=== PATIENT | female | born 1940 | race Two or more races ===

== ENCOUNTER → 2020-05-28 10:24 | Outpatient (BNVA) | payer MEDICARE, OTHER, SELFPAY | PROVIDERS: PCP Internal Medicine; Visit Provider Hospitalist | DX: R91.1 Solitary pulmonary nodule (principal); J44.9 Chronic obstructive pulmonary disease, unspecified | CPT/HCPCS: 99212 ==

== ENCOUNTER 2020-08-31 09:04 | Outpatient (REF) | payer MEDICARE, OTHER, SELFPAY ==
--- NOTE | ~2020-08-31 | CT_ITS ---
EXAMINATION: CT CHEST WITHOUT CONTRAST CLINICAL INFORMATION: Solitary pulmonary nodule. COMPARISON: None. TECHNIQUE: Multidetector volumetric CT imaging of the chest was done. Axial MIP volume rendering provided. Sagittal and coronal reformatted images were obtained. This CT examination was performed using dose optimization techniques as appropriate, variously including the following: *Automated exposure control *Adjustment of mA and/or kV according to patient size (this includes techniques or standardized protocols for targeted exams where dose is matched to indication/reason for exam; i.e. extremities or head) *Use of iterative reconstruction technique DLP: 149 mGy-cm FINDINGS: FLASH RANGING CREWMEMBER: Unremarkable. LUNGS: The lungs are hyperinflated with bilateral apical pleural thickening and right apical scarring. Again visualized are several small pulmonary nodules: Pleural-based 4 mm nodule right upper lobe image 212/5, 5 mm pleural-based nodule right upper lobe image 258/5, forming nodule superior segment right lower lobe adjacent to the major fissure axial image 194/5, 3.5 mm nodule right lower lobe axial image 334/5, 2 mm calcification right lower lobe image 392/5, 5 mm nodule right lower lobe axial image 401/5, focal nodular 4 mm thickening right major fissure image 398/5 and a 4 mm pleural-based nodule left lower lobe axial image 452/5 are stable. MEDIASTINUM: Thyroid lobes are symmetrical and normal. The central trachea and bronchi are widely patent. PLEURA: There is no pleural effusion. No pleural mass or thickening. AXILLA: No lymphadenopathy. UPPER ABDOMEN: Visualized liver, spleen, pancreas and bilateral adrenal glands are unremarkable. No radiopaque gallstones seen. OSSEOUS STRUCTURES: There is mild ventral spondylosis dorsal spine. No lytic process. CT/CT chest wo con IMPRESSION: Hyperinflated lungs without acute pneumonic consolidation. Multiple pulmonary nodules are stable. There are small calcified nodules which is stable as well. No abnormal mediastinal, hilar or axillary lymphadenopathy seen.
== END 2020-08-31 09:05 | disposition home or self-care (01) ==
LOC: HO.CT 09:04
PROVIDERS: PCP Internal Medicine; Visit Provider Hospitalist
DX: R91.1 Solitary pulmonary nodule (principal)
CPT/HCPCS: 71250

== ENCOUNTER → 2020-09-24 09:51 | Outpatient (BNVA) | payer MEDICARE, OTHER, SELFPAY | PROVIDERS: PCP Internal Medicine; Visit Provider Hospitalist | DX: R91.1 Solitary pulmonary nodule (principal); J43.2 Centrilobular emphysema | CPT/HCPCS: 99212 ==

== ENCOUNTER 2020-11-11 10:28 | Outpatient (REF) | payer MEDICARE, OTHER, SELFPAY ==
--- NOTE | ~2020-11-11 | XR_ITS ---
EXAMINATION: XR KNEES STANDING, BILATERAL XR KNEE, RIGHT CLINICAL INFORMATION: Pain. COMPARISON: None TECHNIQUE: AP standing view of both knees. 2 additional views of the right knee. FINDINGS: No fracture or dislocation. Mild narrowing of the tibiofemoral compartments in both knees. No definite effusion. XR/XR knee RT 2V IMPRESSION: Mild degenerative change in the knees.
--- NOTE | ~2020-11-11 | XR_ITS ---
EXAMINATION: XR KNEES STANDING, BILATERAL XR KNEE, RIGHT CLINICAL INFORMATION: Pain. COMPARISON: None TECHNIQUE: AP standing view of both knees. 2 additional views of the right knee. FINDINGS: No fracture or dislocation. Mild narrowing of the tibiofemoral compartments in both knees. No definite effusion. XR/XR knee standing BI IMPRESSION: Mild degenerative change in the knees.
== END 2020-11-11 10:29 | disposition home or self-care (01) ==
LOC: HO.HOSX 10:28
PROVIDERS: Visit Provider Orthopaedic Surgery
DX: M17.10 Unilateral primary osteoarthritis, unspecified knee (principal)
CPT/HCPCS: 20610; 73560; 73565; 99202; J1100

== ENCOUNTER 2020-12-18 20:31 | Emergency (ER) | payer MEDICARE, OTHER, SELFPAY ==
[2020-12-18 20:34] VITALS: BP 134/60; PULSE 59; RESP 18; TEMP 36.7; O2SAT 96; BMI 28.3
--- NOTE | 2020-12-18 21:11 | ED.FALL ---
HPI - Fall General Chief Complaint: Fall Stated Complaint: Fall/Head injury Time Seen by Provider: 12/18/20 21:11 Source: patient Mode of arrival: ambulatory History of Present Illness HPI Narrative: 80-year-old female with history of COPD presents with laceration to mid forehead and denies any use of blood thinners and states that she was out at a restaurant was attempting to locate the toilet paper dispenser that contained of full roller toilet paper became unsteady and struck her head on the edge of the dispenser without loss of consciousness. Patient denies any associated palpitations recent fevers/chills, and denies any urinary pain / burning/frequency. She states her last tetanus was within the past year. Related Data Home Medications Medication Instructions Recorded Confirmed albuterol sulfate mg INHALATION 05/28/20 05/28/20 albuterol sulfate 90 mcg/actuation 2 puff PO Q4H PRN 05/28/20 09/24/20 aerosol inhaler azelaic acid 15 % topical gel TOPICAL BID 05/28/20 05/28/20 citalopram 40 mg tablet 40 mg PO DAILY 05/28/20 09/24/20 flu vac qs 2020(4 yr up)CD(PF) ml IM 05/28/20 09/24/20 nebulizer and compressor #1 ea 05/28/20 09/24/20 omeprazole 40 mg capsule,delayed 40 mg PO DAILY 05/28/20 09/24/20 release rosuvastatin 20 mg tablet 20 mg PO BEDTIME 05/28/20 09/24/20 sulfamethoxazole 800 1 tab PO BID 11/11/20 mg-trimethoprim 160 mg tablet Previous Rx's Medication Instructions Recorded fluticasone fur. 100 mcg-umeclid 1 inh INHALATION DAILY 90 Days #3 06/21/20 62.5 mcg-vilant 25 mcg ea inhalat.powder Allergies Allergy/AdvReac Type Severity Reaction Status Date / Time No Known Allergies Allergy Mild NONE Verified 11/11/20 12:44 Review of Systems Review of Systems: Pertinent positives and negatives as stated in HPI 10 point review of systems is otherwise negative. PMFSH Past Medical History Source: nursing notes reviewed Medical History COPD (chronic obstructive pulmonary disease) COVID-19 Pulmonary nodule Social History Social History Alcohol intake: current Alcohol intake frequency: holidays/special occasions only Patient Tobacco Use Status: Former Tobacco user Years Smoked: 30 years Advance Directives: No Advance Directives Information Provided: Yes Current occupational status: retired Gender identity: female Physical Exam Vital Signs: Vital Signs: Last Vital Signs Temp 98.1 F 12/18/20 20:34 Pulse 59 12/18/20 20:34 Resp 18 12/18/20 20:34 BP 134/60 12/18/20 20:34 Pulse Ox 96 12/18/20 20:34 Body Mass Index 28.3 VITAL SIGNS: Reviewed. GENERAL: Well developed, well nourished, in no acute distress. HEAD: Normocephalic/ 2 cm superficial laceration to mid forehead that is hemostatic EYES: PERRLA, EOMI EARS: Ext canals without abnormality NOSE: Nares patent bilateral OROPHARYNX: no oral lesions noted, posterior pharynx clear NECK: Supple, no adenopathy LUNGS: Normal breath sounds. No adventitious sounds or accessory muscle use. SpO2<96> CARDIOVASCULAR: Regular rate and rhythm without noted murmurs, no JVD or lower extremity edema. ABDOMEN: Soft, non-tender, non-distended with bowel sounds. SKIN: Inspection of the skin reveals no rashes NEUROLOGIC: Alert and oriented x 4. Strength and sensation to light touch were grossly intact x 4. Course Course Course Narrative: This is an 80-year-old female with history and clinical presentation consistent with superficial laceration to mid forehead that is hemostatic. patient had laceration repaired without complication was discharged home in stable condition. Procedures Laceration Laceration 1: Site: face Size (cm): 2 Description: linear Depth: simple, single layer Local Anesthetic: lidocaine 1% Amount of anesthesia used (mL): 2 Pre-repair: wound explored, irrigated extensively and deep structures intact Skin layer closed with: other ( Prolene) Size (cm): 6-0 Number of sutures: 5 Technique: simple, interrupted Discharge Plan Discharge Clinical Impression: Laceration Patient Disposition: Home, Self-Care Instructions: Care For Your Stitches (ED), Laceration (ED) Additional Instructions: 1. Resume all home medications as prescribed. 2. follow-up with your primary care provider in 2-3 days for re-evaluation and further outpatient management. 3. you will need to have your sutures removed in 5 days, this can be done either by a your primary care provider / urgent care /or returning to this emergency room. Return to the ER for any acute worsening of symptoms. Prescriptions: No Action Trelegy Ellipta 100-62.5-25 mcg blister with device 1 inh inhalation DAILY 90 Days Qty: 3 RF: 1 Flucelvax Quad [id number] (PF) 60 mcg (15 mcg x 4)/0.5 mL syringe IM RF: 0 citalopram 40 mg tablet 40 mg PO DAILY RF: 0 azelaic acid 15 % gel topical BID RF: 0 rosuvastatin 20 mg tablet 20 mg PO BEDTIME RF: 0 omeprazole 40 mg capsule,delayed release(DR/EC) 40 mg PO DAILY RF: 0 (DME) [employer]ios Aerosol Delivery System Device See Rx Instructions ea .ROUTE DIRECTED Qty: 1 RF: 0 albuterol sulfate 2.5 mg /3 mL (0.083 %) solution for nebulization inhalation RF: 0 albuterol sulfate 90 mcg/actuation HFA aerosol inhaler 2 puff PO Q4H PRNRF: 0 sulfamethoxazole-trimethoprim 800-160 mg tablet 1 tab PO BID RF: 0 Referrals: Jack León MD [Primary Care Provider] - 2 days
[2020-12-18] MEDS: Lidocaine HCl 1 % MPF 5 ML VIAL INFILTRATI (21:52)
[2020-12-18] MEDS: Acetaminophen 325 MG TABLET 975 MG PO (21:52)
--- NOTE | 2020-12-18 21:58 | PC.NURSE ---
PT UNABLE TO URINATE AT THIS TIME DR. DEE AWARE AND BELIEVES TEST IS NOT NEED AT THIS TIME. PT A+Ox3 NEURO INTACT. PT DENIES FALL LOC, DENIES DIZZYNESS, NAUSEA, OR CHANGE IN VISION.
--- NOTE | 2020-12-18 22:01 | PC.NURSE ---
PT LAC CLEANED AND SUTURED BY DR. DEE. MATERIAL REQUISITIONER WITH ANTIBIOTIC CREAM APPLIED.
== END 2020-12-18 22:01 | disposition home or self-care (01) ==
PROVIDERS: Emergency Provider Student in an Organized Health Care Education/Training Program; PCP Internal Medicine
DX: S01.81XA Laceration without foreign body of other part of head, initial encounter (principal); W22.09XA Striking against other stationary object, initial encounter; J44.9 Chronic obstructive pulmonary disease, unspecified; Y93.E8 Activity, other personal hygiene; Y92.511 Restaurant or cafe as the place of occurrence of the external cause; Y99.9 Unspecified external cause status; Z87.891 Personal history of nicotine dependence
CPT/HCPCS: 12011; 99284

== ENCOUNTER → 2021-07-14 12:56 | Outpatient (BNVA) | payer MEDICARE, OTHER, SELFPAY | PROVIDERS: PCP Internal Medicine; Referring Provider Internal Medicine; Visit Provider Internal Medicine Cardiovascular Disease | DX: I65.23 Occlusion and stenosis of bilateral carotid arteries (principal); E78.5 Hyperlipidemia, unspecified | CPT/HCPCS: 93005; 99212 ==

== ENCOUNTER 2021-07-28 12:56 | Outpatient (REF) | payer MEDICARE, OTHER, SELFPAY ==
--- NOTE | ~2021-07-28 | US_ITS ---
EXAMINATION: US EXTRACRANIAL CAROTID DUPLEX, BILATERAL CLINICAL INFORMATION: This is an 80-year-old female with carotid stenosis. Carotid artery disease. Occlusion and stenosis of bilateral carotid arteries. COMPARISON: Comparison is made to a previous study dated 07/03/2019 which demonstrated bilateral 0-49% internal carotid artery stenoses. TECHNIQUE: Real-time ultrasound and Doppler techniques (integrating B-mode 2-D vascular images, Doppler spectral analysis and color-flow Doppler imaging) were utilized to interrogate the extracranial carotid arteries, the vertebral arteries and proximal subclavian arteries bilaterally. The degree of stenosis is determined by criteria similar to NASCET. FINDINGS: Right Side: 1. There is minimal atherosclerotic plaque seen in the bifurcation/proximal ICA region. 2. The common carotid artery PSV proximally is 126 cm/s and distally 97 cm/s. 3. The proximal internal carotid artery velocities are 75 cm/s systolic and 12 cm/s diastolic. 4. The proximal external carotid artery PSV is 106 cm/s. 5. The vertebral artery shows antegrade flow. 6. The subclavian artery waveforms are normal. Left Side: 1. There is minimal atherosclerotic plaque seen in the bifurcation/proximal ICA region. 2. The common carotid artery PSV proximally is 113 cm/s and distally 105 cm/s. 3. The proximal internal carotid artery velocities are 114 cm/s systolic and 27 cm/s diastolic. 4. The proximal external carotid artery PSV is 119 cm/s. 5. The vertebral artery shows antegrade flow. 6. The subclavian artery waveforms are normal. US/US carotid duplex BI IMPRESSION: 1. RIGHT: Minimal, non-hemodynamically significant stenosis of the proximal right internal carotid artery corresponding to a 0-49% stenosis by velocity criteria. 2. LEFT: Minimal, non-hemodynamically significant stenosis of the proximal left internal carotid artery corresponding to a 0-49% stenosis by velocity criteria. 3. There is no change in the category severity of disease when compared to the previous study dated 07/03/2019 .
== END 2021-07-28 12:57 | disposition home or self-care (01) ==
LOC: HO.HMGCX 12:56
PROVIDERS: Visit Provider Internal Medicine Cardiovascular Disease
DX: I65.23 Occlusion and stenosis of bilateral carotid arteries (principal)
CPT/HCPCS: 93880

== ENCOUNTER 2021-08-23 10:22 | Outpatient (REF) | payer MEDICARE, OTHER, SELFPAY ==
--- NOTE | ~2021-08-23 | CT_ITS ---
EXAMINATION: CT CHEST WITHOUT CONTRAST CLINICAL INFORMATION: Pulmonary nodule COMPARISON: Previous chest CT most recent August 2020 TECHNIQUE: Multidetector volumetric CT imaging of the chest was done. Axial MIP volume rendering provided. Sagittal and coronal reformatted images were obtained. This CT examination was performed using dose optimization techniques as appropriate, variously including the following: *Automated exposure control *Adjustment of mA and/or kV according to patient size (this includes techniques or standardized protocols for targeted exams where dose is matched to indication/reason for exam; i.e. extremities or head) *Use of iterative reconstruction technique DLP: 144 mGy-cm FINDINGS: LUNGS: There is mild biapical pleural and parenchymal scarring. There are mild emphysematous changes. There are new clustered small peribronchial left upper lobe nodules, largest measuring 4 mm axial image 160 series 6. There is interval increase in peripheral right lower lobe nodule measuring 6 mm axial image 339 series 6 compared to 4 mm axial image 4 2 series 5 on previous exam. There is interval increase in 5 mm peripheral or subpleural left lower lobe nodule axial image 380 series 6 compared to 4 mm axial image 452 series 5 previous exam. Otherwise bilateral solid pulmonary nodules are stable. There is a 8 mm groundglass attenuation nodule in the left upper lobe axial image 73 series 6 that is stable. There is a heterogeneous partially groundglass attenuation partially solid 7 mm left upper lobe nodule axial image 93 series 6 that is stable. There is a 7 x 12 mm groundglass attenuation left upper lobe nodule axial image 103 series 6 that is stable and there is a 3 x 7 mm groundglass attenuation right upper lobe nodule axial image 150 series 6 that is stable. There is a 0.6 x 1.3 cm groundglass attenuation area in the right lower lobe axial image 227 series 6 that is increased from 4 x 6 mm axial image 280 series 5 on previous exam. There is scarring or subsegmental atelectasis seen at the left lung base and anterior right upper lobe that is able. MEDIASTINUM: There is coronary artery and aortic valve calcification. There is a trace pericardial effusion. The mediastinum is otherwise normal. PLEURA: There is no pleural effusion. No pleural mass or thickening. There is a small left posterior medial diaphragmatic hernia containing fat. AXILLA: There is evidence of previous surgery to the right breast. No chest wall mass or enlarged axillary lymph nodes are seen. UPPER ABDOMEN: There are gallstones in the gallbladder. OSSEOUS STRUCTURES: There are degenerative changes of the spine. CT/CT chest wo con IMPRESSION: Emphysema. Slight interval increase in groundglass attenuation right lower lobe nodule and solid right and left lower lobe nodules. Otherwise no change from previous exam. Fleischner guidelines were followed.
== END 2021-08-23 10:23 | disposition home or self-care (01) ==
LOC: HO.CT 10:22
PROVIDERS: Visit Provider Hospitalist
DX: R91.1 Solitary pulmonary nodule (principal)
CPT/HCPCS: 71250

== ENCOUNTER 2021-09-08 10:47 | Outpatient (REF) | payer MEDICARE, OTHER, SELFPAY ==
--- NOTE | 2021-09-08 17:32 | PFT_ITS ---
FLOWS: FEV1 75% of predicted at 1.48 L. FVC 75% of predicted at 1.99 L. FEV1 to FVC ratio of 0.75. No bronchodilator response except in small to medium airways. LUNG VOLUMES: Total lung capacity 87% of predicted at 4.48 L. Residual volume 106% of predicted at 2.60 L. Slow vital capacity 69% of predicted at 1.88 L. Expiratory reserve volume 39% of predicted at 0.21 L. Diffusion capacity is moderately decreased, diffusion capacity corrects to being mildly decreased after adjustment for alveolar ventilation. IMPRESSION: No obstructive or restrictive ventilatory defect. No bronchodilator response except in small to medium airways. Decreased expiratory reserve volume suggests extrathoracic restriction, likely secondary to abdominal obesity. Decreased diffusion capacity suggests emphysema. MD CHARITO Saleem/MODL / [id number]
== END 2021-09-08 10:48 | disposition home or self-care (01) ==
LOC: HO.RESP 10:47
PROVIDERS: PCP Internal Medicine; Visit Provider Hospitalist
DX: R91.1 Solitary pulmonary nodule (principal)
CPT/HCPCS: 94060; 94727; 94729

== ENCOUNTER 2021-09-18 17:08 | Inpatient (IN) | payer MEDICARE, OTHER, SELFPAY ==
--- NOTE | ~2021-09-18 | XR_ITS ---
EXAMINATION: XR CHEST CLINICAL INFORMATION: Question of aspiration post intubation COMPARISON: 02/06/2020 TECHNIQUE: Frontal view of the chest was obtained. FINDINGS: Low lung volumes exaggerate prominence of the bronchovascular markings. Streaky opacities within the left lower lobe. Small left pleural effusion with accompanying atelectasis. Pulmonary venous congestion without overt edema. Normal heart size. Aorta is atherosclerotic. No pneumothorax. XR/XR chest 1V IMPRESSION: Left lower lobe streaky opacities potentially subsegmental atelectasis versus infiltrate. Small left pleural effusion and accompanying atelectasis.
--- NOTE | ~2021-09-18 | CT_ITS ---
EXAMINATION: CT ABDOMEN AND PELVIS WITH CONTRAST CLINICAL INFORMATION: Diffuse abdominal pain with question of bowel perforation COMPARISON: None TECHNIQUE: Multidetector volumetric images were obtained from the superior aspect of the liver through the pubic symphysis following administration 85 mL of Omnipaque 350 intravenous contrast. Sagittal and coronal reformatted images were obtained on the technologist's workstation. Oral contrast: No This CT examination was performed using dose optimization techniques as appropriate, variously including the following: *Automated exposure control *Adjustment of mA and/or kV according to patient size (this includes techniques or standardized protocols for targeted exams where dose is matched to indication/reason for exam; i.e. extremities or head) *Use of iterative reconstruction technique DLP: 553 mGy-cm FINDINGS: LUNG BASES: A few nodules are noted at the right lung base with a 2 largest measuring 5 mm in size (4:35 and 98). No consolidations. No pleural effusions. LIVER, GALLBLADDER, AND BILIARY TREE: The liver is normal in size, shape, and attenuation. No focal hepatic lesion or biliary ductal dilatation is present. The gallbladder is unremarkable with no evidence of radiopaque gallstones, gallbladder wall thickening, or obvious pericholecystic inflammatory changes. A phrygian cap is present. PANCREAS: Unremarkable. SPLEEN: Unremarkable. ADRENAL GLANDS: Unremarkable. KIDNEYS AND URETERS: The kidneys are normal in size, shape, and attenuation. No hydronephrosis, hydroureter, or calculi seen. No perinephric stranding. BLADDER: Unremarkable. PERITONEUM: Free intraperitoneal air is present in the upper abdomen, mesentery and pelvis. A small amount of free pelvic fluid is seen. GASTROINTESTINAL TRACT: Colonic diverticulosis is present but there is no definite convincing evidence evidence of diverticulitis. The exact source of bowel rupture is not seen. There is no evidence of ulcer disease in the stomach or duodenum. No definite convincing evidence of diverticulitis. The small bowel is unremarkable. The appendix is unremarkable. ABDOMINAL WALL: No significant hernia is appreciated. There are small inguinal hernia seen containing only fat. LYMPH NODES: Normal. VASCULAR: Unremarkable. PELVIC VISCERA: Small amount of free fluid is present in the pelvis. A 3.4 cm water density right ovarian cyst is present. OSSEOUS STRUCTURES: Degenerative changes present at L4-L5 and L5-S1. There is mild grade 1 retrolisthesis with backward slippage of L1 upon L2. No bony destructive lesions CT/CT abdomen pelvis w con IMPRESSION: Free intraperitoneal air is present indicative of ruptured bowel. The exact site of rupture has not been ascertained but I suspect this is related to the patient's diverticular disease with an occult ruptured diverticulum. Right ovarian cystic mass. Further evaluation is recommended with ultrasound as such a finding is not normal in a patient of this age. This critical result was discussed with Dr. Karol Landaverde at 11:20 PM on the evening of the exam and it was ascertained that the content and urgency of the report was understood at the time of direct communication. Fleischner guidelines were followed.
[2021-09-18 18:27] VITALS: BP 172/72; PULSE 66; RESP 18; TEMP 35.7; O2SAT 97; BMI 26.6
[2021-09-18 20:50] LABS: MANUAL DIFF FLAG NO
[2021-09-18 20:59] LABS: Basophils Percent Auto 0.1 % (0-2); Eosinophils Percent Auto 0.1 % (0-4); Hematocrit 41.4 % (37.0-47.0); Hemoglobin 13.2 g/dl (12.0-16.0); Imm Gran Abs Auto 0.04 X10*3/uL (0.00-0.03); Imm Gran Pct Auto 0.2 % (0.0-0.4); Lymphocytes Absolute Auto 1.3 X10*3/uL (1.2-4.9); Lymphocytes Percent Auto 7.3 % (20-40); Mean Corpuscular HGB Conc 31.9 g/dl (31.0-35.0); Mean Corpuscular Hemoglobin 30.6 pg (27.0-33.0); Mean Corpuscular Volume 95.8 fL (80.0-98.0); Mean Platelet Volume 9.6 fL (9.4-12.3); Monocytes Absolute Auto 0.7 X10*3/uL (0.1-1.2); Monocytes Percent Auto 3.8 % (2-11); Neutrophils Absolute Auto 15.7 x10*3/uL (2.0-8.3); Neutrophils Percent Auto 88.5 % (45-73); Platelet Count 449 X10*3/uL (160-400); Red Blood Count 4.32 X10*6/uL (4.20-5.50); Red Cell Distribution Width 13.3 % (11.0-16.0); White Blood Count 17.7 X10*3/uL (4.8-10.8)
[2021-09-18 21:11] LABS: Alanine Aminotransferase 16 U/L (0-31); Albumin Level 4.2 g/dL (3.5-5.0); Alkaline Phosphatase 80 U/L (39-117); Anion Gap 14 (12-20); Aspartate Amino Transferase 15 U/L (5-31); Bilirubin Total 0.5 mg/dL (0.0-1.0); Blood Urea Nitrogen 24 mg/dL (9-16); Calcium 10.2 mg/dL (8.4-10.2); Carbon Dioxide 24 mmol/L (22-29); Chloride 107 mmol/L (96-108); Creatinine Clr Calc Pharmacy 58.1; Estimated Glomerular Filt Rate > 60; Glucose Random 123 mg/dL (60-115); Lipase 12 U/L (8-78); Sodium 141 mmol/L (135-145); Total Protein 6.8 g/dL (6.5-8.0)
--- NOTE | 2021-09-18 22:17 | ED_ITS ---
HPI - General Adult General Chief complaint: General Medical Stated complaint: abd and lower back pain Time Seen by Provider: 09/18/21 21:45 Source: patient Mode of arrival: ambulatory History of Present Illness HPI narrative: 80-year-old female with history of celiacs and COPD who presents with acute onset of lower abdominal pain and states she has been unable to pass flatus and has had multiple episodes of nausea and vomiting and feels heaviness and pain within her lower abdomen and pelvis as well as having chills. Related Data Home Medications Medication Instructions Recorded Confirmed albuterol sulfate mg INHALATION 05/28/20 07/14/21 albuterol sulfate 90 mcg/actuation 2 puff PO Q4H PRN 05/28/20 07/14/21 aerosol inhaler azelaic acid 15 % topical gel TOPICAL BID 05/28/20 05/28/20 citalopram 40 mg tablet 40 mg PO DAILY 05/28/20 07/14/21 flu vac qs 2019(4 yr up)CD(PF) ml IM 05/28/20 09/24/20 nebulizer and compressor #1 ea 05/28/20 09/24/20 omeprazole 40 mg capsule,delayed 40 mg PO DAILY 05/28/20 07/14/21 release rosuvastatin 20 mg tablet 20 mg PO BEDTIME 05/28/20 07/14/21 Previous Rx's Medication Instructions Recorded fluticasone fur. 100 mcg-umeclid 1 inh INHALATION DAILY #180 ea 12/21/20 62.5 mcg-vilant 25 mcg inhalat.powder (Trelegy Ellipta) Allergies Allergy/AdvReac Type Severity Reaction Status Date / Time No Known Allergies Allergy Mild NONE Verified 11/11/20 12:44 Review of Systems Review of Systems: Pertinent positives and negatives as stated in HPI 10 point review of systems is otherwise negative. PMFSH Past Medical History Source: nursing notes reviewed Medical History Atherosclerosis of both carotid arteries COPD (chronic obstructive pulmonary disease) COVID-19 Hyperlipidemia Pulmonary nodule Social History Social History Alcohol intake: current Alcohol intake frequency: holidays/special occasions only Patient Tobacco Use Status: Former Tobacco user Years Smoked: 30 years Advance Directives: No Current occupational status: retired Gender identity: Female Physical Exam ED Vital Signs: Vital Signs - 24 hr 09/18/21 18:27 09/18/21 22:31 Temperature 96.3 F L Pulse Rate 66 77 Respiratory Rate 18 16 Blood Pressure 172/72 H 148/59 H Pulse Oximetry 97 97 BMI result Body Mass Index 26.6 VITAL SIGNS: Reviewed. GENERAL: Elderly, chronically ill, moderate painful distress. HEAD: Normocephalic/atraumatic EYES: PERRLA, EOMI EARS: Ext canals without abnormality OROPHARYNX: no oral lesions noted, posterior pharynx clear LUNGS: Normal breath sounds. No adventitious sounds or accessory muscle use. SpO2<97> CARDIOVASCULAR: Regular rate and rhythm without noted murmurs, no JVD or lower extremity edema. ABDOMEN: Soft, diffuse abdominal tenderness consistent with peritonitis, distended with bowel sounds. MUSCULOSKELETAL: No tenderness, deformities, or effusions noted on gross inspection. EXTREMITIES: No cyanosis, clubbing or edema. SKIN: Inspection of the skin reveals no rashes NEUROLOGIC: Alert and oriented x 4. Strength and sensation to light touch were grossly intact x 4. Course Course Course Narrative: 80-year-old female with history and clinical presentation concerning for perforation, SBO, diverticulitis. Review of all investigations significant for perforation with free fluid, Surgical Services was contacted and patient will be going to the OR. She has received antibiotics and will be typed and screened as well as COVID tested. Patient was informed of all all results and findings and the plan. She is otherwise hemodynamically stable. Medical Decision Making Lab Data Result diagrams: 09/18/21 20:42 09/18/21 20:42 Labs: Lab Results 09/18/21 09/18/21 Range/Units 20:42 20:42 WBC 17.7 H (4.8-10.8) X10*3/uL RBC 4.32 (4.20-5.50) X10*6/uL Hgb 13.2 (12.0-16.0) g/dl Hct 41.4 (37.0-47.0) % MCV 95.8 (80.0-98.0) fL MCH 30.6 (27.0-33.0) pg MCHC 31.9 (31.0-35.0) g/dl RDW 13.3 (11.0-16.0) % Plt Count 449 H (160-400) X10*3/uL MPV 9.6 (9.4-12.3) fL Immature Gran % (Auto) 0.2 (0.0-0.4) % Neut % (Auto) 88.5 H (45-73) % Lymph % (Auto) 7.3 L (20-40) % [place] % (Auto) 3.8 (2-11) % Eos % (Auto) 0.1 (0-4) % Baso % (Auto) 0.1 (0-2) % Lymph # (Auto) 1.3 (1.2-4.9) X10*3/uL [place] # (Auto) 0.7 (0.1-1.2) X10*3/uL Eos # (Auto) 0.0 (0.0-0.4) X10*3/uL Baso # (Auto) 0.0 (0.0-0.2) X10*3/uL Abs Immat Gran (auto) 0.04 H (0.00-0.03) X10*3/uL Absolute Neuts (auto) 15.7 H (2.0-8.3) x10*3/uL Absolute Nucleated RBC 0.000 (0.0-0.012) X10*3/uL Nucleated RBC % (auto) 0.0 (0.0-0.2) /100WBC Sodium 141 (135-145) mmol/L Potassium 4.0 (3.3-5.1) mmol/L Chloride 107 (96-108) mmol/L Carbon Dioxide 24 (22-29) mmol/L Anion Gap 14 (12-20) BUN 24 H (9-16) mg/dL Creatinine 0.77 (0.5-1.4) mg/dL Estim Creat Clear Calc 58.1 Estimated GFR > 60 Random Glucose 123 H (60-115) mg/dL Calcium 10.2 (8.4-10.2) mg/dL Total Bilirubin 0.5 (0.0-1.0) mg/dL AST 15 (5-31) U/L ALT 16 (0-31) U/L Alkaline Phosphatase 80 (39-117) U/L Total Protein 6.8 (6.5-8.0) g/dL Albumin 4.2 (3.5-5.0) g/dL Lipase 12 (8-78) U/L Discharge Plan Discharge Clinical Impression: Perforation bowel, COPD (chronic obstructive pulmonary disease), Celiac disease Patient Disposition: Admitted As Inpatient Prescriptions: No Action [id number] [Trelegy Ellipta] 100-62.5-25 mcg blister with device 1 inh inhalation DAILY Qty: 180 3RF Flucelvax Quad [id number] (PF) 60 mcg (15 mcg x 4)/0.5 mL syringe IM 0RF citalopram 40 mg tablet 40 mg PO DAILY 0RF azelaic acid 15 % gel topical BID 0RF rosuvastatin 20 mg tablet 20 mg PO BEDTIME 0RF omeprazole 40 mg capsule,delayed release(DR/EC) 40 mg PO DAILY 0RF (DME) Vios Aerosol Delivery System Device See Rx Instructions ea .ROUTE DIRECTED Qty: 1 0RF Rx Instructions: As directed albuterol sulfate 2.5 mg /3 mL (0.083 %) solution for nebulization inhalation 0RF albuterol sulfate 90 mcg/actuation HFA aerosol inhaler 2 puff PO Q4H PRN0RF
[2021-09-18 22:31] VITALS: BP 148/59; PULSE 77; RESP 16; O2SAT 97
[2021-09-18] MEDS: iohexoL 350 MG/ML 100 ML INFUS..BTL IV (22:50)
--- NOTE | 2021-09-18 22:55 | ECG_ITS ---
Test Reason : ABD PERF Blood Pressure : / mmHG Vent. Rate : 088 BPM Atrial Rate : 088 BPM P-R Int : 152 ms QRS Dur : 078 ms QT Int : 382 ms P-R-T Axes : 021 012 020 degrees QTc Int : 462 ms Normal sinus rhythm Normal ECG When compared with ECG of 20-DEC-2012 06:58, No significant change was found Referred By: Karol Landaverde Electronically Signed By:ROSE MARY LE MD
[2021-09-18] MEDS: Piperacillin Sodium/Tazobactam 3.375 GM in 0.9 % Sodium Chloride 50 ML IV (23:01)
[2021-09-18] MEDS: ondansetron HCL 4 MG/2 ML VIAL IVPUSH (23:01)
[2021-09-18] MEDS: fentaNYL citrate/PF 100 MCG/2 ML VIAL 25 MCG IVPUSH (23:01)
[2021-09-18 23:14] LABS: COVID-19 Test Negative (Negative)
[2021-09-18 23:25] LABS: Lactic Acid 2.4 mmol/L (0.5-2.0)
--- NOTE | 2021-09-18 23:42 | P.HPGS_ITS ---
History of Present Illness History of Present Illness Date of Service: 09/20/21 Chief complaint: perforated viscus Narrative: Camille Hernandez is a 80 year old female who came to the ED earlier today because of abdominal pain. She says she was doing well today in her usual state of health. She went to have a bowel movement around 3 pm and tehn had sudden severe abdominal pain. She says this was diffuse. She described some vomitting as well. In view of her pain, she came to the ED. She had a CT scan showing free air in the peritoneum. She denies taking NSAIDS frequently even as she says she has arthritis of both knees. She is an ex-smoker and had quit 30 years ago. She says she still leads a relatively active lifestyle. She has a history of a tubal ligation and a TRAM flap after mastectomy for right breast cancer. Review of Systems Constitutional: Constitutional: Denies chills and Denies fever(s) Cardiovascular: Cardiovascular: Denies chest pain, Denies dyspnea and Denies dyspnea on exertion Respiratory: Respiratory: Denies cough, Denies dyspnea and Denies dyspnea on exertion Gastrointestinal: Gastrointestinal: Denies hematochezia and Denies change in bowel habits Genitourinary: Genitourinary: Denies hematuria Musculoskeletal: Musculoskeletal: Denies back pain and Denies limited range of motion Neurologic: Denies focal weakness and Denies convulsions Psychiatric: Psychiatric: Denies depression and Denies mood swings PMFSH Past Medical History Medical History (Updated 09/20/21 @ 12:11 by Brenda Morris PA-C) Atherosclerosis of both carotid arteries COPD (chronic obstructive pulmonary disease) COVID-19 Hyperlipidemia Perforated viscus Pulmonary nodule Sepsis Surgical History Surgical History (Updated 09/20/21 @ 12:11 by Brenda Morris PA-C) H/O right mastectomy History of tubal ligation Social History Social History Alcohol intake: current Alcohol intake frequency: holidays/special occasions only Patient Tobacco Use Status: Former Tobacco user Years Smoked: 30 years service: No Current occupational status: retired Gender identity: Female Meds Allergies Allergy/AdvReac Type Severity Reaction Status Date / Time No Known Allergies Allergy Mild NONE Verified 11/11/20 12:44 Active Medications: Current Medications Lactated Ringer's (Lr) 1,000 mls @ 100 mls/hr IVCONT .Q10H [facility] Cefotetan Disodium 2 gm/ (Sodium Chloride) 50 mls @ 100 mls/hr IV PREOP ONE Stop: 09/19/21 00:04 Sodium Chloride (0.9 % Sodium Chloride Flush 3 Ml Syringe) 3 ml IVFLUSH QSHIFT [facility] Home Medications Medication Instructions Recorded Confirmed Last Taken Type nebulizer and compressor #1 ea 05/28/20 09/24/20 Unknown History omeprazole 40 mg capsule,delayed 40 mg PO DAILY 05/28/20 09/19/21 09/18/21 History release aspirin 81 mg tablet,delayed 81 mg PO DAILY 09/19/21 09/19/21 09/18/21 History release fluticasone fur. 100 mcg-umeclid 1 puff INHALATION DAILY 09/19/21 09/19/21 09/18/21 History 62.5 mcg-vilant 25 mcg inhalat.powder (Trelegy Ellipta) meloxicam 15 mg tablet 1 tab PO DAILY 09/19/21 09/19/21 09/18/21 History mirabegron 25 mg tablet,extended 1 tab PO DAILY 09/19/21 09/19/21 09/18/21 History release 24 hr (Myrbetriq) rosuvastatin 20 mg tablet 1 tab PO DAILY 09/19/21 09/19/21 09/18/21 History Physical Exam Vital Signs: Vital Signs: Last Vital Signs Temp 96.3 F L 09/18/21 18:27 Pulse 77 09/18/21 22:31 Resp 16 09/18/21 22:31 BP 148/59 H 09/18/21 22:31 Pulse Ox 97 09/18/21 22:31 BMI result Body Mass Index 26.6 Const: General: comfortable and no acute distress Orientation/consciousness: patient oriented x3 Neck: Neck: Yes no lymphadenopathy Resp: Auscultation: clear to auscultation bilaterally Cardio: Rhythm: regular rhythm GI: Palpation (GI): Soft to palpation, Tenderness to palpation present (GI) (diffusely) and Guarding due to palpation present (GI) Neuro: General: patient oriented x3 Results Results Labs: Short CBC 09/18/21 Range/Units 20:42 WBC 17.7 H (4.8-10.8) X10*3/uL Hgb 13.2 (12.0-16.0) g/dl Hct 41.4 (37.0-47.0) % Plt Count 449 H (160-400) X10*3/uL BMP 09/18/21 20:42 Sodium 141 Potassium 4.0 Chloride 107 Carbon Dioxide 24 BUN 24 H Creatinine 0.77 Calcium 10.2 Liver Function 09/18/21 Range/Units 20:42 Total Bilirubin 0.5 (0.0-1.0) mg/dL AST 15 (5-31) U/L ALT 16 (0-31) U/L Alkaline Phosphatase 80 (39-117) U/L Albumin 4.2 (3.5-5.0) g/dL Abdomen CT scan report/results: report reviewed and image reviewed CT scan - pelvis: report reviewed and image reviewed Additional studies: Laboratory Results WBC 17.7 X10*3/uL (4.8-10.8) H 09/18/21 20:42 RBC 4.32 X10*6/uL (4.20-5.50) 09/18/21 20:42 Hgb 13.2 g/dl (12.0-16.0) 09/18/21 20:42 Hct 41.4 % (37.0-47.0) 09/18/21 20:42 MCV 95.8 fL (80.0-98.0) 09/18/21 20:42 MCH 30.6 pg (27.0-33.0) 09/18/21 20:42 MCHC 31.9 g/dl (31.0-35.0) 09/18/21 20:42 RDW 13.3 % (11.0-16.0) 09/18/21 20:42 Plt Count 449 X10*3/uL (160-400) H 09/18/21 20:42 MPV 9.6 fL (9.4-12.3) 09/18/21 20:42 Immature Gran % (Auto) 0.2 % (0.0-0.4) 09/18/21 20:42 Neut % (Auto) 88.5 % (45-73) H 09/18/21 20:42 Lymph % (Auto) 7.3 % (20-40) L 09/18/21 20:42 [place] % (Auto) 3.8 % (2-11) 09/18/21 20:42 Eos % (Auto) 0.1 % (0-4) 09/18/21 20:42 Baso % (Auto) 0.1 % (0-2) 09/18/21 20:42 Lymph # (Auto) 1.3 X10*3/uL (1.2-4.9) 09/18/21 20:42 [place] # (Auto) 0.7 X10*3/uL (0.1-1.2) 09/18/21 20:42 Eos # (Auto) 0.0 X10*3/uL (0.0-0.4) 09/18/21 20:42 Baso # (Auto) 0.0 X10*3/uL (0.0-0.2) 09/18/21 20:42 Abs Immat Gran (auto) 0.04 X10*3/uL (0.00-0.03) H 09/18/21 20:42 Absolute Neuts (auto) 15.7 x10*3/uL (2.0-8.3) H 09/18/21 20:42 Absolute Nucleated RBC 0.000 X10*3/uL (0.0-0.012) 09/18/21 20:42 Nucleated RBC % (auto) 0.0 /100WBC (0.0-0.2) 09/18/21 20:42 Sodium 141 mmol/L (135-145) 09/18/21 20:42 Potassium 4.0 mmol/L (3.3-5.1) 09/18/21 20:42 Chloride 107 mmol/L (96-108) 09/18/21 20:42 Carbon Dioxide 24 mmol/L (22-29) 09/18/21 20:42 Anion Gap 14 (12-20) 09/18/21 20:42 BUN 24 mg/dL (9-16) H 09/18/21 20:42 Creatinine 0.77 mg/dL (0.5-1.4) 09/18/21 20:42 Estim Creat Clear Calc 58.1 09/18/21 20:42 Estimated GFR > 60 09/18/21 20:42 Random Glucose 123 mg/dL (60-115) H 09/18/21 20:42 Lactic Acid 6.8 mmol/L (0.5-2.0) H* 09/19/21 00:45 Calcium 10.2 mg/dL (8.4-10.2) 09/18/21 20:42 Total Bilirubin 0.5 mg/dL (0.0-1.0) 09/18/21 20:42 AST 15 U/L (5-31) 09/18/21 20:42 ALT 16 U/L (0-31) 09/18/21 20:42 Alkaline Phosphatase 80 U/L (39-117) 09/18/21 20:42 Total Protein 6.8 g/dL (6.5-8.0) 09/18/21 20:42 Albumin 4.2 g/dL (3.5-5.0) 09/18/21 20:42 Lipase 12 U/L (8-78) 09/18/21 20:42 COVID-19 (ZHEN) Negative (Negative) 09/18/21 22:50 COVID-19 Clin Com See Note 09/18/21 22:50 Blood Type A Negative 09/18/21 23:18 Antibody Screen NEGATIVE 09/18/21 23:18 Impressions Abdomen/Pelvis CT 09/18/21 22:51 IMPRESSION: Free intraperitoneal air is present indicative of ruptured bowel. The exact site of rupture has not been ascertained but I suspect this is related to the patient's diverticular disease with an occult ruptured diverticulum. Right ovarian cystic mass. Further evaluation is recommended with ultrasound as such a finding is not normal in a patient of this age. This critical result was discussed with Dr. Karol Landaverde at 11:20 PM on the evening of the exam and it was ascertained that the content and urgency of the report was understood at the time of direct communication. Fleischner guidelines were followed. Assessment and Plan (1) Perforated viscus: Status: Acute She has had abdominal starting around 3 pm today, after having a bowel movement. Her CT shows scattered free air in the peritoneum. There is no obvious identifiable etiology, but she does have diverticulosis. There is no wall thi ckening or inflammatory changes around the stomach. She has diffuse tenderness and guarding. I explained to her that we need to proceed with emergency laparotomy. possible bowel resection and stoma. I reviewed the risks, including but not limited to bleeding, infection, injury to bowel, and other organs, NH, respiratory failure, stroke, as well as the benefits and alternatives. She says she understands and agrees to proceed. Her was with her during the discussion. (2) Sepsis: Status: Acute The patient met sepsis criteria. She had leukocytosis. Lactate was elevated and was even more elevated on repeat. The patient received Zosyn and fluid bolus in the ER. Quality Stroke Does the patient have a stroke diagnosis?: No VTE Prior VTE?: No VTE Risk Level:: Medical - moderate - high VTE Device Contraindication: N/A - Device Ordered VTE Drug Contraindication: N/A - Med Ordered Procedures Date of Service Date of Service: 09/18/21
[2021-09-19] VITALS (30 sets, daily range): BP systolic 94–144; BP diastolic 39–63; PULSE 68–97; RESP 12–24; TEMP 36–37.3; O2SAT 90–95; BMI 30.5
[2021-09-19] MEDS: Lactated Ringers 1,000 ML 100 ML IVCONT ×2 (00:02→03:52)
--- NOTE | 2021-09-19 00:26 | PC.NURSE ---
I assumed care of Camille upon her arrival to bed 18 from the waiting room. She presents for evaluation of diffuse abdominal pain and tenderness since approximately 1500. She is alert, oriented x 3, calm and cooperative, makes eye contact with RN and is able to verbalize her needs adequately. Respirations are spontaneous and non-labored, room air sat's WNL, no cyanosis, she is speaking in full sentences. Skin is pink/warm/dry. She ambulated into bed 18 independently and with steady gait. Immediately upon my initial assessment of her she insisted that I not go anywhere near her abdomen, citing extreme pain. IV access and labs were obtained. Pts is at the bedside. Will cotniue to monitor.
--- NOTE | 2021-09-19 00:36 | PC.NURSE ---
Prior to departing Er, when i gave nursing report to OR the staff from OR asked if the pt's has been given IVF's for sepsis protocol. I informed them that I would inquire with Dr. angel, [facility] the pt had not received sepsis IVF. Dr. angel informed hot car charger Isela that sepsis fluids would only be indicated for a lactate greater than 4. I notified TAR HEEL of this.
--- NOTE | 2021-09-19 00:46 | HO.ANESPROP2 ---
HPI - Anesthesia Eval Consult details Narrative: ex lap for perforated viscus PMFSH Active Problems Active Problems: All Active Problems (Updated 09/18/21 @ 23:47 by Robbi Jose MD) Perforated viscus (Acute) History of tubal ligation (Acute) H/O right mastectomy (Acute) Perforation bowel (Acute) Celiac disease (Acute) Hyperlipidemia (Acute) Atherosclerosis of both carotid arteries (Acute) Pulmonary nodule (Acute) COPD (chronic obstructive pulmonary disease) (Acute) Past Medical History Medical History (Updated 09/19/21 @ 03:17 by Robbi Jose MD) Atherosclerosis of both carotid arteries COPD (chronic obstructive pulmonary disease) COVID-19 Hyperlipidemia Perforated viscus Pulmonary nodule Sepsis Family History Family history of problems with anesthesia: No Surgical History Surgical History (Updated 09/18/21 @ 23:46 by Robbi Jose MD) H/O right mastectomy History of tubal ligation History of Problems with Anesthesia: No Social History Social History Alcohol intake: current Alcohol intake frequency: holidays/special occasions only Patient Tobacco Use Status: Former Tobacco user Years Smoked: 30 years Advance Directives: No Current occupational status: retired Gender identity: Female Meds Allergies Allergy/AdvReac Type Severity Reaction Status Date / Time No Known Allergies Allergy Mild NONE Verified 11/11/20 12:44 Active Medications: Current Medications Lactated Ringer's (Lr) 1,000 mls @ 100 mls/hr IVCONT .Q10H PENDING SALE TO [facility] Last Admin: 09/19/21 00:02 Dose: 100 mls/hr Documented by: Sodium Chloride (0.9 % Sodium Chloride Flush 3 Ml Syringe) 3 ml IVFLUSH QSHIFT PENDING SALE TO [facility] Home Medications Medication Instructions Recorded Confirmed Last Taken Type albuterol sulfate mg INHALATION 05/28/20 07/14/21 Unknown History albuterol sulfate 90 mcg/actuation 2 puff PO Q4H PRN 05/28/20 07/14/21 Unknown History aerosol inhaler azelaic acid 15 % topical gel TOPICAL BID 05/28/20 05/28/20 Unknown History citalopram 40 mg tablet 40 mg PO DAILY 05/28/20 07/14/21 Unknown History flu vac qs 2020(4 yr up)CD(PF) ml IM 05/28/20 09/24/20 Unknown History nebulizer and compressor #1 ea 05/28/20 09/24/20 Unknown History omeprazole 40 mg capsule,delayed 40 mg PO DAILY 05/28/20 07/14/21 Unknown History release rosuvastatin 20 mg tablet 20 mg PO BEDTIME 05/28/20 07/14/21 Unknown History Exam Exam Date and Time: September 19, [id number] Height,Weight and Vital Signs: Height 5 ft 5 in Weight 72.575 kg Last Vital Signs Temp 96.3 F L 09/18/21 18:27 Pulse 87 09/19/21 00:31 Resp 16 09/19/21 00:31 BP 139/63 09/19/21 00:31 Pulse Ox 95 09/19/21 00:31 Pertinent Lab Results Pertinent Lab Results: Laboratory Tests 09/18/21 09/18/21 09/18/21 20:42 20:42 22:50 WBC 17.7 H RBC 4.32 Hgb 13.2 Hct 41.4 MCV 95.8 MCH 30.6 MCHC 31.9 RDW 13.3 Plt Count 449 H MPV 9.6 Immature Gran % (Auto) 0.2 Neut % (Auto) 88.5 H Lymph % (Auto) 7.3 L [place] % (Auto) 3.8 Eos % (Auto) 0.1 Baso % (Auto) 0.1 Lymph # (Auto) 1.3 [place] # (Auto) 0.7 Eos # (Auto) 0.0 Baso # (Auto) 0.0 Abs Immat Gran (auto) 0.04 H Absolute Neuts (auto) 15.7 H Absolute Nucleated RBC 0.000 Nucleated RBC % (auto) 0.0 Sodium 141 Potassium 4.0 Chloride 107 Carbon Dioxide 24 Anion Gap 14 BUN 24 H Creatinine 0.77 Estim Creat Clear Calc 58.1 Estimated GFR > 60 Random Glucose 123 H Lactic Acid 2.4 H* Calcium 10.2 Total Bilirubin 0.5 AST 15 ALT 16 Alkaline Phosphatase 80 Total Protein 6.8 Albumin 4.2 Lipase 12 COVID-19 ([facility]EN) COVID-19 Clin Com Blood Type Antibody Screen 09/18/21 09/18/21 22:50 23:18 WBC RBC Hgb Hct MCV MCH MCHC RDW Plt Count MPV Immature Gran % (Auto) Neut % (Auto) Lymph % (Auto) [place] % (Auto) Eos % (Auto) Baso % (Auto) Lymph # (Auto) [place] # (Auto) Eos # (Auto) Baso # (Auto) Abs Immat Gran (auto) Absolute Neuts (auto) Absolute Nucleated RBC Nucleated RBC % (auto) Sodium Potassium Chloride Carbon Dioxide Anion Gap BUN Creatinine Estim Creat Clear Calc Estimated GFR Random Glucose Lactic Acid Calcium Total Bilirubin AST ALT Alkaline Phosphatase Total Protein Albumin Lipase COVID-19 (ZHEN) Negative COVID-19 Clin Com See Note Blood Type A Negative Antibody Screen NEGATIVE Airway Mallampati Class: II TM Dist: >3cm Neck ROM: Full Partial: Upper Loose/Missing/Broken Teeth: Yes Heart: RRR Lungs: CTA Assessment and Plan Assessment Anesthesia Assessment: Anesthesia Plan Discussed and Chart Reviewed Final Anesthetic Review Family History of Problems with Anesthesia: No History of Problems with Anesthesia: No NPO: Yes ASA Class: III and Emergency Final Preanesthetic Review: Meds/Allgs Chart Reviewed, Consent Obtained/Reviewed and Anes Risks/Benef Reviewed Patient Risk: High Procedure Risk: High Anesthetic Plan Anesthetic Plan: GA Disposition: Inp. Admit - ICU
[2021-09-19 00:56] LABS: Reflex Lactate? Lactic Acid Added
[2021-09-19 01:15] LABS: Lactic Acid 6.8 mmol/L (0.5-2.0)
[2021-09-19] MEDS: cefoTEtan disodium 2 GM in 0.9 % Sodium Chloride 50 ML IV (01:22)
[2021-09-19 02:48] LABS: Reflex Lactate? Lactic Acid Added
--- NOTE | 2021-09-19 03:02 | W.PM.OPN ---
Operative Note Operative Note Date of Service: 09/19/21 Narrative: Preop diagnosis: Perforated viscus Postop diagnosis: Perforated diverticular disease Procedure: Exploratory laparotomy, sigmoid resection, end sigmoid colostomy, washout of the pelvis Surgeon: Robbi Jose MD Findings: Large amounts of fluid in the pelvis, with note of some small amounts of stool particles the cul-de-sac; large diverticulum with perforation distal sigmoid near the rectosigmoid; marked localized peritonitis in the pelvis and adjacent small bowel loops; no other inflammatory changes elsewhere in the peritoneum The patient is an 80-year-old female who says that she started to have severe abdominal pain around 03:00 o'clock this afternoon. She came to the ER and a CT scan showed free air with no obvious source. However she did have significant diverticular disease sigmoid. Review of her CT scan shows some inflammatory stranding in the distal sigmoid. She had elevated lactate as well consistent with sepsis. I explained to her the technique of laparotomy and possible resection and colostomy. I reviewed the risks, benefits, and alternatives. She had given consent. She was brought to the operating room placed supine under general anesthesia via endotracheal tube. A Guardado catheter was inserted. The abdomen is prepped and draped in the usual sterile fashion. A surgical time-out was done. The patient received Cefotan 2 g IV preoperatively I made a incision on the midline starting from just above the umbilicus all the way to the suprapubic be area using blade 10. And this was carried down with electrocautery through the full-thickness skin subcutaneous fat. We then encountered mesh consistent likely placed when she had a TRAM flap many years ago for mastectomy for right breast cancer. The mesh covered the entire incision. I divided the mesh in entered the peritoneal cavity. I extended the fascial incision along the mesh to optimize the length of the skin incision. Immediately we noted murky peritoneal fluid in the pelvis. The patient was placed in head-down position to reflect the bowel loops away from the pelvis. I used the Bookwalter retractors and positioned these to allow good visualization of the pelvis. The small bowel loops were packed away from the pelvis using small is labs. The same was done with the cecum which was also distended. There was note of peritonitis in the pelvis. Thick amounts of murky purulent fluid was also seen in the cul-de-sac so we had to irrigate this and suction this out. Cultures were done as well. I examined the sigmoid starting from proximal to distal. I could not initially see any obvious perforation. However there was note of some induration in the distal sigmoid. I irrigated and suctioned out the murky fluid as well as some small amounts of stool particles. I examined the distal sigmoid and I could see a large diverticulum with a hole consistent with a perforated diverticulitis. I therefore mobilized the sigmoid by dividing the peritoneal attachments all the way to the distal left colon along the white line of Toldt. This allowed a good length of mesentery to be mobilized. I continued to divide the peritoneal attachments of the sigmoid all the way to the level of the perforation. I created a mesenteric window distal to the segment with the perforation. I used a TA 60 mm stapler and position this through the mesenteric defect. I stapled this segment of the perforation and divided proximally. The distal stump was therefore stapled closed. I then proceeded to choose a point of dissection in the mid sigmoid and again created a mesenteric window through this. This was divided with the MARLA 60 mm stapler. I then divided the accompanying mesentery using the LigaSure and this segment of the distal sigmoid with the perforation was sent for pathology. I then proceeded to test the remaining sigmoid for length. I divided more of the peritoneal lining of the attached mesentery to allow more length to be mobilized. This seemed to reach the abdominal wall on the left side. I had previously marked the optimal points for colostomy. I excised the discoid piece of skin on 1 of these markings at the left lower quadrant using blade 10. I carried down the incision through the subcutaneous fat with electrocautery. I divided the mesh and the fascia to create our stoma opening. I dilated this to allowh 3 of my fingers. I then pulled the sigmoid loop with the [place] through this stoma opening. This seemed to come through without any tension. This sigmoid loop which was to be are stoma appeared viable without any signs of ischemia. This appeared well vascularized. I then copiously irrigated again. I examined the entire small bowel from the ligament of Treitz all the way to the terminal ileum. There was no evidence any other pathology nor any inflammatory process except for some peritonitis changes on the loops that were adjacent to the sigmoid. I repositioned all these bowel loops back into the peritoneal cavity. pProceeded to do more irrigation of the pelvis. I observed for hemostasis. Once hemostasis was ensured on the divided mesentery, I positioned a JULIANNA drain in the cul-de-sac and this was brought out through an exit site on the right lower quadrant. This was secured with nylon 3-0 sutures the skin2. I closed the fascia using the well-incorporated mesh with a running Maxon 1 stitch. Skin closure was achieved with skin radha. I then proceeded to mature the stoma. I excised the staple line with electrocautery. I applied Dexon 3-0 sutures through the full-thickness of the bowel wall to the subdermal layer circumferentially . This segment remained viable. I then probed this with my index finger and this was patent past the fascial level without any tightness. I then infiltrated all incisions with Marcaine 0.5% for postop analgesia. Stoma appliance was placed. Dressings were applied. The procedure was then completed. The patient tolerated procedure well. There were no complications noted . Initial and final counts of sponges and instruments were correct. Estimated blood loss about 75 cc. The patient was extubated without difficulty and transferred to the intensive care unit.
--- NOTE | 2021-09-19 03:33 | P.CONCC_ITS ---
Documented by User: DARLIN Tomlin 09/19/21 03:58 History of Present Illness Data of Consult Service Date: 09/19/21 Requesting physician: Robbi Jose Primary Care Provider: Jack León MD HPI Reason for consult: Sepsis, Peritonitis, POD 1 for Exp. Lap with colectomy for perf bowel HPI: ?80-year-old female with underlying history of celiac disease, diverticulosis, COPD, anxiety, hyperlipidemia, GERD, presents to us postope ratively after undergoing an exploratory laparotomy with colectomy, left colostomy by Dr. Jose; ?all in the setting of an acute perforated viscus causing peritonitis and sepsis.? In addition is reported that during extubation the patient might have aspirated.? Patient had presented to the emergency room with complaints of lower abdominal pain stating that she was not able to pass gas and reported several episodes of nausea and vomiting, feeling heaviness within the abdomen and diffuse disc omfort, chills like symptoms. ?In the ER her workup revealed normal vital signs , white count 17.7, H&H of 13.2 and 41.4 respectively, platelets 449, electrolytes were unremarkable however BUN 31, creatinine 0.7, lactic acid 6.8, normal liver panel profile.? COVID negative. ?Abdominal CT showed free intraperitoneal air indicative of a rupture bowel however the precise site was not detected. Patient is currently on a Venturi mask, breathing on her own without any difficulties, she has received approximately 2.5 L of IV fluid and at this point is hemodynamically stable, however the concern was that she would not remain this way as during surgery was tachycardic and her sat had dropped from 96% before surgery to 90% at this point; also they noted the patient had quite a bit of pus like fluid within the abdominal cavity which was washed out. ROS:? Unable to obtain as the patient is sedated from anesthesia Past Medical History:? As above Atherosclerotic disease Pulmonary nodule Past Surgical History: Tubal ligation Right mastectomy Family history:? Noncontributory Social History:? Lives at home with family, social drinker.? Former smoker with 30 pack-year history, unsure when she quit. CODE STATUS: FULL CODE Allergies: NKDA Home Medications: See Med Rec Acute sepsis exam done a 03:30 am VS: ?Blood pressure 144/54, heart rate 92, respirations 15, O2 sat 92% on a Venturi mask General:? Alert oriented x2 no acute distress, still somewhat sedated from anesthesia, speaks basic questions, good articulation of her words.? Follows basic commands. Skin:? Large mid abdominal surgical site cover with dress in, left lower quadrant colostomy site with an empty bag.? Guardado catheter with 150 cc of yellow urine in the bag.? Otherwise no lesions, edema, erythema, ulcers noted. HEENT:? Head is normocephalic, atraumatic, pupils equal round reactive to light accommodation bilaterally.? Extraocular movements appear intact.? Buccal mucosa is moist, Neck is supple without lymphadenopathy. Cardiac:? Clear S1-S2, no murmurs rubs or gallops. Pulmonary:? Clear to auscultation, no wheezes, rales or rhonchi. Abdomen: ?Surgical changes as above,? Protuberant, distended, somewhat hard but expected after surgery.? I did not assess for tenderness at this point. ? Musculoskeletal:? Moving all 4 extremities upon request a major joints, there is no crepitus or tenderness.? The strength is 5/5 bilaterally and throughout all 4 extremities.? There is no leg edema , no calf tenderness , no leg asymmetry.? Gait not assessed at this point. Neurologic:? As above, cranial nerves 2-12 are grossly intact.? No focal deficits noted. Motor strength as above.? Vascular:? 2+ pulses upper and lower extremities distally. ?Capillary refill of the finger and toes bilaterally is less than 2 seconds. SIGNIFICANT LABORATORY DATA:? As above REVIEW OF IMAGES: ?As above EKG REVIEW: ?Sinus rhythm 80 beats per minute.? No ST elevations, no depressions.? QTC 462.? No comparison available. ASSESSMENT AND PLAN: 1. Acute peritonitis from perforated viscus status post exploratory lap with colectomy and colostomy 2. Acute sepsis due to the above 3. Stable COPD no exacerbation 4. Essential hypertension 5. Leukocytosis and thrombocytosis due to acute peritonitis 6. Acute kidney injury with BUN to creatinine ratio 31 likely due to dehydration in the setting of nausea and vomiting 7. Right ovarian cystic mass in need of further workup as an outpatient Patient was septic at into the ICU due to concerns of septic shock in the setting of peritonitis.? Will continue with Zosyn, at this point will slow down the IV fluids for she has gotten 30 cc/kilos, will repeat laboratories including lactic acid, obtain an x-ray of the chest to verify the aspiration although clinically this is highly suspected. ?Dilaudid for pain. Albuterol p.r.n. GI PROPHYLAXIS:? IV ppi DVT PROPHYLAXIS:? Heparin Critical care time used for critical evaluation of this patient, diagnosis, treatment and coordination of care, review her records and documentation TOTAL CRITICAL CARE TIME 90 MIN . Patient's care was discussed in detail with Dr. Heaton.? He is aware of all the above as well as the plan of care for this patient. [facility] Past Medical History Medical History (Updated 09/19/21 @ 03:17 by Robbi Jose MD) Atherosclerosis of both carotid arteries COPD (chronic obstructive pulmonary disease) COVID-19 Hyperlipidemia Perforated viscus Pulmonary nodule Sepsis Surgical History Surgical History (Updated 09/18/21 @ 23:46 by Robbi Jose MD) H/O right mastectomy History of tubal ligation Social History Social History Alcohol intake: current Alcohol intake frequency: holidays/special occasions only Patient Tobacco Use Status: Former Tobacco user Years Smoked: 30 years Smoked in Last 30 Days: No Use of substances other than those prescribed or required for medical reasons: No Have you been hit, kicked, punched, or otherwise hurt by someone within the past year? If so, by whom?: No Do you feel safe in your current relationship?: No Is there a partner from a previous relationship who is making you feel unsafe now?: No Are you made to feel afraid or neglected: No Advance Directives: No Do you have thoughts of harming others: None Do you have a plan to hurt others: No Plan Current occupational status: retired Gender identity: Female Meds Allergies Allergy/AdvReac Type Severity Reaction Status Date / Time No Known Allergies Allergy Mild NONE Verified 11/11/20 12:44 Active Medications: Current Medications Albuterol Sulfate (Albuterol Sulfate (0.083%) 2.5 Mg/3 Ml Vial.Neb) 2.5 mg INHALE RQ6H PRN PRN Reason: Wheezing Heparin Sodium (Porcine) (Heparin Sodium,Porcine 5,000 Unit/Ml Vial) 5,000 unit SUBCUT Q12H [facility] Hydromorphone HCl (Hydromorphone Hcl 1 Mg/Ml Syringe) 1 mg IVPUSH Q2H PRN; Protocol PRN Reason: Pain, Moderate (Pain Scale 4-6 Lactated Ringer's (Lr) 1,000 mls @ 125 mls/hr IVCONT .Q8H [facility] Last Admin: 09/19/21 00:02 Dose: 100 mls/hr Documented by: Acetaminophen (Ofirmev) 1,000 mg in 100 mls @ 400 mls/hr IV Q6H [facility] Stop: 09/19/21 21:44 Sodium Chloride (0.9 % Sodium Chloride Flush 3 Ml Syringe) 3 ml IVFLUSH QSHIFT [facility] Home Medications Medication Instructions Recorded Confirmed Last Taken Type albuterol sulfate 90 mcg/actuation 2 puff PO Q4H PRN 05/28/20 07/14/21 Unknown History aerosol inhaler nebulizer and compressor #1 ea 05/28/20 09/24/20 Unknown History omeprazole 40 mg capsule,delayed 40 mg PO DAILY 05/28/20 07/14/21 Unknown History release citalopram 40 mg tablet 1 tab PO DAILY 09/19/21 Unknown History fluticasone fur. 100 mcg-umeclid 1 puff INHALATION DAILY 09/19/21 Unknown History 62.5 mcg-vilant 25 mcg inhalat.powder (Trelegy Ellipta) meloxicam 15 mg tablet 1 tab PO DAILY 09/19/21 Unknown History mirabegron 25 mg tablet,extended 1 tab PO DAILY 09/19/21 Unknown History release 24 hr (Myrbetriq) rosuvastatin 20 mg tablet 1 tab PO BEDTIME 09/19/21 Unknown History Physical Exam Vital Signs: Vital Signs: Last Vital Signs Temp 99.1 F 09/19/21 03:15 Pulse 91 09/19/21 03:20 Resp 20 09/19/21 03:20 BP 138/53 L 09/19/21 03:20 Pulse Ox 93 09/19/21 03:20 BMI result Body Mass Index 26.6 Results Labs CBC & Chem 7: 09/19/21 03:45 09/19/21 03:45 Labs: Short CBC 09/18/21 Range/Units 20:42 WBC 17.7 H (4.8-10.8) X10*3/uL Hgb 13.2 (12.0-16.0) g/dl Hct 41.4 (37.0-47.0) % Plt Count 449 H (160-400) X10*3/uL BMP 09/18/21 20:42 Sodium 141 Potassium 4.0 Chloride 107 Carbon Dioxide 24 BUN 24 H Creatinine 0.77 Calcium 10.2 Liver Function 09/18/21 Range/Units 20:42 Total Bilirubin 0.5 (0.0-1.0) mg/dL AST 15 (5-31) U/L ALT 16 (0-31) U/L Alkaline Phosphatase 80 (39-117) U/L Albumin 4.2 (3.5-5.0) g/dL Documented by User: Garry Heaton MD 09/19/21 09:03 History of Present Illness HPI HPI: ?80-year-old female with underlying history of celiac disease, diverticulosis, COPD, anxiety, hyperlipidemia, GERD, presents to us postoperatively after undergoing an exploratory laparotomy with colectomy, left colostomy by Dr. Jose; ?all in the setting of an acute perforated viscus causing peritonitis and sepsis.? In addition is reported that during extubation the patient might have aspirated.? Patient had presented to the emergency room with complaints of lower abdominal pain stating that she was not able to pass gas and reported several episodes of nausea and vomiting, feeling heaviness within the abdomen and diffuse discomfort, chills like symptoms. ?In the ER her workup revealed normal vital signs , white count 17.7, H&H of 13.2 and 41.4 respectively, platelets 449, electrolytes were unremarkable however BUN 31, creatinine 0.7, lactic acid 6.8, normal liver panel profile.? COVID negative. ?Abdominal CT showed free intraperitoneal air indicative of a rupture bowel however the precise site was not detected. Patient is currently on a Venturi mask, breathing on her own without any difficulties, she has received approximately 2.5 L of IV fluid and at this point is hemodynamically stable, however the concern was that she would not remain this way as during surgery was tachycardic and her sat had dropped from 96% before surgery to 90% at this point; also they noted the patient had quite a bit of pus like fluid within the abdominal cavity which was washed out. ROS:? Unable to obtain as the patient is sedated from anesthesia Past Medical History:? As above Atherosclerotic disease Pulmonary nodule Past Surgical History: Tubal ligation Right mastectomy Family history:? Noncontributory Social History:? Lives at home with family, social drinker.? Former smoker with 30 pack-year history, unsure when she quit. CODE STATUS: FULL CODE Allergies: NKDA Home Medications: See [facility] Rec Acute sepsis exam done a 03:30 am VS: ?Blood pressure 144/54, heart rate 92, respirations 15, O2 sat 92% on a Venturi mask General:? Alert oriented x2 no acute distress, still somewhat sedated from anesthesia, speaks basic questions, good articulation of her words.? Follows basic commands. Skin:? Large mid abdominal surgical site cover with dress in, left lower quadrant colostomy site with an empty bag.? Guardado catheter with 150 cc of yellow urine in the bag.? Otherwise no lesions, edema, erythema, ulcers noted. HEENT:? Head is normocephalic, atraumatic, pupils equal round reactive to light accommodation bilaterally.? Extraocular movements appear intact.? Buccal mucosa is moist, Neck is supple without lymphadenopathy. Cardiac:? Clear S1-S2, no murmurs rubs or gallops. Pulmonary:? Clear to auscultation, no wheezes, rales or rhonchi. Abdomen: ?Surgical changes as above,? Protuberant, distended, somewhat hard but expected after surgery.? I did not assess for tenderness at this point. ? Musculoskeletal:? Moving all 4 extremities upon request a major joints, there is no crepitus or tenderness.? The strength is 5/5 bilaterally and throughout all 4 extremities.? There is no leg edema , no calf tenderness , no leg asymmetry.? Gait not assessed at this point. Neurologic:? As above, cranial nerves 2-12 are grossly intact.? No focal deficits noted. Motor strength as above.? Vascular:? 2+ pulses upper and lower extremities distally. ?Capillary refill of the finger and toes bilaterally is less than 2 seconds. SIGNIFICANT LABORATORY DATA:? As above REVIEW OF IMAGES: ?As above EKG REVIEW: ?Sinus rhythm 80 beats per minute.? No ST elevations, no depressions.? QTC 462.? No comparison available. ASSESSMENT AND PLAN: 1. Acute peritonitis from perforated viscus status post exploratory lap with colectomy and colostomy 2. Acute sepsis due to the above 3. Stable COPD no exacerbation 4. Essential hypertension 5. Leukocytosis and thrombocytosis due to acute peritonitis 6. Acute kidney injury with BUN to creatinine ratio 31 likely due to dehydration in the setting of nausea and vomiting 7. Right ovarian cystic mass in need of further workup as an outpatient. 8. Possible/probable aspiration. 9. Acute hypoxemic respiratory failure. Patient was septic at into the ICU due to concerns of septic shock in the setting of peritonitis.? Will continue with Zosyn, at this point will slow down the IV fluids for she has gotten 30 cc/kilos, will repeat laboratories including lactic acid, obtain an x-ray of the chest to verify the aspiration although clinically this is highly suspected. ?Dilaudid for pain. Albuterol p.r.n. GI PROPHYLAXIS:? IV ppi DVT PROPHYLAXIS:? Heparin Critical care time used for critical evaluation of this patient, diagnosis, treatment and coordination of care, review her records and documentation TOTAL CRITICAL CARE TIME 90 MIN . Patient's care was discussed in detail with Dr. Heaton.? He is aware of all the above as well as the plan of care for this patient. [facility] Past Medical History Medical History (Updated 09/19/21 @ 03:17 by Robbi Jose MD) Atherosclerosis of both carotid arteries COPD (chronic obstructive pulmonary disease) COVID-19 Hyperlipidemia Perforated viscus Pulmonary nodule Sepsis Surgical History Surgical History (Updated 09/18/21 @ 23:46 by Robbi Jose MD) H/O right mastectomy History of tubal ligation Social History Social History Alcohol intake: current Alcohol intake frequency: holidays/special occasions only Patient Tobacco Use Status: Former Tobacco user Years Smoked: 30 years Smoked in Last 30 Days: No Use of substances other than those prescribed or required for medical reasons: No Have you been hit, kicked, punched, or otherwise hurt by someone within the past year? If so, by whom?: No Do you feel safe in your current relationship?: No Is there a partner from a previous relationship who is making you feel unsafe now?: No Are you made to feel afraid or neglected: No Advance Directives: No Do you have thoughts of harming others: None Do you have a plan to hurt others: No Plan Current occupational status: retired Gender identity: Female Meds Allergies Allergy/AdvReac Type Severity Reaction Status Date / Time No Known Allergies Allergy Mild NONE Verified 11/11/20 12:44 Home Medications Medication Instructions Recorded Confirmed Last Taken Type albuterol sulfate 90 mcg/actuation 2 puff PO Q4H PRN 05/28/20 07/14/21 Unknown History aerosol inhaler nebulizer and compressor #1 ea 05/28/20 09/24/20 Unknown History omeprazole 40 mg capsule,delayed 40 mg PO DAILY 05/28/20 07/14/21 Unknown History release citalopram 40 mg tablet 1 tab PO DAILY 09/19/21 Unknown History fluticasone fur. 100 mcg-umeclid 1 puff INHALATION DAILY 09/19/21 Unknown History 62.5 mcg-vilant 25 mcg inhalat.powder (Trelegy Ellipta) meloxicam 15 mg tablet 1 tab PO DAILY 09/19/21 Unknown History mirabegron 25 mg tablet,extended 1 tab PO DAILY 09/19/21 Unknown History release 24 hr (Myrbetriq) rosuvastatin 20 mg tablet 1 tab PO BEDTIME 09/19/21 Unknown History Results Labs CBC & Chem 7: 09/19/21 03:45 09/19/21 03:45
[2021-09-19 03:50] LABS: ~Lactic Acid-LAB USE ONLY 2.7 mmol/L (0.5-2.0)
[2021-09-19 03:50] LABS: Hematocrit 36.1 % (37.0-47.0); Hemoglobin 11.6 g/dl (12.0-16.0); Mean Corpuscular HGB Conc 32.1 g/dl (31.0-35.0); Mean Corpuscular Hemoglobin 30.5 pg (27.0-33.0); Platelet Count 402 X10*3/uL (160-400); Red Cell Distribution Width 13.5 % (11.0-16.0); White Blood Count 15.8 X10*3/uL (4.8-10.8)
[2021-09-19 04:09] LABS: Alanine Aminotransferase 13 U/L (0-31); Albumin Level 3.3 g/dL (3.5-5.0); Alkaline Phosphatase 63 U/L (39-117); Anion Gap 11 (12-20); Aspartate Amino Transferase 12 U/L (5-31); Bilirubin Total 0.5 mg/dL (0.0-1.0); Blood Urea Nitrogen 24 mg/dL (9-16); Carbon Dioxide 24 mmol/L (22-29); Chloride 108 mmol/L (96-108); Creatinine Clr Calc Pharmacy 45.2; Estimated Glomerular Filt Rate 54; Glucose Random 128 mg/dL (60-115); Potassium 4.2 mmol/L (3.3-5.1); Sodium 139 mmol/L (135-145); Total Protein 5.4 g/dL (6.5-8.0)
[2021-09-19 04:23] LABS: Band Neutrophils Percent 15 % (3-5); Burr Cells 3+ (>5) /OIF; Lymphocytes Absolute Manual 0.3 X10*3/uL (1.2-4.9); Lymphocytes Percent Manual 2 % (20-40); Monocytes Absolute Manual 0.6 X10*3/uL (0.1-1.2); Monocytes Percent Manual 4 % (2-11); Neutrophils Absolute Manual 14.9 X10*3/uL (2.0-8.3); Neutrophils Percent Manual 79 % (45-73); Platelet Estimate NORMAL (NORMAL); Platelet Morphology Comment NORMAL; RBC Morphology NOTED
[2021-09-19] MEDS: Piperacillin Sodium/Tazobactam 3.375 GM in 0.9 % Sodium Chloride 50 ML IV ×4 (04:30→22:40)
[2021-09-19 05:32] LABS: Reflex Lactate? 2 Y
[2021-09-19 06:14] LABS: ~Lactic Acid-LAB USE ONLY 2.1 mmol/L (0.5-2.0)
[2021-09-19] MEDS: Pantoprazole Sodium 40 MG/10 ML VIAL IVPUSH (06:19)
[2021-09-19] MEDS: HYDROmorphone HCl 1 MG/ML SYRINGE IVPUSH ×3 (07:35→22:02)
--- NOTE | 2021-09-19 09:09 | MHC.CLN ---
PER PT TO ADVANCE TO C/L DIET
--- NOTE | 2021-09-19 09:24 | P.PNGS_ITS ---
Subjective Subjective Date of Service: 09/19/21 Interval history: Seems to have adequate pain control Currently sleeping Good urine output Stable vital sign Physical Exam Vital Signs: Vital Signs: Last Vital Signs Temp 98.7 F 09/19/21 08:00 Pulse 88 09/19/21 09:00 Resp 12 09/19/21 09:00 BP 124/53 L 09/19/21 09:00 Pulse Ox 90 L 09/19/21 09:00 BMI result Body Mass Index 30.5 Const: Other: Asleep General: comfortable and no acute distress Resp: Effort & Inspection: normal respiratory effort Cardio: Rate: regular rate GI: Other: Dressings dry, stoma viable, no significant output yet, JULIANNA with serosanguineous output Objective Data Active Medications Albuterol Sulfate (Albuterol Sulfate (0.083%) 2.5 Mg/3 Ml Vial.Neb) 2.5 mg INHALE RQ6H PRN PRN Reason: Wheezing Heparin Sodium (Porcine) (Heparin Sodium,Porcine 5,000 Unit/Ml Vial) 5,000 unit SUBCUT Q12H [facility] Hydromorphone HCl (Hydromorphone Hcl 1 Mg/Ml Syringe) 1 mg IVPUSH Q2H PRN; Protocol PRN Reason: Pain, Moderate (Pain Scale 4-6 Last Admin: 09/19/21 07:35 Dose: 1 mg Documented by: MARIANGEL Lactated Ringer's (Lr) 1,000 mls @ 125 mls/hr IVCONT .Q8H [facility] Last Infusion: 09/19/21 07:33 Dose: 125 mls/hr Documented by: MARIANGEL Acetaminophen (Ofirmev) 1,000 mg in 100 mls @ 400 mls/hr IV Q6H [facility] Stop: 09/19/21 21:44 Last Infusion: 09/19/21 05:05 Dose: 0 mls/hr Documented by: MARLEE Piperacillin Sod/Tazobactam (Sod 3.375 gm/ Sodium Chloride) 50 mls @ 100 mls/hr IV Q6H [facility] Last Infusion: 09/19/21 05:05 Dose: 0 mls/hr Documented by: MARLEE Pantoprazole Sodium (Pantoprazole Sodium 40 Mg/10 Ml Vial) 40 mg IVPUSH DAILY@0630 [facility] Last Admin: 09/19/21 06:19 Dose: 40 mg Documented by: CYRZ Sodium Chloride (0.9 % Sodium Chloride Flush 3 Ml Syringe) 3 ml IVFLUSH QSHIFT [facility] Last Admin: 09/19/21 07:34 Dose: Not Given Documented by: MARIANGEL Non-Admin Reason: IV Running Labs CBC & Chem 7: 09/19/21 03:45 09/19/21 03:45 Labs: Laboratory Results - last 24 hr 09/18/21 09/18/21 09/18/21 20:42 20:42 22:50 MCV 95.8 MCH 30.6 MCHC 31.9 RDW 13.3 Plt Count 449 H MPV 9.6 Immature Gran % (Auto) 0.2 Neut % (Auto) 88.5 H Lymph % (Auto) 7.3 L [place] % (Auto) 3.8 Eos % (Auto) 0.1 Baso % (Auto) 0.1 Lymph # (Auto) 1.3 [place] # (Auto) 0.7 Eos # (Auto) 0.0 Baso # (Auto) 0.0 Abs Immat Gran (auto) 0.04 H Absolute Neuts (auto) 15.7 H Absolute Nucleated RBC 0.000 Nucleated RBC % (auto) 0.0 Neutrophils % (Manual) Band Neutrophils % Lymphocytes % (Manual) Monocytes % (Manual) Abs Neuts (Manual) Lymphocytes # (Manual) Monocytes # (Manual) Platelet Estimate Plt Morphology Comment RBC Morphology [place] Cells Anion Gap 14 Estim Creat Clear Calc 58.1 Estimated GFR > 60 Random Glucose 123 H Lactic Acid 2.4 H* Lactic Acid F/U @ 2Hr Lactic Acid F/U @ 4Hr Calcium 10.2 Total Bilirubin 0.5 AST 15 ALT 16 Alkaline Phosphatase 80 Total Protein 6.8 Albumin 4.2 Lipase 12 COVID-19 ([facility]EN) COVID-19 Clin Com Blood Type Antibody Screen 09/18/21 09/18/21 09/19/21 22:50 23:18 00:45 MCV MCH MCHC RDW Plt Count MPV Immature Gran % (Auto) Neut % (Auto) Lymph % (Auto) [place] % (Auto) Eos % (Auto) Baso % (Auto) Lymph # (Auto) [place] # (Auto) Eos # (Auto) Baso # (Auto) Abs Immat Gran (auto) Absolute Neuts (auto) Absolute Nucleated RBC Nucleated RBC % (auto) Neutrophils % (Manual) Band Neutrophils % Lymphocytes % (Manual) Monocytes % (Manual) Abs Neuts (Manual) Lymphocytes # (Manual) Monocytes # (Manual) Platelet Estimate Plt Morphology Comment RBC Morphology [place] Cells Anion Gap Estim Creat Clear Calc Estimated GFR Random Glucose Lactic Acid 6.8 H* Lactic Acid F/U @ 2Hr Lactic Acid F/U @ 4Hr Calcium Total Bilirubin AST ALT Alkaline Phosphatase Total Protein Albumin Lipase COVID-19 ([facility]EN) Negative COVID-[facility] Com See Note Blood Type A Negative Antibody Screen NEGATIVE 09/19/21 09/19/21 09/19/21 03:25 03:45 03:45 MCV 95.0 MCH 30.5 MCHC 32.1 RDW 13.5 Plt Count 402 H MPV 9.0 L Immature Gran % (Auto) Cancelled Neut % (Auto) Cancelled Lymph % (Auto) Cancelled [place] % (Auto) Cancelled Eos % (Auto) Cancelled Baso % (Auto) Cancelled Lymph # (Auto) Cancelled [place] # (Auto) Cancelled Eos # (Auto) Cancelled Baso # (Auto) Cancelled Abs Immat Gran (auto) Cancelled Absolute Neuts (auto) Cancelled Absolute Nucleated RBC 0.000 Nucleated RBC % (auto) 0.0 Neutrophils % (Manual) 79 H Band Neutrophils % 15 H Lymphocytes % (Manual) 2 L Monocytes % (Manual) 4 Abs Neuts (Manual) 14.9 H Lymphocytes # (Manual) 0.3 L Monocytes # (Manual) 0.6 Platelet Estimate NORMAL Plt Morphology Comment NORMAL RBC Morphology NOTED [place] Cells 3+ (>5) Anion Gap 11 L Estim Creat Clear Calc 45.2 Estimated GFR 54 Random Glucose 128 H Lactic Acid Lactic Acid F/U @ 2Hr 2.7 H* Lactic Acid F/U @ 4Hr Calcium 9.0 D Total Bilirubin 0.5 AST 12 ALT 13 Alkaline Phosphatase 63 D Total Protein 5.4 L D Albumin 3.3 L D Lipase COVID-19 ([facility]EN) COVID-[facility] Com Blood Type Antibody Screen 09/19/21 05:51 MCV MCH MCHC RDW Plt Count MPV Immature Gran % (Auto) Neut % (Auto) Lymph % (Auto) [place] % (Auto) Eos % (Auto) Baso % (Auto) Lymph # (Auto) [place] # (Auto) Eos # (Auto) Baso # (Auto) Abs Immat Gran (auto) Absolute Neuts (auto) Absolute Nucleated RBC Nucleated RBC % (auto) Neutrophils % (Manual) Band Neutrophils % Lymphocytes % (Manual) Monocytes % (Manual) Abs Neuts (Manual) Lymphocytes # (Manual) Monocytes # (Manual) Platelet Estimate Plt Morphology Comment RBC Morphology [place] Cells Anion Gap Estim Creat Clear Calc Estimated GFR Random Glucose Lactic Acid Lactic Acid F/U @ 2Hr Lactic Acid F/U @ 4Hr 2.1 H* Calcium Total Bilirubin AST ALT Alkaline Phosphatase Total Protein Albumin Lipase COVID-19 ([facility]EN) COVID-19 Clin Com Blood Type Antibody Screen Procedures Date of Service Date of Service: 09/19/21 Progress Note: A&P Assessment and plan (1) Perforated viscus: Status: Acute Assessment and Plan: Status post Andreas's procedure for perforated diverticular disease Pain management Stoma care Incentive spirometry Okay to have clear liquids Continue IV Zosyn She had vomited after suction - may be at risk for aspiration pneumonia Lactate much improved IV resuscitation Discussed with band saw runner Fall Risk Details Current Medications: Current Medications Albuterol Sulfate (Albuterol Sulfate (0.083%) 2.5 Mg/3 Ml Vial.Neb) 2.5 mg INHALE RQ6H PRN PRN Reason: Wheezing Heparin Sodium (Porcine) (Heparin Sodium,Porcine 5,000 Unit/Ml Vial) 5,000 unit SUBCUT Q12H [facility] Hydromorphone HCl (Hydromorphone Hcl 1 Mg/Ml Syringe) 1 mg IVPUSH Q2H PRN; Protocol PRN Reason: Pain, Moderate (Pain Scale 4-6 Last Admin: 09/19/21 07:35 Dose: 1 mg Documented by: Lactated Ringer's (Lr) 1,000 mls @ 125 mls/hr IVCONT .Q8H [facility] Last Infusion: 09/19/21 07:33 Dose: 125 mls/hr Documented by: Acetaminophen (Ofirmev) 1,000 mg in 100 mls @ 400 mls/hr IV Q6H [facility] Stop: 09/19/21 21:44 Last Infusion: 09/19/21 05:05 Dose: Infused Documented by: Piperacillin Sod/Tazobactam (Sod 3.375 gm/ Sodium Chloride) 50 mls @ 100 mls/hr IV Q6H [facility] Last Infusion: 09/19/21 05:05 Dose: Infused Documented by: Pantoprazole Sodium (Pantoprazole Sodium 40 Mg/10 Ml Vial) 40 mg IVPUSH DAILY@0630 [facility] Last Admin: 09/19/21 06:19 Dose: 40 mg Documented by: Sodium Chloride (0.9 % Sodium Chloride Flush 3 Ml Syringe) 3 ml IVFLUSH QSHIFT [facility] Last Admin: 09/19/21 07:34 Dose: Not Given Documented by: Time Spent With Patient Time: Total time spent is greater than 50% in coordination of care (as documented) at patient's floor/unit and/or counseling patient: Quality Stroke Does the patient have a stroke diagnosis?: No VTE Prior VTE?: No VTE Risk Level:: Medical - moderate - high VTE Device Contraindication: N/A - Device Ordered VTE Drug Contraindication: N/A - Med Ordered
[2021-09-19] MEDS: Fluticasone/Vilanterol 100/25 BLST.W.DEV 1 PUFF INHALE (11:10)
[2021-09-19] MEDS: Lactated Ringers 1,000 ML 999 ML IV (11:56)
--- NOTE | 2021-09-19 12:02 | PC.NURSE ---
Addendum entered by Kristin Becerra RN 09/19/21 18:26: PATIENT C/O HEARTBURN - STATES TAKES PEPCID AT HOME. CALLED AND TELEPHONE ORDER FOR IV PEPCID ORDERED AND ADMINISTRATED. WILL CONTINUE TO MONITOR. JULIANNA DRAIN OUTPUT FOR [id number] = 100 ML Original Note: MD NOTIFIED OF SOFT BP AND MAP. ORDERED AND ADMINISTERED IV BOLUS OF LR. WILL CONTINUE TO MONITOR.
--- NOTE | 2021-09-19 12:15 | P.PNCC_ITS ---
Subjective Subjective Date of Service: 09/19/21 Interval History: 80-year-old female with background history of smoking related COPD presents with perforated diverticular disease and status post sigmoid resection and colostomy doing very well postoperatively with just marginal urine output marginal blood pressure clearly by examination with diminished effective arterial volume which we confirmed by bedside echo in the face of normal cardiac anatomy and function there is a a flat inferior vena cava and were going to use volume repletion more aggressively to counter this issue renal function is preserved and no respiratory insufficiency maintained on Zosyn prophylaxis to cover for any potential aspiration as well as intra-abdominal soilage Critical Care Time (minutes): 45 Physical Exam Vital Signs: Vital Signs: Last Vital Signs Temp 97.8 F 09/19/21 12:00 Pulse 69 09/19/21 12:00 Resp 13 09/19/21 12:00 BP 94/41 L 09/19/21 12:00 Pulse Ox 93 09/19/21 12:00 BMI result Body Mass Index 30.5 awake alert oriented and non focal neurologically cardiovascular exam by bedside echo is class 1 hemodynamically just volume deple alisia lungs are clear without adventitious sounds abdomen silent scan no acrocyanosis no livedo Objective Data Labs CBC & Chem 7: 09/19/21 03:45 09/19/21 03:45 Labs: Laboratory Results - last 24 hr 09/18/21 09/18/21 09/18/21 20:42 20:42 22:50 WBC 17.7 H RBC 4.32 Hgb 13.2 Hct 41.4 MCV 95.8 MCH 30.6 MCHC 31.9 RDW 13.3 Plt Count 449 H MPV 9.6 Immature Gran % (Auto) 0.2 Neut % (Auto) 88.5 H Lymph % (Auto) 7.3 L [place] % (Auto) 3.8 Eos % (Auto) 0.1 Baso % (Auto) 0.1 Lymph # (Auto) 1.3 [place] # (Auto) 0.7 Eos # (Auto) 0.0 Baso # (Auto) 0.0 Abs Immat Gran (auto) 0.04 H Absolute Neuts (auto) 15.7 H Absolute Nucleated RBC 0.000 Nucleated RBC % (auto) 0.0 Neutrophils % (Manual) Band Neutrophils % Lymphocytes % (Manual) Monocytes % (Manual) Abs Neuts (Manual) Lymphocytes # (Manual) Monocytes # (Manual) Platelet Estimate Plt Morphology Comment RBC Morphology [place] Cells Sodium 141 Potassium 4.0 Chloride 107 Carbon Dioxide 24 Anion Gap 14 BUN 24 H Creatinine 0.77 Estim Creat Clear Calc 58.1 Estimated GFR > 60 Random Glucose 123 H Lactic Acid 2.4 H* Lactic Acid F/U @ 2Hr Lactic Acid F/U @ 4Hr Calcium 10.2 Total Bilirubin 0.5 AST 15 ALT 16 Alkaline Phosphatase 80 Total Protein 6.8 Albumin 4.2 Lipase 12 COVID-19 (ZHEN) COVID-ENDOTRONIX Com Blood Type Antibody Screen 09/18/21 09/18/21 09/19/21 22:50 23:18 00:45 WBC RBC Hgb Hct MCV MCH MCHC RDW Plt Count MPV Immature Gran % (Auto) Neut % (Auto) Lymph % (Auto) [place] % (Auto) Eos % (Auto) Baso % (Auto) Lymph # (Auto) [place] # (Auto) Eos # (Auto) Baso # (Auto) Abs Immat Gran (auto) Absolute Neuts (auto) Absolute Nucleated RBC Nucleated RBC % (auto) Neutrophils % (Manual) Band Neutrophils % Lymphocytes % (Manual) Monocytes % (Manual) Abs Neuts (Manual) Lymphocytes # (Manual) Monocytes # (Manual) Platelet Estimate Plt Morphology Comment RBC Morphology [place] Cells Sodium Potassium Chloride Carbon Dioxide Anion Gap BUN Creatinine Estim Creat Clear Calc Estimated GFR Random Glucose Lactic Acid 6.8 H* Lactic Acid F/U @ 2Hr Lactic Acid F/U @ 4Hr Calcium Total Bilirubin AST ALT Alkaline Phosphatase Total Protein Albumin Lipase COVID-19 (ZHEN) Negative COVID-ENDOTRONIX Com See Note Blood Type A Negative Antibody Screen NEGATIVE 09/19/21 09/19/21 09/19/21 03:25 03:45 03:45 WBC 15.8 H RBC 3.80 L Hgb 11.6 L Hct 36.1 L MCV 95.0 MCH 30.5 MCHC 32.1 RDW 13.5 Plt Count 402 H MPV 9.0 L Immature Gran % (Auto) Cancelled Neut % (Auto) Cancelled Lymph % (Auto) Cancelled [place] % (Auto) Cancelled Eos % (Auto) Cancelled Baso % (Auto) Cancelled Lymph # (Auto) Cancelled [place] # (Auto) Cancelled Eos # (Auto) Cancelled Baso # (Auto) Cancelled Abs Immat Gran (auto) Cancelled Absolute Neuts (auto) Cancelled Absolute Nucleated RBC 0.000 Nucleated RBC % (auto) 0.0 Neutrophils % (Manual) 79 H Band Neutrophils % 15 H Lymphocytes % (Manual) 2 L Monocytes % (Manual) 4 Abs Neuts (Manual) 14.9 H Lymphocytes # (Manual) 0.3 L Monocytes # (Manual) 0.6 Platelet Estimate NORMAL Plt Morphology Comment NORMAL RBC Morphology NOTED [place] Cells 3+ (>5) Sodium 139 Potassium 4.2 Chloride 108 Carbon Dioxide 24 Anion Gap 11 L BUN 24 H Creatinine 0.99 Estim Creat Clear Calc 45.2 Estimated GFR 54 Random Glucose 128 H Lactic Acid Lactic Acid F/U @ 2Hr 2.7 H* Lactic Acid F/U @ 4Hr Calcium 9.0 D Total Bilirubin 0.5 AST 12 ALT 13 Alkaline Phosphatase 63 D Total Protein 5.4 L D Albumin 3.3 L D Lipase COVID-19 (ZHEN) [employer] Blood Type Antibody Screen 09/19/21 05:51 WBC RBC Hgb Hct MCV MCH MCHC RDW Plt Count MPV Immature Gran % (Auto) Neut % (Auto) Lymph % (Auto) [place] % (Auto) Eos % (Auto) Baso % (Auto) Lymph # (Auto) [place] # (Auto) Eos # (Auto) Baso # (Auto) Abs Immat Gran (auto) Absolute Neuts (auto) Absolute Nucleated RBC Nucleated RBC % (auto) Neutrophils % (Manual) Band Neutrophils % Lymphocytes % (Manual) Monocytes % (Manual) Abs Neuts (Manual) Lymphocytes # (Manual) Monocytes # (Manual) Platelet Estimate Plt Morphology Comment RBC Morphology [place] Cells Sodium Potassium Chloride Carbon Dioxide Anion Gap BUN Creatinine Estim Creat Clear Calc Estimated GFR Random Glucose Lactic Acid Lactic Acid F/U @ 2Hr Lactic Acid F/U @ 4Hr 2.1 H* Calcium Total Bilirubin AST ALT Alkaline Phosphatase Total Protein Albumin Lipase COVID-19 (ZHEN) COVID-CELLFOR Blood Type Antibody Screen Progress Note: A&P Assessment and plan (1) Sepsis: Status: Acute (2) Perforated viscus: Status: Acute (3) History of tubal ligation: Status: Acute (4) H/O right mastectomy: Status: Acute (5) Perforation bowel: Status: Acute (6) Celiac disease: Status: Acute (7) Hyperlipidemia: Status: Acute (8) Atherosclerosis of both carotid arteries: Status: Acute (9) COPD (chronic obstructive pulmonary disease): Status: Acute (10) Pulmonary nodule: Status: Acute (11) Hypovolemia: Status: Acute (12) Ileus following gastrointestinal surgery: Status: Acute Plan bolus volume of 1 L over the next hour of Ringer's lactate probably reassess labs this afternoon and response to fluid Quality Stroke Does the patient have a stroke diagnosis?: No VTE Prior VTE?: No VTE Risk Level:: Medical - moderate - high VTE Device Contraindication: N/A - Device Ordered VTE Drug Contraindication: N/A - Med Ordered
[2021-09-19] MEDS: Lactated Ringers 1,000 ML 125 ML IVCONT ×2 (13:51→21:47)
[2021-09-19] MEDS: 0.9 % Sodium Chloride Flush 3 ML SYRINGE IVFLUSH (15:35)
[2021-09-19] MEDS: Famotidine/PF 20 MG/2 ML VIAL IVPUSH (18:22)
[2021-09-19] MEDS: Heparin Sodium,Porcine 5,000 UNIT/ML VIAL 5000 UNIT SUBCUT (21:57)
[2021-09-20] VITALS (7 sets, daily range): BP systolic 125–150; BP diastolic 52–69; PULSE 65–84; RESP 16–19; TEMP 36–37.1; O2SAT 93–96; BMI 30.6
[2021-09-20] MEDS: HYDROmorphone HCl 1 MG/ML SYRINGE IVPUSH ×2 (02:39→07:59)
[2021-09-20] MEDS: Piperacillin Sodium/Tazobactam 3.375 GM in 0.9 % Sodium Chloride 50 ML IV ×4 (03:44→22:26)
[2021-09-20] MEDS: Lactated Ringers 1,000 ML 125 ML IVCONT ×3 (05:24→22:08)
[2021-09-20] MEDS: Pantoprazole Sodium 40 MG/10 ML VIAL IVPUSH (05:25)
[2021-09-20] MEDS: Famotidine/PF 20 MG/2 ML VIAL IVPUSH ×2 (08:01→22:07)
--- NOTE | 2021-09-20 10:05 | MHC.CM.PN ---
Met with pt and spouse to review d/c plans: Pt lives with spouse, is independent with all care needs and has no assistance. Covid vax x3: demographic information verified, HCP copy requested. Pt has a new ostomy and would benefit from skilled RN services for teaching - pt and spouse receptive to [facility] referral. D/C Plan: return to home with [facility]: spouse to transport.
[2021-09-20] MEDS: Heparin Sodium,Porcine 5,000 UNIT/ML VIAL 5000 UNIT SUBCUT ×2 (10:22→22:07)
[2021-09-20] MEDS: ondansetron HCL 4 MG/2 ML VIAL IVPUSH (10:42)
--- NOTE | 2021-09-20 12:09 | PM.PNGS ---
Subjective Subjective Date of Service: 09/20/21 <Brenda Morris PA-C - Last Filed: 09/20/21 12:13> 09/20/21 <Robbi Jose MD - Last Filed: 09/20/21 15:16> Interval history: A little confused this morning. Transferred out of ICU early. Reports severe pain and is unable to move, take deep breaths due to it. Some nausea occasionally. <Brenda Morris PA-C - Last Filed: 09/20/21 12:13> Physical Exam Vital Signs: Vital Signs: Last Vital Signs Temp 97 F 09/20/21 11:10 Pulse 72 09/20/21 11:10 Resp 18 09/20/21 11:10 BP 150/67 H 09/20/21 11:10 Pulse Ox 95 09/20/21 11:10 BMI result Body Mass Index 30.6 <CHIQUI [place] Last Filed: 09/20/21 12:13> Const: General: comfortable, no acute distress and alert <Brenda Morris PA-C - Last Filed: 09/20/21 12:13> Orientation/consciousness: patient oriented x3 <Brenda Morris PA-C - Last Filed: 09/20/21 12:13> Resp: Effort & Inspection: normal respiratory effort <Brenda Morris PA-C - Last Filed: 09/20/21 12:13> Cardio: Rate: regular rate <Brenda Morris PA-C - Last Filed: 09/20/21 12:13> GI: Other: ostomy red, small stool smear, no output/gas in appliance <Brenda Morris PA-C - Last Filed: 09/20/21 12:13> Inspection: No distended and Yes incision (dressing c/d/i) <CHIQUI Herm[place] Last Filed: 09/20/21 12:13> Palpation (GI): Soft to palpation, Tenderness to palpation present (GI) (incisional), no guarding and not rigid <CHIQUI [place] Last Filed: 09/20/21 12:13> Skin: General skin exam: no rashes or lesions noted <Brenda Morris PA-C - Last Filed: 09/20/21 12:13> Neuro: General: patient oriented x3 <Brenda Morris PA-C - Last Filed: 09/20/21 12:13> Extrem: General: Yes no clubbing, cyanosis or edema <Brenda Morris PA-C - Last Filed: 09/20/21 12:13> Objective Data Active Medications Albuterol Sulfate (Albuterol Sulfate (0.083%) 2.5 Mg/3 Ml Vial.Neb) 2.5 mg INHALE RQ6H PRN PRN Reason: Wheezing Famotidine (Famotidine/Pf 20 Mg/2 Ml Vial) 20 mg IVPUSH BID [facility] Last Admin: 09/20/21 08:01 Dose: 20 mg Documented by: ERNIE Fluticasone/Vilanterol (Fluticasone/Vilanterol 100/25 Blst.W.Dev) 1 puff INHALE RDAILY [facility] Last Admin: 09/19/21 11:10 Dose: 1 puff Documented by: LORENA Heparin Sodium (Porcine) (Heparin Sodium,Porcine 5,000 Unit/Ml Vial) 5,000 unit SUBCUT Q12H [facility] Last Admin: 09/20/21 10:22 Dose: 5,000 unit Documented by: ERNIE Hydromorphone HCl (Hydromorphone Hcl 0.5 Mg/0.5 Ml Syringe) 0.5 mg IVPUSH Q2H PRN; Protocol PRN Reason: Pain, Severe (Pain Scale 7-10) Lactated Ringer's (Lr) 1,000 mls @ 125 mls/hr IVCONT .Q8H [facility] Last Admin: 09/20/21 05:24 Dose: 125 mls/hr Documented by: CASTILM Piperacillin Sod/Tazobactam (Sod 3.375 gm/ Sodium Chloride) 50 mls @ 100 mls/hr IV Q6H [facility] Last Infusion: 09/20/21 10:51 Dose: 0 mls/hr Documented by: ERNIE Acetaminophen (Ofirmev) 1,000 mg in 100 mls @ 400 mls/hr IV Q6H [facility] Last Infusion: 09/20/21 08:53 Dose: 0 mls/hr Documented by: ERNIE Ondansetron HCl (Ondansetron Hcl 4 Mg/2 Ml Vial) 4 mg IVPUSH Q6H PRN PRN Reason: Nausea and Vomiting Last Admin: 09/20/21 10:42 Dose: 4 mg Documented by: ERNIE Oxycodone HCl (Oxycodone Hcl Immed Release 5 Mg Tablet) 5 mg PO Q4H PRN PRN Reason: Pain, Moderate (Pain Scale 4-6 Oxycodone HCl (Oxycodone Hcl Immed Release 5 Mg Tablet) 10 mg PO Q4H PRN PRN Reason: Pain, Severe (Pain Scale 7-10) Pantoprazole Sodium (Pantoprazole Sodium 40 Mg/10 Ml Vial) 40 mg IVPUSH DAILY@0630 [facility] Last Admin: 09/20/21 05:25 Dose: 40 mg Documented by: CASTILM Sodium Chloride (0.9 % Sodium Chloride Flush 3 Ml Syringe) 3 ml IVFLUSH QSHIFT [facility] Last Admin: 09/20/21 07:55 Dose: Not Given Documented by: ERNIE Non-Admin Reason: IV Running Tiotropium [place] (Tiotropium [place] 18 Mcg Cap.W.Dev) 1 puff INHALE RDAILY [facility] Last Admin: 09/19/21 11:10 Dose: 1 puff Documented by: LORENA <Brenda Morris PA-C - Last Filed: 09/20/21 12:13> Labs CBC & Chem 7: : 09/19/21 03:45 09/19/21 03:45 <Brenda Morris PA-C - Last Filed: 09/20/21 12:13> Microbiology Microbiology Results: Microbiology 09/19/21 01:40 Gram Stain - Final Peritoneal Fluid Routine Culture - Preliminary Culture in progress. Anaerobic Culture - Preliminary Culture in progress. 09/18/21 22:50 Blood Culture - Preliminary Blood - Venous No growth after 24 hours. 09/18/21 22:50 Blood Culture - Preliminary Blood - Venous No growth after 24 hours. <CHIQUI [place] Last Filed: 09/20/21 12:13> Procedures Date of Service Date of Service: 09/20/21 <Brenda Morris PA-C - Last Filed: 09/20/21 12:13> Progress Note: A&P Assessment and plan (1) Sepsis: Status: Acute <Brenda Morris PA-C - Last Filed: 09/20/21 12:13> (2) Diverticulitis of colon with perforation: Status: Acute <CHIQUI [place] Last Filed: 09/20/21 12:13> (3) Status post Andreas procedure: Status: Acute <Brenda Morris PA-C - Last Filed: 09/20/21 12:13> Assessment and Plan: Pain control better Sitting up on recliner Stable vital signs Abdomen soft Stoma viable, no significant stool yet so she says she is passing gas by the stoma Okay to have clear liquids DC Long IV antibiotics Looks well Seen and examined - agree with DARLIN Morris <Robbi Jose MD - Last Filed: 09/20/21 15:16> Plan 80 year old female POD #1 s/p exploratory laparotomy, sigmoid resection, end sigmoid colostomy, washout of the pelvis for perforated diverticulitis. Doing ok post op- transferred out of ICU this AM. No real GI function yet. VSS. Abd exam benign- soft, ND, appropriate post op tenderness, ostomy viable appearing. Await return of GI function. Continue pain control- meds adjusted. Strongly encouraged OOB/ambulation and IS use. Cont IVF. Will keep NPO with sips of liquids for now. Patient comfortable with plan. If more comfortable today, can d/c long. Repeat labs in am. Cont IV zosyn. <Brenda Morris PA-C - Last Filed: 09/20/21 12:13> Fall Risk Details Current Medications: Current Medications Albuterol Sulfate (Albuterol Sulfate (0.083%) 2.5 Mg/3 Ml Vial.Neb) 2.5 mg INHALE RQ6H PRN PRN Reason: Wheezing Famotidine (Famotidine/Pf 20 Mg/2 Ml Vial) 20 mg IVPUSH BID [facility] Last Admin: 09/20/21 08:01 Dose: 20 mg Documented by: Fluticasone/Vilanterol (Fluticasone/Vilanterol 100/25 Blst.W.Dev) 1 puff INHALE RDAILY [facility] Last Admin: 09/19/21 11:10 Dose: 1 puff Documented by: Heparin Sodium (Porcine) (Heparin Sodium,Porcine 5,000 Unit/Ml Vial) 5,000 unit SUBCUT Q12H [facility] Last Admin: 09/20/21 10:22 Dose: 5,000 unit Documented by: Hydromorphone HCl (Hydromorphone Hcl 0.5 Mg/0.5 Ml Syringe) 0.5 mg IVPUSH Q2H PRN; Protocol PRN Reason: Pain, Severe (Pain Scale 7-10) Lactated Ringer's (Lr) 1,000 mls @ 125 mls/hr IVCONT .Q8H [facility] Last Admin: 09/20/21 05:24 Dose: 125 mls/hr Documented by: Piperacillin Sod/Tazobactam (Sod 3.375 gm/ Sodium Chloride) 50 mls @ 100 mls/hr IV Q6H [facility] Last Infusion: 09/20/21 10:51 Dose: Infused Documented by: Acetaminophen (Ofirmev) 1,000 mg in 100 mls @ 400 mls/hr IV Q6H [facility] Last Infusion: 09/20/21 08:53 Dose: Infused Documented by: Ondansetron HCl (Ondansetron Hcl 4 Mg/2 Ml Vial) 4 mg IVPUSH Q6H PRN PRN Reason: Nausea and Vomiting Last Admin: 09/20/21 10:42 Dose: 4 mg Documented by: Oxycodone HCl (Oxycodone Hcl Immed Release 5 Mg Tablet) 5 mg PO Q4H PRN PRN Reason: Pain, Moderate (Pain Scale 4-6 Oxycodone HCl (Oxycodone Hcl Immed Release 5 Mg Tablet) 10 mg PO Q4H PRN PRN Reason: Pain, Severe (Pain Scale 7-10) Pantoprazole Sodium (Pantoprazole Sodium 40 Mg/10 Ml Vial) 40 mg IVPUSH DAILY@0630 [facility] Last Admin: 09/20/21 05:25 Dose: 40 mg Documented by: Sodium Chloride (0.9 % Sodium Chloride Flush 3 Ml Syringe) 3 ml IVFLUSH QSHIFT [facility] Last Admin: 09/20/21 07:55 Dose: Not Given Documented by: Tiotropium [place] (Tiotropium [place] 18 Mcg Cap.W.Dev) 1 puff [facility] Last Admin: 09/19/21 11:10 Dose: 1 puff Documented by: <Brenda Morris PA-C - Last Filed: 09/20/21 12:13> Time Spent With Patient Time: Total time spent is greater than 50% in coordination of care (as documented) at patient's floor/unit and/or counseling patient: <Brenda Morris PA-C - Last Filed: 09/20/21 12:13> Quality Stroke Does the patient have a stroke diagnosis?: No <Brenda Morris PA-C - Last Filed: 09/20/21 12:13> VTE Prior VTE?: No <Brenda Morris PA-C - Last Filed: 09/20/21 12:13> VTE Risk Level:: Medical - moderate - high <CHIQUI Hermosillo Last Filed: 09/20/21 12:13> VTE Device Contraindication: N/A - Device Ordered <CHIQUI Hermos[place] Last Filed: 09/20/21 12:13> VTE Drug Contraindication: N/A - Med Ordered <CHIQUI Hermosillo Last Filed: 09/20/21 12:13>
[2021-09-20] MEDS: oxyCODONE HCl Immed Release 5 MG TABLET PO (12:57)
--- NOTE | 2021-09-20 16:07 | PC.NURSE ---
Pt forgetful but easily redirected. OOB to recliner most of day. Ambulated some steps in room. Guardado dcd, DTV [id number]. Ad drain to right, midline dressing CDI, colostomy to left abdomen, Medicated for pain with po oxycodone with good effect
[2021-09-21] VITALS (7 sets, daily range): BP systolic 145–160; BP diastolic 61–76; PULSE 72–86; RESP 17–20; TEMP 36–37.1; O2SAT 94–98
[2021-09-21] MEDS: Pantoprazole Sodium 40 MG/10 ML VIAL IVPUSH (05:21)
[2021-09-21] MEDS: Piperacillin Sodium/Tazobactam 3.375 GM in 0.9 % Sodium Chloride 50 ML IV ×4 (05:21→22:42)
[2021-09-21] MEDS: Lactated Ringers 1,000 ML 125 ML IVCONT (05:22)
[2021-09-21 06:00] LABS: MANUAL DIFF FLAG NO
[2021-09-21 06:30] LABS: Anion Gap 9 (12-20); Blood Urea Nitrogen 13 mg/dL (9-16); Calcium 8.9 mg/dL (8.4-10.2); Carbon Dioxide 26 mmol/L (22-29); Chloride 108 mmol/L (96-108); Creatinine Clr Calc Pharmacy 69.3; Estimated Glomerular Filt Rate > 60; Glucose Fasting 86 mg/dL (60-99); Potassium 3.6 mmol/L (3.3-5.1); Sodium 139 mmol/L (135-145)
[2021-09-21 06:33] LABS: Basophils Percent Auto 0.1 % (0-2); Eosinophils Absolute Auto 0.8 X10*3/uL (0.0-0.4); Eosinophils Percent Auto 5.2 % (0-4); Hematocrit 27.9 % (37.0-47.0); Hemoglobin 8.8 g/dl (12.0-16.0); Imm Gran Abs Auto 0.14 X10*3/uL (0.00-0.03); Lymphocytes Absolute Auto 0.8 X10*3/uL (1.2-4.9); Lymphocytes Percent Auto 5.3 % (20-40); Mean Corpuscular HGB Conc 31.5 g/dl (31.0-35.0); Mean Corpuscular Hemoglobin 30.1 pg (27.0-33.0); Mean Corpuscular Volume 95.5 fL (80.0-98.0); Mean Platelet Volume 9.5 fL (9.4-12.3); Monocytes Absolute Auto 0.5 X10*3/uL (0.1-1.2); Monocytes Percent Auto 3.1 % (2-11); Neutrophils Absolute Auto 12.5 x10*3/uL (2.0-8.3); Neutrophils Percent Auto 85.3 % (45-73); Platelet Count 337 X10*3/uL (160-400); Red Blood Count 2.92 X10*6/uL (4.20-5.50); Red Cell Distribution Width 13.6 % (11.0-16.0); White Blood Count 14.7 X10*3/uL (4.8-10.8)
--- NOTE | 2021-09-21 08:46 | P.PNGS_ITS ---
Subjective Subjective Date of Service: 09/21/21 Interval history: Says she feels better Pain much improved Says she this is some small flatus from her colostomy Voiding freely Physical Exam Vital Signs: Vital Signs: Last Vital Signs Temp 97.2 F 09/21/21 07:34 Pulse 75 09/21/21 07:34 Resp 20 09/21/21 07:34 BP 158/71 H 09/21/21 07:34 Pulse Ox 94 09/21/21 07:34 BMI result Body Mass Index 30.6 Const: Other: Sitting on recliner General: comfortable and no acute distress Resp: Effort & Inspection: normal respiratory effort Cardio: Rate: regular rate GI: Other: Soft, no guarding or rebound, incision well healed, JULIANNA drain with scanty output, stoma viable looking, no significant amount of stool Objective Data Active Medications Albuterol Sulfate (Albuterol Sulfate (0.083%) 2.5 Mg/3 Ml Vial.Neb) 2.5 mg INHALE RQ6H PRN PRN Reason: Wheezing Famotidine (Famotidine/Pf 20 Mg/2 Ml Vial) 20 mg IVPUSH BID [facility] Last Admin: 09/20/21 22:07 Dose: 20 mg Documented by: LOIS Fluticasone/Vilanterol (Fluticasone/Vilanterol 100/25 Blst.W.Dev) 1 puff INHALE RDAILY [facility] Last Admin: 09/19/21 11:10 Dose: 1 puff Documented by: LORENA Heparin Sodium (Porcine) (Heparin Sodium,Porcine 5,000 Unit/Ml Vial) 5,000 unit SUBCUT Q12H [facility] Last Admin: 09/20/21 22:07 Dose: 5,000 unit Documented by: LOIS Hydromorphone HCl (Hydromorphone Hcl 0.5 Mg/0.5 Ml Syringe) 0.5 mg IVPUSH Q2H PRN; Protocol PRN Reason: Pain, Severe (Pain Scale 7-10) Lactated Ringer's (Lr) 1,000 mls @ 80 mls/hr IVCONT .[id number] [facility] Last Admin: 09/21/21 05:22 Dose: 125 mls/hr Documented by: LOIS Piperacillin Sod/Tazobactam (Sod 3.375 gm/ Sodium Chloride) 50 mls @ 100 mls/hr IV Q6H [facility] Last Admin: 09/21/21 05:21 Dose: 100 mls/hr Documented by: LOIS Acetaminophen (Ofirmev) 1,000 mg in 100 mls @ 400 mls/hr IV Q6H [facility] Last Infusion: 09/21/21 05:12 Dose: 0 mls/hr Documented by: LOIS Ondansetron HCl (Ondansetron Hcl 4 Mg/2 Ml Vial) 4 mg IVPUSH Q6H PRN PRN Reason: Nausea and Vomiting Last Admin: 09/20/21 10:42 Dose: 4 mg Documented by: ERNIE Oxycodone HCl (Oxycodone Hcl Immed Release 5 Mg Tablet) 5 mg PO Q4H PRN PRN Reason: Pain, Moderate (Pain Scale 4-6 Last Admin: 09/20/21 12:57 Dose: 5 mg Documented by: ERNIE Oxycodone HCl (Oxycodone Hcl Immed Release 5 Mg Tablet) 10 mg PO Q4H PRN PRN Reason: Pain, Severe (Pain Scale 7-10) Pantoprazole Sodium (Pantoprazole Sodium 40 Mg/10 Ml Vial) 40 mg IVPUSH DAILY@0630 [facility] Last Admin: 09/21/21 05:21 Dose: 40 mg Documented by: LOIS Sodium Chloride (0.9 % Sodium Chloride Flush 3 Ml Syringe) 3 ml IVFLUSH QSHIFT [facility] Last Admin: 09/21/21 02:46 Dose: Not Given Documented by: LOIS Non-Admin Reason: IV Running Tiotropium [place] (Tiotropium [place] 18 Mcg Cap.W.Dev) 1 puff INHALE RDAILY [facility] Last Admin: 09/19/21 11:10 Dose: 1 puff Documented by: LORENA Labs CBC & Chem 7: 09/21/21 05:50 09/21/21 05:50 Labs: Laboratory Results - last 24 hr 09/21/21 09/21/21 05:50 05:50 MCV 95.5 MCH 30.1 MCHC 31.5 RDW 13.6 Plt Count 337 MPV 9.5 Immature Gran % (Auto) 1.0 H Neut % (Auto) 85.3 H Lymph % (Auto) 5.3 L [place] % (Auto) 3.1 Eos % (Auto) 5.2 H Baso % (Auto) 0.1 Lymph # (Auto) 0.8 L [place] # (Auto) 0.5 Eos # (Auto) 0.8 H Baso # (Auto) 0.0 Abs Immat Gran (auto) 0.14 H Absolute Neuts (auto) 12.5 H Absolute Nucleated RBC 0.000 Nucleated RBC % (auto) 0.0 Anion Gap 9 L Estim Creat Clear Calc 69.3 Estimated GFR > 60 Fasting Glucose 86 Calcium 8.9 Microbiology Microbiology Results: Microbiology 09/18/21 22:50 Blood Culture - Preliminary Blood - Venous No growth after 48 hours. 09/18/21 22:50 Blood Culture - Preliminary Blood - Venous No growth after 48 hours. 09/19/21 01:40 Gram Stain - Final Peritoneal Fluid Routine Culture - Preliminary Culture in progress. Anaerobic Culture - Preliminary Culture in progress. Procedures Date of Service Date of Service: 09/21/21 Progress Note: A&P Assessment and plan (1) Diverticulitis of colon with perforation: Status: Acute Assessment and Plan: Status post Andreas's procedure Clinically looks well She notices small amounts of flatus from her stoma so I will try her on some regular food WBC 14, hemoglobin 8.8 - will follow No evidence of any bleed She appears comfortable Continue IV antibiotics Ambulate Fall Risk Details Current Medications: Current Medications Albuterol Sulfate (Albuterol Sulfate (0.083%) 2.5 Mg/3 Ml Vial.Neb) 2.5 mg INHALE RQ6H PRN PRN Reason: Wheezing Famotidine (Famotidine/Pf 20 Mg/2 Ml Vial) 20 mg IVPUSH BID [facility] Last Admin: 09/20/21 22:07 Dose: 20 mg Documented by: Fluticasone/Vilanterol (Fluticasone/Vilanterol 100/25 Blst.W.Dev) 1 puff INHALE RDAILY [facility] Last Admin: 09/19/21 11:10 Dose: 1 puff Documented by: Heparin Sodium (Porcine) (Heparin Sodium,Porcine 5,000 Unit/Ml Vial) 5,000 unit SUBCUT Q12H [facility] Last Admin: 09/20/21 22:07 Dose: 5,000 unit Documented by: Hydromorphone HCl (Hydromorphone Hcl 0.5 Mg/0.5 Ml Syringe) 0.5 mg IVPUSH Q2H PRN; Protocol PRN Reason: Pain, Severe (Pain Scale 7-10) Lactated Ringer's (Lr) 1,000 mls @ 80 mls/hr IVCONT .[id number] [facility] Last Admin: 09/21/21 05:22 Dose: 125 mls/hr Documented by: Piperacillin Sod/Tazobactam (Sod 3.375 gm/ Sodium Chloride) 50 mls @ 100 mls/hr IV Q6H [facility] Last Admin: 09/21/21 05:21 Dose: 100 mls/hr Documented by: Acetaminophen (Ofirmev) 1,000 mg in 100 mls @ 400 mls/hr IV Q6H [facility] Last Infusion: 09/21/21 05:12 Dose: Infused Documented by: Ondansetron HCl (Ondansetron Hcl 4 Mg/2 Ml Vial) 4 mg IVPUSH Q6H PRN PRN Reason: Nausea and Vomiting Last Admin: 09/20/21 10:42 Dose: 4 mg Documented by: Oxycodone HCl (Oxycodone Hcl Immed Release 5 Mg Tablet) 5 mg PO Q4H PRN PRN Reason: Pain, Moderate (Pain Scale 4-6 Last Admin: 09/20/21 12:57 Dose: 5 mg Documented by: Oxycodone HCl (Oxycodone Hcl Immed Release 5 Mg Tablet) 10 mg PO Q4H PRN PRN Reason: Pain, Severe (Pain Scale 7-10) Pantoprazole Sodium (Pantoprazole Sodium 40 Mg/10 Ml Vial) 40 mg IVPUSH DAILY@0630 [facility] Last Admin: 09/21/21 05:21 Dose: 40 mg Documented by: Sodium Chloride (0.9 % Sodium Chloride Flush 3 Ml Syringe) 3 ml IVFLUSH QSHIFT [facility] Last Admin: 09/21/21 02:46 Dose: Not Given Documented by: Tiotropium [place] (Tiotropium [place] 18 Mcg Cap.W.Dev) 1 puff INHALE RDAILY [facility] Last Admin: 09/19/21 11:10 Dose: 1 puff Documented by: Time Spent With Patient Time: Total time spent is greater than 50% in coordination of care (as documented) at patient's floor/unit and/or counseling patient: Quality Stroke Does the patient have a stroke diagnosis?: No VTE Prior VTE?: No VTE Risk Level:: Medical - moderate - high VTE Device Contraindication: N/A - Device Ordered VTE Drug Contraindication: N/A - Med Ordered
[2021-09-21] MEDS: 0.9 % Sodium Chloride Flush 3 ML SYRINGE IVFLUSH ×3 (09:00→22:42)
[2021-09-21] MEDS: Famotidine/PF 20 MG/2 ML VIAL IVPUSH ×2 (09:00→22:42)
[2021-09-21] MEDS: Fluticasone/Vilanterol 100/25 BLST.W.DEV 1 PUFF INHALE (09:36)
[2021-09-21] MEDS: Heparin Sodium,Porcine 5,000 UNIT/ML VIAL 5000 UNIT SUBCUT ×2 (11:26→22:43)
[2021-09-21] MEDS: Lactated Ringers 1,000 ML 80 ML IVCONT (22:42)
[2021-09-22] VITALS (8 sets, daily range): BP systolic 167–170; BP diastolic 60–80; PULSE 65–84; RESP 14–18; TEMP 36.2–37.5; O2SAT 93–97; BMI 29.0
[2021-09-22] MEDS: Piperacillin Sodium/Tazobactam 3.375 GM in 0.9 % Sodium Chloride 50 ML IV ×4 (04:41→22:50)
[2021-09-22] MEDS: Pantoprazole Sodium 40 MG/10 ML VIAL IVPUSH (05:23)
--- NOTE | 2021-09-22 07:46 | P.CDIC_ITS ---
CDI Concurrent Query Documentation Clarification: PHYSICIAN'S DOCUMENTATION REQUEST Date of Query: 09/22/21 0747 Patient Name: Camille Hernandez Admit Date: 09/18/21 Dear Doctor, A review of the medical record indicates additional documentation may be needed. Please review below and update the documentation accordingly. Clinical Indicators: Documentation on progress note dated [ ] included the diagnosis of respiratory failure. Risk Factors/Clinical Indicators/Treatments ICU note 09/19 - 03:30 breathing on her own without any difficulty, IV fluids, prior to surgery sat dropped from 96% before surgery to 90%, speaks baasic questions. ICU note 09/19 - 09:03 - patient stating reports several episodes of nausea and vomiting. DX: Assessment/plan: Acute hypoxemia respiratory failure ICU note 09/19 - awake, alert and oriented, lungs are clear, renal function is preserved and no respiratory insufficiency. Recognized standard criteria for respiratory failure includes: (Source: [facility] Hospitalist Apr 2013) ABGs (1 or more) Symptoms: ? PO2 <60 or RA SpO2 <91% ? Tachypnea, SOB, dyspnea ? PcO2 >50 and pH <7.35 ? Pallor or cyanosis ? pO2 decrease or pcO2 increase ? Anxiety or restlessness by 10 mm/Hg from baseline if known ? Use of accessory muscles ? Retractions (grunting in newborns) ? Unable to speak in complete sentences P/F ratio < 300 Supplemental O2 requirement of 40% or more Intubation is not required Based on the above information and the recognized standard for respiratory failure could you please verify this diagnoses is still accurate and reflective of the patient?s condition to ensure quality of the medical record. Please clarify in the Progress Notes: Treating, ruled out, resolved, etc acute hypoxemia respiratory failure: * Respiratory failure is/was present and is a clinical diagnosis based on (please include this additional support in the medical record) * After study respiratory failure has been ruled out * Other (please specify) * Unable to determine Use of terms such as suspected, likely, concern for, or probable (associated with a specific diagnosis that is being evaluated, monitored, or treated as if it exists) are acceptable and can be coded in the inpatient setting, when documented at the time of discharge. Thank you, Alise Johnson [facility], CDIS Extension: [phone] Please use your independent medical judgment in providing your response. THIS QUERY IS PART OF THE PERMANENT MEDICAL RECORD Provider Response: Other (Patient has no diagnosis of respiratory failure) Other Diagnosis: No diagnosis of respiratory failure
[2021-09-22] MEDS: Fluticasone/Vilanterol 100/25 BLST.W.DEV 1 PUFF INHALE (08:08)
--- NOTE | 2021-09-22 08:52 | P.PNGS_ITS ---
Subjective Subjective Date of Service: 09/22/21 <Brenda Morris PA-C - Last Filed: 09/22/21 08:57> 09/22/21 <Robbi Jose MD - Last Filed: 09/22/21 10:10> Interval history: Feels fairly well- feels like most of her pain is actually from her knee. She is tolerating a solid diet. Has been OOB and ambulating. <Brenda Morris PA-C - Last Filed: 09/22/21 08:57> Physical Exam Vital Signs: Vital Signs: Last Vital Signs Temp 98.3 F 09/22/21 07:24 Pulse 65 09/22/21 08:08 Resp 18 09/22/21 08:08 BP 170/60 H 09/22/21 07:24 Pulse Ox 94 09/22/21 07:24 BMI result Body Mass Index 29.0 <CHIQUI Hermosillo Last Filed: 09/22/21 08:57> Const: General: comfortable, no acute distress and alert <Brenda blunt PA-C - Last Filed: 09/22/21 08:57> Orientation/consciousness: patient oriented x3 <Brenda Morris PA-C - Last Filed: 09/22/21 08:57> Resp: Effort & Inspection: normal respiratory effort <CHIQUI Hermosillo Last Filed: 09/22/21 08:57> GI: Other: colostomy pink, no output in appliance JULIANNA drain with serosanguineous output <Brenda Morris PA-C - Last Filed: 09/22/21 08:57> Inspection: No distended and Yes incision (clean) <Brenda Morris PA-C - Last Filed: 09/22/21 08:57> Skin: General skin exam: no rashes or lesions noted <CHIQUI Hermosillo Last Filed: 09/22/21 08:57> Neuro: General: patient oriented x3 <CHIQUI Hermosillo Last Filed: 09/22/21 08:57> Extrem: General: Yes no clubbing, cyanosis or edema <CHIQUI Hermosillo Last Filed: 09/22/21 08:57> Objective Data Active Medications Albuterol Sulfate (Albuterol Sulfate (0.083%) 2.5 Mg/3 Ml Vial.Neb) 2.5 mg INHALE RQ6H PRN PRN Reason: Wheezing Famotidine (Famotidine/Pf 20 Mg/2 Ml Vial) 20 mg IVPUSH BID [facility] Last Admin: 09/21/21 22:42 Dose: 20 mg Documented by: ADEN Fluticasone/Vilanterol (Fluticasone/Vilanterol 100/25 Blst.W.Dev) 1 puff INHALE RDAILY [facility] Last Admin: 09/22/21 08:08 Dose: 1 puff Documented by: NICK Heparin Sodium (Porcine) (Heparin Sodium,Porcine 5,000 Unit/Ml Vial) 5,000 unit SUBCUT Q12H [facility] Last Admin: 09/21/21 22:43 Dose: 5,000 unit Documented by: ADEN Hydromorphone HCl (Hydromorphone Hcl 0.5 Mg/0.5 Ml Syringe) 0.5 mg IVPUSH Q2H PRN; Protocol PRN Reason: Pain, Severe (Pain Scale 7-10) Piperacillin Sod/Tazobactam (Sod 3.375 gm/ Sodium Chloride) 50 mls @ 100 mls/hr IV Q6H [facility] Last Infusion: 09/22/21 05:20 Dose: 0 mls/hr Documented by: ADEN Acetaminophen (Ofirmev) 1,000 mg in 100 mls @ 400 mls/hr IV Q6H [facility] Last Infusion: 09/22/21 05:47 Dose: 0 mls/hr Documented by: ADEN Ondansetron HCl (Ondansetron Hcl 4 Mg/2 Ml Vial) 4 mg IVPUSH Q6H PRN PRN Reason: Nausea and Vomiting Last Admin: 09/20/21 10:42 Dose: 4 mg Documented by: ERNIE Oxycodone HCl (Oxycodone Hcl Immed Release 5 Mg Tablet) 5 mg PO Q4H PRN PRN Reason: Pain, Moderate (Pain Scale 4-6 Last Admin: 09/20/21 12:57 Dose: 5 mg Documented by: ERNIE Oxycodone HCl (Oxycodone Hcl Immed Release 5 Mg Tablet) 10 mg PO Q4H PRN PRN Reason: Pain, Severe (Pain Scale 7-10) Sodium Chloride (0.9 % Sodium Chloride Flush 3 Ml Syringe) 3 ml IVFLUSH QSHIFT [facility] Last Admin: 09/21/21 22:42 Dose: 3 ml Documented by: ADEN Tiotropium [place] (Tiotropium [place] 18 Mcg Cap.W.Dev) 1 puff INHALE RDAILY [facility] Last Admin: 09/22/21 08:07 Dose: Not Given Documented by: NICK Non-Admin Reason: Patient Refused <Brenda Morris PA-C - Last Filed: 09/22/21 08:57> Labs CBC & Chem 7: : 09/21/21 05:50 09/21/21 05:50 <Brenda Morris PA-C - Last Filed: 09/22/21 08:57> Microbiology Microbiology Results: Microbiology 09/19/21 01:40 Gram Stain - Final Peritoneal Fluid Routine Culture - Preliminary Culture in progress. Anaerobic Culture - Preliminary Culture in progress. <Brenda Morris PA-C - Last Filed: 09/22/21 08:57> Procedures Date of Service Date of Service: 09/22/21 <Brenda Morris PA-C - Last Filed: 09/22/21 08:57> Progress Note: A&P Assessment and plan (1) Status post Andreas procedure: Status: Acute <Brenda Morris PA-C - Last Filed: 09/22/21 08:57> Assessment and Plan: She feels well Good pain control Has flatus via ostomy Stoma viable although no stool yet Incision clean Await stool output from stoma Patient is being seen by [facility] for meniscal tear of the knee - emphasized to her that she should not get out of bed without help Discussed this with her as Seen and examined independently - agree with DARLIN Morris <Robbi Jose MD - Last Filed: 09/22/21 10:10> (2) Diverticulitis of colon with perforation: Status: Acute <Brenda Morris PA-C - Last Filed: 09/22/21 08:57> Plan 80 year old female POD #3 s/p exploratory laparotomy, sigmoid resection, end sigmoid colostomy, washout of the pelvis for perforated diverticulitis. Doing well post op. VSS. Abd exam benign, colostomy viable appearing without output. Await colostomy function. Begin colostomy education today. Cont IV zos yn. JULIANNA with serosanguineous output- will remove prior to discharge. Anticipate discharge in 1-2 days when colostomy begins to function with VNA services. Will begin bowel regimen. Documentation of acute respiratory failure in initial ICU consult note- does not appear to have been in respiratory failure. Was extubated in OR without difficulty and remained on supplemental O2 without respiratory distress. <Brenda Morris PA-C - Last Filed: 09/22/21 08:57> Fall Risk Details Current Medications: Current Medications Albuterol Sulfate (Albuterol Sulfate (0.083%) 2.5 Mg/3 Ml Vial.Neb) 2.5 mg INHALE RQ6H PRN PRN Reason: Wheezing Famotidine (Famotidine/Pf 20 Mg/2 Ml Vial) 20 mg IVPUSH BID [facility] Last Admin: 09/21/21 22:42 Dose: 20 mg Documented by: Fluticasone/Vilanterol (Fluticasone/Vilanterol 100/25 Blst.W.Dev) 1 puff INHALE RDAILY [facility] Last Admin: 09/22/21 08:08 Dose: 1 puff Documented by: Heparin Sodium (Porcine) (Heparin Sodium,Porcine 5,000 Unit/Ml Vial) 5,000 unit SUBCUT Q12H [facility] Last Admin: 09/21/21 22:43 Dose: 5,000 unit Documented by: Hydromorphone HCl (Hydromorphone Hcl 0.5 Mg/0.5 Ml Syringe) 0.5 mg IVPUSH Q2H PRN; Protocol PRN Reason: Pain, Severe (Pain Scale 7-10) Piperacillin Sod/Tazobactam (Sod 3.375 gm/ Sodium Chloride) 50 mls @ 100 mls/hr IV Q6H [facility] Last Infusion: 09/22/21 05:20 Dose: Infused Documented by: Acetaminophen (Ofirmev) 1,000 mg in 100 mls @ 400 mls/hr IV Q6H [facility] Last Infusion: 09/22/21 05:47 Dose: Infused Documented by: Ondansetron HCl (Ondansetron Hcl 4 Mg/2 Ml Vial) 4 mg IVPUSH Q6H PRN PRN Reason: Nausea and Vomiting Last Admin: 09/20/21 10:42 Dose: 4 mg Documented by: Oxycodone HCl (Oxycodone Hcl Immed Release 5 Mg Tablet) 5 mg PO Q4H PRN PRN Reason: Pain, Moderate (Pain Scale 4-6 Last Admin: 09/20/21 12:57 Dose: 5 mg Documented by: Oxycodone HCl (Oxycodone Hcl Immed Release 5 Mg Tablet) 10 mg PO Q4H PRN PRN Reason: Pain, Severe (Pain Scale 7-10) Sodium Chloride (0.9 % Sodium Chloride Flush 3 Ml Syringe) 3 ml IVFLUSH [facility] Last Admin: 09/21/21 22:42 Dose: 3 ml Documented by: Tiotropium [place] (Tiotropium [place] 18 Mcg Cap.W.Dev) 1 puff INHALE RDAILY [facility] Last Admin: 09/22/21 08:07 Dose: Not Given Documented by: <Brenda Morris PA-C - Last Filed: 09/22/21 08:57> Time Spent With Patient Time: Total time spent is greater than 50% in coordination of care (as documented) at patient's floor/unit and/or counseling patient: <Brenda Morris PA-C - Last Filed: 09/22/21 08:57> Quality Stroke Does the patient have a stroke diagnosis?: No <Brenda Morris PA-C - Last Filed: 09/22/21 08:57> VTE Prior VTE?: No <Brenda Morris PA-C - Last Filed: 09/22/21 08:57> VTE Risk Level:: Medical - moderate - high <CHIQUI Hermosillo Last Filed: 09/22/21 08:57> VTE Device Contraindication: N/A - Device Ordered <CHIQUI Hermosillo Last Filed: 09/22/21 08:57> VTE Drug Contraindication: N/A - Med Ordered <CHIQUI Hermosillo Last Filed: 09/22/21 08:57>
[2021-09-22] MEDS: Heparin Sodium,Porcine 5,000 UNIT/ML VIAL 5000 UNIT SUBCUT ×2 (10:45→22:06)
[2021-09-22] MEDS: 0.9 % Sodium Chloride Flush 3 ML SYRINGE IVFLUSH ×2 (10:45→17:01)
[2021-09-22] MEDS: Docusate Sodium 100 MG CAPSULE PO ×2 (10:45→22:07)
[2021-09-22] MEDS: Famotidine/PF 20 MG/2 ML VIAL IVPUSH (10:45)
--- NOTE | 2021-09-22 15:11 | PC.NURSE ---
Addendum entered by Sandra Xavier RN 09/22/21 15:18: Late Entry from 09/19/21: second liter of Ringers Lactate complete on arrival to PACU at 0313 09/19/21 Original Note: Late Entry: second liter of Ringers Lactate complete on arrival to PACU at 0313
[2021-09-22] MEDS: Omeprazole 20 MG CAPSULE.DR PO (16:59)
--- NOTE | 2021-09-22 18:52 | HO.POSTANES ---
Post Anesthesia Evaluation Post Anesthesia Evaluation Vital Signs: Vital Signs Temp Pulse Resp BP Pulse Ox 09/22/21 15:16 99.5 F 84 14 170/80 H 95 09/22/21 11:17 98.7 F 76 17 94 09/22/21 08:08 65 18 09/22/21 07:24 98.3 F 65 17 170/60 H 94 Comments: Late addendum 09/22/2021: The second 1000 ml LR began infusing during the procedure at 2:45 am and ended with the end of surgery at 3:10 am on the date of the procedure.
[2021-09-23] MEDS: oxyCODONE HCl Immed Release 5 MG TABLET PO (00:05)
[2021-09-23] MEDS: 0.9 % Sodium Chloride Flush 3 ML SYRINGE IVFLUSH ×2 (01:08→10:04)
[2021-09-23 01:14] VITALS: BP 164/80
[2021-09-23 03:49] VITALS: BP 169/83; PULSE 78; RESP 16; TEMP 36.5; O2SAT 94
[2021-09-23] MEDS: Piperacillin Sodium/Tazobactam 3.375 GM in 0.9 % Sodium Chloride 50 ML IV (04:45)
[2021-09-23] MEDS: Omeprazole 20 MG CAPSULE.DR PO (06:23)
[2021-09-23 07:43] VITALS: PULSE 63; RESP 18; TEMP 36.7; O2SAT 93
[2021-09-23] MEDS: Fluticasone/Vilanterol 100/25 BLST.W.DEV 1 PUFF INHALE (07:52)
[2021-09-23 07:56] VITALS: PULSE 64; RESP 18; O2SAT 95
--- NOTE | 2021-09-23 07:59 | PM.PNGS ---
Subjective Subjective Date of Service: 09/23/21 <Brenda Morris PA-C - Last Filed: 09/23/21 08:03> 09/23/21 <Robbi Jsoe MD - Last Filed: 09/23/21 11:34> Interval history: Feels great this morning. Not much pain. Did well with ostomy teaching yesterday. Passing flatus from ostomy and stool per I&Os. <Brenda Morris PA-C - Last Filed: 09/23/21 08:03> Physical Exam Vital Signs: Vital Signs: Last Vital Signs Temp 98.0 F 09/23/21 07:43 Pulse 64 09/23/21 07:56 Resp 18 09/23/21 07:56 BP 169/83 H 09/23/21 03:49 Pulse Ox 93 09/23/21 07:43 BMI result Body Mass Index 29.0 <CHIQUI Hermosillo Last Filed: 09/23/21 08:03> Const: General: comfortable, no acute distress and alert <Brenda Morris PA-C - Last Filed: 09/23/21 08:03> Orientation/consciousness: patient oriented x3 <CHIQUI Hermosillo Last Filed: 09/23/21 08:03> Resp: Effort & Inspection: normal respiratory effort <CHIQUI Hermosillo Last Filed: 09/23/21 08:03> GI: Other: ostomy pink, gas in appliance JULIANNA scanty serous drainage <Brenda Morris PA-C - Last Filed: 09/23/21 08:03> Inspection: No distended and Yes incision (clean) <Brenda Morris PA-C - Last Filed: 09/23/21 08:03> Palpation (GI): Soft to palpation, nontender, no guarding and not rigid <CHIQUI Hermosillo Last Filed: 09/23/21 08:03> Percussion: Yes normal to percussion <CHIQUI Hermosillo Last Filed: 09/23/21 08:03> Skin: General skin exam: no rashes or lesions noted <CHIQUI Hermosillo Last Filed: 09/23/21 08:03> Neuro: General: patient oriented x3 <Brenda Morris PA-C - Last Filed: 09/23/21 08:03> Extrem: General: Yes no clubbing, cyanosis or edema <Brenda Morris PA-C - Last Filed: 09/23/21 08:03> Objective Data Active Medications Albuterol Sulfate (Albuterol Sulfate (0.083%) 2.5 Mg/3 Ml Vial.Neb) 2.5 mg INHALE RQ6H PRN PRN Reason: Wheezing Docusate Sodium (Docusate Sodium 100 Mg Capsule) 100 mg PO BID [facility] Last Admin: 09/22/21 22:07 Dose: 100 mg Documented by: DEIRDRE Famotidine (Famotidine/Pf 20 Mg/2 Ml Vial) 20 mg IVPUSH BID [facility] Last Admin: 09/22/21 22:07 Dose: Not Given Documented by: DEIRDRE Non-Admin Reason: No Access Fluticasone/Vilanterol (Fluticasone/Vilanterol 100/25 Blst.W.Dev) 1 puff INHALE RDAILY [facility] Last Admin: 09/23/21 07:52 Dose: 1 puff Documented by: SAILAJA Heparin Sodium (Porcine) (Heparin Sodium,Porcine 5,000 Unit/Ml Vial) 5,000 unit SUBCUT Q12H [facility] Last Admin: 09/22/21 22:06 Dose: 5,000 unit Documented by: DEIRDRE Hydromorphone HCl (Hydromorphone Hcl 0.5 Mg/0.5 Ml Syringe) 0.5 mg IVPUSH Q2H PRN; Protocol PRN Reason: Pain, Severe (Pain Scale 7-10) Acetaminophen (Ofirmev) 1,000 mg in 100 mls @ 400 mls/hr IV Q6H [facility] Last Infusion: 09/23/21 06:40 Dose: 0 mls/hr Documented by: CARMENCITA Levofloxacin (Levofloxacin 750 Mg Tablet) 750 mg PO Q24H [facility] Metronidazole (Metronidazole 500 Mg Tablet) 500 mg PO Q8H [facility] Omeprazole (Omeprazole 20 Mg Capsule.Dr) 20 mg PO BID@0630,1630 [facility] Last Admin: 09/23/21 06:23 Dose: 20 mg Documented by: CARMENCITA Ondansetron HCl (Ondansetron Hcl 4 Mg/2 Ml Vial) 4 mg IVPUSH Q6H PRN PRN Reason: Nausea and Vomiting Last Admin: 09/20/21 10:42 Dose: 4 mg Documented by: ERNIE Oxycodone HCl (Oxycodone Hcl Immed Release 5 Mg Tablet) 5 mg PO Q4H PRN PRN Reason: Pain, Moderate (Pain Scale 4-6 Last Admin: 09/23/21 00:05 Dose: 5 mg Documented by: DEIRDRE Oxycodone HCl (Oxycodone Hcl Immed Release 5 Mg Tablet) 10 mg PO Q4H PRN PRN Reason: Pain, Severe (Pain Scale 7-10) Sodium Chloride (0.9 % Sodium Chloride Flush 3 Ml Syringe) 3 ml IVFLUSH [facility] Last Admin: 09/23/21 01:08 Dose: 3 ml Documented by: CARMENCITA Tiotropium [place] (Tiotropium [place] 18 Mcg Cap.W.Dev) 1 puff INHALE RDAILY [facility] Last Admin: 09/23/21 07:52 Dose: 1 puff Documented by: SAILAJA <Brenda Morris PA-C - Last Filed: 09/23/21 08:03> Labs CBC & Chem 7: : 09/21/21 05:50 09/21/21 05:50 <Brenda Morris PA-C - Last Filed: 09/23/21 08:03> Microbiology Microbiology Results: Microbiology 09/19/21 01:40 Gram Stain - Final Peritoneal Fluid Routine Culture - Final No growth after 2 days Anaerobic Culture - Preliminary Culture in progress. <Brenda Morris PA-C - Last Filed: 09/23/21 08:03> Procedures Date of Service Date of Service: 09/23/21 <Brenda Morris PA-C - Last Filed: 09/23/21 08:03> Progress Note: A&P Assessment and plan (1) Status post Andreas procedure: Status: Acute <Brenda Morris PA-C - Last Filed: 09/23/21 08:03> Assessment and Plan: she feels well good PO intake denies pain abd soft incision clean stoma with good output of stool now she says she is ready to be discharged VNA for stoma care will see in office for removal of radha doing very well in room - comfortable with plan <Robbi Jose MD - Last Filed: 09/23/21 11:34> (2) Diverticulitis of colon with perforation: Status: Acute <Brenda Morris PA-C - Last Filed: 09/23/21 08:03> Plan 80 year old female POD #4 s/p exploratory laparotomy, sigmoid resection, end sigmoid colostomy, washout of the pelvis for perforated diverticulitis. Doing well post op. VSS. Abd exam benign, colostomy viable appearing now with output. JULIANNA with serosanguineous output, scanty- removed. Will reassess later today. If remains comfortable, stable for d.c to home with VNA services and on course of PO abx. Patient comfortable with plan. <Brenda Morris PA-C - Last Filed: 09/23/21 08:03> Fall Risk Details Current Medications: Current Medications Albuterol Sulfate (Albuterol Sulfate (0.083%) 2.5 Mg/3 Ml Vial.Neb) 2.5 mg INHALE RQ6H PRN PRN Reason: Wheezing Docusate Sodium (Docusate Sodium 100 Mg Capsule) 100 mg PO BID [facility] Last Admin: 09/22/21 22:07 Dose: 100 mg Documented by: Famotidine (Famotidine/Pf 20 Mg/2 Ml Vial) 20 mg IVPUSH BID [facility] Last Admin: 09/22/21 22:07 Dose: Not Given Documented by: Fluticasone/Vilanterol (Fluticasone/Vilanterol 100/25 Blst.W.Dev) 1 puff INHALE RDAILY [facility] Last Admin: 09/23/21 07:52 Dose: 1 puff Documented by: Heparin Sodium (Porcine) (Heparin Sodium,Porcine 5,000 Unit/Ml Vial) 5,000 unit SUBCUT Q12H [facility] Last Admin: 09/22/21 22:06 Dose: 5,000 unit Documented by: Hydromorphone HCl (Hydromorphone Hcl 0.5 Mg/0.5 Ml Syringe) 0.5 mg IVPUSH Q2H PRN; Protocol PRN Reason: Pain, Severe (Pain Scale 7-10) Acetaminophen (Ofirmev) 1,000 mg in 100 mls @ 400 mls/hr IV Q6H [facility] Last Infusion: 09/23/21 06:40 Dose: Infused Documented by: Levofloxacin (Levofloxacin 750 Mg Tablet) 750 mg PO Q24H [facility] Metronidazole (Metronidazole 500 Mg Tablet) 500 mg PO Q8H [facility] Omeprazole (Omeprazole 20 Mg Capsule.Dr) 20 mg PO BID@0630,1630 [facility] Last Admin: 09/23/21 06:23 Dose: 20 mg Documented by: Ondansetron HCl (Ondansetron Hcl 4 Mg/2 Ml Vial) 4 mg IVPUSH Q6H PRN PRN Reason: Nausea and Vomiting Last Admin: 09/20/21 10:42 Dose: 4 mg Documented by: Oxycodone HCl (Oxycodone Hcl Immed Release 5 Mg Tablet) 5 mg PO Q4H PRN PRN Reason: Pain, Moderate (Pain Scale 4-6 Last Admin: 09/23/21 00:05 Dose: 5 mg Documented by: Oxycodone HCl (Oxycodone Hcl Immed Release 5 Mg Tablet) 10 mg PO Q4H PRN PRN Reason: Pain, Severe (Pain Scale 7-10) Sodium Chloride (0.9 % Sodium Chloride Flush 3 Ml Syringe) 3 ml IVFLUSH QSHIFT [facility] Last Admin: 09/23/21 01:08 Dose: 3 ml Documented by: Tiotropium [place] (Tiotropium [place] 18 Mcg Cap.W.Dev) 1 puff INHALE RDAILY [facility] Last Admin: 09/23/21 07:52 Dose: 1 puff Documented by: <Brenda Morris PA-C - Last Filed: 09/23/21 08:03> Time Spent With Patient Time: Total time spent is greater than 50% in coordination of care (as documented) at patient's floor/unit and/or counseling patient: 35 <Brenda Morris PA-C - Last Filed: 09/23/21 08:03> Quality Stroke Does the patient have a stroke diagnosis?: No <CHIQUI Hermosillo Last Filed: 09/23/21 08:03> VTE Prior VTE?: No <Brenda Morris PA-C - Last Filed: 09/23/21 08:03> VTE Risk Level:: Medical - moderate - high <CHIQUI Hermosillo Last Filed: 09/23/21 08:03> VTE Device Contraindication: N/A - Device Ordered <CHIQUI Hermosillo Last Filed: 09/23/21 08:03> VTE Drug Contraindication: N/A - Med Ordered <CHIQUI Hermosillo Last Filed: 09/23/21 08:03>
[2021-09-23] MEDS: Famotidine/PF 20 MG/2 ML VIAL IVPUSH (10:04)
[2021-09-23] MEDS: metroNIDAZOLE 500 MG TABLET PO (10:04)
[2021-09-23] MEDS: Docusate Sodium 100 MG CAPSULE PO (10:04)
[2021-09-23] MEDS: levoFLOXacin 750 MG TABLET PO (10:04)
[2021-09-23] MEDS: Heparin Sodium,Porcine 5,000 UNIT/ML VIAL 5000 UNIT SUBCUT (10:04)
--- NOTE | 2021-09-23 10:45 | PM.DS ---
DS: Providers Provider Date of Service: 09/23/21 Date of admission: 09/18/21 23:33 Primary care physician: Jack León MD Attending physician on admission: Robbi Jose Attending physician on discharge: Robbi Jose DS: Diagnosis Discharge Diagnosis (1) Status post Candace procedure: Status: Acute (2) Diverticulitis of colon with perforation: Status: Acute DS: Summary Hospital Course Hospital Course: BRIEF HPI: Camille Hernandez is a 80 year old female who came to the ED earlier today because of abdominal pain. She says she was doing well today in her usual state of health. She went to have a bowel movement around 3 pm and tehn had sudden severe abdominal pain. She says this was diffuse. She described some vomitting as well. In view of her pain, she came to the ED. She had a CT scan showing free air in the peritoneum. She denies taking NSAIDS frequently even as she says she has arthritis of both knees. She is an ex-smoker and had quit 30 years ago. She says she still leads a relatively active lifestyle. She has a history of a tubal ligation and a TRAM flap after mastectomy for right breast cancer. HOSPITAL COURSE: There was no obvious identifiable etiology of the free air. However she had diffuse tenderness and guarding and was septic. It was therefore explained that it was best to proceed with emergency laparotomy, possible bowel resection and stoma. She was added onto the OR schedule for that morning. She was kept NPO, started on IVF and given IVF boluses for her sepsis and started on IV zosyn. On 09/19/21, an exploratory laparotomy, sigmoid resection, end sigmoid colostomy, washout of the pelvis was performed by Dr. Jose without complication. She was found to have large amounts of fluid in the pelvis, with note of some small amounts of stool particles in the cul-de-sac as well as a large diverticulum with perforation distal sigmoid near the rectosigmoid. She also had marked localized peritonitis in the pelvis and adjacent small bowel loops. She tolerated the procedure well and was transferred to the ICU for monitoring. She had an uncomplicated recovery course. She did have some initial confusion following the procedure and her narcotics were reduced. She returned to baseline after POD #1. She remained stable in the ICU and was transferred to the medical/surgical floor early POD #1. Her sepsis resolved and lactic acid normalized. Her WBC improved significantly throughout her stay. She was started on clear liquids. She was on PO/IV PRN analgesics. She was gotten OOB and her long was removed. Her diet was advanced slowly as she tolerated. Her activity was increased. Her ostomy began to pass flatus and then stool output. Colostomy education was performed. On the day of discharge, she was tolerating a solid diet without nausea or vomiting, pain was well controlled on PO analgesics, and she had a benign abd exam with clean incision and viable appearing colostomy with good output. Her JULIANNA drain had scanty serosanguineous drainage and was removed. She felt ready for discharge. She was discharged to home on 09/23/21 in stable condition with a course of PO augmentin and VNA services. She is to follow up with Dr. Jose in office in 2 weeks. Status at Discharge Functional status at discharge: independent ambulation Overall status at discharge: patient is progressing back to baseline Time Spent with Patient Time attestation: Total time spent providing and/or coordinating discharge services: Discharge coordination time: Greater than 30 minutes Quality: Safe Use of Opioids Does Pt have an Active Cancer Diagnosis on the Problem List?: No Quality: Stroke Does the patient have a stroke diagnosis?: No Physical Exam Vital Signs: Vital Signs: Last Vital Signs Temp 98.0 F 09/23/21 07:43 Pulse 64 09/23/21 07:56 Resp 18 09/23/21 07:56 BP 169/83 H 09/23/21 03:49 Pulse Ox 93 09/23/21 07:43 BMI result Body Mass Index 29.0 Const: General: comfortable and no acute distress Orientation/consciousness: patient oriented x3 Resp: Effort & Inspection: normal respiratory effort GI: Inspection: No distended and Yes incision (clean) Palpation (GI): Soft to palpation, no guarding and not rigid Skin: General skin exam: no rashes or lesions noted Neuro: General: patient oriented x3 DS: Data Data Completed and Pending Completed studies during hospitalization [Text1]: 09/19/21 01:59 Surgical [PTH] Routine Colon, distal sigmoid, segmental resection: -Acute on chronic diverticulitis with perforation, mesenteric fibrosis, and acute serositis with fibrous adhesions. Labs on day of discharge: Preliminary micro results at discharge 09/19/21 01:40 Anaerobic Culture - Preliminary Peritoneal Fluid Culture in progress. 09/18/21 22:50 Blood Culture - Preliminary Blood - Venous No growth after 48 hours. 09/18/21 22:50 Blood Culture - Preliminary Blood - Venous No growth after 48 hours. Discharge Plan Discharge Patient Disposition: Home Health Service Discharge Diagnosis: perforated diverticulitis s/p candace procedure Referrals: Jack León MD [Primary Care Provider] - 1 Week Robbi Jose MD [Physician] - 2 Weeks Discharge Medications: New amoxicillin-pot clavulanate [Augmentin] 500-125 mg tablet 1 tab PO BID Qty: 10 0RF oxycodone 5 mg tablet 5 mg PO Q4H PRN (Reason: pain (scale score 7-10)) Qty: 26 0RF Continued meloxicam 15 mg tablet 1 tab PO DAILY 0RF rosuvastatin 20 mg tablet 1 tab PO DAILY 0RF Myrbetriq 25 mg tablet extended release 24 hr 1 tab PO DAILY 0RF Trelegy Ellipta 100-62.5-25 mcg blister with device 1 puff inhalation DAILY 0RF aspirin 81 mg Tablet,Delayed Release (Dr/Ec) 81 mg PO DAILY 0RF omeprazole 40 mg capsule,delayed release(DR/EC) 40 mg PO DAILY 0RF (DME) nebulizer and compressor Device See Rx Instructions ea .ROUTE DIRECTED Qty: 1 0RF Rx Instructions: As directed Discharge Orders: Discharge Order (Routine); Ordered 09/23/21 Ordered By: Brenda Morris Diet: advance to usual diet Activity on Discharge: No heavy lifting Stand Alone Forms: Patient Portal Discharge page Activity Restrictions/Additional Instructions: If the incision area is tender, you may apply an ice pack for short intervals (No more than 20 minutes on, followed by at least 20 minutes off). Do not apply heat. Do not use creams, lotions, or topical antibiotics unless instructed to do so by your surgeon. These can cause infection or allergic reaction. COLOSTOMY: COLOPLAST #[id number]- apply to colostomy q3-4 days and PRN. Ok to shower. You have radha closing your incision and these will be removed approximately 10-14 days after surgery. NO HEAVY LIFTING (>10lbs) or strenuous activity. Follow up in office. ([phone]) Call Your Doctor If: -Your temperature exceeds 101.5? F -You experience excessive pain or swelling -You have an unexpected reaction to medication -You have excessive bleeding -You experience continued vomiting/nausea -Your incision begins to separate -Your incision shows signs of infection such as increased redness, swelling, excessive pain, drainage (light blood or clear fluid is normal) or heat Care Plan Goals: Return to baseline health and gradual return to activity following recovery period. Colostomy reversal down the line. Health Concerns: Perforated diverticulitis Plan of Treatment: S/p candace procedure Antibiotics Colostomy care F/u in office Assessment: Doing well post op
--- NOTE | 2021-09-23 11:00 | W.MHC.F2F ---
Service Date Service Date: 09/23/21 Encounter Date of encounter: 09/23/21 Reasons for Services Signs and symptoms assessed: abdominal pain, colostomy appearance and output, incision appearance Reason for correction: wound care (colostomy care) and postoperative assessment and/or care Homebound: Leaving the home is medically contraindicated at this time without the asist of a device and/or another person due th the listed conditions above and below. Reason homebound: weakness related to hospital stay and unable to drive Homebound supporting statement: Ms. Hernandez is s/p candace procedure for perforated diverticulitis. She will require VNA care at home for colostomy care. Certification: Based on the above findings, I certify that this patient is confined to the home and needs intermittent correction care, physical therapy and/or speech therapy, or continues to need occupational therapy. The patient is under my care, and I have initiated the establishment of the plan of care. The patient will be followed by a physician who will periodically review the plan of care.
[2021-09-23 11:25] VITALS: BP 176/67; PULSE 76; RESP 18; TEMP 36.7; O2SAT 95
--- NOTE | 2021-09-23 11:38 | MHC.CM.PN ---
HOME TODAY WITH [facility] RN AWARE OF PLAN.
== END 2021-09-23 12:54 | disposition home health service (06) | DRG 853 ==
LOC: HO.ED 23:02 → HO.EDOVER 23:45 → HO.ICU 09-19 03:27 → HO.S3 09-19 23:18
PROVIDERS: Physician Assistant Medical; Physician Assistant Surgical; Admitting Provider Surgery; Emergency Provider Student in an Organized Health Care Education/Training Program; PCP Internal Medicine; Visit Provider Surgery
PROC: 0DBN0ZZ Excision of Sigmoid Colon, Open Approach (ICD-10-PCS; CPT 49000; principal; 2021-09-19 00:30)
DX: A41.9 Sepsis, unspecified organism (principal); K65.8 Other peritonitis; K57.40 Diverticulitis of both small and large intestine with perforation and abscess without bleeding; K56.7 Ileus, unspecified; J44.9 Chronic obstructive pulmonary disease, unspecified; F41.9 Anxiety disorder, unspecified; R91.1 Solitary pulmonary nodule; E78.5 Hyperlipidemia, unspecified; K90.0 Celiac disease; Z20.822 Contact with and (suspected) exposure to COVID-19; Z87.891 Personal history of nicotine dependence; Z98.51 Tubal ligation status; Z90.11 Acquired absence of right breast and nipple; Z79.82 Long term (current) use of aspirin; Z79.899 Other long term (current) drug therapy
CPT/HCPCS: 36415; 71045; 74177; 80048; 80053; 83605; 83690; 85007; 85025; 85027; 86850; 86900; 86901; 87040; 87071; 87073; 87076; 87205; 87635; 88307; 93005; 94640; 96365; 96375; 99024; 99285; C1758; J0131; J1170; J2405; J2543; J3010; Q9967

== ENCOUNTER → 2021-09-29 11:50 | Outpatient (BNVA) | payer MEDICARE, OTHER, SELFPAY | PROVIDERS: PCP Internal Medicine; Referring Provider Internal Medicine; Visit Provider Surgery | DX: Z48.815 Encounter for surgical aftercare following surgery on the digestive system (principal); Z93.3 Colostomy status | CPT/HCPCS: 99212 ==

== ENCOUNTER 2021-10-03 13:59 | Outpatient (REF) | payer MEDICARE, OTHER, SELFPAY ==
[2021-10-03 14:07] LABS: Appearance Urine CLOUDY; Color Urine YELLOW; Glucose Urine UA NEG (NEG); Leukocyte Esterase Urine NEG (NEG); Nitrite Urine NEG (NEG); PH 7.5 (5.0-8.0); Specific Gravity - Urine 1.015 (1.005-1.025); Urine Blood NEG (NEG); Urine Ketones NEG (NEG); Urine Protein NEG (NEG-TRACE)
== END 2021-10-03 14:00 | disposition home or self-care (01) ==
LOC: HO.HVNA 13:59
PROVIDERS: Visit Provider Internal Medicine
DX: R30.9 Painful micturition, unspecified (principal)
CPT/HCPCS: 81003; 87086

== ENCOUNTER → 2021-10-31 10:32 | Outpatient (BNVA) | payer MEDICARE, OTHER, SELFPAY | PROVIDERS: PCP Internal Medicine; Visit Provider Surgery | DX: Z48.815 Encounter for surgical aftercare following surgery on the digestive system (principal); Z93.3 Colostomy status | CPT/HCPCS: 99212 ==

== ENCOUNTER → 2022-01-02 10:53 | Outpatient (BNVA) | payer MEDICARE, OTHER, SELFPAY | PROVIDERS: PCP Internal Medicine; Visit Provider Surgery | DX: Z93.3 Colostomy status (principal) | CPT/HCPCS: 99212 ==

== ENCOUNTER 2022-01-27 07:10 | Day surgery (SDC) | payer MEDICARE, OTHER, SELFPAY ==
--- NOTE | 2022-01-26 08:43 | HO.ANESPROP2 ---
Documented by User: Sandra Adair NP 01/26/22 08:46 HPI - Anesthesia Eval Consult details Narrative: 81yo F for Colonoscopy via rectum and stoma s/p ex lap/ostomy 09/2021 with GA-ETT 7 PMFSH Active Problems Active Problems: All Active Problems (Updated 09/20/21 @ 12:11 by Brenda Morris PA-C) Status post Andreas procedure (Acute) Diverticulitis of colon with perforation (Acute) Ileus following gastrointestinal surgery (Acute) Hypovolemia (Acute) Sepsis (Acute) Perforated viscus (Acute) History of tubal ligation (Acute) H/O right mastectomy (Acute) Perforation bowel (Acute) Celiac disease (Acute) Hyperlipidemia (Acute) Atherosclerosis of both carotid arteries (Acute) Pulmonary nodule (Acute) COPD (chronic obstructive pulmonary disease) (Acute) Past Medical History Medical History Atherosclerosis of both carotid arteries COPD (chronic obstructive pulmonary disease) COVID-19 Hyperlipidemia Perforated viscus Pulmonary nodule Sepsis Family History Family history of problems with anesthesia: No Surgical History Surgical History H/O right mastectomy History of exploratory laparotomy (~2021) History of tubal ligation History of Problems with Anesthesia: No Social History Social History Alcohol intake: current Alcohol intake frequency: holidays/special occasions only Patient Tobacco Use Status: Former Tobacco user Years Smoked: 30 years Second Hand Smoke Exposure: No service: No Current occupational status: retired Gender identity: Female Meds Allergies Allergy/AdvReac Type Severity Reaction Status Date / Time No Known Allergies Allergy Mild NONE Verified 01/02/22 11:18 Home Medications Medication Instructions Recorded Confirmed Last Taken Type nebulizer and compressor #1 ea 05/28/20 01/02/22 Unknown History omeprazole 40 mg capsule,delayed 40 mg PO DAILY 05/28/20 01/20/22 09/18/21 History release aspirin 81 mg tablet,delayed 81 mg PO DAILY 09/19/21 01/20/22 09/18/21 History release fluticasone fur. 100 mcg-umeclid 1 puff inhalation DAILY 09/19/21 01/20/22 09/18/21 History 62.5 mcg-vilant 25 mcg inhalat.powder (Trelegy Ellipta) meloxicam 15 mg tablet 1 tab PO DAILY 09/19/21 01/20/22 09/18/21 History mirabegron 25 mg tablet,extended 1 tab PO DAILY 09/19/21 01/20/22 09/18/21 History release 24 hr (Myrbetriq) rosuvastatin 20 mg tablet 1 tab PO DAILY 09/19/21 01/20/22 09/18/21 History citalopram 40 mg tablet 1 tab PO DAILY 01/20/22 01/20/22 Unknown History Exam Exam Date and Time: January 26, 2022 0843 Pertinent Lab Results Pertinent Lab Results: Laboratory Tests 09/21/21 09/21/21 05:50 05:50 WBC 14.7 H Hgb 8.8 L D Hct 27.9 L D Plt Count 337 Sodium 139 Potassium 3.6 Chloride 108 Carbon Dioxide 26 BUN 13 Creatinine 0.69 Narrative Narrative: EKG 09/2021 Vent. Rate : 088 BPM ? ? Atrial Rate : 088 BPM ?? P-R Int : 152 ms? QRS Dur : 078 ms ? ? QT Int : 382 ms ? ? ? P-R-T Axes : 021 012 020 degrees ?? QTc Int : 462 ms ? Normal sinus rhythm Normal ECG When compared with ECG of 20-DEC-2012 06:58, No significant change was found US carotid duplex BI 07/2021 IMPRESSION: 1. RIGHT: Minimal, non-hemodynamically significant stenosis of the proximal right internal carotid artery corresponding to a 0-49% stenosis by velocity criteria. ? 2. LEFT: Minimal, non-hemodynamically significant stenosis of the proximal left internal carotid artery corresponding to a 0-49% stenosis by velocity criteria. Assessment and Plan Assessment Anesthesia Assessment: Chart Reviewed Final Anesthetic Review Family History of Problems with Anesthesia: No History of Problems with Anesthesia: No Documented by User: Tao Ramos MD 01/27/22 12:29 [facility] Past Medical History Medical History Atherosclerosis of both carotid arteries COPD (chronic obstructive pulmonary disease) COVID-19 Hyperlipidemia Perforated viscus Pulmonary nodule Sepsis Functional capacity: uses cane/walker Surgical History Surgical History H/O right mastectomy History of exploratory laparotomy (~2021) History of tubal ligation Social History Social History Alcohol intake: current Alcohol intake frequency: holidays/special occasions only Patient Tobacco Use Status: Former Tobacco user Years Smoked: 30 years Second Hand Smoke Exposure: No service: No Current occupational status: retired Gender identity: Female Meds Allergies Allergy/AdvReac Type Severity Reaction Status Date / Time No Known Allergies Allergy Mild NONE Verified 01/02/22 11:18 Home Medications Medication Instructions Recorded Confirmed Last Taken Type nebulizer and compressor #1 ea 05/28/20 01/02/22 Unknown History omeprazole 40 mg capsule,delayed 40 mg PO DAILY 05/28/20 01/20/22 09/18/21 History release aspirin 81 mg tablet,delayed 81 mg PO DAILY 09/19/21 01/20/22 09/18/21 History release fluticasone fur. 100 mcg-umeclid 1 puff inhalation DAILY 09/19/21 01/20/22 09/18/21 History 62.5 mcg-vilant 25 mcg inhalat.powder (Trelegy Ellipta) meloxicam 15 mg tablet 1 tab PO DAILY 09/19/21 01/20/22 09/18/21 History mirabegron 25 mg tablet,extended 1 tab PO DAILY 09/19/21 01/20/22 09/18/21 History release 24 hr (Myrbetriq) rosuvastatin 20 mg tablet 1 tab PO DAILY 09/19/21 01/20/22 09/18/21 History citalopram 40 mg tablet 1 tab PO DAILY 01/20/22 01/20/22 Unknown History Exam Airway Mallampati Class: IV TM Dist: >3cm Neck ROM: Full Loose/Missing/Broken Teeth: Yes (Implants , poor dentition globally ) Heart: S1,S2 Lungs: b/l breath sounds Assessment and Plan Assessment Anesthesia Assessment: Anesthesia Plan Discussed Final Anesthetic Review NPO: Yes ASA Class: III Final Preanesthetic Review: Meds/Allgs Chart Reviewed, Consent Obtained/Reviewed and Anes Risks/Benef Reviewed Patient Risk: Intermediate Procedure Risk: Intermediate Anesthetic Plan Anesthetic Plan: MAC: Disposition: Standard PACU
[2022-01-27 07:28] VITALS: BMI 25.0
[2022-01-27 07:36] VITALS: BP 144/72; PULSE 87; RESP 16; TEMP 36.1; O2SAT 97
[2022-01-27] MEDS: Lactated Ringers 1,000 ML 100 ML IVCONT (07:44)
--- NOTE | 2022-01-27 08:03 | MHC.SHP ---
Pre-Procedural Eval Section A Date of Service: 01/27/22 The patient is an INPATIENT: No Changes since office visit: No Cold of Flu in the past 2 weeks, No New Medical Problems, No Changes in Medication and No Patient answered all questions The History & Physical has been completed within 30 days and I have reviewed it.: Yes Section B Chief Complaint: colostomy status Allergies: Allergies Allergy/AdvReac Type Severity Reaction Status Date / Time No Known Allergies Allergy Mild NONE Verified 01/02/22 11:18 Plan I have reviewed the history and physical and performed a pertinent physical examination on my patient. No changes have occurred unless specified.
--- NOTE | 2022-01-27 08:47 | P.OP_ITS ---
Operative Note Operative Note Date of Service: 01/27/22 Narrative: Preop diagnosis: Status post Andreas's procedure for perforated diverticulitis Postop diagnosis: Normal colonoscopy findings Procedure: Colonoscopy via the stoma and the rectum Surgeon: Robbi Jose The patient is at 81-year-old female who had undergone emergency Andreas'sProcedure for a perforated diverticulitis last September,. She is planning to have the colostomy reversed. I had scheduled her therefore for colonoscopy. She understood the technique of the procedure as well as the risks, benefits, and alternatives She was brought to the operating room. She was placed in left lateral decubitus position under more anesthesia care. A full digital rectal exam was done. There were no palpable anal lesions. The tip of the Olympus colonoscope was gently introduced through the anal orifice advanced with insufflation. she did have of small stool particles as well advance the scope. We reached level of about 20+ cm. In view of very poor visualization this point along with resistance, we could not advance further so I proceeded to withdraw the scope with careful examination of the rest of the distal colonic and rectal mucosa being done with scope withdrawal. There were no lesions seen. The anal canal and also for unremarkable. The scope was then withdrawn completely We then positioned the patient supine. I intubated the colostomy gently and advance the scope with insufflation all the cecum. The cecum was intubated. The cecum was identified by visualization of the ileocecal valve as well as the appendiceal orifice. The cecal mucosa was unremarkable. The scope was gradu ally withdrawn with careful examination of the rest of the colonic mucosa being done with scope withdrawal. The patient had adequate bowel prep so was unlikely that any lesion may have been missed. The scope was then completely withdrawn with desufflation through the stoma. The patient tolerated this procedure well. There were no complications noted. She was transferred to the recovery room with stable vital signs.
[2022-01-27 09:01] VITALS: BP 128/58; RESP 17; TEMP 36.7; O2SAT 96
[2022-01-27 09:16] VITALS: BP 125/62; PULSE 67; RESP 16; TEMP 36.3
[2022-01-27 09:35] VITALS: BP 125/62; PULSE 67; RESP 16; TEMP 36.7; O2SAT 95
== END 2022-01-27 09:47 | disposition home or self-care (01) ==
PROVIDERS: PCP Internal Medicine; Visit Provider Surgery
PROC: 0DJD8ZZ Inspection of Lower Intestinal Tract, Via Natural or Artificial Opening Endoscopic (ICD-10-PCS; CPT 45378; principal; 2022-01-27 08:20)
DX: Z43.3 Encounter for attention to colostomy (principal); Z87.19 Personal history of other diseases of the digestive system; Z86.010 Personal history of colon polyps; Z86.19 Personal history of other infectious and parasitic diseases; I65.23 Occlusion and stenosis of bilateral carotid arteries; J44.9 Chronic obstructive pulmonary disease, unspecified; R91.1 Solitary pulmonary nodule; E78.5 Hyperlipidemia, unspecified; Z79.82 Long term (current) use of aspirin; Z79.51 Long term (current) use of inhaled steroids; Z79.899 Other long term (current) drug therapy; Z87.891 Personal history of nicotine dependence
CPT/HCPCS: 44388; 45330

== ENCOUNTER → 2022-02-09 10:16 | Outpatient (BNVA) | payer MEDICARE, OTHER, SELFPAY | PROVIDERS: PCP Internal Medicine; Visit Provider Surgery | DX: Z93.3 Colostomy status (principal); Z98.890 Other specified postprocedural states | CPT/HCPCS: 99212 ==

== ENCOUNTER 2022-03-14 11:48 | Inpatient (IN) | payer MEDICARE, OTHER, SELFPAY ==
[2022-02-28 10:57] VITALS: BMI 25.0
--- NOTE | 2022-03-13 09:36 | HO.ANESPROP2 ---
Documented by User: Sandra Adair NP 03/13/22 09:38 HPI - Anesthesia Eval Consult details Narrative: 81yo F for Colostomy Reversal hand assist Laparoscopic, possible Laparotomy, possible stoma s/p ex lap, ostomy 09/2021 with GA-ETT 7 PMFSH Active Problems Active Problems: All Active Problems (Updated 02/28/22 @ 10:50 by Rosio Van RN) Perforation bowel (Acute) Celiac disease (Acute) Hypovolemia (Acute) Ileus following gastrointestinal surgery (Acute) Diverticulitis of colon with perforation (Acute) Status post Andreas procedure (Acute) Sepsis (Acute) Perforated viscus (Acute) History of tubal ligation (Acute) H/O right mastectomy (Acute) Hyperlipidemia (Acute) Atherosclerosis of both carotid arteries (Acute) Pulmonary nodule (Acute) COPD (chronic obstructive pulmonary disease) (Acute) Past Medical History Medical History Arthritis Atherosclerosis of both carotid arteries Breast cancer COPD (chronic obstructive pulmonary disease) COVID-19 GERD (gastroesophageal reflux disease) Hyperlipidemia Perforated viscus Postoperative nausea Pulmonary nodule Sepsis Family History Family history of problems with anesthesia: No Surgical History Surgical History H/O right mastectomy History of colonoscopy History of esophagogastroduodenoscopy (EGD) History of exploratory laparotomy (~2021) History of tubal ligation History of Problems with Anesthesia: No Social History Social History Are you a primary home care attendant to a significant other at home: No Do you presently have visiting nurse or other home services: No Alcohol intake: current Alcohol intake frequency: holidays/special occasions only Patient Tobacco Use Status: Former Tobacco user Quit Date: age 51 Tobacco use type: Cigarette Years Smoked: 30 years Second Hand Smoke Exposure: No Use of substances other than those prescribed or required for medical reasons: No Have you been hit, kicked, punched, or otherwise hurt by someone within the past year? If so, by whom?: No Are you DNR?: Yes Advance Directives Information Provided: Yes (as above note & will bring copies of forms day of PAT appt) Advance Directives on File: No Recently lost weight without trying: No Eating poorly because of decreased appetite: No Nutrition Risks: Surgical patient >75years Poor oral hygiene: No (has upper & lower dentures and has 3 implant posts (waiting for teeth)) service: No Current occupational status: retired Gender identity: Female Meds Allergies Allergy/AdvReac Type Severity Reaction Status Date / Time No Known Allergies Allergy Verified 03/14/22 07:04 Home Medications Medication Instructions Recorded Confirmed Last Taken Type nebulizer and compressor #1 ea 05/28/20 03/14/22 Unknown History omeprazole 40 mg capsule,delayed 40 mg PO QAM 05/28/20 03/14/22 03/14/22 06:15 History release aspirin 81 mg tablet,delayed 81 mg PO DAILY 09/19/21 03/14/22 03/11/22 History release fluticasone fur. 100 mcg-umeclid 1 puff inhalation QAM 09/19/21 03/14/22 03/14/22 06:15 History 62.5 mcg-vilant 25 mcg inhalat.powder (Trelegy Ellipta) mirabegron 25 mg tablet,extended 25 mg PO QAM 09/19/21 03/14/22 03/14/22 06:15 History release 24 hr (Myrbetriq) rosuvastatin 20 mg tablet 20 mg PO QAM 09/19/21 03/14/22 03/14/22 06:15 History citalopram 40 mg tablet 40 mg PO QAM 01/20/22 03/14/22 03/14/22 06:15 History Exam Exam Date and Time: March 13, 2022 0936 Height,Weight and Vital Signs: Height 5 ft 5 in Weight 68.039 kg Narrative Narrative: EKG 09/2021 Vent. Rate : 088 BPM ? ? Atrial Rate : 088 BPM ?? P-R Int : 152 ms? QRS Dur : 078 ms ? ? QT Int : 382 ms ? ? ? P-R-T Axes : 021 012 020 degrees ?? QTc Int : 462 ms ? Normal sinus rhythm Normal ECG When compared with ECG of 20-DEC-2012 06:58, No significant change was found Assessment and Plan Assessment Anesthesia Assessment: Chart Reviewed Final Anesthetic Review Family History of Problems with Anesthesia: No History of Problems with Anesthesia: No Documented by User: Karol Santoyo MD 03/14/22 07:52 PMF Past Medical History Medical History Arthritis Atherosclerosis of both carotid arteries Breast cancer COPD (chronic obstructive pulmonary disease) COVID-19 GERD (gastroesophageal reflux disease) Hyperlipidemia Perforated viscus Postoperative nausea Pulmonary nodule Sepsis Surgical History Surgical History H/O right mastectomy History of colonoscopy History of esophagogastroduodenoscopy (EGD) History of exploratory laparotomy (~2021) History of tubal ligation Social History Social History Are you a primary home care attendant to a significant other at home: No Do you presently have visiting nurse or other home services: No Alcohol intake: current Alcohol intake frequency: holidays/special occasions only Patient Tobacco Use Status: Former Tobacco user Quit Date: age 51 Tobacco use type: Cigarette Years Smoked: 30 years Second Hand Smoke Exposure: No Use of substances other than those prescribed or required for medical reasons: No Have you been hit, kicked, punched, or otherwise hurt by someone within the past year? If so, by whom?: No Are you DNR?: Yes Advance Directives Information Provided: Yes (as above note & will bring copies of forms day of PAT appt) Advance Directives on File: No Recently lost weight without trying: No Eating poorly because of decreased appetite: No Nutrition Risks: Surgical patient >75years Poor oral hygiene: No (has upper & lower dentures and has 3 implant posts (waiting for teeth)) service: No Current occupational status: retired Gender identity: Female Meds Allergies Allergy/AdvReac Type Severity Reaction Status Date / Time No Known Allergies Allergy Verified 03/14/22 07:04 Home Medications Medication Instructions Recorded Confirmed Last Taken Type nebulizer and compressor #1 ea 05/28/20 03/14/22 Unknown History omeprazole 40 mg capsule,delayed 40 mg PO QAM 1203/14/22 03/14/22 06:15 History release aspirin 81 mg tablet,delayed 81 mg PO DAILY 09/19/21 03/14/22 03/11/22 History release fluticasone fur. 100 mcg-umeclid 1 puff inhalation QAM 09/19/21 03/14/22 03/14/22 06:15 History 62.5 mcg-vilant 25 mcg inhalat.powder (Trelegy Ellipta) mirabegron 25 mg tablet,extended 25 mg PO QAM 09/19/21 03/14/22 03/14/22 06:15 History release 24 hr (Myrbetriq) rosuvastatin 20 mg tablet 20 mg PO QAM 09/19/21 03/14/22 03/14/22 06:15 History citalopram 40 mg tablet 40 mg PO QAM 01/20/22 03/14/22 03/14/22 06:15 History Exam Airway Mallampati Class: III TM Dist: >3cm Neck ROM: Full Partial: Upper and Lower Loose/Missing/Broken Teeth: Yes, Upper and Lower Heart: RRR Lungs: CTA Assessment and Plan Assessment Anesthesia Assessment: Anesthesia Plan Discussed Final Anesthetic Review ASA Class: III Final Preanesthetic Review: Meds/Allgs Chart Reviewed, Consent Obtained/Reviewed and Anes Risks/Benef Reviewed Patient Risk: Intermediate Procedure Risk: Intermediate Anesthetic Plan Anesthetic Plan: GA Disposition: Standard PACU
[2022-03-14] VITALS (15 sets, daily range): BP systolic 101–141; BP diastolic 42–65; PULSE 73–101; RESP 11–16; TEMP 36.7–36.8; O2SAT 92–97
[2022-03-14 07:01] LABS: Hematocrit 37.4 % (37.0-47.0); Hemoglobin 12.1 g/dl (12.0-16.0); Mean Corpuscular HGB Conc 32.4 g/dl (31.0-35.0); Mean Corpuscular Hemoglobin 30.1 pg (27.0-33.0); Mean Platelet Volume 8.7 fL (9.4-12.3); Platelet Count 431 X10*3/uL (160-400); Red Blood Count 4.02 X10*6/uL (4.20-5.50); Red Cell Distribution Width 13.5 % (11.0-16.0); White Blood Count 8.5 X10*3/uL (4.8-10.8)
[2022-03-14 07:17] LABS: Anion Gap 16 (12-20); Blood Urea Nitrogen 10 mg/dL (9-16); Calcium 9.9 mg/dL (8.4-10.2); Carbon Dioxide 21 mmol/L (22-29); Chloride 109 mmol/L (96-108); Creatinine Clr Calc Pharmacy 52.2; Estimated Glomerular Filt Rate > 60; Glucose Fasting 85 mg/dL (60-99); Potassium 3.7 mmol/L (3.3-5.1); Sodium 142 mmol/L (135-145)
[2022-03-14 07:18] LABS: COVID-19 Test Negative (Negative); IDNOW Serial# 16C4AD1C
--- NOTE | 2022-03-14 07:20 | MHC.SHP ---
Pre-Procedural Eval Section A Date of Service: 03/14/22 Section B Chief Complaint: Colostomy status Details of Present Illness: has hx of Andreas's procedure for perforated diverticulitis in September 2021, here for reversal Relevant Family History (Specify if Yes): No Relevant Social History: None Present Medications: see Short Stay Collaborative assessment Medical History: Significant History (COPD, celiac dis) Allergies: Allergies Allergy/AdvReac Type Severity Reaction Status Date / Time No Known Allergies Allergy Verified 03/14/22 07:04 Review of Systems Sugical H&P ROS: Negative: Constitution, Cardiovascular, Respiratory, Neurological, Psychiatric, Hem-Onc, Allergic/Immunologic, Gastrointestinal, Genitourinary, Musculoskeletal, Integumentary, Endocrine and Eyes/Ears/Nose/Throat Exam Surgical H&P Exam: Normal: HEENT, Normal: Heart, Normal: Lungs, Normal: Extremities, Normal: Skin and Normal: Neurological and Significant Findings: Abdomen (colostomy on right ) Plan Diagnosis/Plan: Unchanged I have reviewed the history and physical and performed a pertinent physical examination on my patient. No changes have occurred unless specified.
[2022-03-14] MEDS: Scopolamine 1.5 MG PATCH.TD.3 TRANSDERMA (07:33)
[2022-03-14] MEDS: Lactated Ringers 1,000 ML 100 ML IVCONT (07:48)
--- NOTE | 2022-03-14 11:55 | PHA.MEDREC ---
Pharmacy Consult ? Medication Reconciliation Pharmacy has reviewed the medication reconciliation completed by Nancy. Johanna Harris, NinoskaD
--- NOTE | 2022-03-14 12:49 | W.PM.OPN ---
Operative Note Operative Note Date of Service: 03/14/22 Narrative: Preop diagnosis: status post Andreas's procedure for perforated diverticulitis Postop diagnosis: The same Procedure: Hand assisted laparoscopic reversal of an end-colostomy, extensive lysis of adhesions, intraop flexible sigmoidoscopy Surgeon: Robbi Jose MD 1St assistant professor of spanish: MD DARLIN Dawkins The patient is an 81-year-old female who had undergone emergency sigmoid resection and end colostomy last September, because of perforated diverticulitis. She is here today for reversal of the colostomy. She understood the technique of the planned procedure. She was aware of the risks, benefits, and alternatives. She was brought to the operating room and placed in modified lithotomy position under general anesthesia via endotracheal tube. The abdomen and the perianal area were prepped and draped in the usual sterile fashion. A surgical time-out was done. The patient received Cefotan 2 g IV preoperatively. A Guardado catheter had been inserted. I had closed the colostomy earlier with a running Dexon stitch prevent this from leaking during the procedure I made a short incision on the skin in the low midline using a blade 15. This was carried down through the full-thickness of the skin subcutaneous fat with electrocautery down to the fascia. Fascia was incised. We carried the incision through the fascia including a previously placed mesh after her TRAM flap in the distant past. after careful dissection of the peritoneal lining of able to eventually entered the peritoneal cavity. There was note of adhesions in the upper part of the abdomen with omentum was stuck to the chest we had to carefully lyse this with Metzenbaum scissors until this was released. I then applied the Riley wound retractor and the Gelport. I insufflated through the GelPort using a 12 mm port. With the 10 mm the degree laparoscope through the port, I then proceeded to insert a 5/12 mm port in the epigastric area. I moved the laparoscope into this port. I then proceeded to insert my working hand through the GelPort. With laparoscopic visualization, I proceeded to place another 5/12 mm port in right lower quadrant through a small stab incision. the patient was placed in as the down, right side down position. I was able to visualize the pelvis. There was note of a lot of adherent small bowel loops within the pelvis. We had to do careful lysis of adhesions to release this in small bowel from the pelvis. We achieved this with the use of laparoscopic scissors. I was eventually able to reflect the bowel loops away from the pelvis and was able to visualize the pelvic floor. It was difficult to identify the rectal stump as this appeared to be chronically adherent on the sacrum. There was note of chronically indurated and thickened tissue surrounding the either side of what appeared to be the rectosigmoid I therefore proceeded to take down the colostomy at this point. Least insufflation. I made an incision around the colostomy using blade 15. I carried this down through the full-thickness skin and subcutaneous fat with electrocautery down the fascia. Able to then identify the interface between the fascia and the colon wall. Open this interface and proceeded to release the entire colon from the rest of the fascial edge with electrocautery as well as with a Metzenbaum scissors. We proceeded circumferentially. Eventually we were able to completely bring down the entire stoma back into the peritoneal cavity. I closed the fascia of the stoma with a running Maxon 1 stitch. I then proceeded to re-identify the rectal stump. I proceeded to carefully divide thickened peritoneum on both sides of what I perceived to be the rectum. This was done using electrocautery. This part of this procedure took some time because of the densely adherent rectal stump. Eventually as able to see the staple line. There appeared to be a little defect on staple line likely from the dissection of dense adhesions. I continued to then divide the ligamentous attachments along the white line of Toldt on the left colon to create more length. This was done with the LigaSure. I then tested the left colon and the remaining sigmoid and this appeared to come down easily to the pelvis without any tension. It appeared therefore that we have more than adequate length of the remaining left colon and sigmoid to create our end-to-end anastomosis. I proceeded to continue to define the rectal stump. At this point, the assistant professor of spanish went down into the pelvis and attempted to insert the Sizer to see if we can advance this and reach the rectal stump. Despite multiple attempts, we encountered a lot of resistance. I therefore did an intraop flexible sigmoidoscopy of the remaining rectal stump. There was note of a lot of stools in the lumen which we irrigated I was able to advance the flexible sigmoidoscope gently and with laparoscopic visualization, we were able to see that there was a lot of angulation with the rectosigmoid stump plastered in the pelvis from previous inflammation. I therefore withdrew the colonoscope. We then had to do more work to release the angulation of the rectosigmoid. We had to do extensive and careful dissection of the peritoneal lining on both sides of the rectum as the planes were not well-defined because of previous inflammation. I also transected the old staple line including about 3 cm of length of the rectal stump. This was done using an Endo-MARLA 30 mm stapler. However will eventually able to mobilize the rectosigmoid to release the angulation. At this point therefore I proceeded to remove the GelPort. I pulled out the proximal stump. I transected the distal 2 cm. I applied Allis clamps on the divided edges. I noticed that we had a very small lumen. We used a 25 mm Sizer to dilate the stump and this appeared to be what we may be using past the diameter of the EEA stapler I created my purse string using a Prolene 2-0 circumferentially. I positioned the anvil into the lumen and tightened the pursestring. Examination at this time revealed that this was viable and nonischemic with good vascularity. I then brought the stump back into the peritoneal cavity and made sure that there was no twisting. The assistant professor of spanish Dr. Oakley then proceeded to advance the 25 mm Sizer through the anal orifice. We were able to reach the stump at the staple line. We then used the 25 mm EEA stapler and advanced this all the way to the beginning of the rectal stump. I chose an area of the stump anterior to the staple line. The spike of the stapler was activated through this spot. I connected the anvil to the spike and locked this in place. The stapler was then tightened and fired to create our circular end-to-end anastomosis. The stapler was withdrawn without any difficulty. The anastomotic rings were examined and this appeared to be intact. we tested anastomosis with multiple insufflation of air using the bulb syringe with the anastomosis immersed in irrigation fluid. There was no bubbling and the left colon appeared to distend with insufflation. I also proceeded to an another intraop flexible sigmoidoscopy. I inserted the scope into the anus all the way to about level 25 cm. I withdrew this and examined the rectosigmoid. The anastomosis was seen. This was patent, and did not appear to be ischemic. Again with insufflation, there was no bubbling seen in the of irrigation. With the anastomotic site confirmed to be intact with both the bulb syringe test as well as with flexible sigmoidoscopy, I proceeded to then laparoscopically irrigate the pelvis. I suctioned out the irrigant fluid. I examined the pelvis and this appeared to be hemostatic. I laparoscopically examined the rest of the abdomen. There was no evidence of any bowel injury. I proceeded to pull the omentum down into the lower abdomen. I closed the fascia with a running Maxon 1 stitch. All skin incisions were closed with skin radha. I did a laparoscopic examination of the fascial closure using the epigastric port and there was no evidence of any bowel caught with the sutures. The closure appeared intact as well . I removed this last epigastric port after desufflation. The skin incisions were closed with skin radha. I infiltrated all incisions with Marcaine 0.5% for postop analgesia. I applied Iodoform packing in colostomy wound. Dressings were applied. The procedure was then completed. The patient tolerated procedure well. There were no immediate complications. Initial and final counts of sponges and instruments were correct Estimated blood loss about 100 cc The patient was extubated without difficulty and transferred to the recovery room with stable vital signs.
[2022-03-14] MEDS: Lactated Ringers 1,000 ML 80 ML IVCONT (13:37)
--- NOTE | 2022-03-14 15:33 | PM.EVENT ---
Event Note Date of Service: 03/14/22 Event Note: Seen postop Seems to have adequate pain control Good urine output, clear Dressings dry some staining Stable vital signs Continue pain management I have updated her Jone Patient awaiting med surg bed
[2022-03-14] MEDS: oxyCODONE HCl Immed Release 5 MG TABLET 10 MG PO (22:36)
[2022-03-14] MEDS: Famotidine/PF 20 MG/2 ML VIAL IVPUSH (22:36)
[2022-03-15] VITALS (8 sets, daily range): BP systolic 102–119; BP diastolic 48–76; PULSE 73–82; RESP 16–20; TEMP 36.5–37.4; O2SAT 90–95
[2022-03-15] MEDS: Lactated Ringers 1,000 ML 80 ML IVCONT ×2 (05:19→15:46)
[2022-03-15] MEDS: Omeprazole 40 MG CAPSULE.DR PO (05:21)
[2022-03-15] MEDS: oxyCODONE HCl Immed Release 5 MG TABLET 10 MG PO (05:23)
[2022-03-15 07:01] LABS: MANUAL DIFF FLAG NO
[2022-03-15 07:14] LABS: Basophils Absolute Auto 0.1 X10*3/uL (0.0-0.2); Basophils Percent Auto 0.4 % (0-2); Eosinophils Absolute Auto 0.1 X10*3/uL (0.0-0.4); Eosinophils Percent Auto 0.6 % (0-4); Hematocrit 32.8 % (37.0-47.0); Hemoglobin 10.5 g/dl (12.0-16.0); Imm Gran Abs Auto 0.05 X10*3/uL (0.00-0.03); Imm Gran Pct Auto 0.4 % (0.0-0.4); Lymphocytes Absolute Auto 1.3 X10*3/uL (1.2-4.9); Lymphocytes Percent Auto 9.5 % (20-40); Mean Corpuscular Hemoglobin 30.1 pg (27.0-33.0); Monocytes Absolute Auto 0.6 X10*3/uL (0.1-1.2); Monocytes Percent Auto 4.7 % (2-11); Neutrophils Absolute Auto 11.2 x10*3/uL (2.0-8.3); Neutrophils Percent Auto 84.4 % (45-73); Platelet Count 374 X10*3/uL (160-400); Red Blood Count 3.49 X10*6/uL (4.20-5.50); White Blood Count 13.3 X10*3/uL (4.8-10.8)
[2022-03-15 08:08] LABS: Anion Gap 13 (12-20); Blood Urea Nitrogen 13 mg/dL (9-16); Calcium 9.2 mg/dL (8.4-10.2); Carbon Dioxide 22 mmol/L (22-29); Chloride 106 mmol/L (96-108); Creatinine Clr Calc Pharmacy 54.3; Estimated Glomerular Filt Rate > 60; Glucose Random 92 mg/dL (60-115); Potassium 4.1 mmol/L (3.3-5.1); Sodium 137 mmol/L (135-145)
[2022-03-15] MEDS: Atorvastatin Calcium 80 MG TABLET PO (08:35)
[2022-03-15] MEDS: Mirabegron 25 MG TAB.ER.24H PO (08:35)
[2022-03-15] MEDS: Escitalopram Oxalate 20 MG TABLET PO (08:36)
[2022-03-15] MEDS: Aspirin Enteric Coated 81 MG TABLET.DR PO (08:36)
[2022-03-15] MEDS: Heparin Sodium,Porcine 5,000 UNIT/ML VIAL 5000 UNIT SUBCUT (08:36)
--- NOTE | 2022-03-15 08:44 | P.PNGS_ITS ---
Subjective Subjective Date of Service: 03/16/22 Interval history: Says she is sore on incisions Otherwise no events overnight No flatus Physical Exam Vital Signs: Vital Signs: Last Vital Signs Temp 97.8 F 03/15/22 08:00 Pulse 76 03/15/22 08:00 Resp 16 03/15/22 08:00 BP 109/53 L 03/15/22 08:00 Pulse Ox 94 03/15/22 08:00 O2 Del Method 03/15/22 08:00 O2 Flow Rate 2 03/14/22 18:25 BMI result Body Mass Index 25.0 Const: General: no acute distress Resp: Effort & Inspection: normal respiratory effort Cardio: Rate: regular rate GI: Other: Dressings dry Palpation (GI): Soft to palpation and not firm Objective Data Active Medications Aspirin (Aspirin Enteric Coated 81 Mg Tablet.) 81 mg PO DAILY [facility] Last Admin: 03/15/22 08:36 Dose: 81 mg Documented By: JESSICA Atorvastatin Calcium (Atorvastatin Calcium 80 Mg Tablet) 80 mg PO DAILY [facility] Last Admin: 03/15/22 08:35 Dose: 80 mg Documented By: JESSICA Escitalopram Oxalate (Escitalopram Oxalate 20 Mg Tablet) 20 mg PO DAILY [facility] Last Admin: 03/15/22 08:36 Dose: 20 mg Documented By: JESSICA Heparin Sodium (Porcine) (Heparin Sodium,Porcine 5,000 Unit/Ml Vial) 5,000 unit SUBCUT Q12H [facility] Last Admin: 03/15/22 08:36 Dose: 5,000 unit Documented By: JESSICA Acetaminophen (Ofirmev) 1,000 mg in 100 mls @ 400 mls/hr IV Q6H [facility] Last Admin: 03/15/22 08:36 Dose: 400 mls/hr Documented By: JESSICA Lactated Ringer's (Lr) 1,000 mls @ 80 mls/hr IVCONT .[id number] [facility] Last Admin: 03/15/22 05:19 Dose: 80 mls/hr Documented By: LUDWIN Mirabegron (Mirabegron 25 Mg Tab.Er.24h) 25 mg PO DAILY [facility] Last Admin: 03/15/22 08:35 Dose: 25 mg Documented By: JESSICA Morphine Sulfate (Morphine Sulfate 4 Mg/Ml Cartridge) 3 mg IVPUSH Q3H PRN; Protocol PRN Reason: Pain, Moderate (Pain Scale 4-6 Non-Formulary Medication (Bpwihqbxcto-Pyzxzbmjf-Rltyjxrl [Trelegy Ellipta]) 1 puff INHALE RDAILY [facility] Omeprazole (Omeprazole 40 Mg Capsule.Dr) 40 mg PO DAILY@0630 [facility] Last Admin: 03/15/22 05:21 Dose: 40 mg Documented By: LUDWIN Ondansetron HCl (Ondansetron Hcl 4 Mg/2 Ml Vial) 4 mg IVPUSH Q6H PRN PRN Reason: Nausea and Vomiting Oxycodone HCl (Oxycodone Hcl Immed Release 5 Mg Tablet) 10 mg PO Q4H PRN PRN Reason: Pain, Moderate (Pain Scale 4-6 Last Admin: 03/15/22 05:23 Dose: 10 mg Documented By: LUDWIN Labs CBC & Chem 7: 03/15/22 06:48 03/15/22 06:48 Labs: Laboratory Results - last 24 hr 03/15/22 03/15/22 06:48 06:48 MCV 94.0 MCH 30.1 MCHC 32.0 RDW 14.0 Plt Count 374 MPV 9.0 L Immature Gran % (Auto) 0.4 Neut % (Auto) 84.4 H Lymph % (Auto) 9.5 L Willacy % (Auto) 4.7 Eos % (Auto) 0.6 Baso % (Auto) 0.4 Lymph # (Auto) 1.3 Willacy # (Auto) 0.6 Eos # (Auto) 0.1 Baso # (Auto) 0.1 Abs Immat Gran (auto) 0.05 H Absolute Neuts (auto) 11.2 H Absolute Nucleated RBC 0.000 Nucleated RBC % (auto) 0.0 Anion Gap 13 Estim Creat Clear Calc 54.3 Estimated GFR > 60 Random Glucose 92 Calcium 9.2 D Procedures Date of Service Date of Service: 03/15/22 Progress Note: A&P Assessment and plan (1) Status post Andreas procedure: Status: Acute Assessment and Plan: Reversal of colostomy yesterday Keep on clear liquids Stable overnight Out of bed to chair today Incentive spirometry Pain management Labs okay Possibly SANTOSH Guardado later today or tomorrow Time Spent With Patient Time: Total time spent is greater than 50% in coordination of care (as documented) at patient's floor/unit and/or counseling patient: Quality Stroke Does the patient have a stroke diagnosis?: No VTE Prior VTE?: No VTE Risk Level:: Medical - moderate - high VTE Device Contraindication: N/A - Device Ordered VTE Drug Contraindication: Treatment Not Tolerated
--- NOTE | 2022-03-15 09:50 | MHC.CM.PN ---
IMM 03/15/22 Female 81 S/P Angel's procedure. She is A+Ox3 Lives with her . She uses a cane. She needs minimal assist with ADLs. Preference for home care is [facility], referral sent. [facility] if ordered. Patients spouse will provide transportation.
--- NOTE | 2022-03-15 14:48 | HO.POSTANES ---
Post Anesthesia Evaluation Post Anesthesia Evaluation Vital Signs: Vital Signs Temp Pulse Resp BP Pulse Ox O2 Del Method O2 Flow Rate 03/15/22 07:52 95 Nasal Cannula 03/15/22 11:37 97.7 F 73 16 102/51 L 95 Nasal Cannula 2 03/15/22 08:00 97.8 F 76 16 109/53 L 94 Room Air 03/15/22 04:00 97.8 F 77 20 115/54 L 93 Room Air Anesthesia: General Endotracheal-GETA Mental Status: Awake Pain Control: Satisfactory (incisional pain) Nausea/Vomiting: None Hydration: Adequate Anesthesia-Related Issues: No Anes. Related Issues
--- NOTE | 2022-03-15 15:01 | PM.EVENT ---
Event Note Date of Service: 03/15/22 Event Note: Small amounts of bright blood per rectum earlier today Likely from anastomosis Hemodynamically stable Has been comfortable with adequate pain control Abdomen soft Await return of GI function Plan to remove Guardado tomorrow She has been out of bed to the recliner
[2022-03-15] MEDS: Magnesium Hydrox/Alum Hydrox 30 ML ORAL.SUSP PO (22:08)
[2022-03-16] VITALS (7 sets, daily range): BP systolic 121–142; BP diastolic 47–65; PULSE 73–86; RESP 14–18; TEMP 36.2–36.7; O2SAT 92–98
[2022-03-16] MEDS: Lactated Ringers 1,000 ML 80 ML IVCONT ×2 (02:21→15:00)
--- NOTE | 2022-03-16 08:00 | PM.PNGS ---
Subjective Subjective Date of Service: 03/21/22 Interval history: Says she is okay States she had bowel movements and was passing flatus Good pain control Physical Exam Vital Signs: Vital Signs: Last Vital Signs Temp 97.4 F 03/16/22 03:33 Pulse 74 03/16/22 03:33 Resp 18 03/16/22 03:33 BP 139/63 03/16/22 03:33 Pulse Ox 94 03/16/22 03:33 O2 Del Method 03/16/22 03:33 O2 Flow Rate 2 03/15/22 11:37 Oxygen Flow Rate 2 03/15/22 07:52 BMI result Body Mass Index 25.0 Const: General: comfortable and no acute distress Resp: Effort & Inspection: normal respiratory effort Cardio: Rate: regular rate GI: Other: Soft, no guarding rebound, incisional tenderness appropriate, dressings dry Objective Data Active Medications Al Hydroxide/Mg Hydroxide (Magnesium Hydrox/Alum Hydrox 30 Ml Oral.Susp) 30 ml PO Q6H PRN PRN Reason: Heartburn Last Admin: 03/15/22 22:08 Dose: 30 ml Documented By: NATALIIA Aspirin (Aspirin Enteric Coated 81 Mg Tablet.) 81 mg PO DAILY [facility] Last Admin: 03/15/22 08:36 Dose: 81 mg Documented By: JESSICA Atorvastatin Calcium (Atorvastatin Calcium 80 Mg Tablet) 80 mg PO DAILY [facility] Last Admin: 03/15/22 08:35 Dose: 80 mg Documented By: JESSICA Escitalopram Oxalate (Escitalopram Oxalate 20 Mg Tablet) 20 mg PO DAILY [facility] Last Admin: 03/15/22 08:36 Dose: 20 mg Documented By: JESSICA Famotidine (Famotidine/Pf 20 Mg/2 Ml Vial) 20 mg IVPUSH DAILY PRN PRN Reason: Heartburn Heparin Sodium (Porcine) (Heparin Sodium,Porcine 5,000 Unit/Ml Vial) 5,000 unit SUBCUT Q12H [facility] Last Admin: 03/15/22 12:09 Dose: Not Given Documented By: JESSICA Non-Admin Reason: Physician Held Med Acetaminophen (Ofirmev) 1,000 mg in 100 mls @ 400 mls/hr IV Q6H [facility] Last Infusion: 03/16/22 03:01 Dose: 0 mls/hr Documented By: NATALIIA Lactated Ringer's (Lr) 1,000 mls @ 80 mls/hr IVCONT .[id number] [facility] Last Admin: 03/16/22 02:21 Dose: 80 mls/hr Documented By: NATALIIA Mirabegron (Mirabegron 25 Mg Tab.Er.24h) 25 mg PO DAILY [facility] Last Admin: 03/15/22 08:35 Dose: 25 mg Documented By: JESSICA Morphine Sulfate (Morphine Sulfate 4 Mg/Ml Cartridge) 3 mg IVPUSH Q3H PRN; Protocol PRN Reason: Pain, Moderate (Pain Scale 4-6 Non-Formulary Medication (Xaxhkxsizvw-Qasaaysfa-Oiinnesv [Trelegy Ellipta]) 1 puff INHALE RDAILY [facility] Omeprazole (Omeprazole 40 Mg Capsule.Dr) 40 mg PO DAILY@0630 [facility] Last Admin: 03/15/22 05:21 Dose: 40 mg Documented By: LUDWIN Ondansetron HCl (Ondansetron Hcl 4 Mg/2 Ml Vial) 4 mg IVPUSH Q6H PRN PRN Reason: Nausea and Vomiting Oxycodone HCl (Oxycodone Hcl Immed Release 5 Mg Tablet) 10 mg PO Q4H PRN PRN Reason: Pain, Moderate (Pain Scale 4-6 Last Admin: 03/15/22 05:23 Dose: 10 mg Documented By: LUDWIN Labs CBC & Chem 7: 03/15/22 06:48 03/15/22 06:48 Labs: Laboratory Results - last 24 hr 03/15/22 06:48 Anion Gap 13 Estim Creat Clear Calc 54.3 Estimated GFR > 60 Random Glucose 92 Calcium 9.2 D Procedures Date of Service Date of Service: 03/16/22 Progress Note: A&P Assessment and plan (1) Status post Andreas procedure: Status: Acute Assessment and Plan: Status post reversal of colostomy Has had bowel movements, flatus Likely full liquids later on today Had bright blood per rectum yesterday - subq heparin on hold Looks well Out of bed to chair - she was on the recliner for most part of the day yesterday DC Guardado Incentive spirometry Clinically doing well Time Spent With Patient Time: Total time spent is greater than 50% in coordination of care (as documented) at patient's floor/unit and/or counseling patient: Quality Stroke Does the patient have a stroke diagnosis?: No VTE Prior VTE?: No VTE Risk Level:: Medical - moderate - high VTE Device Contraindication: N/A - Device Ordered VTE Drug Contraindication: Treatment Not Tolerated
[2022-03-16] MEDS: ondansetron HCL 4 MG/2 ML VIAL IVPUSH (08:10)
[2022-03-16] MEDS: Atorvastatin Calcium 80 MG TABLET PO (08:14)
[2022-03-16] MEDS: Aspirin Enteric Coated 81 MG TABLET.DR PO (08:14)
[2022-03-16] MEDS: Mirabegron 25 MG TAB.ER.24H PO (08:14)
[2022-03-16] MEDS: Escitalopram Oxalate 20 MG TABLET PO (08:15)
[2022-03-16] MEDS: Omeprazole 40 MG CAPSULE.DR PO (08:15)
[2022-03-16] MEDS: Heparin Sodium,Porcine 5,000 UNIT/ML VIAL 5000 UNIT SUBCUT ×2 (08:17→21:11)
--- NOTE | 2022-03-16 15:13 | PC.NURSE ---
ethan maintenence and care intervention fell off list approx 2 days ago. asked for ethan to be dc'd. Ethan removed at 151 without incident. pt DTV at 2159
--- NOTE | 2022-03-16 15:27 | PM.EVENT ---
Event Note Date of Service: 03/16/22 Event Note: Seen on afternoon rounds Feels well Passing good flatus and BMs Has been out of bed Stable vital signs Looks well Encourage ambulation Full liquids later on DC Geo
[2022-03-16] MEDS: oxyCODONE HCl Immed Release 5 MG TABLET 10 MG PO (17:46)
[2022-03-17 03:07] VITALS: BP 155/52; PULSE 88; RESP 16; TEMP 36.1; O2SAT 96
[2022-03-17] MEDS: Omeprazole 40 MG CAPSULE.DR PO (03:35)
[2022-03-17] MEDS: Lactated Ringers 1,000 ML 80 ML IVCONT (03:35)
[2022-03-17] MEDS: oxyCODONE HCl Immed Release 5 MG TABLET 10 MG PO ×3 (06:04→22:54)
[2022-03-17 07:00] VITALS: O2SAT 96
[2022-03-17 07:11] VITALS: BP 144/64; PULSE 70; RESP 18; TEMP 36.7; O2SAT 95
[2022-03-17] MEDS: Heparin Sodium,Porcine 5,000 UNIT/ML VIAL 5000 UNIT SUBCUT ×2 (09:43→20:18)
[2022-03-17] MEDS: Atorvastatin Calcium 80 MG TABLET PO (09:43)
[2022-03-17] MEDS: Aspirin Enteric Coated 81 MG TABLET.DR PO (09:43)
[2022-03-17] MEDS: Escitalopram Oxalate 20 MG TABLET PO (09:43)
[2022-03-17] MEDS: Mirabegron 25 MG TAB.ER.24H PO (09:43)
--- NOTE | 2022-03-17 09:51 | P.PNGS_ITS ---
Subjective Subjective Date of Service: 03/17/22 Interval history: says she had a good night passing a lot of flatus has BMs Physical Exam Vital Signs: Vital Signs: Last Vital Signs Temp 98.1 F 03/17/22 07:11 Pulse 70 03/17/22 07:11 Resp 18 03/17/22 07:11 BP 144/64 H 03/17/22 07:11 Pulse Ox 95 03/17/22 07:11 O2 Del Method 03/17/22 07:11 O2 Flow Rate 2 03/16/22 15:46 Oxygen Flow Rate 2 03/15/22 07:52 BMI result Body Mass Index 25.0 Const: General: comfortable and no acute distress Resp: Effort & Inspection: normal respiratory effort Cardio: Rate: regular rate GI: Other: incisions clean, packing on colostomy site Palpation (GI): Soft to palpation, not firm and no guarding Objective Data Active Medications Al Hydroxide/Mg Hydroxide (Magnesium Hydrox/Alum Hydrox 30 Ml Oral.Susp) 30 ml PO Q6H PRN PRN Reason: Heartburn Last Admin: 03/15/22 22:08 Dose: 30 ml Documented By: NATALIIA Aspirin (Aspirin Enteric Coated 81 Mg Tablet.) 81 mg PO DAILY [facility] Last Admin: 03/17/22 09:43 Dose: 81 mg Documented By: JESSICA Atorvastatin Calcium (Atorvastatin Calcium 80 Mg Tablet) 80 mg PO DAILY [facility] Last Admin: 03/17/22 09:43 Dose: 80 mg Documented By: JESSICA Escitalopram Oxalate (Escitalopram Oxalate 20 Mg Tablet) 20 mg PO DAILY [facility] Last Admin: 03/17/22 09:43 Dose: 20 mg Documented By: JESSICA Famotidine (Famotidine/Pf 20 Mg/2 Ml Vial) 20 mg IVPUSH DAILY PRN PRN Reason: Heartburn Fluticasone/Vilanterol (Fluticasone/Vilanterol 100/25 Blst.W.Dev) 1 puff INHALE RDAILY [facility] Heparin Sodium (Porcine) (Heparin Sodium,Porcine 5,000 Unit/Ml Vial) 5,000 unit SUBCUT Q12H [facility] Last Admin: 03/17/22 09:43 Dose: 5,000 unit Documented By: JESSICA Acetaminophen (Ofirmev) 1,000 mg in 100 mls @ 400 mls/hr IV Q6H [facility] Last Admin: 03/17/22 09:44 Dose: 400 mls/hr Documented By: JESSICA Lactated Ringer's (Lr) 1,000 mls @ 80 mls/hr IVCONT .[id number] [facility] Last Admin: 03/17/22 03:35 Dose: 80 mls/hr Documented By: ANÍBAL Mirabegron (Mirabegron 25 Mg Tab.Er.24h) 25 mg PO DAILY [facility] Last Admin: 03/17/22 09:43 Dose: 25 mg Documented By: JESSICA Morphine Sulfate (Morphine Sulfate 4 Mg/Ml Cartridge) 3 mg IVPUSH Q3H PRN; Protocol PRN Reason: Pain, Moderate (Pain Scale 4-6 Omeprazole (Omeprazole 40 Mg Capsule.Dr) 40 mg PO DAILY@0630 [facility] Last Admin: 03/17/22 03:35 Dose: 40 mg Documented By: ANÍBAL Ondansetron HCl (Ondansetron Hcl 4 Mg/2 Ml Vial) 4 mg IVPUSH Q6H PRN PRN Reason: Nausea and Vomiting Last Admin: 03/16/22 08:10 Dose: 4 mg Documented By: SOLISPE Oxycodone HCl (Oxycodone Hcl Immed Release 5 Mg Tablet) 10 mg PO Q4H PRN PRN Reason: Pain, Moderate (Pain Scale 4-6 Last Admin: 03/17/22 06:04 Dose: 10 mg Documented By: HOLDEN Tiotropium [place] (Tiotropium [place] 18 Mcg Cap.W.Dev) 1 puff INHALE RDAILY [facility] Labs CBC & Chem 7: 03/15/22 06:48 03/15/22 06:48 Procedures Date of Service Date of Service: 03/17/22 Progress Note: A&P Assessment and plan (1) Perforation bowel: Status: Acute Assessment and Plan: s/p reversal of colostomy good GI function looks well diet as tolerated voiding freely packing removed ok to shower ambulate pain mgt dc planning Time Spent With Patient Time: Total time spent is greater than 50% in coordination of care (as documented) at patient's floor/unit and/or counseling patient: Quality Stroke Does the patient have a stroke diagnosis?: No VTE Prior VTE?: No VTE Risk Level:: Medical - moderate - high VTE Device Contraindication: N/A - Device Ordered VTE Drug Contraindication: Treatment Not Tolerated
[2022-03-17 11:11] VITALS: BP 158/72; PULSE 68; RESP 18; TEMP 36.1; O2SAT 97
[2022-03-17 15:06] VITALS: BP 170/75; PULSE 70; RESP 16; TEMP 36.6; O2SAT 95
[2022-03-17 19:33] VITALS: BP 153/67; PULSE 71; RESP 17; TEMP 36.4; O2SAT 96
[2022-03-18] VITALS: BP 125/60; PULSE 68; RESP 17; TEMP 36.8; O2SAT 93
[2022-03-18 04:00] VITALS: BP 132/61; PULSE 73; RESP 17; TEMP 36.4; O2SAT 95
[2022-03-18] MEDS: Omeprazole 40 MG CAPSULE.DR PO (04:41)
[2022-03-18] MEDS: Fluticasone/Vilanterol 100/25 BLST.W.DEV 1 PUFF INHALE (07:36)
[2022-03-18 07:44] VITALS: PULSE 80; RESP 18; O2SAT 94
[2022-03-18 07:51] VITALS: BP 155/70; PULSE 68; RESP 18; TEMP 36.6; O2SAT 98
--- NOTE | 2022-03-18 09:26 | P.PNGS_ITS ---
Subjective Subjective Date of Service: 03/18/22 Interval history: Patient feels well and is tolerating her breakfast without nausea or vomiting. Denies significant abdominal pain this morning. Physical Exam Vital Signs: Vital Signs: Last Vital Signs Temp 97.9 F 03/18/22 07:51 Pulse 68 03/18/22 07:51 Resp 18 03/18/22 07:51 BP 155/70 H 03/18/22 07:51 Pulse Ox 98 03/18/22 07:51 O2 Del Method 03/18/22 07:51 O2 Flow Rate 2 03/16/22 15:46 Oxygen Flow Rate 2 03/15/22 07:52 BMI result Body Mass Index 25.0 Const: General: healthy appearing and no acute distress Nutritional Appearance: well nourished Orientation/consciousness: patient oriented x3 Limitations: no limitations Resp: Effort & Inspection: normal respiratory effort, no audible wheezes, no cough and no respiratory distress GI: Other: Incision with small amount of serous discharge. Dressings applied. Abdomen otherwise soft nondistended. No evidence of wound infection. Skin: Other: Warm, dry, no rash Neuro: General: patient oriented x3 Objective Data Active Medications Al Hydroxide/Mg Hydroxide (Magnesium Hydrox/Alum Hydrox 30 Ml Oral.Susp) 30 ml PO Q6H PRN PRN Reason: Heartburn Last Admin: 03/15/22 22:08 Dose: 30 ml Documented By: NATALIIA Aspirin (Aspirin Enteric Coated 81 Mg Tablet.) 81 mg PO DAILY COUNT INCLUDES THE [facility] Last Admin: 03/17/22 09:43 Dose: 81 mg Documented By: JESSICA Atorvastatin Calcium (Atorvastatin Calcium 80 Mg Tablet) 80 mg PO DAILY COUNT INCLUDES THE [facility] Last Admin: 03/17/22 09:43 Dose: 80 mg Documented By: JESSICA Escitalopram Oxalate (Escitalopram Oxalate 20 Mg Tablet) 20 mg PO DAILY COUNT INCLUDES THE [facility] Last Admin: 03/17/22 09:43 Dose: 20 mg Documented By: JESSICA Famotidine (Famotidine/Pf 20 Mg/2 Ml Vial) 20 mg IVPUSH DAILY PRN PRN Reason: Heartburn Fluticasone/Vilanterol (Fluticasone/Vilanterol 100/25 Blst.W.Dev) 1 puff INHALE RDAILY COUNT INCLUDES THE [facility] Last Admin: 03/18/22 07:36 Dose: 1 puff Documented By: SAILAJA Heparin Sodium (Porcine) (Heparin Sodium,Porcine 5,000 Unit/Ml Vial) 5,000 unit SUBCUT Q12H COUNT INCLUDES THE [facility] Last Admin: 03/17/22 20:18 Dose: 5,000 unit Documented By: YIFAN Heparin Sodium (Porcine) (Heparin Sodium,Porcine 5,000 Unit/Ml Vial) 5,000 unit SUBCUT Q12H COUNT INCLUDES THE [facility] Last Admin: 03/17/22 22:27 Dose: Not Given Documented By: YIFAN Non-Admin Reason: Duplicate Order Mirabegron (Mirabegron 25 Mg Tab.Er.24h) 25 mg PO DAILY COUNT INCLUDES THE [facility] Last Admin: 03/17/22 09:43 Dose: 25 mg Documented By: JESSICA Morphine Sulfate (Morphine Sulfate 4 Mg/Ml Cartridge) 3 mg IVPUSH Q3H PRN; Protocol PRN Reason: Pain, Moderate (Pain Scale 4-6 Omeprazole (Omeprazole 40 Mg Capsule.Dr) 40 mg PO DAILY@0630 COUNT INCLUDES THE [facility] Last Admin: 03/18/22 04:41 Dose: 40 mg Documented By: YIFAN Ondansetron HCl (Ondansetron Hcl 4 Mg/2 Ml Vial) 4 mg IVPUSH Q6H PRN PRN Reason: Nausea and Vomiting Last Admin: 03/16/22 08:10 Dose: 4 mg Documented By: MARY Oxycodone HCl (Oxycodone Hcl Immed Release 5 Mg Tablet) 10 mg PO Q4H PRN PRN Reason: Pain, Moderate (Pain Scale 4-6 Last Admin: 03/17/22 22:54 Dose: 10 mg Documented By: YIFAN Tiotropium Kohler (Tiotropium Kohler 18 Mcg Cap.W.Dev) 1 puff INHALE RDAILY COUNT INCLUDES THE [facility] Last Admin: 03/18/22 07:36 Dose: 1 puff Documented By: SAILAJA Labs CBC & Chem 7: 03/15/22 06:48 03/15/22 06:48 Procedures Date of Service Date of Service: 03/18/22 Progress Note: A&P Assessment and plan (1) Diverticulitis of colon with perforation: Status: Acute (2) Status post Andreas procedure: Status: Acute Plan 81-year-old female status post reversal of colostomy. Patient now tolerating regular diet without nausea or vomiting. She feels comfortable going home and reports her will help her at home. Prescription sent to pharmacy by Dr. Jose yesterday. She will follow up in the office in 2 weeks and should call sooner for any concerns. Time Spent With Patient Time: Total time spent is greater than 50% in coordination of care (as documented) at patient's floor/unit and/or counseling patient: No Severe Sepsis: No Severe Sepsis Quality Stroke Does the patient have a stroke diagnosis?: No VTE Prior VTE?: No VTE Risk Level:: Medical - moderate - high VTE Device Contraindication: N/A - Device Ordered VTE Drug Contraindication: Treatment Not Tolerated
--- NOTE | 2022-03-18 09:34 | MHC.CM.PN ---
PT DISCHARGING HOME TODAY, NO SERVICES ORDERED FAMILY TO TRANSPORT
[2022-03-18] MEDS: Aspirin Enteric Coated 81 MG TABLET.DR PO (09:35)
[2022-03-18] MEDS: Atorvastatin Calcium 80 MG TABLET PO (09:35)
[2022-03-18] MEDS: Heparin Sodium,Porcine 5,000 UNIT/ML VIAL 5000 UNIT SUBCUT (09:36)
[2022-03-18] MEDS: Mirabegron 25 MG TAB.ER.24H PO (09:36)
[2022-03-18] MEDS: oxyCODONE HCl Immed Release 5 MG TABLET 10 MG PO (09:36)
[2022-03-18] MEDS: Escitalopram Oxalate 20 MG TABLET PO (09:36)
--- NOTE | 2022-03-21 09:04 | P.DS_ITS ---
DS: Providers Provider Date of Service: 03/18/22 Date of admission: 03/14/22 11:48 Primary care physician: Jack León MD Attending physician on admission: Robbi Jose Attending physician on discharge: Reynaldo Oakley DS: Diagnosis Discharge Diagnosis (1) Status post Andreas procedure: Status: Acute DS: Summary Hospital Course Hospital Course: BRIEF HPI: The patient is an 81-year-old female who had undergone emergency sigmoid resection and end colostomy in September 2021 due to perforated diverticulitis. She presents now for reversal of the colostomy. HOSPITAL COURSE: On 03/14/22, a hand assisted laparoscopic reversal of an end- colostomy, extensive lysis of adhesions, intraop flexible sigmoidoscopy was performed by Dr. Jose without complication. The patient tolerated the procedure well, completed routine recovery and was admitted for observation. The patient had an uncomplicated recovery coure. She was started on clear liquids post operatively and this was slowly advanced to full liquids and then low residue during her stay which she was tolerating without nausea or vomiting. Her incisional pain was adequately controlled on as needed analgesics. She was ambulated. She did develop a small amount of BRBPR on POD #1, which was likely from the anastomosis and her subq heparin was therefore held. This resolved. She began passing flatus and moving her bowels. Her long was removed on POD # 2. She continued to do well and on POD #3-4 was tolerating a solid diet, had good GI function, good pain control and a benign abdominal exam with clean incisions. Her wound packing was removed. She felt ready for discharge. She was discharged to home on 03/18/22 in stable condition. Time Spent with Patient Time attestation: Total time spent providing and/or coordinating discharge services: Discharge coordination time: Greater than 30 minutes Quality: Safe Use of Opioids Does Pt have an Active Cancer Diagnosis on the Problem List?: No Quality: Stroke Does the patient have a stroke diagnosis?: No Physical Exam Vital Signs: Vital Signs: Last Vital Signs Temp 97.9 F 03/18/22 07:51 Pulse 68 03/18/22 07:51 Resp 18 03/18/22 07:51 BP 155/70 H 03/18/22 07:51 Pulse Ox 98 03/18/22 07:51 O2 Del Method 03/18/22 07:51 O2 Flow Rate 2 03/16/22 15:46 Oxygen Flow Rate 2 03/15/22 07:52 BMI result Body Mass Index 25.0 Const: General: comfortable, no acute distress, well developed and alert Orientation/consciousness: patient oriented x3 Resp: Effort & Inspection: normal respiratory effort GI: Inspection: No distended and Yes incision (clean) Palpation (GI): Soft to palpation, nontender, no guarding and not rigid Skin: General skin exam: no rashes or lesions noted Neuro: General: patient oriented x3 Extrem: General: Yes no clubbing, cyanosis or edema DS: Data Data Completed and Pending Completed studies during hospitalization [Text1]: 03/14/22 12:26 Surgical [PTH] Routine A. Colon, rectal stump, excision: Colorectal tissue with focal mucosal chronic active inflammation and ulceration; otherwise within normal limits. B. Colostomy stump: Inflamed enterocutaneous tissue with focal ulceration; otherwise within normal limits. C. Colon, EEA donuts: Colonic tissue within normal limits. Procedures Bypass Sigmoid Colon to Cutaneous, Open Approach (09/18/21) Excision of Sigmoid Colon, Open Approach (09/18/21) Discharge Plan Discharge Anticipated Discharge Date/Time: 03/18/22 14:33 Patient Disposition: Home, Self-Care Discharge Diagnosis: s/p reversal of colostomy Referrals: Jack León MD [Primary Care Provider] - 1 Week Robbi Jose MD [Physician] - 1 Week Discharge Medications: New oxycodone-acetaminophen [Percocet] 5-325 mg tablet 1 tab PO Q4-6H PRN (Reason: pain) Qty: 30 0RF Rx Instructions: Partial Fill upon patient request. ibuprofen 600 mg tablet 600 mg PO Q6H PRN (Reason: pain) Qty: 30 0RF Continued rosuvastatin 20 mg tablet 20 mg PO QAM Myrbetriq 25 mg tablet extended release 24 hr 25 mg PO QAM Trelegy Ellipta 100-62.5-25 mcg blister with device 1 puff inhalation QAM aspirin 81 mg Tablet,Delayed Release (Dr/Ec) 81 mg PO DAILY citalopram 40 mg tablet 40 mg PO QAM omeprazole 40 mg capsule,delayed release(DR/EC) 40 mg PO QAM Discontinued erythromycin 500 mg tablet 1,000 mg PO TID 1 Days Qty: 6 0RF Rx Instructions: Take 1000mg (2 tablets) at 2pm, 3pm and 10pm on the day prior to your surgery. neomycin 500 mg tablet 1 g PO TID 1 Days Qty: 6 0RF Rx Instructions: Take 1000mg (2 tablets) at 2pm, 3pm, and 10pm on the day prior to your surgery. No Action (DME) nebulizer and compressor Device See Rx Instructions .ROUTE DIRECTED Qty: 1 Rx Instructions: As directed Discharge Orders: Discharge Order (Routine); Ordered 03/18/22 Ordered By: Reynaldo Oakley Activity on Discharge: No heavy lifting Stand Alone Forms: Patient Portal Discharge page Care Plan Goals: pain control Health Concerns: hx of COPD pain mgt Plan of Treatment: oral pain meds continue home meds Assessment: doing well postop Discharge Date/Time: 03/18/22 10:53
== END 2022-03-18 10:53 | disposition home or self-care (01) | DRG 337 ==
LOC: HO.SSSA 11:51 → HO.IMC 19:08 → HO.S3 03-17 09:09
PROVIDERS: Nurse Practitioner; Physician Assistant Surgical; Admitting Provider Surgery; PCP Internal Medicine; Visit Provider Surgery
PROC: 0DBE4ZZ Excision of Large Intestine, Percutaneous Endoscopic Approach (ICD-10-PCS; CPT 44227; principal; 2022-03-14 08:20)
DX: Z43.3 Encounter for attention to colostomy (principal); J44.9 Chronic obstructive pulmonary disease, unspecified; E87.5 Hyperkalemia; K66.0 Peritoneal adhesions (postprocedural) (postinfection); Z20.822 Contact with and (suspected) exposure to COVID-19; Z85.3 Personal history of malignant neoplasm of breast; Z87.81 Personal history of (healed) traumatic fracture; Z79.82 Long term (current) use of aspirin; Z79.899 Other long term (current) drug therapy
CPT/HCPCS: 36415; 80048; 85025; 85027; 86850; 86900; 86901; 87635; 88304; 88305; 88307; 94640; C1758; J0131; J1170; J2405; J2795; J3010

== ENCOUNTER → 2022-03-29 09:58 | Outpatient (BNVA) | payer MEDICARE, OTHER, SELFPAY | PROVIDERS: PCP Internal Medicine; Visit Provider Surgery | DX: Z98.890 Other specified postprocedural states (principal) | CPT/HCPCS: 99212 ==

== ENCOUNTER → 2022-04-26 14:37 | Outpatient (BNVA) | payer MEDICARE, OTHER, SELFPAY | PROVIDERS: PCP Internal Medicine; Visit Provider Surgery | DX: Z98.890 Other specified postprocedural states (principal) | CPT/HCPCS: 99212 ==

== ENCOUNTER → 2022-05-04 14:25 | Outpatient (BNVA) | payer MEDICARE, OTHER, SELFPAY | PROVIDERS: PCP Internal Medicine; Referring Provider Internal Medicine; Visit Provider Nurse Practitioner Family | DX: Z01.810 Encounter for preprocedural cardiovascular examination (principal); M17.11 Unilateral primary osteoarthritis, right knee; I65.23 Occlusion and stenosis of bilateral carotid arteries; E78.5 Hyperlipidemia, unspecified; Z87.891 Personal history of nicotine dependence | CPT/HCPCS: 93005; 99212 ==

== ENCOUNTER → 2022-05-05 10:46 | Outpatient (BNVA) | payer MEDICARE, OTHER, SELFPAY | PROVIDERS: PCP Internal Medicine; Visit Provider Hospitalist | DX: Z01.811 Encounter for preprocedural respiratory examination (principal); J44.9 Chronic obstructive pulmonary disease, unspecified; R91.1 Solitary pulmonary nodule | CPT/HCPCS: 99212 ==

== ENCOUNTER → 2022-06-01 15:37 | Outpatient (BNVA) | payer MEDICARE, OTHER, SELFPAY | PROVIDERS: PCP Internal Medicine; Visit Provider Surgery | DX: T81.89XA Other complications of procedures, not elsewhere classified, initial encounter (principal) | CPT/HCPCS: 99212 ==

== ENCOUNTER → 2022-06-22 14:39 | Outpatient (BNVA) | payer MEDICARE, OTHER, SELFPAY | PROVIDERS: PCP Internal Medicine; Visit Provider Surgery | DX: T81.89XA Other complications of procedures, not elsewhere classified, initial encounter (principal) | CPT/HCPCS: 11042; 99212 ==

== ENCOUNTER → 2022-07-06 14:28 | Outpatient (BNVA) | payer MEDICARE, OTHER, SELFPAY | PROVIDERS: PCP Internal Medicine; Visit Provider Surgery | DX: T81.89XD Other complications of procedures, not elsewhere classified, subsequent encounter (principal) | CPT/HCPCS: 99212 ==

== ENCOUNTER 2022-08-25 10:40 | Outpatient (REF) | payer MEDICARE, OTHER, SELFPAY ==
--- NOTE | ~2022-08-25 | CT_ITS ---
EXAMINATION: CT CHEST WITHOUT CONTRAST CLINICAL INFORMATION: Pulmonary nodule. COMPARISON: 08/23/2021 and 08/31/2020. TECHNIQUE: Multidetector volumetric CT imaging of the chest was done. Axial MIP volume rendering provided. Sagittal and coronal reformatted images were obtained. This CT examination was performed using dose optimization techniques as appropriate, variously including the following: *Automated exposure control *Adjustment of mA and/or kV according to patient size (this includes techniques or standardized protocols for targeted exams where dose is matched to indication/reason for exam; i.e. extremities or head) *Use of iterative reconstruction technique DLP: 141 mGy-cm. FINDINGS: LUNGS: Central airways are patent. No bronchial wall thickening is seen. No bronchiectasis is noted. No confluent parenchymal disease is seen. There are sub-4 mm densities present bilaterally. Numerous sub-4 mm or larger densities are present with the largest being listed below. There are some calcified granulomas present. Apical pleural-parenchymal scarring is seen. One the areas of pleural-parenchymal disease is not plate-like within the left apex and measures approximately 7 mm in diameter. There is hyperinflation present. There is a 4 mm noncalcified subpleural nodule seen within the right upper lobe on image [address] series #5. There is a 4 mm noncalcified nodule seen within the right upper lobe on image 167 of 556. There is a 6 mm subpleural nodule seen within the right upper lobe on image 214 of 556. Within the right lower lobe there is a 7 mm noncalcified nodule on image 338 of 556. On image 272 of 556, there is a 5 mm noncalcified nodule seen within the right lower lobe. There is a 6 mm subpleural noncalcified nodule seen within the lingula on image 245 of 556. Within the left lower lobe, there is a subpleural noncalcified nodule seen on image 351 of 556. Within the left lower lobe, there is a 4 mm subpleural noncalcified density on image 377 of 556. About the left lower lobe medially, there is a 5 mm subpleural noncalcified nodule on image 233 of 556. There are some scattered ground-glass opacities present such as: Left upper lobe on image 50 of 556, there is a 1.1 x 0.6 cm ground-glass opacity. Within the right upper lobe, on image 231 of 556, there is a 7 mm ground-glass opacity. Within the superior segment of the right lower lobe, there is a 9 x 6 mm ground-glass opacity. MEDIASTINUM: Heart normal size. Coronary artery calcification is present as well as aortic valve calcification. No pericardial effusion. No thoracic aortic aneurysm. No significant thoracic aortic calcified plaque. No mediastinal or hilar lymphadenopathy. No significant thyroid abnormality. CORONARY ARTERY CALCIFICATION: Present. PLEURA: There is no pleural effusion. No pleural mass or thickening. AXILLA: No lymphadenopathy. UPPER ABDOMEN: There is a small hiatal hernia present. OSSEOUS STRUCTURES: No suspicious bony abnormality is appreciated. CT/CT chest wo IV con IMPRESSION: Stable bilateral lung nodules and regions of ground-glass opacity compared to study of 08/23/2021 as described. Some of these densities were noted to be slightly more prominent than on study of 08/31/2020. Old granulomatous disease. Recommend repeat CT scan of the chest in 1 year. According to the UPDATED 2017 Fleischner Society recommendations, the advised follow-up imaging for multiple solid nodules, the largest measuring 6 mm or greater, is: LOW RISK PATIENT: CT at 3-6 months, then consider CT at 18-24 months. HIGH RISK PATIENT: CT at 3-6 months, then at 18-24 months.
== END 2022-08-25 10:41 | disposition home or self-care (01) ==
LOC: HO.CT 10:40
PROVIDERS: PCP Internal Medicine; Visit Provider Hospitalist
DX: R91.1 Solitary pulmonary nodule (principal)
CPT/HCPCS: 71250

== ENCOUNTER → 2022-08-30 13:06 | Outpatient (BNVA) | payer MEDICARE, OTHER, SELFPAY | PROVIDERS: PCP Internal Medicine; Visit Provider Surgery | DX: T81.89XD Other complications of procedures, not elsewhere classified, subsequent encounter (principal) | CPT/HCPCS: 99212 ==

== ENCOUNTER → 2022-10-26 09:50 | Outpatient (BNVA) | payer MEDICARE, OTHER, SELFPAY | PROVIDERS: PCP Internal Medicine; Referring Provider Internal Medicine; Visit Provider Internal Medicine Cardiovascular Disease | DX: I65.23 Occlusion and stenosis of bilateral carotid arteries (principal); Z96.651 Presence of right artificial knee joint | CPT/HCPCS: 93005; 99212 ==

== ENCOUNTER → 2022-12-04 13:11 | Outpatient (BNVA) | payer MEDICARE, OTHER, SELFPAY | PROVIDERS: PCP Internal Medicine; Visit Provider Surgery | DX: K43.2 Incisional hernia without obstruction or gangrene (principal) | CPT/HCPCS: 99212 ==

== ENCOUNTER 2023-01-08 09:06 | Outpatient (REF) | payer MEDICARE, OTHER, SELFPAY ==
--- NOTE | ~2023-01-08 | CT_ITS ---
EXAMINATION: CT ABDOMEN AND PELVIS WITHOUT CONTRAST CLINICAL INFORMATION: Incisional hernia without obstruction or gangrene. COMPARISON: None available. TECHNIQUE: Multidetector volumetric imaging was performed from the superior aspect of the liver through the pubic symphysis. Sagittal and coronal reformatted images were obtained on the technologist's workstation. This CT examination was performed using dose optimization techniques as appropriate, variously including the following: *Automated exposure control. *Adjustment of mA and/or kV according to patient size (this includes techniques or standardized protocols for targeted exams where dose is matched to indication/reason for exam; i.e. extremities or head). *Use of iterative reconstruction technique. DLP: 396 mGy-cm FINDINGS: LUNG BASES: There is a ground-glass 4 mm nodule left lower lobe axial image 9/5 and a solid 4 mm nodule right lower lobe axial image 6/5. Heart size is normal. There is focal fat within the intrahepatic IVC on axial image 11/3. LIVER, GALLBLADDER, AND BILIARY TREE: The liver is normal in size, shape, and attenuation. No focal hepatic lesion or biliary ductal dilatation is present. The gallbladder is unremarkable with no evidence of radiopaque gallstones, gallbladder wall thickening, or obvious pericholecystic inflammatory changes. PANCREAS: Unremarkable. SPLEEN: Unremarkable. ADRENAL GLANDS: Unremarkable. KIDNEYS AND URETERS: The kidneys are normal in size, shape, and attenuation. No hydronephrosis, hydroureter, or calculi seen. No perinephric stranding. BLADDER: Unremarkable. GASTROINTESTINAL TRACT: There is scattered stool and gas seen throughout the colon without significant distention. Cecum lies in the right mid abdomen. The small bowel loops are normal caliber. Appendix is not seen. ABDOMINAL WALL: There is a midline epigastric anterior abdominal wall hernia containing fat. There is a left anterior abdominal wall hernia containing fat likely previous colostomy tract. Also visualized is rectus diastases with infraumbilical thin abdominal wall. LYMPH NODES: Normal. VASCULAR: There is atherosclerotic calcification of abdominal aorta. PELVIC VISCERA: The uterus is retroverted and appears unremarkable. OSSEOUS STRUCTURES: There are degenerative disc changes with vacuum disc phenomena at L4-L5 and L5-S1 disc levels. CT/CT abdomen pelvis wo IV con IMPRESSION: 1. No acute intra-abdominal process seen. 2. Midline epigastric anterior abdominal wall hernia containing fat. A left lateral abdominal wall hernia containing fat likely from previous colostomy tract. Also visualized is rectus abdominous diastases with infraumbilical hernia. Fleischner guidelines were followed.
== END 2023-01-08 09:07 | disposition home or self-care (01) ==
LOC: HO.CT 09:06
PROVIDERS: PCP Internal Medicine; Visit Provider Surgery
DX: K43.2 Incisional hernia without obstruction or gangrene (principal)
CPT/HCPCS: 74176

== ENCOUNTER 2023-01-25 15:52 | Outpatient (AMB) | payer MEDICARE, OTHER, SELFPAY ==
--- NOTE | 2023-01-25 15:53 | MHC.OFFVIS ---
Intake Intake Visit Reasons: Discuss CT scan results Intake Note: This patient presents for a follow-up assessment for Ct-Scan results. Patient denies new complaints at this time. Licensed Occupational Therapy Assistant Required: No Accompanied by: Other Relationship Allergies No Known Allergies Allergy (Verified 01/25/23 15:57) Medication List - Last Reconciled 01/25/23 by Robbi Jose MD aspirin 81 mg PO DAILY citalopram 40 mg PO QAM ibuprofen 600 mg PO Q6H PRN mirabegron ER (Myrbetriq) 25 mg PO QAM nebulizer and compressor As directed omeprazole 40 mg PO QAM oxycodone 5 mg PO TID PRN rosuvastatin 20 mg PO QAM Trelegy Ellipta 100-62.5-25 mcg ([id number]) 1 inh inhalation QAM NS HPI Discuss CT scan results HPI Details 62-year-old female here her incisional hernias. She had undergone emergency Andreas's procedure last September, for perforated diverticulitis. She had reversal of her end-colostomy last February,. She had been doing very well. However, she had noticed this reducible mass on her abdominal wall I had sent for a CT scan last month. She actually notices this on the midline and on the left lateral area. She describes some discomfort with this She otherwise says she has good oral intake. She denies any problems with bowel movements. [facility] Medical History Arthritis Atherosclerosis of both carotid arteries Breast cancer COPD (chronic obstructive pulmonary disease) COVID-19 GERD (gastroesophageal reflux disease) Hyperlipidemia Incisional hernia Perforated viscus Postoperative nausea Pulmonary nodule Sepsis Suture granuloma Surgical History H/O right mastectomy History of colonoscopy History of esophagogastroduodenoscopy (EGD) History of exploratory laparotomy (~2021) History of tubal ligation Status post colostomy takedown Status post Andreas procedure (~03/14/22) Social History Household Members: Spouse Housing: Apartment Are you a primary youth career specialist to a significant other at home: No Do you presently have visiting nurse or other home services: No Alcohol intake: current Alcohol intake frequency: holidays/special occasions only Patient Tobacco Use Status: Former Tobacco user Quit Date: age 51 Tobacco use type: Cigarette Years Smoked: 30 years Second Hand Smoke Exposure: No Advance Directives Date on File: 03/14/22 service: No Current occupational status: retired Gender identity: Female Review of Systems Const Denies chills and Denies fever(s) Card Denies chest pain, Denies dyspnea and Denies dyspnea on exertion Resp Denies cough, Denies dyspnea and Denies dyspnea on exertion GI Denies hematochezia and Denies change in bowel habits Denies hematuria Musc Denies back pain, Reports arthralgias and Reports limited range of motion Neuro Denies focal weakness and Denies convulsions Psych Denies depression and Denies mood swings Physical Exam Const General: comfortable and no acute distress Orientation/consciousness: patient oriented x3 Neck Neck: Yes no lymphadenopathy Resp Auscultation: clear to auscultation bilaterally Cardio Rhythm: regular rhythm GI Other: Palpable hernia, about 2 cm on the old colostomy site on the left, and a 1.5 cm hernia on the epigastric port site, and diastasis of the midline abdominal wall Palpation (GI): Soft to palpation, nontender and no guarding Neuro General: patient oriented x3 Assessment & Plan Assessment & Plan (1) Incisional hernia: Code(s): K43.2 - Incisional hernia without obstruction or gangrene Plan: She has a history of emergency Andreas's procedure eventual reversal her end colostomy. She had a CAT scan done 2 weeks ago showing a fat containing hernia on the left abdominal wall on the old colostomy site, as well as a port site hernia also fat containing on the epigastric area. She has what appears to be diastasis of the midline abdominal wall as well. This is likely because of herTRAM flap from many years ago for her breast reconstruction after mastectomy. I explained the technique of repair of the hernia on the left abdominal wall and the epigastric areas. We may put a mesh on these 2 areas. I reviewed the risks including but not limited to bleeding, infections, bowel injury, recurrence, postop pain, as well as the benefits and alternatives. She wants to proceed because of discomfort She understands that we are not going to do any repair on the diastasis of the abdominal wall on the midline. Coding Level of Care Code Est Pt Level 4 (80051) Diagnoses Incisional hernia K43.2
== END 2023-01-25 16:32 | disposition home or self-care (01) ==
PROVIDERS: PCP Internal Medicine; Visit Provider Surgery
DX: K43.2 Incisional hernia without obstruction or gangrene (principal)
CPT/HCPCS: 99214

== ENCOUNTER → 2023-01-25 15:52 | Outpatient (BNVA) | payer MEDICARE, OTHER, SELFPAY | PROVIDERS: PCP Internal Medicine; Visit Provider Surgery | DX: K43.2 Incisional hernia without obstruction or gangrene (principal) | CPT/HCPCS: 99212 ==

== ENCOUNTER 2023-03-20 07:27 | Day surgery (SDC) | payer MEDICARE, OTHER, SELFPAY ==
[2023-03-16 09:48] VITALS: BMI 26.1
--- NOTE | 2023-03-19 09:25 | P.CONAN_ITS ---
Documented by User: Sandra Adair NP 03/19/23 09:30 HPI - Anesthesia Eval Consult details Narrative: 82yo F for Left Hernia Repair Incisional X2, abd & epigastric area, possible mesh s/p colostomy reversal 02/2022 with GA-ETT 7 s/p TKA ~09/2022 Follows [facility] cardiology annually for carotid ds. Last office visit 10/2022 - stable without symptoms PMFSH Active Problems Active Problems: All Active Problems (Updated 12/04/22 @ 13:35 by Robbi Jose MD) Incisional hernia (Acute) Suture granuloma (Acute) Pre-op chest exam (Acute) Preop cardiovascular exam (Acute) Status post colostomy takedown (Acute) Celiac disease (Acute) Hypovolemia (Acute) Ileus following gastrointestinal surgery (Acute) Diverticulitis of colon with perforation (Acute) Sepsis (Acute) Perforated viscus (Acute) History of tubal ligation (Acute) H/O right mastectomy (Acute) Hyperlipidemia (Acute) Atherosclerosis of both carotid arteries (Acute) Pulmonary nodule (Acute) COPD (chronic obstructive pulmonary disease) (Acute) Past Medical History Medical History Sepsis Diverticulitis of colon with perforation Ileus following gastrointestinal surgery Hypovolemia Perforated viscus Incisional hernia Suture granuloma Postoperative nausea Breast cancer GERD (gastroesophageal reflux disease) Arthritis Hyperlipidemia Atherosclerosis of both carotid arteries COVID-19 Pulmonary nodule COPD (chronic obstructive pulmonary disease) Family History Family history of problems with anesthesia: No Surgical History Surgical History History of tubal ligation Status post colostomy takedown Status post Andreas procedure (~03/14/22) History of esophagogastroduodenoscopy (EGD) History of colonoscopy History of exploratory laparotomy (~2021) H/O right mastectomy History of Problems with Anesthesia: No Social History Social History Household Members: Spouse Housing: Apartment Are you a primary pharmacist critical care to a significant other at home: No Do you presently have visiting nurse or other home services: No Alcohol intake: current Alcohol intake frequency: holidays/special occasions only Patient Tobacco Use Status: Former Tobacco user Quit Date: 1985 Tobacco use type: Cigarette Years Smoked: 30 years Second Hand Smoke Exposure: No Use of substances other than those prescribed or required for medical reasons: Yes Substance Use Type Other:: gummy to sleep Are you DNR?: No Advance Directives: No Advance Directives Information Provided: Yes Advance Directives Date on File: 03/14/22 service: No Current occupational status: retired Gender identity: Female Meds Allergies Allergy/AdvReac Type Severity Reaction Status Date / Time No Known Allergies Allergy Verified 03/20/23 09:14 Home Medications Medication Instructions Recorded Confirmed Last Taken Type nebulizer and compressor #1 ea 05/28/20 03/20/23 Unknown History omeprazole 40 mg capsule,delayed 40 mg PO QAM 05/28/20 03/20/23 03/20/23 06:30 History release aspirin 81 mg tablet,delayed 81 mg PO DAILY 09/19/21 03/20/23 03/13/23 History release mirabegron 25 mg tablet,extended 25 mg PO QAM 09/19/21 03/20/23 03/14/22 06:15 History release 24 hr (Myrbetriq) rosuvastatin 20 mg tablet 20 mg PO QAM 09/19/21 03/20/23 03/14/22 06:15 History citalopram 40 mg tablet 40 mg PO QAM 01/20/22 03/20/23 03/14/22 06:15 History Exam Exam Date and Time: March 19, 2023 0925 Height,Weight and Vital Signs: Height 5 ft 4 in Weight 68.946 kg Narrative Narrative: EKG 10/2022 normal sinus rhythm with normal EKG US carotid duplex BI 2021 IMPRESSION: 1. RIGHT: Minimal, non-hemodynamically significant stenosis of the proximal right internal carotid artery corresponding to a 0-49% stenosis by velocity criteria. 2. LEFT: Minimal, non-hemodynamically significant stenosis of the proximal left internal carotid artery corresponding to a 0-49% stenosis by velocity criteria. 3. There is no change in the category severity of disease when compared to the previous study dated 07/03/2019 . Assessment and Plan Assessment Anesthesia Assessment: Chart Reviewed Final Anesthetic Review Family History of Problems with Anesthesia: No History of Problems with Anesthesia: No Documented by User: Isis Sharif MD 03/20/23 09:46 [facility] Past Medical History Medical History Sepsis Diverticulitis of colon with perforation Ileus following gastrointestinal surgery Hypovolemia Perforated viscus Incisional hernia Suture granuloma Postoperative nausea Breast cancer GERD (gastroesophageal reflux disease) Arthritis Hyperlipidemia Atherosclerosis of both carotid arteries COVID-19 Pulmonary nodule COPD (chronic obstructive pulmonary disease) Surgical History Surgical History History of tubal ligation Status post colostomy takedown Status post Andreas procedure (~03/14/22) History of esophagogastroduodenoscopy (EGD) History of colonoscopy History of exploratory laparotomy (~2021) H/O right mastectomy Social History Social History Household Members: Spouse Housing: Apartment Are you a primary pharmacist critical care to a significant other at home: No Do you presently have visiting nurse or other home services: No Alcohol intake: current Alcohol intake frequency: holidays/special occasions only Patient Tobacco Use Status: Former Tobacco user Quit Date: 1985 Tobacco use type: Cigarette Years Smoked: 30 years Second Hand Smoke Exposure: No Use of substances other than those prescribed or required for medical reasons: Yes Substance Use Type Other:: gummy to sleep Are you DNR?: No Advance Directives: No Advance Directives Information Provided: Yes Advance Directives Date on File: 03/14/22 service: No Current occupational status: retired Gender identity: Female Meds Allergies Allergy/AdvReac Type Severity Reaction Status Date / Time No Known Allergies Allergy Verified 03/20/23 09:14 Home Medications Medication Instructions Recorded Confirmed Last Taken Type nebulizer and compressor #1 ea 05/28/20 03/20/23 Unknown History omeprazole 40 mg capsule,delayed 40 mg PO QAM 05/28/20 03/20/23 03/20/23 06:30 History release aspirin 81 mg tablet,delayed 81 mg PO DAILY 09/19/21 03/20/23 03/13/23 History release mirabegron 25 mg tablet,extended 25 mg PO QAM 09/19/21 03/20/23 03/14/22 06:15 History release 24 hr (Myrbetriq) rosuvastatin 20 mg tablet 20 mg PO QAM 09/19/21 03/20/23 03/14/22 06:15 History citalopram 40 mg tablet 40 mg PO QAM 01/20/22 03/20/23 03/14/22 06:15 History Exam Airway Heart: rrr Lungs: cta Assessment and Plan Assessment Anesthesia Assessment: Anesthesia Plan Discussed Final Anesthetic Review NPO: Yes ASA Class: III Final Preanesthetic Review: No Changes in Pt Med Stat, Meds/Allgs Chart Reviewed, Consent Obtained/Reviewed and Anes Risks/Benef Reviewed Patient Risk: Intermediate Procedure Risk: Intermediate Anesthetic Plan Anesthetic Plan: GA Disposition: Standard PACU Documented by User: Anamaria Montilla MD 03/20/23 09:04 [facility] Active Problems Active Problems: All Active Problems (Updated 03/20/23 @ 08:24 by Anamaria Montilla MD) Incisional hernia (Acute) Suture granuloma (Acute) Pre-op chest exam (Acute) Preop cardiovascular exam (Acute) Status post colostomy takedown (Acute) Celiac disease (Acute) Ileus following gastrointestinal Diverticulitis of colon with perforation (Acute) H/O right mastectomy (Acute) Hyperlipidemia (Acute) Atherosclerosis of both carotid arteries (Acute) COPD (chronic obstructive pulmonary disease) (Acute) H/o PONV. Scopolamine patch in place Past Medical History Medical History Sepsis Diverticulitis of colon with perforation Ileus following gastrointestinal surgery Hypovolemia Perforated viscus Incisional hernia Suture granuloma Postoperative nausea Breast cancer GERD (gastroesophageal reflux disease) Arthritis Hyperlipidemia Atherosclerosis of both carotid arteries COVID-19 Pulmonary nodule COPD (chronic obstructive pulmonary disease) Surgical History Surgical History History of tubal ligation Status post colostomy takedown Status post Andreas procedure (~03/14/22) History of esophagogastroduodenoscopy (EGD) History of colonoscopy History of exploratory laparotomy (~2021) H/O right mastectomy History of Problems with Anesthesia: Yes (PONV) Social History Social History Household Members: Spouse Housing: Apartment Are you a primary pharmacist critical care to a significant other at home: No Do you presently have visiting nurse or other home services: No Alcohol intake: current Alcohol intake frequency: holidays/special occasions only Patient Tobacco Use Status: Former Tobacco user Quit Date: 1985 Tobacco use type: Cigarette Years Smoked: 30 years Second Hand Smoke Exposure: No Use of substances other than those prescribed or required for medical reasons: Yes Substance Use Type Other:: gummy to sleep Are you DNR?: No Advance Directives: No Advance Directives Information Provided: Yes Advance Directives Date on File: 03/14/22 service: No Current occupational status: retired Gender identity: Female Meds Allergies Allergy/AdvReac Type Severity Reaction Status Date / Time No Known Allergies Allergy Verified 03/20/23 09:14 Home Medications Medication Instructions Recorded Confirmed Last Taken Type nebulizer and compressor #1 ea 05/28/20 03/20/23 Unknown History omeprazole 40 mg capsule,delayed 40 mg PO QAM 05/28/20 03/20/23 03/20/23 06:30 History release aspirin 81 mg tablet,delayed 81 mg PO DAILY 09/19/21 03/20/23 03/13/23 History release mirabegron 25 mg tablet,extended 25 mg PO QAM 09/19/21 03/20/23 03/14/22 06:15 History release 24 hr (Myrbetriq) rosuvastatin 20 mg tablet 20 mg PO QAM 09/19/21 03/20/23 03/14/22 06:15 History citalopram 40 mg tablet 40 mg PO QAM 01/20/22 03/20/23 03/14/22 06:15 History Exam Height,Weight and Vital Signs: Height 5 ft 4 in Weight 68.946 kg Vital Signs Temp Pulse Resp BP Pulse Ox O2 Del Method 03/20/23 08:07 96.9 F 70 16 130/79 96 Room Air Pertinent Lab Results Pertinent Lab Results: Lab Results 03/20/23 Range/Units 08:14 WBC 6.9 (4.8-10.8) X10*3/uL RBC 3.95 L (4.20-5.50) X10*6/uL Hgb 11.7 L (12.0-16.0) g/dl Hct 36.4 L (37.0-47.0) % MCV 92.2 (80.0-98.0) fL MCH 29.6 (27.0-33.0) pg MCHC 32.1 (31.0-35.0) g/dl RDW 14.6 (11.0-16.0) % Plt Count 407 H (160-400) X10*3/uL MPV 9.0 L (9.4-12.3) fL Absolute Nucleated RBC 0.000 (0.0-0.012) X10*3/uL Nucleated RBC % (auto) 0.0 (0.0-0.2) /100WBC Sodium 142 (135-145) mmol/L Potassium 4.6 (3.3-5.1) mmol/L Chloride 108 (96-108) mmol/L Carbon Dioxide 26 (22-29) mmol/L Anion Gap 13 (12-20) BUN 16 (9-16) mg/dL Creatinine 0.74 (0.5-1.4) mg/dL Estim Creat Clear Calc 55.8 Estimated GFR > 60 Fasting Glucose 86 (60-99) mg/dL Calcium 10.5 H D (8.4-10.2) mg/dL Airway Mallampati Class: III (Small mouth) TM Dist: >3cm Neck ROM: Limited (Extension ok but feels sore/achy from sleeping position ) Partial: Upper and Lower Loose/Missing/Broken Teeth: Yes (Partials. Denies broken or loose teeth) Heart: RRR Lungs: CTAB Assessment and Plan Final Anesthetic Review History of Problems with Anesthesia: Yes (PONV)
[2023-03-20] VITALS (7 sets, daily range): BP systolic 118–140; BP diastolic 43–79; PULSE 70–78; RESP 16; TEMP 36.1–36.7; O2SAT 96
[2023-03-20] MEDS: Scopolamine 1.5 MG PATCH.TD.3 TRANSDERMA (08:11)
[2023-03-20 08:20] LABS: Hematocrit 36.4 % (37.0-47.0); Hemoglobin 11.7 g/dl (12.0-16.0); Mean Corpuscular HGB Conc 32.1 g/dl (31.0-35.0); Mean Corpuscular Hemoglobin 29.6 pg (27.0-33.0); Mean Corpuscular Volume 92.2 fL (80.0-98.0); Platelet Count 407 X10*3/uL (160-400); Red Blood Count 3.95 X10*6/uL (4.20-5.50); Red Cell Distribution Width 14.6 % (11.0-16.0); White Blood Count 6.9 X10*3/uL (4.8-10.8)
[2023-03-20] MEDS: Lactated Ringers 1,000 ML 100 ML IVCONT (08:28)
[2023-03-20 08:39] LABS: Anion Gap 13 (12-20); Blood Urea Nitrogen 16 mg/dL (9-16); Calcium 10.5 mg/dL (8.4-10.2); Carbon Dioxide 26 mmol/L (22-29); Chloride 108 mmol/L (96-108); Creatinine Clr Calc Pharmacy 55.8; Estimated Glomerular Filt Rate > 60; Glucose Fasting 86 mg/dL (60-99); Potassium 4.6 mmol/L (3.3-5.1); Sodium 142 mmol/L (135-145)
--- NOTE | 2023-03-20 08:48 | P.HPSUR_ITS ---
Pre-Procedural Eval Section A Date of Service: 03/20/23 Section B Chief Complaint: Incisional hernia without obstruction or gangrene Details of Present Illness: had previous Andreas's procedure eventual reversal, now has hernia on the epigastric port site as well as the old colostomy site Relevant Family History (Specify if Yes): No Relevant Social History: None Present Medications: see Short Stay Collaborative assessment Medical History: Significant History ( carotid artery disease, COPD) Allergies: Allergies Allergy/AdvReac Type Severity Reaction Status Date / Time No Known Allergies Allergy Verified 01/25/23 15:57 Review of Systems Sugical H&P ROS: Negative: Constitution, Cardiovascular, Respiratory, Neurological, Psychiatric, Hem-Onc, Allergic/Immunologic, Gastrointestinal, Genitourinary, Musculoskeletal, Integumentary, Endocrine and Eyes/E ars/Nose/Throat Exam Surgical H&P Exam: Significant Findings: Abdomen ( port site hernia epigastric area, colostomy site hernia) Plan Diagnosis/Plan: Unchanged I have reviewed the history and physical and performed a pertinent physical examination on my patient. No changes have occurred unless specified. Time Spent With Patient Time: Total time managing care of this patient today ____ minutes.
--- NOTE | 2023-03-20 10:16 | W.PM.OPN ---
Operative Note Operative Note Date of Service: 03/20/23 Narrative: Preop diagnosis: Incisional hernia on the epigastric area, incisional hernia on the old colostomy site on the left Postop diagnosis: The same Procedure: Repair of incisional hernia on the port site, epigastric area with mesh, repair of incisional hernia on the old colostomy site, with mesh Surgeon: Robbi Jose MD occupational therapist assistant: DARLIN Morris The patient is an 82-year-old female, with a previous Andreas's procedure for perforated diverticulitis, and subsequent reversal, here because of a hernia on the port site on the epigastric area, as well as on the old colostomy site. She understood the technique of the planned procedure as well as the risks, benefits, and alternatives She was brought to the operating room. She was placed supine under general anesthesia via endotracheal tube. The abdomen was prepped and draped in this was sterile fashion. A surgical time-out was done. The patient received cefazolin 2 g IV preoperatively I could palpate the hernia on the old colostomy site on the left side. I infiltrated this area with lidocaine 1%. I made an incision on the skin transversely along the old incision using blade 15 and this was carried down with electrocautery through the full-thickness of the skin subcutaneous fat until hernia contents were visualized. I sharply dissected the contents of this hernia which were all fat containing, off of the rest of the thick subcutaneous layer until was able to define the fascial defect. There was still some adhesions tethering the omental fat to the fascial edge which had to lyse using electrocautery. I was then able to eventually reduce the entire hernia. There were no other lesions surrounding the fascial defect. The fascial defect measured about 3 cm in diameter. I used a medium-sized Ventralex mesh and positioned this to cover the entire defect. I secured this mesh using Prolene 2 sutures through the fascia and to the Prolene layer of the mesh. Two of these were placed side I trimmed the Prolene straps. I closed the fascia with a running Maxon 1 stitch. We then proceeded to do the hernia repair in the epigastric area. I infiltrated the area with lidocaine 1%. I made a short incision using a blade 15. this was carried down with electrocautery through the full-thickness of the skin and subcutaneous fat until was able to visualize the hernia contents which was also fat containing. I sharply dissected this being Metzenbaum scissors and electrocautery until was able to carefully reduce this to the defect. I was able to define the defect well and there were margins were clear of any adhesions. The defect was about 1 cm in diameter. I therefore used a small-sized Ventralex mesh and this was positioned through the hernia and flattened. I secured this using the Prolene straps of the mesh with Prolene 2 sutures to the fascial layer. I trimmed the Prolene straps and closed the defect with figure-eight Maxon 1 stitch. I irrigated both incision sites. Reapposed the subcutaneous layer on the larger incision on the left side with Polysorb 3-0. Both incisions on the skin were closed with subcuticular running Polysorb 4-0 sutures. Dressings were applied. The Anesthesiology then did a TAP block on the left side for postop analgesia. The procedure was completed . The patient tolerated procedure well. She tolerated procedure well. There were no immediate complications. Initial and final counts of sponges and instruments were correct. Estimated blood loss was about 10 cc The patient was extubated without difficulty and transferred to the recovery room with stable vital signs.
== END 2023-03-20 11:57 | disposition home or self-care (01) ==
PROVIDERS: Nurse Practitioner; PCP Internal Medicine; Visit Provider Surgery
PROC: (CPT 49593; principal; 2023-03-20 09:10)
DX: K43.2 Incisional hernia without obstruction or gangrene (principal); K43.9 Ventral hernia without obstruction or gangrene; Z93.3 Colostomy status; E78.5 Hyperlipidemia, unspecified; Z87.19 Personal history of other diseases of the digestive system; Z79.82 Long term (current) use of aspirin; Z79.1 Long term (current) use of non-steroidal anti-inflammatories (NSAID); Z79.899 Other long term (current) drug therapy; Z79.51 Long term (current) use of inhaled steroids; Z98.890 Other specified postprocedural states
CPT/HCPCS: 49593; 36415; 80048; 85027; C1781; J1100; J2795; J3010

== ENCOUNTER → 2023-03-20 07:27 | Outpatient (BNV) | payer MEDICARE, OTHER, SELFPAY | PROVIDERS: PCP Internal Medicine; Visit Provider Surgery | DX: K43.2 Incisional hernia without obstruction or gangrene (principal) | CPT/HCPCS: 49593 ==

== ENCOUNTER 2023-04-02 13:05 | Outpatient (AMB) | payer MEDICARE, OTHER, SELFPAY ==
--- NOTE | 2023-04-02 13:08 | MHC.OFFVIS ---
Intake Vital Signs 04/02/23 13:13 BMI Reason not done Patient refused/unable BP not taken reason Patient Refused Intake Visit Reasons: S/P incisional hernia repair x2 Intake Note: This patient presents for status post incisional hernia repair x2. Patient c/o; reports no changes or concerns at this time pertaining to surgery. Registered Nurse Obstetrics Required: No Accompanied by: Other Relationship Allergies No Known Allergies Allergy (Verified 04/02/23 13:13) HPI S/P incisional hernia repair x2 HPI Details She had undergone repair of an epigastric port site hernia with mesh as well as an old colostomy hernia with mesh last 03/20/2023. She tolerated the procedure well. She currently denies significant complaints. [facility] Medical History Sepsis Diverticulitis of colon with perforation Ileus following gastrointestinal surgery Hypovolemia Perforated viscus Incisional hernia Suture granuloma Postoperative nausea Breast cancer GERD (gastroesophageal reflux disease) Arthritis Hyperlipidemia Atherosclerosis of both carotid arteries COVID-19 Pulmonary nodule COPD (chronic obstructive pulmonary disease) Surgical History History of hernia repair (~03/20/23) History of tubal ligation Status post colostomy takedown Status post Andreas procedure (~03/14/22) History of esophagogastroduodenoscopy (EGD) History of colonoscopy History of exploratory laparotomy (~2021) H/O right mastectomy Social History Household Members: Spouse Housing: Apartment Are you a primary long term acute care registered nurse to a significant other at home: No Do you presently have visiting nurse or other home services: No Alcohol intake: current Alcohol intake frequency: holidays/special occasions only Patient Tobacco Use Status: Former Tobacco user Quit Date: 1985 Tobacco use type: Cigarette Years Smoked: 30 years Second Hand Smoke Exposure: No Advance Directives Date on File: 03/14/22 service: No Current occupational status: retired Gender identity: Female Review of Systems Const Denies chills and Denies fever(s) Card Denies chest pain, Denies dyspnea and Denies dyspnea on exertion Resp Denies cough, Denies dyspnea and Denies dyspnea on exertion GI Denies hematochezia and Denies change in bowel habits Denies hematuria Musc Denies back pain and Denies limited range of motion Neuro Denies focal weakness and Denies convulsions Psych Denies depression and Denies mood swings Physical Exam Const General: comfortable and no acute distress Resp Effort & Inspection: normal respiratory effort GI Other: Both repair sites are well healed, not infected, repair sites is intact Palpation (GI): Soft to palpation, not firm and nontender Assessment & Plan Assessment & Plan (1) Incisional hernia: Code(s): K43.2 - Incisional hernia without obstruction or gangrene Plan: Status post repair of 2 incisional hernias with mesh. Both sites are well healed. The repair sites are intact. I advised her to avoid any lifting more than 20 lb for another month. She is doing very well and I can see her in the office on a p.r.n. basis. Coding Level of Care Code Global (84641) Diagnoses Incisional hernia K43.2
== END 2023-04-02 13:24 | disposition home or self-care (01) ==
PROVIDERS: PCP Internal Medicine; Visit Provider Surgery
DX: K43.2 Incisional hernia without obstruction or gangrene (principal)
CPT/HCPCS: 99212

== ENCOUNTER → 2023-04-02 13:05 | Outpatient (BNVA) | payer MEDICARE, OTHER, SELFPAY | PROVIDERS: PCP Internal Medicine; Visit Provider Surgery | DX: Z48.815 Encounter for surgical aftercare following surgery on the digestive system (principal); Z87.19 Personal history of other diseases of the digestive system | CPT/HCPCS: 99212 ==

== ENCOUNTER 2023-08-17 15:25 | Outpatient (AMB) | payer MEDICARE, OTHER, SELFPAY ==
--- NOTE | 2023-08-17 15:33 | A.OFFVIS_ITS ---
Intake Vital Signs 08/17/23 15:34 Height 5 ft 4.5 in Weight 161 lb BMI 27.2 Pulse 75 Pulse Source Pulse Oximeter Pulse Oximetry (%) 97 Oxygen Delivery Method Room Air Intake Visit Reasons: copd Solid Waste Analyst Required: No Allergies No Known Allergies Allergy (Verified 08/17/23 15:35) HPI HPI Comments History of Present Illness Details The patient is a 82-year-old woman known COPD and also pulmonary nodules. Overall she has been doing very well on the Trelegy. She has not had to use any prednisone or her rescue inhaler. She has been complaining of dyspnea on exertion, uxlo-ut-vmlbcbsg severity. We talked about the importance of exercise. She will consider pulmonary rehabilitation at this time. We did review her CT scan of the chest. She has had pulmonary nodules. She is scheduled to undergo a repeat CT scan now on April. Her lightheadedness and dizziness spells have improved. She still gets some once in a while. She denies any weight loss or night sweats or poor appetite at this time. 11/27/2019 the patient has a telephone visit. She has fully recovered from her respiratory issues that she had back a month or 2. During that time she did have an x-ray demonstrating slight opacity with atelectasis. She also had elevated white count. She is wondering if she had COVID-19 infection at that time. She has not recovered. She continues to be on her respiratory therapy without any significant issues. She has not had to use her rescue therapy. She does have a CT scan scheduled for April of 2020. Will follow up with her CT scan done. We will tested for the SARs Cov2 Antibodies. 05/28/2020 the patient is here for pulmonary follow-up visit. She just recovered from COVID-19. She mainly had GI symptoms. She did not require any prednisone or antibiotics. Her was also sick. In the meantime respiratory status has been improved on the Trelegy inhaler. The patient has underlying pulmonary nodules. Her last CT scan was supposed to be for April 2020 however now with the recent COVID-19 infection will postpone it to September 2020 avoid residual COVID findings. Dyspnea on exertion mild in severity. Also has intermittent coughing. Does improve with respiratory medication. Otherwise patient is without any other complaints. 09/24/2020 the patient is here for pulmonary follow-up visit. Overall she is doing about the same. Complains of dyspnea on exertion [id number] in severity. Does get better with rest. Her respiratory medications have been helpful. She does use it as prescribed. Recently she did have a CT scan of the chest that was personally reviewed by me demonstrating stable pulmonary nodules. The patient has evidence of emphysema and COPD. At this point the nodules are stable and will follow up with them in a year's time. 05/05/2022 the patient is here for a pulmonary follow-up visit. The patie nt overall is recovering after several months of delay her perforated colon. Apparently she presented to the hospital in September with an acute abdomen. She required emergent laparoscopy demonstrating perforated diverticulitis. She underwent resection in addition to stoma colostomy bag. She ultimately healed from that was able to get a reversal back in February. She is still recovering from that surgery. Overall doing well. She is trying to continue to work in her exercise. However, having significant osteoarthritis of her knees. She apparently will require a knee replacement. She is scheduled to have this sometime in September. Her last PFTs back in August 2021 were reassuring only demonstrating mild COPD. The patient does have a moderate diffusion impairment secondary to the emphysema. We also reviewed her CT scan of the chest that she had back in August 2021 demonstrating multiple pulmonary nodules and slight increase in the ground-glass the nodular density the. The patient is recovering from her abdominal surgery and will be undergoing her knee surgery. Therefore, will hold off on any type of imaging studies until . From a pulmonary standpoint the patient may proceed with anesthesia and surgery as her respiratory status is medically optimize. 08/17/2023 the patient is here for a pulmonary follow-up visit. The patient overall has been doing well. She is recovered well from her abdominal surgeries. Her breathing has been stable. She continues use her respiratory therapy with good effect. She has not had any exacerbations. Now she is having issues with her shoulder. The patient will be undergoing a surgical procedure. Clinically the patient is doing very well and may be able to proceed with surgery at this point. The patient may also proceed with anesthesia. She does not have any limitations. The patient does have xhck-no-fgypbanj risk for perioperative pulmonary complications due to her underlying COPD. At this point the patient may proceed with consenting for surgery and anesthesia. The patient last CT scan was back in September 2022 demonstrating a ground-glass nodular density. She does require a repeat CT scan. He was due for September 2023 but because of her surgery will go ahead and push it out to 6 months from now in order to allow for recovery before addressing the nodular density. If the patient has any worsening symptoms prior to that we can always request the CT scan at an earlier time. Will plan to follow-up in [address] scan. [facility] Medical History Sepsis Diverticulitis of colon with perforation Ileus following gastrointestinal surgery Hypovolemia Perforated viscus Incisional hernia Suture granuloma Postoperative nausea Breast cancer GERD (gastroesophageal reflux disease) Arthritis Hyperlipidemia Atherosclerosis of both carotid arteries COVID-19 Pulmonary nodule COPD (chronic obstructive pulmonary disease) Surgical History History of hernia repair (~03/20/23) History of tubal ligation Status post colostomy takedown Status post Andreas procedure (~03/14/22) History of esophagogastroduodenoscopy (EGD) History of colonoscopy History of exploratory laparotomy (~2021) H/O right mastectomy Social History Household Members: Spouse Housing: Apartment Are you a primary residential care officer to a significant other at home: No Do you presently have visiting nurse or other home services: No Alcohol intake: current Alcohol intake frequency: holidays/special occasions only Comment: camera for confusion this evening Patient Tobacco Use Status: Former Tobacco user Quit Date: 1985 Tobacco use type: Cigarette Years Smoked: 30 years Second Hand Smoke Exposure: No Advance Directives Date on File: 03/14/22 service: No Current occupational status: retired Gender identity: Female Review of Systems Const Denies night sweats and Reports weight loss Eyes Denies blurry vision ENT Denies change in voice, Denies lip swelling, Denies mouth pain, Reports nasal congestion, Reports nasal discharge and Denies tongue swelling Card Denies chest pain and Reports dyspnea on exertion Resp Reports cough and Reports dyspnea on exertion GI Reports abdominal pain Musc Reports abnormal gait, Reports arthralgias and Reports joint swelling Neuro Denies Neuro-related abnormal movements and Reports abnormal gait Psych Denies no additional complaints Walker/Lymph Denies easy bleeding and Denies lymphadenopathy Aller/Immun Denies lip swelling and Denies tongue swelling Physical Exam Vital Signs: Last Vital Signs Pulse 75 08/17/23 15:34 Pulse Ox 97 08/17/23 15:34 Oxygen Delivery Method Room Air 08/17/23 15:34 BMI result Body Mass Index 27.2 Assessment & Plan Assessment & Plan (1) Pre-op chest exam: Code(s): Z01.811 - Encounter for preprocedural respiratory examination (2) Pulmonary nodule: Code(s): R91.1 - Solitary pulmonary nodule (3) COPD (chronic obstructive pulmonary disease): Comment: uses Trelegy inhaler Code(s): J44.9 - Chronic obstructive pulmonary disease, unspecified Qualifiers: COPD type: chronic bronchitis Chronic bronchitis type: simple Qualified Code(s): J41.0 - Simple chronic bronchitis Plan Continue with Trelegy inhaler At short-acting beta agonist as needed Repeat CT scan of the chest follow-up with multiple pulmonary nodules in addition to the ground-glass nodular density. Will postpone to 6 months to allow her to recover from her surgery. The patient may proceed with surgery and anesthesia from a pulmonary standpoint. She is medically optimize her PFTs are reassuring and her clinical status at this point. The patient does have increased risk for perioperative pulmonary complications which include; atelectasis, hypoxia, pneumonia and prolonged mechanical ventilation. CT chest in 6 months F/U 6 months Orders: Orders CT chest wo IV con 6 Months R91.1 - Solitary pulmonary nodule Medications: New albuterol sulfate 90 mcg/actuation 2 inhalations inhalation Q6H 30 days PRN 18 grams 12RF shortness of breath or wheezing J44.9 - Chronic obstructive pulmonary disease, unspecified Coding Level of Care Code Est Pt Level 4 (24504) Diagnoses Pre-op chest exam Z01.811 Pulmonary nodule R91.1 Simple chronic bronchitis J41.0 COPD type: chronic bronchitis Chronic bronchitis type: simple Time Spent (min) 17
[2023-08-17 15:34] VITALS: PULSE 75; O2SAT 97; BMI 27.2
== END 2023-08-17 15:52 | disposition home or self-care (01) ==
PROVIDERS: PCP Internal Medicine; Visit Provider Hospitalist
DX: Z01.811 Encounter for preprocedural respiratory examination (principal); R91.1 Solitary pulmonary nodule; J41.0 Simple chronic bronchitis
CPT/HCPCS: 99214

== ENCOUNTER → 2023-08-17 15:25 | Outpatient (BNVA) | payer MEDICARE, OTHER, SELFPAY | PROVIDERS: PCP Internal Medicine; Visit Provider Hospitalist | DX: Z01.811 Encounter for preprocedural respiratory examination (principal); R91.1 Solitary pulmonary nodule; J41.0 Simple chronic bronchitis | CPT/HCPCS: 99212 ==

== ENCOUNTER 2023-09-18 14:39 | Outpatient (AMB) | payer MEDICARE, OTHER, SELFPAY ==
--- NOTE | 2023-09-18 14:49 | MHC.OFFVIS ---
Intake Vital Signs 09/18/23 14:52 Height 5 ft 4.5 in Weight 166 lb BMI 28.1 BP 140/80 H Blood Pressure Location Lt brachial Position Sitting Pulse 71 Pulse Source Monitor Intake Visit Reasons: RT shoulder/Baca Roane/10-10 Chlorine Cell Tender Required: No Allergies No Known Allergies Allergy (Verified 09/18/23 14:54) Medication List - Last Reconciled 09/18/23 by Michelle Donald BOOK SORTER-C albuterol sulfate 90 mcg/actuation 2 inhalations inhalation Q6H PRN 30 days aspirin 81 mg PO DAILY citalopram 40 mg PO QAM ibuprofen 600 mg PO Q6H PRN ibuprofen 600 mg PO Q6H PRN nebulizer and compressor As directed omeprazole 40 mg PO QAM rosuvastatin 20 mg PO QAM Trelegy Ellipta 100-62.5-25 mcg (fctkhwopudp-kvympfwcr-nycqcbhy) 1 inh inhalation QAM NS HPI RT shoulder/Baca Roane/10-10 HPI Details Surekha is an 82-year-old female with past medical history of hyperlipidemia, mild carotid stenosis who presents for follow-up and preop cardiovascular examination. Her last prior visit to our office was 10/26/2022. Today she reports that she has been having significant right shoulder discomfort. She has arthritis and will need a right total shoulder replacement. She has been feeling well otherwise with no concerning symptoms. She denies having any chest discomfort at rest or with exertion. No shortness of breath, heart palpitations, lightheadedness, presyncope, syncope, PND, orthopnea or edema. She walks 2 to 3 times a week up to 2 miles at a time. She has stairs in her home which she can climb without concerning symptoms. If she over exerts she will get some mild shortness of breath. Takes meds as directed. Since her last visit here she said she had surgery for a perforated viscus with colostomy placement, surgery for colostomy reversal and surgery for repair of 2 hernias. Her last surgical procedure occurred 03/2023. She does not recall any cardiac complications during those procedures. [facility] Medical History Sepsis Diverticulitis of colon with perforation Ileus following gastrointestinal surgery Hypovolemia Perforated viscus Incisional hernia Suture granuloma Postoperative nausea Breast cancer GERD (gastroesophageal reflux disease) Arthritis Hyperlipidemia Atherosclerosis of both carotid arteries COVID-19 Pulmonary nodule COPD (chronic obstructive pulmonary disease) Surgical History History of hernia repair (~03/20/23) History of tubal ligation Status post colostomy takedown Status post Andreas procedure (~03/14/22) History of esophagogastroduodenoscopy (EGD) History of colonoscopy History of exploratory laparotomy (~2021) H/O right mastectomy Social History Household Members: Spouse Housing: Apartment Are you a primary healthcare translator to a significant other at home: No Do you presently have visiting nurse or other home services: No Alcohol intake: current Alcohol intake frequency: holidays/special occasions only Comment: camera for confusion this evening Patient Tobacco Use Status: Former Tobacco user Quit Date: 1985 Tobacco use type: Cigarette Years Smoked: 30 years Second Hand Smoke Exposure: No Advance Directives Date on File: 03/14/22 service: No Current occupational status: retired Gender identity: Female Review of Systems Const All systems reviewed & are unremarkable except as noted in HPI and below ENT Denies dizziness Card Denies chest pain, Denies chest pain at rest, Denies chest pain with activity, Denies rapid heart rate, Denies pedal edema, Denies edema, Denies leg edema, Denies lightheadedness, Denies palpitations, Denies dyspnea, Denies dyspnea on exertion and Denies orthopnea Resp Denies cough, Denies dyspnea and Denies dyspnea on exertion GI Denies hematochezia and Denies change in stool character Musc Details: right shoulder discomfort Denies abnormal gait, Denies limited range of motion, Denies muscle cramps, Denies muscle weakness, Denies numbness, Denies radiating pain into limb, Denies stiffness and Denies tingling Neuro Denies abnormal gait, Denies dizziness, Denies numbness and Denies tingling Endo Denies palpitations Physical Exam Vital Signs: Last Vital Signs Pulse 71 09/18/23 14:52 BP 140/80 H 09/18/23 14:52 BMI result Body Mass Index 28.1 Const General: cooperative, healthy appearing, comfortable and no acute distress Orientation/consciousness: patient oriented x3 Neck Neck: Yes normal visual inspection and Yes no JVD Resp Effort & Inspection: normal respiratory effort Auscultation: clear to auscultation bilaterally, no rales, no rhonchi and no wheezes Cardio Jugular venous distension: no JVD Rate: regular rate Rhythm: regular rhythm Heart sounds: S1 normal heart sound present, S2 normal heart sound present, Murmur heart sound present (systolic) and no rubs Neuro General: patient oriented x3 Extrem General: Yes normal to inspection, No no pedal edema and No calf tenderness Psych Appearance: grossly normal Mental Status: mental status grossly normal Speech and movement: Normal speech and movement present Office Procedures EKG Details: Today, read by me, normal sinus rhythm, no acute ST or T-wave abnormalities, rate 71, QTC 439 milliseconds [id number], Complete Assessment & Plan Assessment & Plan (1) Atherosclerosis of both carotid arteries: Comment: minimal per carotid US 07/28/21-sees Dr. Negrete [id number] Code(s): I65.23 - Occlusion and stenosis of bilateral carotid arteries Plan: History of mild carotid stenosis. No bruit on examination. Risk factor of hyperlipidemia. She is on aspirin and rosuvastatin. Last carotid ultrasound done 07/28/2021 showing right and left internal carotid arteries 0-49% stenosis. For surveillance will plan for repeat carotid ultrasound prior to her next visit. Cardiology office visit in 1 year, sooner if needed. (2) Hyperlipidemia: Code(s): E78.5 - Hyperlipidemia, unspecified Plan: Summers LDL goal less than 70 in patient with known mild carotid stenosis. No recent lipid profile in our system. She tells me she just had labs done by her PCP. Will reach out to that provider to obtain the most recent labs for our records. Continue rosuvastatin. (3) Preop cardiovascular exam: Code(s): Z01.810 - Encounter for preprocedural cardiovascular examination Plan: Preop for right total shoulder replacement 10/11/[address] Shane at [facility]. CT scan of the chest on 08/25/2022 does show coronary calcifications. She has no reports of anginal sounding symptoms. Good exercise tolerance, greater than 4 Mets. Recent surgeries at [facility] [place] without any known cardiac complications. EKG done today showing normal sinus rhythm with no acute ST or T-wave abnormalities, rate 71. Last echocardiogram done 07/07/2019 showing normal EF, mild MR, no regional wall motion abnormalities. Murmur noted on examination. Will update echocardiogram and add addendum. If no significant abnormalities patient may proceed with an intermediate cardiac risk. She likely has some degree of CAD however asymptomatic. Aspirin can be held as needed and restart as soon as cleared to do so. Continue rosuvastatin. Call/consult Cardiology if needed (4) Mitral regurgitation: Code(s): I34.0 - Nonrheumatic mitral (valve) insufficiency Plan: Last echo in 2019 showed mild mitral regurgitation. Systolic murmur noted on examination. Will be updating her echocardiogram Plan Time spent on chart review, documentation, interview and assessment Orders: Orders CA echo transthoracic complete Today E78.5 - Hyperlipidemia, unspecified, I34.0 - Nonrheumatic mitral (valve) insufficiency, Z01.810 - Encounter for preprocedural cardiovascular examination Coding Level of Care Code Est Pt Level 4 (69452) Diagnoses Atherosclerosis of both carotid arteries I65.23 Hyperlipidemia E78.5 Preop cardiovascular exam Z01.810 Mitral regurgitation I34.0 CPT Codes EKG - CPT: 86865-[id number], Complete ([id number]) Time Spent (min) 28
[2023-09-18 14:52] VITALS: BP 140/80; PULSE 71; BMI 28.1
== END 2023-09-18 15:23 | disposition home or self-care (01) ==
PROVIDERS: PCP Internal Medicine; Visit Provider Nurse Practitioner Family
DX: I65.23 Occlusion and stenosis of bilateral carotid arteries (principal); E78.5 Hyperlipidemia, unspecified; Z01.810 Encounter for preprocedural cardiovascular examination; I34.0 Nonrheumatic mitral (valve) insufficiency
CPT/HCPCS: 93010; 99214

== ENCOUNTER → 2023-09-18 14:39 | Outpatient (BNVA) | payer MEDICARE, OTHER, SELFPAY | PROVIDERS: PCP Internal Medicine; Visit Provider Nurse Practitioner Family | DX: Z01.810 Encounter for preprocedural cardiovascular examination (principal); I65.23 Occlusion and stenosis of bilateral carotid arteries; I34.0 Nonrheumatic mitral (valve) insufficiency; E78.5 Hyperlipidemia, unspecified | CPT/HCPCS: 93005; 99212 ==

== ENCOUNTER → 2023-09-26 08:53 | Outpatient (REF) | payer MEDICARE, OTHER, SELFPAY ==
--- NOTE | 2023-09-26 08:55 | CA_ITS ---
Transthoracic Echocardiogram Patient (Last, First, Middle): Camille Hernandez M Gender: Female Date of : 1940 Age: 82 Procedure Date: 09/26/2023 Procedure Type: Transthoracic Echocardiogram Location: OP Height: 162.56 cm Weight: 74.84 kg BSA: 1.80 m2 Heart Rate: bpm BP: 150 / 80 mmHg Postdoctoral Research Associate: TO Referring MD: Michelle Donald NURSE QUALITY-C Text Transcriber: Cristi Negrete MD Symptoms: I34.0 - Nonrheumatic mitral (valve) insufficiency Study Quality: Fair/Contrast ECG Rhythm: Sinus Conclusions: - 1. Normal LV ejection fraction of 60 65% with impaired relaxation filling pattern 2. Jkhl-aa-xrmnhnio aortic stenosis 3. Mild mitral regurgitation 4. No gross pericardial effusion Findings Procedure Information Contrast agent, definity, is being given per protocol without apparent complications. Left Ventricle Normal left ventricular size, thickness, and systolic function. The visually estimated ejection fraction is between 60-65%. Spectral Doppler is indicative of an impaired relaxation filling pattern. E/E prime ratio is between 8 and 15 consistent with indeterminate filling pressures. Right Ventricle Normal right ventricular cavity size and systolic function. Atria The left atrium is mildly dilated. Interatrial shunt cannot be excluded. The right atrium is likely dilated. Aortic Valve There is mild calcification of the aortic valve. There is mild to moderate aortic valve stenosis. The peak aortic gradient is 24 mmHg.The mean gradient is 14 mmHg. The aortic valve area is 1.35 cm2. There is trace (trivial) aortic valve regurgitation. Mitral Valve There is mild anterior and posterior mitral leaflet thickening. There is mild mitral annular calcification. There is mild mitral valve regurgitation. There is no mitral valve stenosis. Pulmonic Valve The pulmonic valve was not well visualized. Tricuspid Valve Likely normal tricuspid valve structure and function. Tricuspid regurgitation envelope is inadequate for calculation of right ventricular systolic pressure. Normal right atrial pressure. Great Vessels All visible segments of the aorta are normal in size. The pulmonary artery was not well visualized. There is no dilatation of the ascending aorta measuring 3.20 cm. Venous The inferior vena cava is normal in size and collapses greater than 50% with inspiration. Pericardium/Pleural The pericardium was not well visualized. Prior Study Comparison Changes noted compared to prior study dated: 07/07/2019. [id number]-cr-[id number] aortic stenosis is present Measurements 2D Linear Measurements IVSd: 1.17 0.6-0.9/0.6-1.0 cm LVIDd: 4.50 3.9-5.3/4.2-5.9 cm LVIDd Index: 2.50 2.4-3.2/2.2-3.1 cm/m2 LVIDs: 2.88 2.0-3.6 cm LVPWd: 0.92 0.7-1.1 cm LA Diam: 4.00 2.7-3.8/3.0-4.0 cm LAIDs Index: 2.22 1.5-2.3 cm/m2 LV Mass: 202.87 67-162/88-224 g LV Mass Index: 112.70 43-95/49-115 g/m2 LVOT Diam: 1.90 3.0+(-)1.3 cm 2D Systolic Function EF 4C: 62.30 >55% EF 2C: 62.00 >55% EF BiP: 63.20 >55% Mitral Valve MV VTI: 0.32 MV Pk Braeden: 1.25 MV Mn Braeden: 0.62 MV Pk Grad: 6.00 MV Mn Grad: 2.00 MV Pk E: 0.58 MV PK A: 0.93 MV Decel Time: 274.00 E/A: 0.60 E'Lateral: 5.11 E'Medial: 4.46 E/E' Med: 13.00 E/E' Lat: 11.40 PHT: 80.00 MVA PHT: 2.75 MVA Continuity: 2.56 Decel Major: 2.12 Aortic Valve AoV Pk Braeden: 2.44 AoV Mn Braeden: 1.80 AoV VTI: 0.61 AoV Pk Grad: 24.00 Aov Mn Grad: 14.00 LAUREEN Cont.VTI: 1.35 LVOT LVOT Pk Braeden: 1.24 LVOT Mn Braeden: 0.86 LVOT VTI: 0.29 LVOT Pk Grad: 6.00 LVOT Mn Grad: 3.00 LVOT Diam: 1.90 LVOT Area: 2.84 Diastolic Function MV Pk E: 0.58 MV Pk A: 0.93 E/A: 0.60 E'Medial: 4.46 E/E' Med: 13.00 E' Laterial: 5.11 E/E' Lat: 11.40 Right Ventricle TAPSE (mm): 20.00 TVS' Braeden: 11.00 Tricuspid Valve RA Press: 8.00 Great Vessels Aorta Sinus of Valsalva: 2.99 2.0-3.5 cm Ao Asc: 3.20 2.1-3.4 cm Updated in Other Vendor System with Status of Final Cristi Negrete MD electronically signed on 09/27/2023 3:28:49 PM with status of Final
== END ==
LOC: HO.CARD 08:53
PROVIDERS: PCP Internal Medicine; Visit Provider Nurse Practitioner Family
DX: Z01.810 Encounter for preprocedural cardiovascular examination (principal); I34.0 Nonrheumatic mitral (valve) insufficiency; E78.5 Hyperlipidemia, unspecified
CPT/HCPCS: 93306; Q9957

== ENCOUNTER → 2023-09-26 08:55 | Outpatient (BNV) | payer MEDICARE, OTHER, SELFPAY | PROVIDERS: PCP Internal Medicine; Visit Provider Internal Medicine Cardiovascular Disease | DX: I34.0 Nonrheumatic mitral (valve) insufficiency (principal); I35.2 Nonrheumatic aortic (valve) stenosis with insufficiency | CPT/HCPCS: 93306 ==

== ENCOUNTER 2024-02-20 10:55 | Outpatient (AMB) | payer MEDICARE, OTHER, SELFPAY ==
[2024-02-20 10:58] VITALS: BP 128/68; PULSE 60; O2SAT 96; BMI 27.0
--- NOTE | 2024-02-20 10:58 | MHC.OFFVIS ---
Vital Signs 02/20/24 10:58 Height 5 ft 4.5 in Weight 160 lb BMI 27.0 BP 128/68 Blood Pressure Location Lt brachial Position Sitting Pulse 60 Pulse Source Pulse Oximeter Pulse Oximetry (%) 96 Oxygen Delivery Method Room Air Intake Visit Reasons: copd Allergies No Known Allergies Allergy (Verified 02/20/24 11:01) HPI Comments Details: The patient is a 83-year-old woman known COPD and also pulmonary nodules. Overall she has been doing very well on the Trelegy. She has not had to use any prednisone or her rescue inhaler. She has been complaining of dyspnea on exertion, jkcn-gz-kyiveuwy severity. We talked about the importance of exercise. She will consider pulmonary rehabilitation at this time. We did review her CT scan of the chest. She has had pulmonary nodules. She is scheduled to undergo a repeat CT scan now on April. Her lightheadedness and dizziness spells have improved. She still gets some once in a while. She denies any weight loss or night sweats or poor appetite at this time. 11/27/2019 the patient has a telephone visit. She has fully recovered from her respiratory issues that she had back a month or 2. During that time she did have an x-ray demonstrating slight opacity with atelectasis. She also had elevated white count. She is wondering if she had COVID-19 infection at that time. She has not recovered. She continues to be on her respiratory therapy without any significant issues. She has not had to use her rescue therapy. She does have a CT scan scheduled for April of 2020. Will follow up with her CT scan done. We will tested for the SARs Cov2 Antibodies. 05/28/2020 the patient is here for pulmonary follow-up visit. She just recovered from COVID-19. She mainly had GI symptoms. She did not require any prednisone or antibiotics. Her was also sick. In the meantime respiratory status has been improved on the Trelegy inhaler. The patient has underlying pulmonary nodules. Her last CT scan was supposed to be for April 2020 however now with the recent COVID-19 infection will postpone it to September 2020 avoid residual COVID findings. Dyspnea on exertion mild in severity. Also has intermittent coughing. Does improve with respiratory medication. Otherwise patient is without any other complaints. 09/24/2020 the patient is here for pulmonary follow-up visit. Overall she is doing about the same. Complains of dyspnea on exertion qxpy-lx-[id number] in severity. Does get better with rest. Her respiratory medications have been helpful. She does use it as prescribed. Recently she did have a CT scan of the chest that was personally reviewed by me demonstrating stable pulmonary nodules. The patient has evidence of emphysema and COPD. At this point the nodules are stable and will follow up with them in a year's time. 05/05/2022 the patient is here for a pulmonary follow-up visit. The patient overall is recovering after several months of delay her perforated colon. Apparently she presented to the hospital in September with an acute abdomen. She required emergent laparoscopy demonstrating perforated diverticulitis. She underwent resection in addition to stoma colostomy bag. She ultimately healed from that was able to get a reversal back in February. She is still recovering from that surgery. Overall doing well. She is trying to continue to work in her exercise. However, having significant osteoarthritis of her knees. She apparently will require a knee replacement. She is scheduled to have this sometime in September. Her last PFTs back in August 2021 were reassuring only demonstrating mild COPD. The patient does have a moderate diffusion impairment secondary to the emphysema. We also reviewed her CT scan of the chest that she had back in August 2021 demonstrating multiple pulmonary nodules and slight increase in the ground-glass the nodular density the. The patient is recovering from her abdominal surgery and will be undergoing her knee surgery. Therefore, will hold off on any type of imaging studies until . From a pulmonary standpoint the patient may proceed with anesthesia and surgery as her respiratory status is medically optimize. 08/17/2023 the patient is here for a pulmonary follow-up visit. The patient overall has been doing well. She is recovered well from her abdominal surgeries. Her breathing has been stable. She continues use her respiratory therapy with good effect. She has not had any exacerbations. Now she is having issues with her shoulder. The patient will be undergoing a surgical procedure. Clinically the patient is doing very well and may be able to proceed with surgery at this point. The patient may also proceed with anesthesia. She does not have any limitations. The patient does have qzzq-xr-dpzaklck risk for perioperative pulmonary complications due to her underlying COPD. At this point the patient may proceed with consenting for surgery and anesthesia. The patient last CT scan was back in September 2022 demonstrating a ground-glass nodular density. She does require a repeat CT scan. He was due for September 2023 but because of her surgery will go ahead and push it out to 6 months from now in order to allow for recovery before addressing the nodular density. If the patient has any worsening symptoms prior to that we can always request the CT scan at an earlier time. Will plan to follow-up in [address] scan. 02/20/2024 the patient is here for a pulmonary follow-up visit. The patient overall has been doing okay. She did undergo surgery for her shoulder. the patient was due for a CT scan of the chest but we did postpone it because of her shoulder surgery. She did undergo a CT scan of the chest at [facility]. Unfortunately did not have any comparison stair. She has had multiple CT scans [place] dating back to 2020. her last CT scan back in 09/04/2022 was compared to the 1 a year prior demonstrating multiple pulmonary nodules without any significant change. It was noted that she does have now left upper lobe nodular density subsolid in nature measuring 1.3 cm. Once able I will compare them to her previous CT scan. In the meantime she is going to continue following closely [facility] pulmonary nodule clinic. She is scheduled to undergo a CT scan 6 months from her last 1. initially she was recommended to get a biopsy that initially concerning the patient. I did also call Radiology in order for them to make a CD with the CT scans available from 2021 in 2022 and therefore they can be provided to [facility] in order for her to have additional history of the nodular densities. Her respiratory status she is doing well she does have the Trelegy inhaler that she uses daily. She does have a rescue inhaler that she does not use often. At this point she is going to continue with the current respiratory therapy. She will be getting another CT scan around May or June. If the patient develops any worsening symptoms prior to that she will call for further recommendations. Otherwise will follow-up in 6-8 months. [facility] Medical History Sepsis Diverticulitis of colon with perforation Ileus following gastrointestinal surgery Hypovolemia Perforated viscus Incisional hernia Suture granuloma Postoperative nausea Breast cancer GERD (gastroesophageal reflux disease) Arthritis Hyperlipidemia Atherosclerosis of both carotid arteries COVID-19 Pulmonary nodule COPD (chronic obstructive pulmonary disease) Surgical History History of hernia repair (~03/20/23) History of tubal ligation Status post colostomy takedown Status post Andreas procedure (~03/14/22) History of esophagogastroduodenoscopy (EGD) History of colonoscopy History of exploratory laparotomy (~2021) H/O right mastectomy Social History Household Members: Spouse Housing: Apartment Are you a primary health care legal assistant to a significant other at home: No Do you presently have visiting nurse or other home services: No Alcohol intake: current Alcohol intake frequency: holidays/special occasions only Comment: camera for confusion this evening Patient Tobacco Use Status: Former Tobacco user Tobacco use type: Cigarette Years Smoked: 30 years Second Hand Smoke Exposure: No Advance Directives Date on File: 03/14/22 service: No Current occupational status: retired Gender identity: Female Review of Systems Const All systems reviewed & are unremarkable except as noted in HPI and below ENT Denies dizziness Card Denies chest pain, Denies chest pain at rest, Denies chest pain with activity, Denies rapid heart rate, Denies pedal edema, Denies edema, Denies leg edema, Denies lightheadedness, Denies palpitations, Denies dyspnea, Denies dyspnea on exertion and Denies orthopnea Resp Denies cough, Denies dyspnea and Denies dyspnea on exertion GI Denies hematochezia and Denies change in stool character Musc Details: right shoulder discomfort Reports as per HPI, Reports myalgias and Reports limited range of motion Neuro Denies dizziness Endo Denies palpitations Physical Exam Vital Signs: Last Vital Signs Pulse 60 02/20/24 10:58 BP 128/68 02/20/24 10:58 Pulse Ox 96 02/20/24 10:58 Oxygen Delivery Method Room Air 02/20/24 10:58 BMI result Body Mass Index 27.0 Const General: alert Neck Neck: Yes normal visual inspection, Yes full ROM and Yes no lymphadenopathy Chest Chest palpation & inspection: normal inspection of the chest Resp Auscultation: diminished lung sounds Cardio Rate: regular rate Rhythm: regular rhythm Heart sounds: S1 normal heart sound present and S2 normal heart sound present GI Palpation (GI): Soft to palpation and nontender Auscultation: normal bowel sounds Skin General skin exam: rashes and/or lesions noted Assessment & Plan Assessment & Plan (1) Pulmonary nodule: Code(s): R91.1 - Solitary pulmonary nodule Category: Medical (2) COPD (chronic obstructive pulmonary disease): Comment: uses Trelegy inhaler Code(s): J44.9 - Chronic obstructive pulmonary disease, unspecified Category: Medical Qualifiers: COPD type: chronic bronchitis Chronic bronchitis type: simple Qualified Code(s): J41.0 - Simple chronic bronchitis Plan Continue with Trelegy inhaler At short-acting beta agonist as needed Repeat CT scan of the chest follow-up with multiple pulmonary nodules in addition to the ground-glass nodular density. She will continue follow up with the [facility] [place] F/U 6 months Coding Level of Care Code Est Pt Level 4 (65872) Complex EM visit Add On G2211 Diagnoses Pulmonary nodule R91.1 Simple chronic bronchitis J41.0 COPD type: chronic bronchitis Chronic bronchitis type: simple Time Spent (min) 17
== END 2024-02-20 11:24 | disposition home or self-care (01) ==
PROVIDERS: PCP Internal Medicine; Visit Provider Hospitalist
DX: R91.1 Solitary pulmonary nodule (principal); J41.0 Simple chronic bronchitis
CPT/HCPCS: 99214; G2211

== ENCOUNTER → 2024-02-20 10:55 | Outpatient (BNVA) | payer MEDICARE, OTHER, SELFPAY | PROVIDERS: PCP Internal Medicine; Visit Provider Hospitalist | DX: J41.0 Simple chronic bronchitis (principal); R91.1 Solitary pulmonary nodule | CPT/HCPCS: 99212 ==

== ENCOUNTER 2024-07-22 10:51 | Outpatient (AMB) | payer MEDICARE, OTHER, SELFPAY ==
--- NOTE | 2024-07-22 10:54 | A.OFFVIS_ITS ---
Vital Signs 07/22/24 10:56 Height 5 ft 4.5 in BMI Reason not done Patient refused/unable BP 134/70 Blood Pressure Location Lt brachial Position Sitting Pulse 62 Pulse Source Pulse Oximeter Pulse Oximetry (%) 96 Oxygen Delivery Method Room Air Intake Visit Reasons: COPD Allergies No Known Allergies Allergy (Verified 07/22/24 10:59) HPI Comments Details: The patient is a 83-year-old woman known COPD and also pulmonary nodules. Overall she has been doing very well on the Trelegy. She has not had to use any prednisone or her rescue inhaler. She has been complaining of dyspnea on exertion, neoh-ri-gjnyviyi severity. We talked about the importance of exercise. She will consider pulmonary rehabilitation at this time. We did review her CT scan of the chest. She has had pulmonary nodules. She is scheduled to undergo a repeat CT scan now on April. Her lightheadedness and dizziness spells have improved. She still gets some once in a while. She denies any weight loss or night sweats or poor appetite at this time. 11/27/2019 the patient has a telephone visit. She has fully recovered from her respiratory issues that she had back a month or 2. During that time she did have an x-ray demonstrating slight opacity with atelectasis. She also had elevated white count. She is wondering if she had COVID-19 infection at that time. She has not recovered. She continues to be on her respiratory therapy without any significant issues. She has not had to use her rescue therapy. She does have a CT scan scheduled for April of 2020. Will follow up with her CT scan done. We will tested for the SARs Cov2 Antibodies. 05/28/2020 the patient is here for pulmonary follow-up visit. She just recovered from COVID-19. She mainly had GI symptoms. She did not require any prednisone or antibiotics. Her was also sick. In the meantime respiratory status has been improved on the Trelegy inhaler. The patient has underlying pulmonary nodules. Her last CT scan was supposed to be for April 2020 however now with the recent COVID-19 infection will postpone it to September 2020 avoid residual COVID findings. Dyspnea on exertion mild in severity. Also has intermittent coughing. Does improve with respiratory medication. Otherwise patient is without any other complaints. 09/24/2020 the patient is here for pulmonary follow-up visit. Overall she is doing about the same. Complains of dyspnea on exertion kyyh-tx-xuyusgya in severity. Does get better with rest. Her respiratory medications have been helpful. She does use it as prescribed. Recently she did have a CT scan of the chest that was personally reviewed by me demonstrating stable pulmonary nodules. The patient has evidence of emphysema and COPD. At this point the nodules are stable and will follow up with them in a year's time. 05/05/2022 the patient is here for a pulmonary follow-up visit. The patient overall is recovering after several months of delay her perforated colon. Apparently she presented to the hospital in September with an acute abdomen. She required emergent laparoscopy demonstrating perforated diverticulitis. She underwent resection in addition to stoma colostomy bag. She ultimately healed from that was able to get a reversal back in February. She is still recovering from that surgery. Overall doing well. She is trying to continue to work in her exercise. However, having significant osteoarthritis of her knees. She apparently will require a knee replacement. She is scheduled to have this sometime in September. Her last PFTs back in August 2021 were reassuring only demonstrating mild COPD. The patient does have a moderate diffusion impairment secondary to the emphysema. We also reviewed her CT scan of the chest that she had back in August 2021 demonstrating multiple pulmonary nodules and slight increase in the ground-glass the nodular density the. The patient is recovering from her abdominal surgery and will be undergoing her knee surgery. Therefore, will hold off on any type of imaging studies until . From a pulmonary standpoint the patient may proceed with anesthesia and surgery as her respiratory status is medically optimize. 08/17/2023 the patient is here for a pulmonary follow-up visit. The patient overall has been doing well. She is recovered well from her abdominal s urgeries. Her breathing has been stable. She continues use her respiratory therapy with good effect. She has not had any exacerbations. Now she is having issues with her shoulder. The patient will be undergoing a surgical procedure. Clinically the patient is doing very well and may be able to proceed with surgery at this point. The patient may also proceed with anesthesia. She does not have any limitations. The patient does have [id number]-gz-ptdtgfwg risk for perioperative pulmonary complications due to her underlying COPD. At this point the patient may proceed with consenting for surgery and anesthesia. The patient last CT scan was back in September 2022 demonstrating a ground-glass nodular density. She does require a repeat CT scan. He was due for September 2023 but because of her surgery will go ahead and push it out to 6 months from now in order to allow for recovery before addressing the nodular density. If the patient has any worsening symptoms prior to that we can always request the CT scan at an earlier time. Will plan to follow-up in [address] scan. 02/20/2024 the patient is here for a pulmonary follow-up visit. The patient overall has been doing okay. She did undergo surgery for her shoulder. the patient was due for a CT scan of the chest but we did postpone it because of her shoulder surgery. She did undergo a CT scan of the chest at [facility]. Unfortunately did not have any comparison stair. She has had multiple CT scans [place] dating back to 2020. her last CT scan back in 09/04/2022 was compared to the 1 a year prior demonstrating multiple pulmonary nodules without any significant change. It was noted that she does have now left upper lobe nodular density subsolid in nature measuring 1.3 cm. Once able I will compare them to her previous CT scan. In the meantime she is going to continue following closely [facility] pulmonary nodule clinic. She is scheduled to undergo a CT scan 6 months from her last 1. initially she was recommended to get a biopsy that initially concerning the patient. I did also call Radiology in order for them to make a CD with the CT scans available from 2021 in 2022 and therefore they can be provided to [facility] in order for her to have additional history of the nodular densities. Her respiratory status she is doing well she does have the Trelegy inhaler that she uses daily. She does have a rescue inhaler that she does not use often. At this point she is going to continue with the current respiratory therapy. She will be getting another CT scan around May or June. If the patient develops any worsening symptoms prior to that she will call for further recommendations. Otherwise will follow- up in 6-8 months. 07/22/2024 the patient is here for a pulmonary follow-up visit. Overall the patient has been doing well from a respiratory status. She does use her Trelegy daily. She has not had to use her rescue inhaler. She does have some dyspnea on exertion but mild in severity. She is able to do all her activities of daily living. Her last CT scan of the chest back in 01/05/2024 which we personally reviewed. It appears that she has numerous pulmonary nodules but the 1 in the left upper lobe appears to be a subsolid nodule measuring around 12 mm in size and has a 6 x 7 mm solid component. Therefore have that re-evaluated in 11/04/2024 at [facility] Pulmonary nodule Clinic. I spoke to the patient's since she does have ground-glass nodules and subsolid nodules those are typically follow longer because of the appearance. For now she is doing well though will follow- up in a year's time and she will get me a report of her CT scan that she has in October. If she has any new issues she will call for an earlier assessment. If anything concerning on the CT scan we can also make an earlier appointment for her. [facility] Medical History Sepsis Diverticulitis of colon with perforation Ileus following gastrointestinal surgery Hypovolemia Perforated viscus Incisional hernia Suture granuloma Postoperative nausea Breast cancer GERD (gastroesophageal reflux disease) Arthritis Hyperlipidemia Atherosclerosis of both carotid arteries COVID-19 Pulmonary nodule COPD (chronic obstructive pulmonary disease) Surgical History History of hernia repair (~03/20/23) History of tubal ligation Status post colostomy takedown Status post Andreas procedure (~03/14/22) History of esophagogastroduodenoscopy (EGD) History of colonoscopy History of exploratory laparotomy (~2021) H/O right mastectomy Social History Household Members: Spouse Housing: Apartment Are you a primary neonatal intensive care unit nurse to a significant other at home: No Do you presently have visiting nurse or other home services: No Alcohol intake: current Alcohol intake frequency: holidays/special occasions only Comment: camera for confusion this evening Patient Tobacco Use Status: Former Tobacco user Tobacco use type: Cigarette Years Smoked: 30 years Second Hand Smoke Exposure: No Advance Directives Date on File: 03/14/22 service: No Current occupational status: retired Gender identity: Female Review of Systems Const All systems reviewed & are unremarkable except as noted in HPI and below ENT Denies dizziness Card Denies chest pain, Denies chest pain at rest, Denies chest pain with activity, Denies rapid heart rate, Denies pedal edema, Denies edema, Denies leg edema, Denies lightheadedness, Denies palpitations, Denies dyspnea, Denies dyspnea on exertion and Denies orthopnea Resp Denies cough, Denies dyspnea and Denies dyspnea on exertion GI Denies hematochezia and Denies change in stool character Musc Details: right shoulder discomfort Reports as per HPI, Reports myalgias and Reports limited range of motion Neuro Denies dizziness Endo Denies palpitations Physical Exam Vital Signs: Last Vital Signs Pulse 62 07/22/24 10:56 BP 134/70 07/22/24 10:56 Pulse Ox 96 07/22/24 10:56 Oxygen Delivery Method Room Air 07/22/24 10:56 Const General: alert Neck Neck: Yes normal visual inspection, Yes full ROM and Yes no lymphadenopathy Chest Chest palpation & inspection: normal inspection of the chest Resp Auscultation: diminished lung sounds Cardio Rate: regular rate Rhythm: regular rhythm Heart sounds: S1 normal heart sound present and S2 normal heart sound present GI Palpation (GI): Soft to palpation and nontender Auscultation: normal bowel sounds Skin General skin exam: rashes and/or lesions noted Assessment & Plan Assessment & Plan (1) Pulmonary nodule: Code(s): R91.1 - Solitary pulmonary nodule Category: Medical (2) COPD (chronic obstructive pulmonary disease): Comment: uses Trelegy inhaler Code(s): J44.9 - Chronic obstructive pulmonary disease, unspecified Category: Medical Qualifiers: COPD type: chronic bronchitis Chronic bronchitis type: simple Qualified Code(s): J41.0 - Simple chronic bronchitis Plan Continue with Trelegy inhaler At short-acting beta agonist as needed Repeat CT scan of the chest follow-up with multiple pulmonary nodules in addition to the ground-glass nodular density. She will continue follow up with the [facility] pulmonary nodule clinic F/U 12 months Coding Level of Care Code Est Pt Level 4 (51169) Diagnoses Pulmonary nodule R91.1 Simple chronic bronchitis J41.0 COPD type: chronic bronchitis Chronic bronchitis type: simple Time Spent (min) 16
[2024-07-22 10:56] VITALS: BP 134/70; PULSE 62; O2SAT 96
--- OUTSIDE RECORDS SUMMARY | 2024-07-22 11:46 | XMS_ITS | Encounter Summary ---
Author Organization [employer] Address [address] [place] [address] Care Team Providers Care Nuclear Powerplant Supervisor Name Role Phone Pcp, No Primary Care Provider Unavailabl e Encounter Details Date Type Department Care Team (Late st Contact Info) Description 12/23/2023 Procedure Pass [facility] Radiology, [facility] (CT Scan) [address] [place] [address] [id number] Social History Tobacco Use Types Packs/Day Years Used Date Smoking Tobacco: Never Assessed Comments Unknown Sex and Gender Information Value Date Recorded Sex Assigned at Not on file Legal Sex Female 11:16 AM EDT Gender Identity Not on file Sexual Orientation Not on file documented as of this encounter Plan of Treatment Not on file documented as of this encounter Visit Diagnoses Not on filedocumented in this encounter Care Teams Nuclear Powerplant Supervisor Relationship Specialty Start Date End Date Pcp, No [place] [address] PCP - General 12/23/23 documented as of this encounter
--- OUTSIDE RECORDS SUMMARY | 2024-07-22 11:46 | XMS_ITS | Encounter Summary ---
Author Organization [employer] Address [address] [place] [address] Care Team Providers Care Biological Engineer Name Role Phone Pcp, No Primary Care Provider Unavailabl e Encounter Details Date Type Department Care Team (Late st Contact Info) Description 12/23/2023 Procedure Pass [facility] Radiology, [facility] (CT Scan) [address] [place] [address] [phone] Social History Tobacco Use Types Packs/Day Years [...] on filedocumented in this encounter Care Teams Biological Engineer Relationship Specialty Start Date End Date Pcp, [place] [address] PCP - General 12/23/23 documented as of this encounter
--- OUTSIDE RECORDS SUMMARY | 2024-07-22 11:47 | XMS_ITS ---
Author Name [facility] Organization Unknown Problems Problem Status Onset Date Problem Type Date of Resoluti on Source Other closed fracture of distal end of right radius, initial encounter active EncounterDiagnosisAct CTMDSX H Closed head injury, initial encounter active EncounterDiagnosisAct CTMDSX H
--- OUTSIDE RECORDS SUMMARY | 2024-07-22 11:47 | XMS_ITS | Clinical Summary ---
Author Organization [facility] Address [address] [place] [address] Care Team Providers Care Airplane Electrical Repairer Name Role Phone Pcp, No Primary Care Provider Unavailabl e Allergies No known active allergies Social History Tobacco Use Types Packs/Day Years Used Date Smoking Tobacco: Never Assessed Comments Unknown Sex and Gender Information Value Date Recorded Sex Assigned at Not on file Legal Sex Female 11:16 AM EDT Gender Identity Not on file Sexual Orientation Not on file Last Filed Vital Signs Vital Sign Reading Time Taken Comments Blood Pressure 141/61 12/23/2023 2:16 PM EDT Pulse 65 12/23/2023 2:16 PM EDT Temperature 36.7 ??C (98 ??F) 12/23/2023 2:16 PM EDT Respiratory Rate 14 12/23/2023 2:16 PM EDT Oxygen Saturation 99% 12/23/2023 2:18 PM EDT Inhaled Oxygen Concentration - - Weight 74 kg (163 lb 2.3 oz) 12/23/2023 11:21 AM EDT Height 162.6 cm (5' 4 ) 12/23/2023 11:21 AM EDT Body Mass Index 28 12/23/2023 11:21 AM EDT Plan of Treatment Health Maintenance Due Date Last Done Comments Medicare Annual Wellness Visit 1958 Fall Risk Screening 2005 Zoster Vaccines (2 of 3) 07/13/2014 05/18/2014 RSV 60+ (1 - 1-dose 75+ series) 12/09/2015 Mammogram 06/07/2023 06/07/2022, 11/0 12/2021, 01/27/2019 COVID-19 Vaccine ( season) 2024 07/30/2020, 07/09/2020 Influenza Vaccine (#1) 2024 0, 04/12/2019, 04/19/2018, Additional history exists Tdap and Td Vaccines Adult 04/10/202804/10, 04/10/2016, 03/23/2015 Pneumococcal Vaccine: 50+ Years Completed 05/19/2019, 12/20/2012 Osteoporosis Screening Completed 09/01/2021 HIB Vaccines Aged Out No longer eligi ble based on patient's age to complete this topic HPV Vaccines Aged Out No longer eligi ble based on patient's age to complete this topic Hepatitis A Vaccines Aged Out No long er eligible based on patient's age to complete this topic IPV Vaccines Aged Out No longer eligi ble based on patient's age to complete this topic Lipid Panel Discontinued Meningococcal Vaccine Aged Out No mathew alicia eligible based on patient's age to complete this topic RSV <20 Months Aged Out No longer jenny gible based on patient's age to complete this topic Insurance MEDICARE [employer] Care Teams Airplane Electrical Repairer Relationship Specialty Start Date End Date Pcp, No [place] [address] PCP - General 12/23/23
== END 2024-07-22 11:15 | disposition home or self-care (01) ==
PROVIDERS: PCP Internal Medicine; Visit Provider Hospitalist
DX: R91.1 Solitary pulmonary nodule (principal); J41.0 Simple chronic bronchitis
CPT/HCPCS: 99214

== ENCOUNTER → 2024-07-22 10:51 | Outpatient (BNVA) | payer MEDICARE, OTHER, SELFPAY | PROVIDERS: PCP Internal Medicine; Visit Provider Hospitalist | DX: J41.0 Simple chronic bronchitis (principal); R91.1 Solitary pulmonary nodule | CPT/HCPCS: 99212 ==

== ENCOUNTER → 2024-08-27 10:49 | Outpatient (REF) | payer MEDICARE, OTHER, SELFPAY ==
--- NOTE | 2024-08-27 10:52 | CA_ITS ---
Transthoracic Echocardiogram Patient (Last, First, Middle): Camille Hernandez M Gender: Female Date of : 1940 Age: 83 Procedure Date: 08/27/2024 Procedure Type: Transthoracic Echocardiogram Location: OP Height: 162.56 cm Weight: 72.58 kg BSA: 1.78 m2 Heart Rate: 67 bpm BP: 134 / 64 mmHg Primary School Teacher: SB Referring MD: Michelel Donald PRODUCTION WELDERRadhaC Symptoms: I35.0 - Nonrheumatic aortic (valve) stenosis Study Quality: Adequate w contrast ECG Rhythm: Sinus Conclusions: - The left ventricular systolic function is normal. The visually estimated ejection fraction is between 65-70%. - There is mild aortic valve stenosis. Findings Procedure Information Contrast agent, definity, is being given per protocol without apparent complications. Left Ventricle Normal left ventricular cavity size. There is normal left ventricular wall thickness. The left ventricular systolic function is normal. The visually estimated ejection fraction is between 65-70%. There is no evidence of regional wall motion abnormalities. Evidence suggests grade I (mild) diastolic dysfunction. Right Ventricle Normal right ventricular cavity size. There is low normal right ventricular systolic function. Atria Both atria are normal in size. Aortic Valve The aortic valve was not well visualized. There is mild aortic valve stenosis. There is no aortic valve regurgitation. Mitral Valve The mitral valve appears normal. There is no mitral valve regurgitation. There is no mitral valve stenosis. Pulmonic Valve The pulmonic valve is likely normal. Tricuspid Valve There is trace tricuspid valve regurgitation. Tricuspid regurgitation envelope is inadequate for calculation of right ventricular systolic pressure. Great Vessels The asc aorta is normal in size. Venous The inferior vena cava is normal in size and collapses greater than 50% with inspiration. Pericardium/Pleural There is no evidence of pericardial effusion. Prior Study Comparison No significant change compared to prior study dated: 09/26/2023. Measurements 2D Linear Measurements IVSd: 0.97 0.6-0.9/0.6-1.0 cm LVIDd: 4.47 3.9-5.3/4.2-5.9 cm LVIDd Index: 2.51 2.4-3.2/2.2-3.1 cm/m2 LVIDs: 2.76 2.0-3.6 cm LA Diam: 4.10 2.7-3.8/3.0-4.0 cm LAIDs Index: 2.30 1.5-2.3 cm/m2 LVOT Diam: 1.90 3.0+(-)1.3 cm 2D Systolic Function EF 4C: 68.60 >55% EF 2C: 67.80 >55% EF BiP: 67.30 >55% Mitral Valve MV Pk E: 0.83 MV PK A: 0.96 MV Decel Time: 256.00 E/A: 0.90 E'Lateral: 4.68 E'Medial: 4.68 E/E' Med: 17.80 E/E' Lat: 17.80 PHT: 75.00 MVA PHT: 2.93 Decel [place]: 3.25 Aortic Valve AoV Pk Braeden: 2.20 AoV Mn Braeden: 1.39 AoV VTI: 0.42 AoV Pk Grad: 19.00 Aov Mn Grad: 9.00 LAUREEN Cont.VTI: 1.70 LVOT LVOT Pk Braeden: 1.19 LVOT Mn Braeden: 0.78 LVOT VTI: 0.25 LVOT Pk Grad: 6.00 LVOT Mn Grad: 3.00 LVOT Diam: 1.90 LVOT Area: 2.84 Diastolic Function MV Pk E: 0.83 MV Pk A: 0.96 E/A: 0.90 E'Medial: 4.68 E/E' Med: 17.80 E' Laterial: 4.68 E/E' Lat: 17.80 Right Ventricle TAPSE (mm): 16.10 TVS' Braeden: 9.57 Tricuspid Valve RA Press: 3.00 Great Vessels Aorta Sinus of Valsalva: 2.70 2.0-3.5 cm Ao Asc: 3.00 2.1-3.4 cm Pulmonary Valve PV Pk Braeden: 1.13 Peak PV Grad: 5.00 Updated in Other Vendor System with Status of Final Allan Britton MD electronically signed on 08/28/2024 10:11:43 AM with status of Final
--- OUTSIDE RECORDS SUMMARY | 2024-08-27 12:30 | XMS_ITS | Clinical Summary ---
Author Organization [facility] Address [address] [place] [address] Care Team Providers Care Improvement Intern Name Role Phone Pcp, No Primary Care [...] topic Insurance MEDICARE [employer] Care Teams Improvement Intern Relationship Specialty Start Date End Date Pcp, [place] [address] PCP - General 12/23/23
--- OUTSIDE RECORDS SUMMARY | 2024-08-27 12:30 | XMS_ITS | Continuity of Care Document ---
Author Name [facility] Organization [facility] Care Team Providers Care Bundle Person Name Role Phone [facility] Unavailable Unavailable Medications Combined list of outpatient medications from Department of Defense and Veterans Affairs facilities.Medications provided include 1) outpatient medications from the last 15 months, and 2) patient-reported medications. Medication Details Route Status Patient Instructions Prescription Expires Prescription Number Last Dispense Date Ordering Provider Order Date Order Qty Source ABRYSVO (respirator y syncytial virus vaccine, preF A and B/PF), 120MCG/0.5, VIAL, INTRAMUSC, PFIZER US PHARM, 1 ea. VIAL Active [id number] 4 2023 1 Pharmac y Data Transac tion Service Facilit y ALBUTEROL SULFATE HFA (albuterol sulfate), 90 MCG, HFA AER AD, INHALATION, TEVA [place], 8.5 g CANISTER Active [id number] 4 2023 8.5 Pharmac y Data Transac tion Service Facilit y CITALOPRAM HBR (CITALOPRAM HYDROBROMID E), 40 MG, TABLET, ORAL, EXELAN PHARMACE, 1000 ea. BOTTLE Active [id number] 4 2023 90 Pharmac y Data Transac tion Service Facilit y OXYCODONE HCL (OXYCODONE HCL), 5MG, TABLET, ORAL, MALLINKRT PHARM, 100 ea. BOTTLE Active [id number] 4 2023 35 Pharmac y Data Transac tion Service Facilit y Immunizations Combined list of available immunizations from the Department of Defense and Veterans Affairs facilities. Immunization Series Date Given Administered By Site Reaction Lot Number CVX Code Drug Manager Finance Status Comments Source COVID-19, mRNA, LNP-S, PF, 30 mcg/0.3 mL dose 2020 [employer] (PFR) Not Given COVID-19, mRNA, LNP-S, PF, 30 mcg/0.3 mL dose [facility] COVID-19, mRNA, LNP-S, PF, 30 mcg/0.3 mL dose 2020 [employer] (PFR) Not Given COVID-19, mRNA, LNP-S, PF, 30 mcg/0.3 mL dose [facility] Influenza, injectable, MDCK, preservative free, quadrivalent 2019 BOGDASARIAN, () Not Given Influenza , injectabl e, MDCK, preservat dia free, quadrival ent DoD Social History Combined list of available smoking, tobacco, and other social history from Department of Defense and Veterans Affairs facilities. Social History Type Response Date Comment [facility] e This section is an empty social history section. DoD
--- OUTSIDE RECORDS SUMMARY | 2024-08-27 12:30 | XMS_ITS | Encounter Summary ---
Author Organization [facility] Address [address] [place] [address] Care Team Providers Care Stamp Presser Name Role Phone Pcp, No Primary Care Provider Unavailabl e Encounter Details Date Type Department Care Team (Late st Contact Info) Description 12/23/2023 Procedure Pass [facility] Radiology, [facility] (CT Scan) [address] [place] [address] [id number] Social History Tobacco Use Types Packs/Day Years [...] on filedocumented in this encounter Care Teams Stamp Presser Relationship Specialty Start Date End Date Pcp, No [place] [address] PCP - General 12/23/23 documented as of this encounter
--- OUTSIDE RECORDS SUMMARY | 2024-08-27 12:30 | XMS_ITS | Encounter Summary ---
Author Organization [employer] Address [address] [place] [address] Care Team Providers Care Monitoring Analyst Name Role Phone Pcp, No Primary Care Provider Unavailabl e Encounter Details Date Type Department Care Team (Late st Contact Info) Description 12/23/2023 Procedure Pass [facility] Radiology, [facility] (CT Scan) [address] [place] [address] [phone] Social History Tobacco Use Types Packs/Day Years [...] on filedocumented in this encounter Care Teams Monitoring Analyst Relationship Specialty Start Date End Date Pcp, No [place] [address] PCP - General 12/23/23 documented as of this encounter
== END ==
LOC: HO.CARD 10:49
PROVIDERS: PCP Internal Medicine; Visit Provider Nurse Practitioner Family
DX: I35.0 Nonrheumatic aortic (valve) stenosis (principal)
CPT/HCPCS: 93306; Q9957

== ENCOUNTER → 2024-08-27 10:52 | Outpatient (BNV) | payer MEDICARE, OTHER, SELFPAY | PROVIDERS: PCP Internal Medicine; Visit Provider Internal Medicine | DX: I35.0 Nonrheumatic aortic (valve) stenosis (principal) | CPT/HCPCS: 93306 ==

== ENCOUNTER 2024-11-20 11:04 | Outpatient (AMB) | payer MEDICARE, OTHER, SELFPAY ==
[2024-11-20 11:09] VITALS: BP 120/80; PULSE 68
--- NOTE | 2024-11-20 11:09 | A.OFFVIS_ITS ---
Vital Signs 11/20/24 11:09 Height 5 ft 4.5 in BMI Reason not done Patient refused/unable BP 120/80 Blood Pressure Location Lt brachial Position Sitting Pulse 68 Intake Visit Reasons: r/s 09/23/24 1 yr followu up w/ekg Intake Note: 1 year follow-up with ekg feeling good Parakeet Raiser Required: No Allergies No Known Allergies Allergy (Verified 07/22/24 10:59) HPI Comments Details: Camille comes for follow-up. She unfortunately had an accidental fall recently. Otherwise she has no cardiac symptoms. Echocardiogram shows mild aortic stenosis which is unchanged from before. Takes all her medications. Denies any exertional chest pain or shortness of breath. Denies orthopnea, PND, leg edema. No prolonged palpitation irregular heartbeat. No lightheadedness, syncope. [facility] Medical History Sepsis Diverticulitis of colon with perforation Ileus following gastrointestinal surgery Hypovolemia Perforated viscus Incisional hernia Suture granuloma Postoperative nausea Breast cancer GERD (gastroesophageal reflux disease) Arthritis Hyperlipidemia Atherosclerosis of both carotid arteries COVID-19 Pulmonary nodule COPD (chronic obstructive pulmonary disease) Surgical History History of hernia repair (~03/20/23) History of tubal ligation Status post colostomy takedown Status post Andreas procedure (~03/14/22) History of esophagogastroduodenoscopy (EGD) History of colonoscopy History of exploratory laparotomy (~2021) H/O right mastectomy Social History Household Members: Spouse Housing: Apartment Are you a primary healthcare representative to a significant other at home: No Do you presently have visiting nurse or other home services: No Alcohol intake: current Alcohol intake frequency: holidays/special occasions only Comment: camera for confusion this evening Patient Tobacco Use Status: Former Tobacco user Tobacco use type: Cigarette Years Smoked: 30 years Second Hand Smoke Exposure: No Advance Directives Date on File: 03/14/22 service: No Current occupational status: retired Gender identity: Female Review of Systems Const Denies chills, Denies fatigue, Denies fever(s), Denies frequent falls, Denies weakness, Denies weight gain and Denies weight loss ENT Denies dizziness Card Denies chest pain, Denies leg edema, Denies lightheadedness, Denies palpitations, Denies dyspnea, Denies dyspnea on exertion, Denies orthopnea and Denies other (loss of consciousness) Resp Denies cough, Denies dyspnea and Denies dyspnea on exertion GI Denies hematochezia and Denies change in stool character Musc Denies abnormal gait, Denies muscle weakness, Denies numbness, Denies radiating pain into limb and Denies tingling Neuro Denies abnormal gait, Denies dizziness, Denies frequent falls, Denies numbness, Denies tingling and Denies weakness Endo Denies fatigue and Denies palpitations Physical Exam Vital Signs: Last Vital Signs Pulse 68 11/20/24 11:09 BP 120/80 11/20/24 11:09 Const General: cooperative, healthy appearing, comfortable and no acute distress Orientation/consciousness: patient oriented x3 Neck Neck: Yes normal visual inspection and Yes no JVD Resp Effort & Inspection: normal respiratory effort Auscultation: clear to auscultation bilaterally, no rales, no rhonchi and no wheezes Cardio Jugular venous distension: no JVD Rate: regular rate Rhythm: regular rhythm Heart sounds: S1 normal heart sound present, S2 normal heart sound present, Murmur heart sound present (systolic) and no rubs Neuro General: patient oriented x3 Extrem General: Yes normal to inspection, No no pedal edema and No calf tenderness Psych Appearance: grossly normal Mental Status: mental status grossly normal Speech and movement: Normal speech and movement present Office Procedures EKG Details: EKG shows normal sinus rhythm with poor R-wave progression most likely due to lead placement [id number], Complete Assessment & Plan Assessment & Plan (1) Aortic stenosis: Code(s): I35.0 - Nonrheumatic aortic (valve) stenosis Category: Medical Plan: Aortic stenosis which is mild in his remained stable. She does also have bilateral carotid atherosclerosis. Continue aggressive medical therapy. Continue low-dose aspirin therapy. Continue statin therapy with goal LDL less than 70 mg/dL. She had slow progression of aortic stenosis and therefore will pursue echocardiogram in 2 years now. She is encouraged to continue maintain activity level as tolerated. We discussed about fall prevention techniques. Continue aggressive vascular risk factor modification. Follow up in the clinic in 1 year's time, sooner p.r.n.. Thank you for allowing me to partake in her care Coding Level of Care Code Est Pt Level 4 (93393) Complex EM visit Add On G2211 Diagnoses Aortic stenosis I35.0 CPT Codes EKG - CPT: 72465-Oiobmugpcxilaxkeo, Complete ([id number])
--- OUTSIDE RECORDS SUMMARY | 2024-11-20 13:10 | XMS_ITS | Encounter Summary ---
Author Organization [facility] Address [address] [place] [address] Care Team Providers Care Mechanical Supervisor Name Role Phone Pcp, No Primary Care Provider Unavailabl e Encounter Details Date Type Department Care Team (Late st Contact Info) Description 12/23/2023 Procedure Pass [facility] Radiology, [facility] (CT Scan) [address] [place] [id number] Social History Tobacco Use Types Packs/Day Years [...] on filedocumented in this encounter Care Teams Mechanical Supervisor Relationship Specialty Start Date End Date Pcp, No [place] [address] PCP - General 12/23/23 documented as of this encounter
== END 2024-11-20 11:28 | disposition home or self-care (01) ==
LOC: HO.HCS 11:05
PROVIDERS: PCP Internal Medicine; Visit Provider Internal Medicine Cardiovascular Disease
DX: I35.0 Nonrheumatic aortic (valve) stenosis (principal)
CPT/HCPCS: 93010; 99214; G2211

== ENCOUNTER → 2024-11-20 11:04 | Outpatient (BNVA) | payer MEDICARE, OTHER, SELFPAY | PROVIDERS: PCP Internal Medicine; Visit Provider Internal Medicine Cardiovascular Disease | DX: I35.0 Nonrheumatic aortic (valve) stenosis (principal); Z91.81 History of falling | CPT/HCPCS: 93005; 99212 ==

== ENCOUNTER 2025-03-05 11:03 | Outpatient (AMB) | payer MEDICARE, OTHER, SELFPAY ==
--- OUTSIDE RECORDS SUMMARY | 2010-08-02 01:00 | XMS_ITS | Encounter Summary ---
Author Organization [employer] [facility] Address [address] [place] [phone] Phone Care Team Providers Care Appraiser Land Name Role Phone Unavailable Primary Care Provider Unavailabl e Encounter Details Date Type Department Care Team (Late st Contact Info) Description 08/02/2010 Hospital Encounter [facility],Outside Imaging [address] [place] [address] System, Provider Not In, PhD [address] [address] Social History Tobacco Use Types Packs/Day Years Used Date Smoking Tobacco: Former Cigarettes 3 35 1 954 - 1989 Smokeless Tobacco: Never Alcohol Use Standard Drinks/Week Comments Yes 0 (1 standard drink = 0.6 oz pur e alcohol) couple a month at most Home Health Assessment: Transportation Answer Date Recorded Lack of Transportation (Medical) No 10/13/2022 Lack of Transportation (Non-Medical) No 10/13/2022 Patient Unable or Declines to Respond No 10/13/2022 Education Answer Date Recorded Are you interested in more education? Not on earlene e 10/13/2022 Are you concerned about learning? Not on file 10/13/2022 No 10/13/2022 No 10/13/2022 Digital Access Answer Date Recorded No 11/07/2022 No 11/07/2022 Reliable internet access at home? Not on file 11/07/2022 Device with a working camera? Not on file Intimate Partner Violence Answer Date R ecorded Are you denied basic needs s uch as food, clothing, or medical care? No 10/11/2023 In the past 12 months have y ou been in a relationship with a person who hurts, threatens, or tries to control you? No 10/11/2023 Are you denied basic needs s uch as food, clothing, or medical care? No 10/11/2023 In the past 12 months have y ou been in a relationship with a person who hurts, threatens, or tries to control you? No 10/11/2023 Comments No Sex and Gender Information Value Date Recorded Sex Assigned at Female 07/28/2021 7:08 PM EST Legal Sex Female 6:53 PM EST Gender Identity Female 07/28/2021 7:08 PM EST Sexual Orientation Straight 07/28/2021 7: 08 PM EST documented as of this encounter Functional Status * Calculated C-SSRS Risk Score (Lifetime/Recent) Answer Date of Assessment Author No Risk Indicated 10/11/2023 12:00 PM EDT Julia Eugene RN * [place] Suicide Severity Rating Scale (Screener/Recent Self-Report) Question Answer Date of Assessment Author 1. Wish to be (Past 1 Month) No 024 12:00 PM EDT Julia Roe RN 2. Non-Specific Active Suici devon Thoughts (Past 1 Month) No 10/11/2023 12:00 PM EDT Aleena Roe RN 6. Suicidal Behavior (Lifetime) No 12:00 PM EDT Julia Roe RN documented as of this encounter Plan of Treatment Not on file documented as of this encounter Procedures Procedure Name Priority Date/Time Associated Diagnosis Comments BI MAMMOGRAM OUTSIDE (NO INTERPRETATION) Routine 08/02/2010 12:00 AM EST documented in this encounter Results * Mammogram Outside (No Interpretation) (08/02/2010 12:00 AM EST) Narrative SYSTEMGENERATED, DOCUMENTATION - 01/15/2019 8:04 AM EDT This study is for PACS storage only and not for interpretation. us Provider Not In System PhD IMG OUTSIDE IMAGING W /OUT INTERPRETATION Final Result documented in this encounter Visit Diagnoses Not on filedocumented in this encounter Additional Health Concerns Infection Onset Date Last Indicated Resolved Time CoV-Risk 05/10/2020 05/11/2020 05/13/2020 1:07 AM EST COVID-19 05/11/2020 05/11/2020 05/31/2020 1:23 AM EST documented as of this encounter Additional Source Comments The information contained in this document represents components of the legal health record. It is not the complete legal health record.[facility]
--- NOTE | 2025-03-05 11:10 | MHC.OFFVIS ---
Vital Signs 03/05/25 11:14 Height 5 ft 4.5 in Weight 162 lb BMI 27.4 BP 131/58 L Blood Pressure Location Lt radial Position Sitting Pulse 61 Intake Visit Reasons: hernia Intake Note: Patient referred by pcp Jack Thomson for evaluation and treatment of abdominal wall hernia. Patient c/o: pain on left abdominal wall. Denies nausea, vomiting. Public Transit Bus Driver Required: No Accompanied by: spouse Jone Allergies No Known Allergies Allergy (Verified 03/05/25 11:11) Medication List - Last Reconciled 03/05/25 by Robbi Jose MD albuterol sulfate 90 mcg/actuation 2 inhalations inhalation Q6H PRN 30 days aspirin 81 mg PO DAILY citalopram 40 mg PO QAM ibuprofen 600 mg PO Q6H PRN nebulizer and compressor As directed omeprazole 40 mg PO QAM rosuvastatin 20 mg PO QAM Trelegy Ellipta 100-62.5-25 mcg (hrirerntjxy-gmcxudkgg-nnvtparb) 1 inh inhalation QAM NS vibegron (Gemtesa) 75 mg PO DAILY HPI HPI hernia: Details: [age] year old female with multiple abdominal surgeries in the past for perforated diverticulitis, here because of question of hernias. She says that she feels that she has had small lumps on both the left and right side her abdomen. She denies any abdominal pain. She has good oral intake. She has good bowel movements. She says she feels well overall. She last had abdominal surgery in 2022 for an incisional hernia repair. [facility] Medical History Sepsis Diverticulitis of colon with perforation Ileus following gastrointestinal surgery Hypovolemia Perforated viscus Incisional hernia Suture granuloma Postoperative nausea Breast cancer GERD (gastroesophageal reflux disease) Arthritis Hyperlipidemia Atherosclerosis of both carotid arteries COVID-19 Pulmonary nodule COPD (chronic obstructive pulmonary disease) Surgical History History of right shoulder replacement History of lateral meniscus repair of right knee History of hernia repair (~03/20/23) History of tubal ligation Status post colostomy takedown Status post Andreas procedure (~03/14/22) History of esophagogastroduodenoscopy (EGD) History of colonoscopy History of exploratory laparotomy (~2022) H/O right mastectomy Social History Household Members: Spouse Housing: Apartment Are you a primary palliative care physician to a significant other at home: No Do you presently have visiting nurse or other home services: No Alcohol intake: current Alcohol intake frequency: holidays/special occasions only Comment: camera for confusion this evening Patient Tobacco Use Status: Former Tobacco user Tobacco use type: Cigarette Years Smoked: 30 years Second Hand Smoke Exposure: No Advance Directives Date on File: 03/14/22 service: No Current occupational status: retired Gender identity: Female Review of Systems Const Denies chills and Denies fever(s) Card Denies chest pain, Denies dyspnea and Denies dyspnea on exertion Resp Denies cough, Denies dyspnea and Denies dyspnea on exertion GI Denies hematochezia and Denies change in bowel habits Denies hematuria Musc Reports back pain and Reports limited range of motion Neuro Denies focal weakness and Denies convulsions Psych Denies depression and Denies mood swings Physical Exam Vital Signs: Last Vital Signs Pulse 61 03/05/25 11:14 BP 131/58 L 03/05/25 11:14 BMI result Body Mass Index 27.4 Const General: comfortable and no acute distress Resp Effort & Inspection: normal respiratory effort Cardio Rate: regular rate GI Other: Question of mass, vague on both the left and right side with Valsalva, no tenderness Palpation (GI): Soft to palpation, not firm, nontender and no guarding Assessment & Plan Assessment & Plan (1) Incisional hernia: Code(s): K43.2 - Incisional hernia without obstruction or gangrene Category: Medical Plan: It is difficult to tell whether she has incisional hernias at this time based on exam alone so I am going to send her for a CAT scan of the abdomen without any contrast. I will see her again in the office to review the findings wants this has done She otherwise has a very benign exam. She is doing well overall despite her multiple surgeries in the past. Her was with her during the visit Orders: Orders CT abdomen pelvis wo IV con Today K43.2 - Incisional hernia without obstruction or gangrene Coding Level of Care Code Est Pt Level 3 (31292) Diagnoses Incisional hernia K43.2
[2025-03-05 11:14] VITALS: BP 131/58; PULSE 61; BMI 27.4
--- OUTSIDE RECORDS SUMMARY | 2025-03-05 13:12 | XMS_ITS | Encounter Summary ---
Author Organization [employer] [facility] Address [address] [place] [phone] Phone Care Team Providers Care Diesel Stationary Engineer Name Role Phone Jack León MD Primary Care Provider [phone] Jack León MD Unavailable [phone] Encounter Details Date Type Department Care Team (Late st Contact Info) Description 10/11/2023 Prep for Surgery [facility] Orthopedics & [facility] Medicine [address] [place] [id number] Keo Shane, DO 4 [facility]ics [facility], [facility] [place], [place] [id number] [email or web address] Social History Tobacco Use Types Packs/Day Years [...] 12:00 PM EDT Julia Eugene RN * [place] Suicide Severity Rating Scale (Screener/Recent Self-Report) Question [...] filedocumented in this encounter Additional Health Concerns Assessment Noted Time PHQ-2 Depression Total Score: 1 10/02/19 21 10:08 AM EDT documented as of this encounter Care Teams Diesel Stationary Engineer Relationship Specialty Start Date End Date Jack León MD [address] [place] [address], [address] [place] [address] PCP - General Internal Medicine 12/24/18 Jack León MD [address] [place] [address], [address] [place] [address] [email or web address] Insurance Assigned Provider 09/22/23 documented as of this encounter Additional Source Comments The information contained in this document represents components of the legal health record. It is not the complete legal health record.[facility]
--- OUTSIDE RECORDS SUMMARY | 2025-03-05 13:12 | XMS_ITS | Encounter Summary ---
Author Organization [employer] [facility] Address [address] [place] [address] Phone Care Team Providers Care Drupal Developer Name Role Phone Jack León MD Primary Care Provider [phone] Jack León MD Unavailable [phone] Gladys Lara OT Unavailable Encounter Details Date Type Department Care Team (Late st Contact Info) Description 09/25/2022 Procedure Pass OR Admitting Dept - Virtual Department [address] [place] [address] Social History Tobacco Use Types Packs/Day Years Used Date Smoking Tobacco: Former Cigarettes 3 35 0 [birth year]/18/1949 - 06/18/1984 Smokeless Tobacco: Never Alcohol Use Standard Drinks/Week Comments Yes 0 (1 standard drink = 0.6 oz pur e alcohol) couple a month at most Comments No Sex and Gender Information Value Date Recorded Sex Assigned at Female 07/28/2021 7:08 PM EST Legal Sex Female 6:53 PM EST Gender Identity Female 07/28/2021 7:08 PM EST Sexual Orientation Straight 07/28/2021 7: 08 PM EST documented as of this encounter Functional Status * Calculated C-SSRS Risk Score (Lifetime/Recent) Answer Date of Assessment Author No Risk Indicated 09/25/2022 5:00 PM EDT Amee Peterson RN * Vaughn Suicide Severity Rating Scale (Screener/Recent Self-Report) Question Answer Date of Assessment Author 1. Wish to be (Past 1 Month) No 09/25/2022 5:00 PM EDT Amee Peterson RN 2. Non-Specific Active Suicidal Thoughts (Past 1 Month) No 09/25/2022 5:00 PM EDT Amee Peterson RN 6. Suicidal Behavior (Lifetime) No 09/25/2022 5:00 PM EDT Amee Peterson RN documented as of this encounter Plan of Treatment Not on file documented as of this encounter Visit Diagnoses Not on filedocumented in this encounter Additional Health Concerns Assessment Noted Time PHQ-2 Depression Total Score: 1 10/02/19 21 10:08 AM EDT documented as of this encounter Care Teams Drupal Developer Relationship Specialty Start Date End Date Jack León MD [address] [facility], [address] [place] [address] [email or web address] PCP - General Internal Medicine 12/24/18 Jack León MD [address] [place] [address], [address] [place] [address] Insurance Assigned Provider 09/22/23 Gladys Lara, OT [address] [place] [address] [email or web address] Transitions Human Services WorkerQuality Assurance Practice Manager Therapy 09/26/2206/09 documented as of this encounter Additional Source Comments The information contained in this document represents components of the legal health record. It is not the complete legal health record.[facility]
--- OUTSIDE RECORDS SUMMARY | 2025-03-05 13:12 | XMS_ITS | Encounter Summary ---
Author Organization [facility] Address [address] [place] [address] Phone Care Team Providers Care Ladle Car Operator Name Role Phone Jack León MD Primary Care Provider [phone] Jack León MD Unavailable [phone] Encounter Details Date Type Department Care Team (Late st Contact Info) Description 02/16/2023 Ancillary Orders [facility] Orthopedics & Sports Medicine [address] [place] [address] Candy Shirley MD [address] [place] [address] Orthopedics & Sports Medicine, [facility] [place], [place] [phone] [email or web address] Social History Tobacco Use Types Packs/Day Years [...] with a working camera? Not on file Comments No Sex and Gender Information Value Date Recorded Sex Assigned at Female 07/28/2021 7:08 PM EST Legal Sex Female 6:53 PM EST Gender Identity Female 07/28/2021 7:08 PM EST Sexual Orientation Straight 07/28/2021 7: 08 PM EST documented as of this encounter Plan of Treatment Not on file documented as of this encounter Visit Diagnoses Not on filedocumented in this encounter Additional Health Concerns Assessment Noted Time PHQ-2 Depression Total Score: 1 10/02/19 21 10:08 AM EDT documented as of this encounter Care Teams Ladle Car Operator Relationship Specialty Start Date End Date Jack León MD [address] [place] [address] PCP - General Internal Medicine 12/24/18 Jack León MD [address] [place] [address], [address] [address] Insurance Assigned Provider 09/22/23 documented as of this encounter Additional Source Comments The information contained in this document represents components of the legal health record. It is not the complete legal health record.[facility]
--- OUTSIDE RECORDS SUMMARY | 2025-03-05 13:12 | XMS_ITS | Encounter Summary ---
Author Organization [employer] [facility] Address [address] [place] [address] Phone Care Team Providers Care Director Furniture Name Role Phone Jack León MD Primary Care Provider [phone] Jack León MD Unavailable [phone] Encounter Details Date Type Department Care Team (Late st Contact Info) Description 02/16/2023 Ancillary Orders [address] [phone] Candy Shirley MD [address] [place] [address] Orthopedics & Sports Medicine, [place], [place] [phone] [email or web address] Right shoulder pain, unspecified chronicity Social History Tobacco Use Types Packs/Day Years [...] as of this encounter Plan of Treatment Pending Results Name Type Priority Associated Diagnoses Date /Time FL Guidance Needle Placement Non-Spine Imaging Routine Right shoulder pain, unspecified chronicity 02/20/2023 8:51 AM EDT Scheduled Orders Name Type Priority Associated Diagnoses Orde r Schedule FL Guidance Needle Placement Non-Spine Imaging Routine Right shoulder pain, unspecified chronicity 1 Occurrences starting 02/16/2023 until 05/18/2023 documented as of this encounter Visit Diagnoses Diagnosis Right shoulder pain, unspecified chronicity documented in this encounter Additional Health Concerns Assessment Noted Time PHQ-2 Depression Total Score: 1 10/02/19 21 10:08 AM EDT documented as of this encounter Care Teams Director Furniture Relationship Specialty Start Date End Date Jack León MD [address] [place] [address], [address] [address] PCP - General Internal Medicine 12/24/18 Jack León MD [address] [place] [address], [address] [place] [address] Insurance Assigned Provider 09/22/23 documented as of this encounter Additional Source Comments The information contained in this document represents components of the legal health record. It is not the complete legal health record.[facility]
--- OUTSIDE RECORDS SUMMARY | 2025-03-05 13:12 | XMS_ITS | Clinical Summary ---
Author Organization [facility] [employer] [facility] Address [address] [place] [address] Care Team Providers Care Balcony Worker Name Role Phone Pcp, No Primary Care [...] 65 12/23/2023 2:16 PM EDT Temperature 36.7 C (98 F) 12/23/2023 2:16 PM EDT Respiratory Rate 14 [...] 06/07/2022, 11/0 12/2021, 01/27/2019 COVID-19 Vaccine ( - season) 2025 07/30/2020, 07/09/2020 Influenza Vaccine (#1) 2025 0, 04/12/2019, 04/19/2018, Additional history exists Tdap and Td Vaccines Adult 04/10/202804/10, 04/10/2016, 03/23/2015 Pneumococcal Vaccine: 50+ Years Completed 05/19/2019, 12/20/2012 Osteoporosis Screening Completed 09/01/2021 HIB Vaccines Aged Out No longer eligi ble based on patient's age to complete this topic HPV Vaccines (No Doses Required) Completed Hepatitis A Vaccines Aged Out No long [...] topic Insurance MEDICARE [employer] [facility] Care Teams Balcony Worker Relationship Specialty Start Date End Date Pcp, No No PCP On File JULIAN Springer [id number] PCP - General 12/23/23
--- OUTSIDE RECORDS SUMMARY | 2025-03-05 13:12 | XMS_ITS | Encounter Summary ---
Author Organization [employer] [facility] Address [address] [place] [address] Phone Care Team Providers Care Extrusion Die Repairer Name Role Phone Jack León MD Primary Care Provider [phone] Jack León MD Unavailable [phone] Gladys Lara OT Unavailable [phone] Encounter Details Date Type Department Care Team (Late st Contact Info) Description 06/28/2022 Procedure Pass OR Admitting Dept - Virtual Department [address] [place] [address] Social History Tobacco Use Types Packs/Day Years [...] documented as of this encounter Care Teams Extrusion Die Repairer Relationship Specialty Start Date End Date Jack León MD [address] [place] [address], [address] [place] [address] [email or web address] PCP - General Internal Medicine 12/24/18 Jack León MD [address] [place] [address], [address] [place] [address] [email or web address] Insurance Assigned Provider 09/22/23 Gladys Lara, OT [address] [place] [address] [email or web address] Transitions Reimbursement RepresentativeBlasting Contract Miner Therapy 09/26/2206/09 documented as of this encounter Additional Source Comments The information contained in this document represents components of the legal health record. It is not the complete legal health record.[facility]
--- OUTSIDE RECORDS SUMMARY | 2025-03-05 13:12 | XMS_ITS | Encounter Summary ---
Author Organization [facility] Address [address] [place] [address] Phone Care Team Providers Care Household Appliance Mechanic Name Role Phone Jack León MD Primary Care Provider [phone] Jack León MD Unavailable [phone] Gladys Lara OT Unavailable [phone] Encounter Details Date Type Department Care Team (Late st Contact Info) Description 01/15/2019 Ancillary Orders [facility],Outside Imaging [address] [place] [address] System, Provider Not In, [facility] [address] [address] Social History Tobacco Use Types Packs/Day Years Used Date Smoking Tobacco: Former Cigarettes 3 35 0 06/18/1949 - 06/18/1984 Smokeless Tobacco: Never Alcohol Use Standard Drinks/Week Comments Yes 0 (1 standard drink = 0.6 oz pur e alcohol) Comments Unknown Sex and Gender Information Value Date Recorded Sex Assigned at Female 07/28/2021 7:08 PM EST Legal Sex Female 6:53 PM EST Gender Identity Female 07/28/2021 7:08 PM EST Sexual Orientation Straight 07/28/2021 7: 08 PM EST documented as of this encounter Plan of Treatment Not on file documented as of this encounter Results * Mammogram Outside (No [...] COVID-19 05/11/2020 05/11/2020 05/31/2020 1:23 AM EST Assessment Noted Time PHQ-2 Depression Total Score: 0 01/14/20 2:14 PM EDT documented as of this encounter Care Teams Household Appliance Mechanic Relationship Specialty Start Date End Date Jack León MD 22 [facility], [address] [place] [address] PCP - General Internal Medicine 12/24/18 Jack León MD [address] [place] [address], [address] [place] [address] Insurance Assigned Provider 09/22/23 Gladys Lara, OT [address] [place] [address] Transitions Mammography SupervisorSenior Java Web Developer Therapy 09/26/2206/09 documented as of this encounter Additional Source Comments The information contained in this document represents components of the legal health record. It is not the complete legal health record.[facility]
--- OUTSIDE RECORDS SUMMARY | 2025-03-05 13:12 | XMS_ITS | Encounter Summary ---
Author Organization [employer] [facility] Address [address] [place] [address] Phone Care Team Providers Care Bartender Helper Name Role Phone Jack León MD Primary Care Provider [phone] Jack León MD Unavailable [phone] Encounter Details Date Type Department Care Team (Late st Contact Info) Description 10/27/2022 Ancillary Orders [facility] Orthopedics & Sports Medicine [address] [place] [address] Candy Shirley MD [address] [place] [address] Orthopedics & Sports Medicine, [facility]. [place], [place] [id number] [email or web address] Social History Tobacco Use Types Packs/Day Years [...] on file 10/13/2022 No 10/13/2022 No 10/13/2022 Comments No Sex and Gender Information Value [...] documented as of this encounter Care Teams Bartender Helper Relationship Specialty Start Date End Date Jack León MD [address] [place] [address], [address] [address] PCP - General Internal Medicine 12/24/18 Jack León MD [address] [place] [address], [address] [place] [address] Insurance Assigned Provider 09/22/23 documented as of this encounter Additional Source Comments The information contained in this document represents components of the legal health record. It is not the complete legal health record.[facility]
--- OUTSIDE RECORDS SUMMARY | 2025-03-05 13:12 | XMS_ITS | Encounter Summary ---
Author Organization [facility] Address [address] [place] [address] Phone Care Team Providers Care Observer Electrical Prospecting Name Role Phone Jack León MD Primary Care Provider Jack León MD Unavailable [phone] Gladys Lara OT Unavailable [phone] Encounter Details Date Type Department Care Team (Late st Contact Info) Description 08/25/2022 Ancillary Orders [facility] Orthopedics & Sports Medicine [address] [place] [address] Candy Shirley MD [address] [place] [address] Orthopedics & Sports Medicine, [facility] [place], [place] [phone] [email or web address] Social History Tobacco Use [...] documented as of this encounter Care Teams Observer Electrical Prospecting Relationship Specialty Start Date End Date Jack León MD [address] [facility], [address] [place] [address] PCP - General Internal Medicine 12/24/18 Jack León MD [address] [place] [address], [address] [place] [address] Insurance Assigned Provider 09/22/23 Gladys Lara, OT [address] [place] [address] [email or web address] Transitions Toy PainterEditorial Manager Therapy 09/26/2206/09 documented as of this encounter Additional Source Comments The information contained in this document represents components of the legal health record. It is not the complete legal health record.[facility]
--- OUTSIDE RECORDS SUMMARY | 2025-03-05 13:12 | XMS_ITS | Encounter Summary ---
Author Organization [employer] Address [address] [place] [address] Care Team Providers Care Materials Clerk Name Role Phone Pcp, No Primary Care Provider Unavailabl e Encounter Details Date Type Department Care Team (Late st Contact Info) Description 12/23/2023 Procedure Pass [facility] Radiology, [facility] (CT Scan) [address] [place] [phone] Social History Tobacco Use Types Packs/Day Years [...] on filedocumented in this encounter Care Teams Materials Clerk Relationship Specialty Start Date End Date Pcp, [place] [address] PCP - General 12/23/23 documented as of this encounter
--- OUTSIDE RECORDS SUMMARY | 2025-03-05 13:12 | XMS_ITS | Encounter Summary ---
Author Organization [facility] [facility] Address [address] [place] [address] Phone Care Team Providers Care Irrigator Overhead Name Role Phone Jack León MD Primary Care Provider [phone] Jack León MD Unavailable Encounter Details Date Type Department Care Team (Late st Contact Info) Description 10/23/2023 Procedure Pass [facility], Ct Scan - [address] [address] Social History Tobacco Use Types Packs/Day Years [...] documented as of this encounter Care Teams Irrigator Overhead Relationship Specialty Start Date End Date Jack León MD [address] [place] [address], [address] [address] PCP - General Internal Medicine 12/24/18 Jack León MD [address] [place] [address], [address] [address] Insurance Assigned Provider 09/22/23 documented as of this encounter Additional Source Comments The information contained in this document represents components of the legal health record. It is not the complete legal health record.[facility]
--- OUTSIDE RECORDS SUMMARY | 2025-03-05 13:12 | XMS_ITS | Encounter Summary ---
Author Organization [facility] Address [address] [facility] [address] [place] [address] Phone Care Team Providers Care Pathology Teacher Name Role Phone Jack León MD Primary Care Provider [phone] Jack León MD Unavailable Gladys Lara OT Unavailable [phone] Encounter Details Date Type Department Care Team (Latest Contact Info) Description 01/27/2019 Ancillary Orders [facility] Medicine [address] [place] [address] Jack León MD 22 [facility], [address] [place] [address] [email or web address] Malignant neoplasm of right female breast, unspecified estrogen receptor status, unspecified site of breast Social History Tobacco Use Types Packs/Day Years Used Date Smoking Tobacco: Former Cigarettes 3 35 0 [birth year]/18/1949 - 06/18/1984 Smokeless Tobacco: Never Alcohol Use Standard Drinks/Week Comments Yes 0 (1 standard drink = 0.6 oz pur e alcohol) Comments No Sex and Gender Information Value Date Recorded Sex Assigned at Female 07/28/2021 7:08 PM EST Legal Sex Female 6:53 PM EST Gender Identity Female 07/28/2021 7:08 PM EST Sexual Orientation Straight 07/28/2021 7: 08 PM EST documented as of this encounter Plan of Treatment Not on file documented as of this encounter Results * BI MAMMOGRAM SCREENING WITH TOMOSYNTHESIS WITH CAD (LEFT) (01/27/2019 9:24 AM EDT) Anatomical Region Laterality Modality Breast Left, Breast Bilateral Left Ma mmography 01/27/2019 11:4 4 PM EDT Impressions 01/27/2019 11:46 PM EDT LEFT breast: No mammographic evidence of malignancy. RECOMMENDED FOLLOWUP: Routine screening mammography is recommended, as clinically appropriate. The results will be sent by mail to the patient. BI-RADS CATEGORY: 1 - Negative. BREAST COMPOSITION: There are scattered fibroglandular densities. POS - CDHMAMA Narrative 01/27/2019 11:46 PM EDT EXAM: BI MAMMOGRAM SCREENING WITH TOMOSYNTHESIS WITH CAD (LEFT) HISTORY: Screening. * Annual * PRIOR TREATMENT FOR BREAST CANCER, personal history of RIGHT breast cancer with mastectomy 1989. COMPARISON: Prior mammograms, including 08/05/2014, 08/06/2012, 08/02/2010. TECHNIQUE: Digital breast tomosynthesis was performed in CC and MLO projections. Reconstructed 2-D C-views generated from the tomosynthesis images. Images interpreted in conjunction with R-2 Image Radio/Tv Technician computer-aided detection (CAD). FINDINGS: BREAST COMPOSITION: There are scattered areas of fibroglandular density. LEFT breast: There are no suspicious masses, suspicious areas of architectural distortion or suspicious clusters of microcalcifications. Procedure Note Gifty Horan MD - 01/27/2019 EXAM: BI MAMMOGRAM SCREENING WITH TOMOSYNTHESIS WITH CAD (LEFT) HISTORY: Screening. * Annual * PRIOR TREATMENT FOR BREAST CANCER, personal history of RIGHT breastcancer with mastectomy 1989. COMPARISON: Prior mammograms, including 08/05/2014, 08/06/2012,08/02/2010. TECHNIQUE: Digital breast tomosynthesis was performed in CC and MLOprojections. Reconstructed 2-D C-views generated from the tomosynthesisimages. Images interpreted in conjunction with R-2 Image Checkercomputer-aided detection (CAD). FINDINGS: BREAST COMPOSITION: There are scattered areas of fibroglandular density. LEFT breast: There are no suspicious masses, suspicious areas ofarchitectural distortion or suspicious clusters of microcalcifications. IMPRESSION: LEFT breast: No mammographic evidence of malignancy. RECOMMENDED FOLLOWUP: Routine screening mammography is recommended, asclinically appropriate. The results will be sent by mail to the patient. BI-RADS CATEGORY: 1 - Negative. BREAST COMPOSITION: There are scattered fibroglandular densities. POS - CDHMAMA us Jack León MD IMG MG EXAMS Final Result documented in this encounter Visit Diagnoses Diagnosis Malignant neoplasm of right female breast, unspecified estrogen receptor status, unspecified site of breast Malignant neoplasm of right female breast, unspecified estrogen receptor status, unspecified site of breast documented in this encounter Additional Health Concerns Infection Onset Date Last Indicated Resolved Time CoV-Risk 05/10/2020 05/11/2020 05/13/2020 1:07 AM EST COVID-19 05/11/2020 05/11/2020 05/31/2020 1:23 AM EST Assessment Noted Time PHQ-2 Depression Total Score: 0 01/14/20 19 2:14 PM EDT documented as of this encounter Care Teams Pathology Teacher Relationship Specialty Start Date End Date Jack León MD [address] [place] [address], [address] [place] [address] [email or web address] PCP - General Internal Medicine 12/24/18 Jack León MD [address] [place] [address], [address] [place] [address] [email or web address] Insurance Assigned Provider 09/22/23 Gladys Lara, OT [address] [place] [address] [email or web address] Transitions Home Staging SpecialistFreight Car Inspector Therapy 09/26/2206/09 documented as of this encounter Additional Source Comments The information contained in this document represents components of the legal health record. It is not the complete legal health record.[facility]
--- OUTSIDE RECORDS SUMMARY | 2025-03-05 13:12 | XMS_ITS | Encounter Summary ---
Author Organization [employer] Address [address] [place] [address] Care Team Providers Care Education Manager Name Role Phone Pcp, No Primary Care Provider Unavailabl e Encounter Details Date Type Department Care Team (Late st Contact Info) Description 12/23/2023 Procedure Pass [facility] Radiology, [facility] (CT Scan) [address] [place] [phone] Social History Tobacco Use Types Packs/Day Years [...] on filedocumented in this encounter Care Teams Education Manager Relationship Specialty Start Date End Date Pcp, No [place] [address] PCP - General 12/23/23 documented as of this encounter
--- OUTSIDE RECORDS SUMMARY | 2025-03-05 13:12 | XMS_ITS | Encounter Summary ---
Author Organization [employer] [facility] Address [address] [place] [address] Phone Care Team Providers Care Drill Press Operator Name Role Phone Jack León MD Primary Care Provider [phone] Jack León MD Unavailable [phone] Encounter Details Date Type Department Care Team (Late st Contact Info) Description 01/17/2024 Procedure Pass [facility], Ct Scan - [address] [address] Social History Tobacco Use Types Packs/Day Years [...] documented as of this encounter Care Teams Drill Press Operator Relationship Specialty Start Date End Date Jack León MD [address] [place] [address], [address] [address] PCP - General Internal Medicine 12/24/18 Jack León MD [address] [place] [address], [address] [address] Insurance Assigned Provider 09/22/23 documented as of this encounter Additional Source Comments The information contained in this document represents components of the legal health record. It is not the complete legal health record.[facility]
--- OUTSIDE RECORDS SUMMARY | 2025-03-05 13:12 | XMS_ITS | Encounter Summary ---
Author Organization [facility] Address [address] [place] [address] Phone Care Team Providers Care Filenet Admin Name Role Phone Jack León MD Primary Care Provider [phone] Jack León MD Unavailable [phone] Encounter Details Date Type Department Care Team (Late st Contact Info) Description 10/11/2023 Procedure Pass OR Admitting Dept - Virtual Department [address] [place] [address] Social History Tobacco Use Types Packs/Day Years [...] 12:00 PM EDT Julia Eugene RN * [place] Suicide Severity Rating Scale (Screener/Recent Self-Report) Question [...] documented as of this encounter Care Teams Filenet Admin Relationship Specialty Start Date End Date Jack León MD [address] [place] [address], [address] [place] [address] [email or web address] PCP - General Internal Medicine 12/24/18 Jack León MD [address] [place] [address], [address] [place] [address] [email or web address] Insurance Assigned Provider 09/22/23 documented as of this encounter Additional Source Comments The information contained in this document represents components of the legal health record. It is not the complete legal health record.[facility]
--- OUTSIDE RECORDS SUMMARY | 2025-03-05 13:12 | XMS_ITS | Encounter Summary ---
Author Organization [facility] Address [address] [place] [address] Phone Care Team Providers Care Nephrology Social Worker Name Role Phone Jack León MD Primary Care Provider [phone] Jack León MD Unavailable [phone] Gladys Lara OT Unavailable [phone] Encounter Details Date Type Department Care Team (Late st Contact Info) Description 01/15/2019 Ancillary Orders [facility],Outside Imaging [address] [place] [address] System, Provider Not In, [facility] [address] [address] Social History Tobacco Use Types Packs/Day Years [...] encounter Results * Mammogram Outside (No Interpretation) (08/05/2014 12:00 AM EST) Narrative SYSTEMGENERATED, DOCUMENTATION - 01/15/2019 8:11 AM EDT This study is for PACS [...] documented as of this encounter Care Teams Nephrology Social Worker Relationship Specialty Start Date End Date Jack León MD [address] [facility], [address] [place] [address] PCP - General Internal Medicine 12/24/18 Jack León MD [address] [place] [address], [address] [place] [id number] Insurance Assigned Provider 09/22/23 Gladys Lara, OT [address] [place] [address] Transitions Hot Metal Mixer Operator HelperCopy Operator Therapy 09/26/2206/09 documented as of this encounter Additional Source Comments The information contained in this document represents components of the legal health record. It is not the complete legal health record.[facility]
--- OUTSIDE RECORDS SUMMARY | 2025-03-05 13:12 | XMS_ITS | Encounter Summary ---
Author Organization [facility] Address [address] [place] [address] Phone Care Team Providers Care Inspection And Testing Supervisor Name Role Phone Jack León MD Primary Care Provider [phone] Jack León MD Unavailable [phone] Gladys Lara OT Unavailable [phone] Encounter Details Date Type Department Care Team (Late st Contact Info) Description 08/25/2022 Ancillary Orders [address] [id number] Candy Shirley MD [address] [place] [address] Orthopedics & Sports Medicine, [place], [place] [id number] [email or web address] Right shoulder pain, unspecified chronicity [...] documented as of this encounter Care Teams Inspection And Testing Supervisor Relationship Specialty Start Date End Date Jack León MD [address] [place] [address], [address] [address] PCP - General Internal Medicine 12/24/18 Jack León MD [address] [place] [address], [address] [address] Insurance Assigned Provider 09/22/23 Gladys Lara, OT [address] [place] [address] Transitions Open Hearth HelperIrrigation Equipment Remover Therapy 09/26/2206/09 documented as of this encounter Additional Source Comments The information contained in this document represents components of the legal health record. It is not the complete legal health record.[facility]
--- OUTSIDE RECORDS SUMMARY | 2025-03-05 13:12 | XMS_ITS | Encounter Summary ---
Author Organization [employer] [facility] Address [address] [place] [address] Phone Care Team Providers Care Replacer Name Role Phone Jack León MD Primary Care Provider [phone] Jack eLón MD Unavailable [phone] Gladys Lara OT Unavailable [phone] Encounter Details Date Type Department Care Team (Late st Contact Info) Description 01/15/2019 Ancillary Orders [facility],Outside Imaging [address] [place] [address] System, Provider Not In, [facility] [address] [address] Social History Tobacco Use Types Packs/Day Years [...] documented as of this encounter Care Teams Replacer Relationship Specialty Start Date End Date Jack León MD [address] [facility], [address] [place] [address] PCP - General Internal Medicine 12/24/18 Jack León MD [address] [place] [address], [address] [place] [phone] Insurance Assigned Provider 09/22/23 Gladys Lara, OT [address] [place] [id number] Transitions Mold MoverLight Bulb Tester Therapy 09/26/2206/09 documented as of this encounter Additional Source Comments The information contained in this document represents components of the legal health record. It is not the complete legal health record.[facility]
--- OUTSIDE RECORDS SUMMARY | 2025-03-05 13:12 | XMS_ITS | Clinical Summary ---
Author Organization [facility] Address [address] [place] [address] Phone Care Team Providers Care Massage Therapist Name Role Phone Margie León MD Primary Care Provider [phone] Margie León MD Unavailable [phone] Allergies No known active allergies Medications GISELA PULLIAM 100-62.5-25 mcg inhalation powder 2 Active cholecalciferol (VITAMIN D3) 5,000 unit tablet Take 1,000 Units by mouth daily. Active magnesium oxide 250 mg (150 mg elemental) Tab Take 250 mg by mouth daily. Active GEMTESA 75 mg tablet Take 75 mg by mouth daily. 3 Active polyethylene glycol (MIRALAX) 17 gram/dose powder Take 17 g by mouth daily. Active albuterol 90 mcg/actuation inhaler 4 Active diclofenac sodium (VOLTAREN) 1 % GelIndications:Grace dariana osteoarthritis of both hands Apply 4 g topically 4 (four) times a day. 30 g 5 4 Active citalopram (CELEXA) 40 MG tabletIndications: Recurrent major depressive disorder, in full remission TAKE 1 TABLET DAILY 90 tablet 3 5 Active omeprazole (PRILOSEC) 40 MG capsuleIndications :Gastroesophageal reflux disease without esophagitis Take 1 capsule (40 mg total) by mouth daily. 90 capsule 3 5 Active phytonadione, vitamin K1, (MEPHYTON) 5 mg tablet Take 5 mg by mouth once. Active senna-docusate (PERICOLACE) 8.6-50 mg Take 1 tablet by mouth 2 (two) times a day. 60 tablet 5 5 Active rosuvastatin (CRESTOR) 20 MG tabletIndications: Other hyperlipidemia TAKE 1 TABLET DAILY 90 tablet 5 Active Active Problems Problem Noted Date Diagnosed Date Abdominal wall hernia 01/22/2025 Overview (01/22/2025): Mult abd surgeries at [facility], 2 abd wall repairs. 2024: make appt with gen surg at [facility] dt recurrence. Primary osteoarthritis of both hands 06/06/2024 Dupuytren disease 06/06/2024 Pulmonary nodule seen on imaging study 4 Overview (01/17/2024): Summary of Pulmonary Nodule Clinic ([facility]) conference discussion: The patient was discussed in the [facility] multidisciplinary conference on 01/09/24. Specialists in attendance at the conference included: Dr. Lorie Rivera (pulmonology), Dr. Queta Fung (medical oncology), Dr. Rick Preston (interventional pulmonology), Dr. Mamie Wetzel (radiation oncology), Dr. Alfonso Conde (thoracic surgery), and Dr. Janelle Mendez (chest radiology). The relevant imaging was reviewed and the consensus viewpoint was that the villarreal findings are the followin. A 13 x 8 mm part solid pulmonary nodule in the DAISY with pleural/fissural retraction that is not visible on prior imaging. The differential diagnosis includes: post-inflammatory changes vs primary lung malignancy. 2. Multiple pure groundglass nodules (largest 11 x 7 mm in RUL) unchanged compared to CT Shoulder 04/2023. 3. Multiple scattered bilateral solid nodules (largest 6 mm in LLL) unchanged compared to CT Shoulder 04/2023, possibly representing granulomas. Based on chart review and imaging review, the multidisciplinary team recommended the patient have an individual appointment with the following retail sales teammate(s): [facility] EMISSIONS INSPECTOR. The final clinical recommendation may vary after the appointment with above clinician(s), but based on scan review we recommend follow up CT Chest in 3 months for the groundglass nodules and DAISY nodule. The multidisciplinary team anticipates that the patient will subsequently follow-up back in [facility]. Assessment & Plan (11/16/2024 7:11 PM EDT): - The imaging is consistent with the entity known as multifocal lung adenocarcinoma. This is a condition often diagnosed (tentatively) on scan appearance alone. Biopsy is often not pursued, at least initially. Multifocal lung adenocarcinoma does not fit well into the classic TNM staging system for cancers. It is a manifestation of an underlying predisposition to cancer (exact reasons unclear) and patients typically develop multiple adenocarcinoma lesions in both lungs over time, usually with a GGO or mixed GGO/solid morphology. In general this syndrome tends to behave in an indolent manner with many patients being able to be successfully followed with active surveillance over time, even for years, without intervention. When action is required due to developing a solid component or growth that is more fast-paced, a biopsy may be considered and local interventions such as surgery or radiation are often the preferred management strategy. - I have recommended another chest CT in 6 months and I will see her back at that time - All questions were answered and support provided. Assessment & Plan (05/15/2024 8:12 AM EST): - The imaging is consistent with the entity known as multifocal lung adenocarcinoma. This is a condition often diagnosed (tentatively) on scan appearance alone. Biopsy is often not pursued, at least initially. Multifocal lung adenocarcinoma does not fit well into the classic TNM staging system for cancers. It is a manifestation of an underlying predisposition to cancer (exact reasons unclear) and patients typically develop multiple adenocarcinoma lesions in both lungs over time, usually with a GGO or mixed GGO/solid morphology. In general this syndrome tends to behave in an indolent manner with many patients being able to be successfully followed with active surveillance over time, even for years, without intervention. When action is required due to developing a solid component or growth that is more fast-paced, a biopsy may be considered and local interventions such as surgery or radiation are often the preferred management strategy. - I have recommended another chest CT in 6 months and I will see her back at that time - All questions were answered and support provided. Closed fracture of proximal end of right radius with routine healing 12/31/2023 Overview (12/31/2023[place] Status post reverse total shoulder replacement, right 10/11/2023 Depressive disorder 07/20/2023 Assessment & Plan (07/20/2023 9:42 AM EST): Mood stable. Continue on medical management with citalopram 40 mg PO daily perioperatively. Preop examination 07/20/2023 Assessment & Plan (07/20/2023 3:52 PM EST): 82 [address] of Dr[address] León with planned right total shoulder replacement on 10/11/23. Procedure risk is intermediate. Patient denies symptoms associated with acute coronary syndromes including unstable or severe angina, MO within 1 month, severe CHF, high grade arrhythmia or symptomatic valvular disease. Medical risk assessment at the surgical optimization clinic are as follows. VINCENT cardiovascular risk score is 0.2 % risk of myocardial infarction or cardiac arrest, intraoperatively or up to 30 day post-operatively. If <1%, no further cardiac work-up recommended. STOP BANG score shows 2 points indicating a low risk of sleep apnea. DASI score was 18.95 points, able to achieve at least 5.07 METS. If DASI >18, no further cardiac testing recommended. RCRI score was 0.4 % risk for cardiovascular event including myocardial infarction, pulmonary edema, arrhythmia, cardiac arrest or complete heart block. This reflects very low risk on the scale. Patient's risk for major adverse cardiac events is low. This meets ACC/AHA guidelines for proceeding to non-cardiac surgery without additional testing. She is able to do grocery shopping, climbs stairs without any exertional or anginal symptoms. She has undergone numerous surgeries this past year: Right TKA in September 2022, followed by a hernia repair and colostomy reversal both done in Mar 2023. She tolerated all surgical procedures well with no perioperative cardiovascular complications. She was cleared by cardiology prior to her right TKA at low risk for CV complications. She is scheduled with cardiology/ in the next few weeks for preop visit. Blood work from 04/25/23 shows a hemoglobin A1c of 5.3%. CBC shows H/h 12.0/39.2, platelets 433 (baseline) and BMP are unremarkable with a creatinine of 0.70 and eGFR 86. EKG shows normal sinus rhythm. HR 64 bpm, Qtc 420 ms. There is no evidence of acute or prior ischemia. The patient is scheduled for preoperative visits with both cardiology/ and on 08/17/23 with pulmonology/ before she can proceed to the intended procedure. She should have standard DVT and antibiotic prophylaxis. The patient was instructed to discontinue use of any NSAIDs, fish oil, turmeric, herbal supplements and multivitamins for 10 days before surgery as these could increase the risk of bleeding complications.The patient has the following relative contraindications to same day discharge following joint replacement surgery: advanced age, 82 years. COPD on inhalers. Diverticulitis 07/20/2023 Assessment & Plan (07/20/2023 3:18 PM EST): H/o ruptured diverticulum treated with emergent sigmoidectomy w/colostomy creation (Andreas procedure) at [facility] in September 2021. This was reversed in Mar 2023. Pulmonary nodules 04/27/2023 Overview (12/27/2023): Seen on CT scan of the shoulder ordered by orthopedics prior to shoulder replacement. 1 to 6 mm, with some mediastinal scarring. Repeat chest CT December 2023, enlarging partially solid left upper lobe nodule with some local tissue retraction and other enlarging nodules. Planning referral to Dr. Wright and thoracic surgery for possible biopsy, versus reevaluation at pulmonary nodule clinic at [facility]. Assessment & Plan (12/31/2023 11:01 AM EDT): Has appt 01/08 with [facility] pulm nodule clinic Nonrheumatic mitral valve regurgitation 05/18/20 Overview (05/18/2022): Followed by Dr Negrete [facility] Assessment & Plan (07/20/2023 3:38 PM EST): Follows by at [facility]. Echocardiogram in 2019 showed normal LV and normal RV function. Bilateral carotid artery stenosis 05/18/2022 Overview (05/18/2022): Mild, followed by Dr Negrete Assessment & Plan (07/20/2023 3:39 PM EST): Minimal per carotid ultrasound on 07/28/21. Right and left ICA each 0-49% stenosis. Follows with at [facility]. Patient is asymptomatic, has done well with medical therapy on rosuvastatin 20 mg PO daily and baby aspirin daily for life. Instructed to continued both of these medications perioperatively. Chronic constipation 10/01/2020 Overview (01/22/2025): Increase miralax to BID, increase oral fluid intake. Jan 2025: try senokot bid. Make GI appt Assessment & Plan (07/20/2023 3:28 PM EST): Follows with gastroenterology/ for h/o celiac disease, GERD, diverticulitis s/p resection with colostomy takedown in 2022, with recent symptom of fecal incontinence following a hernia repair surgery in 03/2023. Her last colonoscopy was prior to her ostomy reversal in 2022. Her stool was sent for testing: calprotectin was elevated at 232 and elastase (pancreatic) was 166. GI will be trending these labs. She reports doing much better now on metamucil and miralax daily which may be continued perioperatively. Chronic obstructive pulmonary disease 09/08/2019 Overview (07/20/2023): Sees Dr Prabhakar at [facility]. Overall stable, has prn nebulizer, daily inhaled steroids. 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 She is overall stable, 97% on RA. She is doing well on Trelegy Ellipta inhaler. She has not had to use any prednisone or her rescue inhaler. Denies any significant PICKENS. PFTs in August 2021 showed only mild COPD. Patient was cleared prior to her right TKA in September 2022 with note of increased risk for perioperative pulmonary complications, but she was medically optimized with reassuring PFTs and stable clinical status. She is scheduled for preoperative pulmonary visit on 08/17/23. Limited code status, all res uscitation measures excluding chest compressions 05/19/2019 Overview (05/19/2019): CPAP only, no entubation. See 05/19/19 form Short term IVF/dialysis ok. Malignant neoplasm of right female breast 2018 Overview (05/19/2019): Mastectomy 1990 rec yearly mammo, she'd prefer Q2 yrs. Celiac disease 01/13/2019 Overview (01/13/2019): Dx on EGD Assessment & Plan (07/20/2023 3:30 PM EST): Follows with GI. Diagnosed with biopsy on EGD in 2019. Recommend gluten free diet. Gastroesophageal reflux disease without esophagi tis 01/13/2019 Assessment & Plan (07/20/2023 3:29 PM EST): GERD, followed by GI//[facility] [facility], seen on 04/25/23. Continue on medical management with omeprazole 40 mg PO daily perioperatively. Hyperlipidemia 01/13/2019 Overview (07/20/2023): Well controlled. Assessment & Plan (07/20/2023 9:38 AM EST): Well-controlled. Continue on medical management with rosuvastatin 20 mg PO daily perioperatively. Osteopenia of multiple sites 01/13/2019 Functional urinary incontinence 01/13/2019 Overview (01/13/2019): Sees Dr Vergara, has had botox Assessment & Plan (09/13/2023 11:11 AM EDT): Stable on Gemteza with Dr Vergara Assessment & Plan (07/20/2023 3:37 PM EST): Previously followed with in urology. H/o bladder life procedure and Botox injections for urinary incontinence. Has done some self-catheterization. Currently on medical management with Gemtesa 75 mg PO daily which may be continued perioperatively. Resolved Problems Problem Noted Date Diagnosed Date Resolved Date History of gastroesophageal reflux (GERD) 07/20/2023 07/20/2023 Urinary incontinence 07/20/2023 024 Left lower quadrant abdominal pain 07/20/2023 07/20/2023 Status post total right knee replacement 09/25/2022 07/20/2023 Arthritis of knee, right 10/03/2021 Overview (10/03/2021): Sees [facility], had MRI Has had injections and has been offered arthroscopy. Colostomy in place 10/03/2021 Overview (10/03/2021): After emergency sigmoidectomy at [facility], September 2021 for ruptured diverticulum Recurrent major depressive d isorder, in full remission 10/01/2020 07/20/2023 Sacroiliac joint dysfunction 05/19/2019 07/20/2023 Overview (05/19/2019): Mild, rec belt, APAP, modify lifting etc. Refer to Dr Bridges if needed. Encounters Date Type Department Care Team Description 01/26/2025 Refill [facility] [address] [place] [address] Margie León MD Medication Refill 01/23/2025 Telephone [facility] [address] [place] [address] Margie León MD Referral (Pt is requesting a referral to @ [facility]) 01/22/2025 9:15 AM EDT Office Visit [facility] [address] [place] [address] Margie León MD Abdominal wall hernia (Primary Dx); Chronic constipation 01/19/2025 Refill [facility] [address] [place] [address] Margie León MD Medication Refill 01/05/2025 Refill [facility] [address] [place] [address] Susi Swann MA Medication Refill 12/10/2024 10:11 AM EDT - 12/10/2024 11:59 PM EDT Hospital Encounter [facility] [address] [place] [address] Margie León MD Discharge Disposition: Home or Self Care from Last 3 Months Immunizations Immunization Administration Dates Next Due COVID-19 (Pre-04/09) Pfizer Vaccine, mRNA, PF 07/30/2020,07/09/2020 COVID-19 Pfizer Comirnaty Vaccine 12+ 04/27/2023 Influenza High-Dose Quadriva lent Preservative Free IM 05/26/2023,03/31/2022 Influenza High-Dose Trivalen t Preservative Free IM 07/29/2024,04/12/2019,04/19/2018,05/11,04/10/2016,04/19/2015 Influenza, Unspecified Formulation 04/01/2020 Pneumococcal conjugate PCV13 05/19/2019 Pneumococcal conjugate PCV20 05/26/2023 Pneumococcal polysaccharide PPSV23 12/20/2012 RSV Vaccine (bivalent) 07/20/2023 Td (adult) 5 Lf Tetanus Toxo id, PF, Adsorbed 04/10/2016,03/23/2015 Td (adult),2 Lf Tetanus Toxo id, PF, Adsorbed 04/10/2018 Zoster live 05/18/2014 Family History Medical History Relation Comments Porphyria Brother 2 No Known Problems Brother 3 No Known Problems Daughter Diabetes Father Throat cancer Father Colon cancer Maternal Aunt Leukemia Mother No Known Problems Sister No Known Problems Son Breast cancer Neg Hx Relation Status Comments Brother 1 drug overdose Brother 2 Brother 3 Alive Daughter Alive Father Maternal Aunt Mother Sister Alive Son Alive Social History Tobacco Use Types Packs/Day Years Used Date Smoking Tobacco: Former Cigarettes 3 35 1 4 - 1988 Smokeless Tobacco: Never Alcohol Use Standard Drinks/Week [...] Orientation Straight 07/28/2021 7: 08 PM EST Last Filed Vital Signs Vital Sign [place] Time Taken Comments Blood Pressure 102/64 01/22/2025 9:06 AM EDT Pulse 75 01/22/2025 9:06 AM EDT Temperature 36.2 C (97.2 F) 01/22/2025 9:06 AM EDT Respiratory Rate 18 10/12/2023 8:01 AM EDT Oxygen Saturation 97% 01/22/2025 9:06 AM EDT Inhaled Oxygen Concentration - - Weight 72.6 kg (160 lb) 01/22/2025 9:06 AM EDT Height 162.6 cm (5' 4.02 ) 01/22/2025 9:06 AM ED T Body Mass Index 27.45 01/22/2025 9:06 AM EDT Plan of Treatment Health Maintenance Due Date Last Done Comments ZOSTER VACCINES (1 of 2) 07/13/2014 05/18/2014 DEPRESSION SCREENING 10/01/2021 10/01/2020 INFLUENZA VACCINE (#1) 2025 , 05/26/2023, 03/31/2022, Additional history exists COVID-19 VACCINE ( season) 2025 04/27/2023, 05/06/2022, 05/26/2021, Additional history exists Adult Td,Tdap Booster 04/10/2028 04/10/2018 , 04/10/2016, 03/23/2015 PNEUMOCOCCAL VACCINES (50+ years) Completed 05/26/2023, 05/19/2019, 12/20/2012 RSV VACCINE Completed 07/20/2023 OSTEOPOROSIS SCREENING INITIAL (ONE-TIME) Completed 12/10/2024, 09/01/2021 HEPATITIS A VACCINES Aged Out No long er eligible based on patient's age to complete this topic HIB VACCINES Aged Out No longer eligi ble based on patient's age to complete this topic MENINGOCOCCAL VACCINES (ACWY) Aged Out No longer eligible based on patient's age to complete this topic MENINGOCOCCAL VACCINES (B) Aged Out N o longer eligible based on patient's age to complete this topic Medical Devices Implanted Type Area Dental Claims Processor Device Identifier Shelf Expiration Date Model / Serial / Lot Lens Lens Bilateral: Eye Cement Bone 1x40 Standard - [id number] Implanted:Qty : 1 on 09/25/2022 by Jone Levy MD at [facility] Right: Knee [employer] 12/15/2024 [id number] / / [id number] Box Component 67.5mm Femoral Knee Vanguard [place] Posterior Stabilized Open Cemented Right - [id number] Implanted:Qty : 1 on 09/25/2022 by Jone Levy MD at [facility] Right: Knee [employer] 07/26/2032 [id number] / / [id number] Knee Tray 71mm Plate Bone Primary Vanguard [place] I Beam Revision Interlock Cemented - [id number] Implanted:Qty : 1 on 09/25/2022 by Jone Levy MD at [facility] Right: Knee [employer] 07/22/2032 [id number] / / [id number] Knee Implant Component 31x8mm Prosthesis Patellar Vanguard Series A Asymmetric 3 Peg - [id number] Implanted:Qty : 1 on 09/25/2022 by Jone Levy MD at [facility] Right: Knee [employer] 04/12/2027 [id number] / / [id number] Knee Insert 71 [id number] Bearing Vanguard Stabilized - [id number] Implanted:Qty : 1 on 09/25/2022 by Jone Levy MD at [facility] Right: Knee [employer] 05/01/2027 [id number] / / [id number] Humerus Stem Size 5 Humeral Shoulder Aequalis Pure Titanium Coat Ascend Flexible Standard Anatomic B - [id number] Implanted:Qty : 1 on 10/11/2023 by Keo Shane DO at [facility] Right: Shoulder [employer] 01/05/2028 [id number] / [id number] / Description:REF:DOI521E Cement Bone 1x40 Standard - [id number] Implanted:Qty : 1 on 10/11/2023 by Keo Shane DO at [facility] Right: Shoulder [employer] [id number] 04/17/2025 [id number] / / [id number] Tornier Perform Anatomic Glenoid Cortiloc Pegged Glenoid Uhmwpe + Cocr Model :S40 Type:Anatomic Implanted:Qty : 1 on 10/11/2023 by Keo Shane DO at [facility] Right: Shoulder [employer] 05/02/2027 / [id number] / Description:REF: [id number] Shoulder Head [id number] Short Humeral Aequalis Ascend Tubular Bone Offset Low - [id number] Implanted:Qty : 1 on 10/11/2023 by Keo Shane DO at [facility] Right: Shoulder [employer] [id number] 09/15/2025 [id number] / [id number] / Procedures Procedure Name Priority Date/Time Associated Diagnosis Comments BD DXA AXIAL (SPINE) WITH HIP Routine 12/10/2024 10:33 AM EDT Osteopenia of multiple sites from Last 3 Months Results * BD DXA AXIAL (SPINE) WITH HIP (12/10/2024 10:33 AM EDT) Anatomical Region Laterality Modality Bone Density Bone Density 12/10/2024 10:2 2 AM EDT Impressions 12/11/2024 10:46 AM EDT Interpretation: Osteopenia. Narrative 12/11/2024 10:46 AM EDT Referred By: MARGIE LEÓN Indications: Osteopenia Scanner: Kulara Water A with serial# of [id number] located at [place] [facility] Bone Density Scan (DXA) 12/10/24 Details of prior DXA scans are available by clicking View Full Report BMD T- Z- Skeletal Site gm/cm2 score score BMD Change Since Prior Scan ------ ----- ----- PA Spine (L1-L4) 1.103 0.50 3.30 0.010 (stable) since 09/01/2021 Total Hip (Left) 0.874 -0.60 1.70 -0.066 (-7.0%)* since 09/01/2021 Femoral Neck (Left) 0.655 -1.80 0.70 -0.049 (-7.0%)* since 09/01/2021 ------ ----- ----- * Denotes significant change when >= 0.022 g/cm2 for the spine, 0.027 g/cm2 for the total hip, 0.029 g/cm2 for the femoral neck. Interpretation: Osteopenia. Technical Quality: Imaging of all sites was of adequate quality. FRAX: Based on FRAX(r) 3.6 ([place] White female), this patient's likelihood of hip fracture is 4% and major osteoporotic fracture is 14.3% over the next 10 years. The patient reported no risks of fracture. Reviewed By: Karol Escamilla MD on 12/11/2024 10:46:07 Additional Information: -World Health Organization criteria classify adults based on lowest T-score at PA spine, hip or forearm: Normal (T-score >= -1.0), Osteopenia (T-score between -1 and -2.5), or Osteoporosis (T-score <= -2.5). At [facility], T-scores are compared to peak bone density of a young white gender matched reference population. - For premenopausal women and men under the age of 50, Z-scores (comparison to age, gender, and ethnicity matched reference population) are used: Above expected range for age (Z-score >= 2.0), Within expected range of age (Z-score 1.9 to -1.9), or Below expected range for age (Z-score <= -2.0). - The Bone Health and Osteoporosis Foundation recommends that treatment be considered in men aged more than 50 years and in postmenopausal women with ANY of the following: Prior hip or vertebral fractures; T-score of <= -2.5 at the PA spine or hip; or 10 year fracture probability by FRAX of >= 3% for the hip or >= 20% for major osteoporotic fracture. - The FRAX algorithm (https://www.blu.ac.uk/FRAX/tool.aspx) is designed to predict 10-year fracture risk in treatment-naive adults between the ages of 40 and 90. It is not intended to be used in those receiving pharmacologic osteoporosis treatment. - The TBS is derived from the texture of the DXA spine image and has been shown to be related to bone microarchitecture and fracture risk. This data provides information independent of BMD value. It adds to fracture risk assessment with a FRAX adjusted for TBS score. If your patient had a TBS and qualified for a FRAX score, the reported FRAX score has been adjusted for TBS. TBS Score Interpretation 1.350 and greater Normal bone microarchitecture 1.200 to 1.350 Partially degraded bone microarchitecture 1.200 and less Degraded bone microarchitecture - Including race/ethnicity in the generation of T- or Z-scores or in the FRAX calculation is complicated, and currently undergoing active review to ensure that we can give patients the best information on their risk of fracture. - Some prior studies may not be compatible with our comparison software. - Click on View Full Report to see subsequent pages with images and prior bone density results. Procedure Note Karol Escamilla MD - 12/11/2024 Referred By: MARGIE LEÓN Indications: Osteopenia Scanner: Kulara Water A with serial# of [id number] located at [facility] Bone Density Scan (DXA) 12/10/24 Details of prior DXA scans are available by clicking View Full Report BMD T- Z- Skeletal Site gm/cm2 score score BMD Change Since Prior Scan ------ ----- PA Spine (L1-L4) 1.103 0.50 3.30 0.010 (stable) since09/01/2021 Total Hip (Left) 0.874 -0.60 1.70 -0.066 (-7.0%)* since09/01/2021 Femoral Neck (Left) 0.655 -1.80 0.70 -0.049 (-7.0%)* since09/01/2021 ------ ----- * Denotes significant change when >= 0.022 g/cm2 for the spine, 0.027g/cm2 for the total hip, 0.029 g/cm2 for the femoral neck. Interpretation: Osteopenia. Technical Quality: Imaging of all sites was of adequate quality. FRAX: Based on FRAX(r) 3.6 ([place] White female), this patient's likelihoodof hip fracture is 4% and major osteoporotic fracture is 14.3% over the next10 years. The patient reported no risks of fracture. Reviewed By: Karol Escamilla MD on 12/11/2024 10:46:07 Additional Information: -World Health Organization criteria classify adults based on lowestT-score at PA spine, hip or forearm: Normal (T-score >= -1.0), Osteopenia (T-score between -1 and -2.5), or Osteoporosis (T-score <= -2.5). At [facility], T-scores are compared to peak bone density of a young white gender matched reference population. - For premenopausal women and men under the age of 50, Z-scores(comparison to age, gender, and ethnicity matched reference population) are used:Above expected range for age (Z-score >= 2.0), Within expected range of age (Z-score 1.9 to -1.9), or Below expected range for age (Z-score <= -2.0). - The Bone Health and Osteoporosis Foundation recommends that treatment be considered in men aged more than 50 years and in postmenopausal women with ANY of the following: Prior hip or vertebral fractures; T-score of <= -2.5 at the PA spine or hip; or 10 year fracture probability by FRAX of >= 3%for the hip or >= 20% for major osteoporotic fracture. - The FRAX algorithm (https://www.blu.ac.uk/FRAX/tool.aspx) is designed to predict 10-year fracture risk in treatment-naive adultsbetween the ages of 40 and 90. It is not intended to be used in those receiving pharmacologic osteoporosis treatment. - The TBS is derived from the texture of the DXA spine image and has been shown to be related to bone microarchitecture and fracture risk. This data provides information independent of BMD value. It adds to fracture risk assessment with a FRAX adjusted for TBS score. If your patient had a TBSand qualified for a FRAX score, the reported FRAX score has been adjusted for TBS. TBS Score Interpretation 1.350 and greater Normal bone microarchitecture 1.200 to 1.350 Partially degraded bone microarchitecture 1.200 and less Degraded bone microarchitecture - Including race/ethnicity in the generation of T- or Z-scores or in the FRAX calculation is complicated, and currently undergoing active review to ensure that we can give patients the best information on their risk of fracture. - Some prior studies may not be compatible with our comparison software. - Click on View Full Report to see subsequent pages with images andprior bone density results. IMPRESSION: Interpretation: Osteopenia. Margie León MD IMG BD BONE DENSITY DEXA Final Result from Last 3 Months Insurance MEDICARE PART A & B Member Subscriber Plan / Payer (Ef fective 2005-Present) Name:Camille Hernandez Member ID:[id number] Relation to Subscriber:Self Name:Camille Hernandez Subscriber ID:[id number] Payer ID:[id number] Group ID:Not on file Type:Medicare Address: [facility] Software [employer] [facility]. [address] [facility] [address] [facility] [facility] [place] Address: [address] [address] MEDICARE PART A & B [facility] [place] Address: [address] [address] MEDICARE PART A & B FOR LIFE MEDICARE SUPPLEMENT MEDICARE PART A & B [facility] FOR LIFE MEDICARE SUPPLEMENT MEDICARE PART A & B [facility] FOR [facility] [facility] [place] [address] MEDICARE PART A & B [facility] [place] [facility] [place] Address: [place] [phone] MEDICARE PART A & B [facility] [facility] [place] Address: [address] [address] MEDICARE PART A & B FOR LIFE MEDICARE SUPPLEMENT MEDICARE PART A & B Member Subscriber Plan / Payer (Ef fective 2005-Present) Name:Camille Hernandez Member ID:[id number] Relation to Subscriber:Self Name:Camille Hernandez Subscriber ID:[id number] Payer ID:[id number] Group ID:Not on file Type:Medicare Address: [employer] [facility] Communication [facility] [address] [place] [address] [facility] MEDICARE SUPPLEMENT Advance Directives For more information, please contact: [phone] (9AM - 5PM [facility], Sunday-Sunday) Documents on File Type Date Recorded Patient Scheduler Maintenance Expl anation Healthcare Proxy 10/15/2023 5:09 PM MOLST 05/22/2019 MOLST 05/19/19 * Full Code (Latest Code Status on File) Date Activated Date Inactivated Comments 09/25/2022 12:09 PM Question Answer Comments Code Status Confirmed With: Patient Care Teams Massage Therapist Relationship Specialty Start Date End Date Margie León MD [address] [place] [address], [address] [place] [address] PCP - General Internal Medicine 12/24/18 Margie León MD [address] [place] [address], [address] [place] [address] [email or web address] Insurance Assigned Provider 09/22/23 Additional Source Comments The information contained in this document represents components of the legal health record. It is not the complete legal health record.[facility]
--- OUTSIDE RECORDS SUMMARY | 2025-03-05 13:12 | XMS_ITS | Encounter Summary ---
Author Organization [facility] Address [address] [place] [address] Phone Care Team Providers Care Defense Analyst Name Role Phone Jack León MD Primary Care Provider [phone] Jack León MD Unavailable [phone] Encounter Details Date Type Department Care Team (Late st Contact Info) Description 10/27/2022 Ancillary Orders [address] [id number] Candy Shirley MD [address] [place] [address] Orthopedics & Sports Medicine, [place], [place] [id number] [email or web address] Right shoulder pain, unspecified chronicity [...] Imaging Routine Right shoulder pain, unspecified chronicity 10/31/2022 9:15 AM EDT Scheduled Orders Name Type Priority Associated Diagnoses Orde r Schedule FL Guidance Needle Placement Non-Spine Imaging Routine Right shoulder pain, unspecified chronicity 1 Occurrences starting 10/27/2022 until 01/27/2023 documented as of this encounter Visit Diagnoses Diagnosis Right shoulder pain, unspecified chronicity documented in this encounter Additional Health Concerns Assessment Noted Time PHQ-2 Depression Total Score: 1 10/02/19 21 10:08 AM EDT documented as of this encounter Care Teams Defense Analyst Relationship Specialty Start Date End Date Jack León MD [address] [facility], [address] [address] PCP - General Internal Medicine 12/24/18 Jack León MD [address] [place] [address], [address] [place] [address] [email or web address] Insurance Assigned Provider 09/22/23 documented as of this encounter Additional Source Comments The information contained in this document represents components of the legal health record. It is not the complete legal health record.[facility]
--- OUTSIDE RECORDS SUMMARY | 2025-03-05 13:13 | XMS_ITS | Encounter Summary ---
Author Organization [employer] [facility] Address [address] [place] [address] Phone Care Team Providers Care Resistor Tester Name Role Phone Jack León MD Primary Care Provider [phone] Jack León MD Unavailable [phone] Encounter Details Date Type Department Care Team (Latest Contact Info) Description 04/25/2023 Transcribe Orders [facility] Laboratory [address] [address] Georgie Cunningham PA-C [address], [address] [place] [address] [email or web address] Celiac disease (Primary Dx); Change in bowel habits Social History Tobacco Use Types Packs/Day Years [...] documented as of this encounter Results * (ABNORMAL) Pancreatic Elastase, Stool (04/26/2023 9:57 AM EST) Pancreatic Elastase, Feces 166(L) >200 (Normal) mcg/g [facility] Comment: (NOTE) Interpretation: Borderline (100-200 mcg/g); Consistent with slight to moderate pancreatic insufficiency Stool (Stool) 04/26/2023 9:5 7 AM EST 04/26/2023 10:00 AM EST us Georgie Cunningham PA-C BODY FLUIDS AND STOOLS ORDERABL ES Final Result Performing Organization Address [facility]/ZIP Co de Phone Number [facility] LAB MED/[address] [place] [address] * Stool fat/fiber exam (04/26/2023 9:57 AM EST) FATTY ACID NORMAL NORMAL [facility] Neutral Fat, stool NORMAL NORMAL [facility] Stool (Stool) 04/26/2023 9:5 7 AM EST 04/26/2023 10:01 AM EST us Georgie Cunningham PA-C BODY FLUIDS AND STOOLS ORDERABL ES Final Result Performing Organization Address City/[facility]/ZIP Co de Phone Number [facility] [address] [place] [address] * (ABNORMAL) Calprotectin, stool (04/26/2023 9:57 AM EST) STOOL CALPROTECTIN 232(H) mcg/g [facility]/Vanessa [facility] Comment: (NOTE) Reference Range: <50 Normal 50-120 Borderline >120 Elevated Calprotectin in Crohn's disease and ulcerative colitis can be five to several thousand times above the reference population (50 mcg/g or less). Levels are usually 50 mcg/g or less in healthy patients and with irritable bowel syndrome. Repeat testing in 4-6 weeks is suggested for borderline values. Stool (Stool) 04/26/2023 9:5 7 AM EST 04/26/2023 10:01 AM EST Georgie Cunningham PA-C BODY FLUIDS AND STOOLS ORDERABL ES Final Result Performing Organization Address City/[facility]/ZIP Co de Phone Number [employer] [address] [place] [address], [facility] [phone] * C. DIFFICILE PCR (04/26/2023 9:57 AM EST) Pathologist [facility] C.DIFFICILE PCR Negative Negative [facility] C.DIFFICILE STRAIN PRESUMPTIVE NEGATIVE PRESUMPTIVE NEGATIVE [facility] Comment:Detection of 027/NAP 1/BI strains of C.difficile is presumptive and is solely for epidemiological purposes and is not intended to guide or monitor treatment of infections. Stool (Stool) 04/26/2023 9:5 7 AM EST 04/26/2023 10:01 AM EST Georgie Cunningham PA-C MICROBIOLOGY - GENERAL ORDERABL ES Final Result [facility] [address] [place] [address] * 25-OH vitamin D (04/25/2023 11:00 AM EST) 25 OH VIT D (TOTAL) 41 30 - 60 ng/mL [facility] Blood 04/25/2023 11:0 0 AM EST 04/25/2023 11:12 AM EST us Georgie Cunningham PA-C LAB BLOOD ORDERABLES Final Resu lt Performing Organization Address City/[facility]/ZIP Co de Phone Number [address] [address] * Vitamin B12 (04/25/2023 11:00 AM EST) VITAMIN B12 311 232 - 1,245 pg/mL [facility] Blood 04/25/2023 11:0 0 AM EST 04/25/2023 11:12 AM EST us Georgie Cunningham PA-C LAB BLOOD ORDERABLES Final Resu lt Performing Organization Address [facility]/ZIP Co de Phone Number [address] [address] * Folate (04/25/2023 11:00 AM EST) FOLIC ACID 17.4 4.2 - 19.9 ng/mL [facility] Blood 04/25/2023 11:0 0 AM EST 04/25/2023 11:12 AM EST us Georgie Cunningham PA-C LAB BLOOD ORDERABLES Final Resu lt Performing Organization Address City/[facility]/ZIP Co de Phone Number [address] [address] * Ferritin (04/25/2023 11:00 AM EST) FERRITIN 56 13 - 150 ug/L [facility] Blood 04/25/2023 11:0 0 AM EST 04/25/2023 11:12 AM EST us Georgie Cunningham PA-C LAB BLOOD ORDERABLES Final Resu lt [address] [address] * TSH (04/25/2023 11:00 AM EST) TSH 0.98 0.27 - 4.20 uIU/mL [facility] Blood 04/25/2023 11:0 0 AM EST 04/25/2023 11:12 AM EST us Georgie Cunningham PA-C LAB BLOOD ORDERABLES Final Resu lt [address] [address] * Iron and iron binding capacity (04/25/2023 11:00 AM EST) IRON 66 30 - 160 ug/dL [facility] IRON BINDING CAPACITY 305 228 - 428 ug/dL [facility] TRANSFERRIN SATURAT. 22 15 - 50 % [facility] Blood 04/25/2023 11:0 0 AM EST 04/25/2023 11:12 AM EST us Georgie Cunningham PA-C LAB BLOOD ORDERABLES Final Resu lt Performing Organization Address City/[facility]/ZIP Co de Phone Number [address] [address] * Lipase (04/25/2023 11:00 AM EST) LIPASE 29 16 - 63 U/L [facility] Blood 04/25/2023 11:0 0 AM EST 04/25/2023 11:12 AM EST us Georgie Cunningham PA-C LAB BLOOD ORDERABLES Final Resu lt [address] [address] * C-Reactive Protein (04/25/2023 11:00 AM EST) C REACTIVE PROTEIN 3.1 0.0 - 4.0 mg/L [facility] Blood 04/25/2023 11:0 0 AM EST 04/25/2023 11:12 AM EST us Georgie Cunningham PA-C LAB BLOOD ORDERABLES Final Resu lt Performing Organization Address City/[facility]/ZIP Co de Phone Number [address] [address] * Comprehensive metabolic panel (04/25/2023 11:00 AM EST) Pathologist [facility] SODIUM 141 133 - 146 mmol/L [facility] POTASSIUM 4.9 3.3 - 5.1 mmol/L [facility] CHLORIDE 104 96 - 108 mmol/L [facility] CO2 24 21 - 35 mmol/L [facility] BUN 13 6 - 19 mg/dL [facility] CREATININE 0.70 0.5 - 1.5 mg/dL [facility] GLUCOSE 82 70 - 99 mg/dL [facility] ALBUMIN 4.3 3.9 - 4.8 g/dL [facility] TOTAL PROTEIN 7.0 6.5 - 8.0 g/dL [facility] CALCIUM 10.1 8.4 - 10.3 mg/dL [facility] ALKALINE PHOSPHATASE 111 39 - 117 U/L [facility] TOTAL BILIRUBIN 0.3 0.0 - 1.2 mg/dL [facility] AST 19 0 - 37 U/L [facility] ALT <5 0 - 40 U/L [facility] GLOBULIN 2.7 1 - 4.8 g/dL [facility] EGFR 86 >59 mL/min/1.7 3m2 [facility] Comment:Estimated glomerular filtration rate calculated using the CKD-EPI refit equation. ANION GAP 18 10 - 20 mmol/L [facility] Blood 04/25/2023 11:0 0 AM EST 04/25/2023 11:12 AM EST Georgie Cunningham PA-C LAB BLOOD ORDERABLES Final Resu lt Performing Organization Address City/[facility]/ZIP Co de Phone Number [address] [place] [address] * (ABNORMAL) CBC (04/25/2023 11:00 AM EST) Pathologist [facility] WBC 6.99 4.00 - 11.00 K/uL [facility] RBC 4.05 3.72 - 5.30 M/uL [facility] HGB 12.0 11.4 - 15.9 g/dL [facility] HCT 39.2 34.2 - 46.8 % [facility] PLT 433(H) 140 - 430 K/uL [facility] MCV 96.8 78.0 - 97.0 fL [facility] MCH 29.6 25.0 - 33.0 pg [facility] MCHC 30.6(L) 32.0 - 36.0 g/dL [facility] RDW 14.8 11.0 - 16.0 % [facility] MPV 10.4 8.4 - 12.8 fl [facility] Blood 04/25/2023 11:0 0 AM EST 04/25/2023 11:12 AM EST us Goergie Cunningham PA-C LAB BLOOD ORDERABLES Final Resu lt [address] [address] * Immunoglobulin A (04/25/2023 11:00 AM EST) [facility] IgA 115 70 - 400 mg/dL [facility] Blood 04/25/2023 11:0 0 AM EST 04/25/2023 11:12 AM EST us Georgie Cunningham PA-C LAB BLOOD ORDERABLES Final Resu lt [address] [address] * Tissue transglutaminase IgA (04/25/2023 11:00 AM EST) Pathologist [facility] TTG IGA ANTIBODY <1.2 <4.0 (Negative) U/mL [facility] Blood 04/25/2023 11:0 0 AM EST 04/25/2023 11:14 AM EST us Georgie Cunningham PA-C LAB BLOOD ORDERABLES Final Resu lt [facility] [address] [place] [address] documented in this encounter Visit Diagnoses Diagnosis Celiac disease- Primary Change in bowel habits Other symptoms involving digestive system documented in this encounter Additional Health Concerns Assessment Noted Time PHQ-2 Depression Total Score: 1 10/02/19 21 10:08 AM EDT documented as of this encounter Care Teams Resistor Tester Relationship Specialty Start Date End Date Jack León MD [address] [place] [address], [address] [address] PCP - General Internal Medicine 12/24/18 Jack León MD [address] [place] [address], [address] [place] [address] Insurance Assigned Provider 09/22/23 documented as of this encounter Additional Source Comments The information contained in this document represents components of the legal health record. It is not the complete legal health record.[facility]
--- OUTSIDE RECORDS SUMMARY | 2025-03-05 13:13 | XMS_ITS | Encounter Summary ---
Author Organization [email or web address] [facility] Address [address] [place] [address] Phone Care Team Providers Care Bar Hostess Name Role Phone Jack León MD Primary Care Provider [phone] Jack León MD Unavailable [phone] Encounter Details Date Type Department Care Team (Late st Contact Info) Description 04/04/2023 Procedure Pass [facility], Ct Scan - [address] [address] Social History Tobacco Use Types Packs/Day Years [...] documented as of this encounter Care Teams Bar Hostess Relationship Specialty Start Date End Date Jack León MD [address] [place] [address] PCP - General Internal Medicine 12/24/18 Jack León MD [address] [place] [address], [address] [address] Insurance Assigned Provider 09/22/23 documented as of this encounter Additional Source Comments The information contained in this document represents components of the legal health record. It is not the complete legal health record.[facility]
--- OUTSIDE RECORDS SUMMARY | 2025-03-05 13:13 | XMS_ITS | Encounter Summary ---
Author Organization [facility] Address [address] [place] [address] Phone Care Team Providers Care Plating Engineer Name Role Phone Jack León MD Primary Care Provider Jack León MD Unavailable [phone] Encounter Details Date Type Department Care Team (Late st Contact Info) Description 05/15/2024 Procedure Pass [facility], Ct Scan - [address] [address] Social History Tobacco Use Types Packs/Day Years [...] documented as of this encounter Care Teams Plating Engineer Relationship Specialty Start Date End Date Jack León MD [address] [place] [address], [address] [address] PCP - General Internal Medicine 12/24/18 Jack León MD [address] [place] [address], [address] [address] Insurance Assigned Provider 09/22/23 documented as of this encounter Additional Source Comments The information contained in this document represents components of the legal health record. It is not the complete legal health record.[facility]
--- OUTSIDE RECORDS SUMMARY | 2025-03-05 13:13 | XMS_ITS | Encounter Summary ---
Author Organization [facility] Address [address] [facility] [address] [place] [address] Phone Care Team Providers Care Cheese Factory Worker Name Role Phone Jack León MD Primary Care Provider [phone] Jack León MD Unavailable [phone] Gladys Lara OT Unavailable [phone] Encounter Details Date Type Department Care Team (Latest Contact Info) Description 04/24/2022 Ancillary Orders [facility] Medical [facility] Medicine [address] [place] [address] Jack León MD [address] [facility], [address] [place] [address] [email or web address] Medicare annual wellness visit, subsequent Social History Tobacco Use Types Packs/Day Years Used Date Smoking Tobacco: Former Cigarettes 3 35 0 [birth year]/1949 - 06/18/1984 Smokeless Tobacco: Never Alcohol Use Standard Drinks/Week Comments Yes 0 (1 standard drink = 0.6 oz pur e alcohol) Occasional Comments No Sex and Gender Information Value Date Recorded Sex Assigned at Female 07/28/2021 7:08 PM EST Legal Sex Female 6:53 PM EST Gender Identity Female 07/28/2021 7:08 PM EST Sexual Orientation Straight 07/28/2021 7: 08 PM EST documented as of this encounter Plan of Treatment Not on file documented as of this encounter Results * (ABNORMAL) BI MAMMOGRAM SCREENING WITH TOMOSYNTHESIS WITH CAD (LEFT) (04/24/2022 3:07 PM EST) Anatomical Region Laterality Modality Breast Left, Breast Bilateral Left Ma mmography 04/27/2022 8:00 AM EST Impressions 04/27/2022 8:14 AM EST Recommend additional imaging for questionable new 4 mm mass in the central left breast. This could prove to represent superimposed fibroglandular tissue. No other findings suspicious for malignancy. The radiology department will attempt to recall the patient for the additional imaging BI-RADS CATEGORY: 0 - Incomplete. Need additional imaging evaluation. DENSITY: There are scattered fibroglandular densities. LEFT RECOMMENDATION DUE DATE: 1 Month Left Mammography Screening Recall imaging: Spot compression CC, 90 degrees ML views left breast, block off left breast ultrasound in case necessary. Narrative 04/27/2022 8:14 AM EST Left unilateral screening mammography is performed in conjunction with computed aided detection. 3-D tomography along with 2-D C view imaging was also performed. Comparison made to previous dated as far back as 08/02/2010 and as recent as 01/27/2019. The patient is status-post mastectomy for breast malignancy in 2019. Questionable 4 mm mass in the central left breast on the cc view approximately 5 cm deep to the nipple. No definite correlate on the MLO view. Subcentimeter well-circumscribed mass in the more posterior outer left breast is stable and may be an intramammary lymph node. No other suspicious masses, areas of architectural distortion or suspicious microcalcifications. Progression of vascular calcifications since 2019. us Jack León MD IMG MG EXAMS Final Result documented in this encounter Visit Diagnoses Diagnosis Medicare annual wellness visit, subsequent Medicare annual wellness visit, subsequent documented in this encounter Additional Health Concerns Assessment Noted Time PHQ-2 Depression Total Score: 1 10/02/19 21 10:08 AM EDT documented as of this encounter Care Teams Cheese Factory Worker Relationship Specialty Start Date End Date Jack León MD [address] [facility], [address] [place] [address] [email or web address] PCP - General Internal Medicine 12/24/18 Jack León MD [address] [facility] [place] [address] [email or web address] Insurance Assigned Provider 09/22/23 Gladys Lara, OT [address] [place] [address] [email or web address] Transitions Dynamometer RepairerJd Edwards Developer Therapy 09/26/2206/09 documented as of this encounter Additional Source Comments The information contained in this document represents components of the legal health record. It is not the complete legal health record.[facility]
--- OUTSIDE RECORDS SUMMARY | 2025-03-05 13:13 | XMS_ITS | Encounter Summary ---
Author Organization [employer] (ac[employer] Address [address] [place] [address] Phone Care Team Providers Care Unit Aide Tech Name Role Phone Jack León MD Primary Care Provider [phone] Jack León MD Unavailable [phone] Gladys Lara OT Unavailable [phone] Encounter Details Date Type Department Care Team (Late st Contact Info) Description 05/01/2022 Procedure Pass [address] [address] Social History Tobacco Use Types Packs/Day Years [...] Time PHQ-2 Depression Total Score: 1 10/02/19 10:08 AM EDT documented as of this encounter Care Teams Unit Aide Tech Relationship Specialty Start Date End Date Jack León MD [address] [place] [address], [address] [place] [address] [email or web address] PCP - General Internal Medicine 12/24/18 Jack León MD [address] [place] [address], [address] [place] [address] [email or web address] Insurance Assigned Provider 09/22/23 Gladys Lara, OT [address] [place] [phone] [email or web address] Transitions Manager Home ImprovementField Crop Farm Worker Therapy 09/26/2206/09 documented as of this encounter Additional Source Comments The information contained in this document represents components of the legal health record. It is not the complete legal health record.[facility]
--- OUTSIDE RECORDS SUMMARY | 2025-03-05 13:13 | XMS_ITS | Encounter Summary ---
Author Organization [employer] Formerly [facility], [facility] Address [address] [place] [address] Phone Care Team Providers Care Vision Mixer Name Role Phone Jack León MD Primary Care Provider [phone] Jack León MD Unavailable [phone] Gladys Lara OT Unavailable [phone] Encounter Details Date Type Department Care Team (Late st Contact Info) Description 10/01/2020 Procedure Pass [facility], [address] [address] Social History Tobacco Use Types Packs/Day Years [...] documented as of this encounter Care Teams Vision Mixer Relationship Specialty Start Date End Date Jack León MD [address] [place] [address], [address] [place] [address] [email or web address] PCP - General Internal Medicine 12/24/18 Jack León MD [address] [place] [address], [address] [place] [address] [email or web address] Insurance Assigned Provider 09/22/23 Gladys Lara, OT [address] [place] [phone] [email or web address] Transitions Blocker And Cutter Contact LensFlight Line Mechanic Therapy 09/26/2206/09 documented as of this encounter Additional Source Comments The information contained in this document represents components of the legal health record. It is not the complete legal health record.[facility]
== END 2025-03-05 11:25 | disposition home or self-care (01) ==
LOC: HO.HGS 11:04
PROVIDERS: PCP Internal Medicine; Visit Provider Surgery
DX: K43.2 Incisional hernia without obstruction or gangrene (principal)
CPT/HCPCS: 99213

== ENCOUNTER → 2025-03-05 11:03 | Outpatient (BNVA) | payer MEDICARE, OTHER, SELFPAY | PROVIDERS: PCP Internal Medicine; Visit Provider Surgery | DX: K43.2 Incisional hernia without obstruction or gangrene (principal) | CPT/HCPCS: 99212 ==

== ENCOUNTER 2025-03-13 12:54 | Outpatient (REF) | payer MEDICARE, OTHER, SELFPAY ==
--- OUTSIDE RECORDS SUMMARY | 2010-08-02 01:00 | XMS_ITS | Encounter Summary ---
Author Organization [employer] [facility] Address [address] [place] [phone] Phone Care Team Providers Care Linux Architect Name Role Phone Unavailable Primary Care Provider Unavailabl e Encounter Details Date Type Department Care Team (Late st Contact Info) Description 08/02/2010 Hospital Encounter [facility],Outside Imaging [address] [place] [address] System, Provider Not In, PhD [address] [address] Social History Tobacco Use Types Packs/Day Years [...] 12:00 PM EDT Julia Eugene RN * [place] Suicide Severity Rating Scale (Screener/Recent Self-Report) Question [...] Care Team (Late st Contact Info) Description 04/22/2025 10:00 AM EST Office Visit [facility] [address] [place] [address] Unknown, Unknown, Harleen Cavazos, OLEG [address] [place] [address] documented as of this encounter Procedures Procedure [...] It is not the complete legal health record.[facility]
--- OUTSIDE RECORDS SUMMARY | 2012-08-06 01:00 | XMS_ITS | Encounter Summary ---
Author Organization [employer] [facility] Address [address] [place] [address] Phone Care Team Providers Care Hide Selector Name Role Phone Unavailable Primary Care Provider Unavailabl e Encounter Details Date Type Department Care Team (Late st Contact Info) Description 08/06/2012 Hospital Encounter [facility],Outside Imaging [address] [place] [address] System, Provider Not In, PhD [address] [address] Social History Tobacco Use Types Packs/Day Years [...] 12:00 PM EDT Julia Eugene RN * [place] Suicide Severity Rating Scale (Screener/Recent Self-Report) Question [...] Description 04/22/2025 10:00 AM EST Office Visit [facility] [address] [place] [address] Unknown, Unknown, Harleen Cavazos, OLEG [address] [place] [address] documented as of this encounter Procedures Procedure Name Priority Date/Time Associated Diagnosis Comments BI MAMMOGRAM OUTSIDE (NO INTERPRETATION) Routine 08/06/2012 12:00 AM EST documented in this encounter Results * Mammogram Outside (No Interpretation) (08/06/2012 12:00 AM EST) Narrative SYSTEMGENERATED, DOCUMENTATION - 01/15/2019 8:12 AM EDT This study is for PACS [...] It is not the complete legal health record.[facility]
--- NOTE | ~2025-03-13 | CT_ITS ---
EXAMINATION: CT ABDOMEN AND PELVIS WITHOUT CONTRAST CLINICAL INFORMATION: Incisional hernia without obstruction or gangrene. COMPARISON: January 08, 2023. TECHNIQUE: Multidetector volumetric imaging was performed from the superior aspect of the liver through the pubic symphysis. Sagittal and coronal reformatted images were obtained on the technologist's workstation. This CT examination was performed using dose optimization techniques as appropriate, variously including the following: *Automated exposure control *Adjustment of mA and/or kV according to patient size (this includes techniques or standardized protocols for targeted exams where dose is matched to indication/reason for exam; i.e. extremities or head) *Use of iterative reconstruction technique DLP: 418 mGy centimeter FINDINGS: Inadequate evaluation of the intra-abdominal organs and vascular structures due to lack of IV contrast. LUNG BASES: No acute airspace disease. There is a 3.5 mm subpleural nodule left lung base. LIVER, GALLBLADDER, AND BILIARY TREE: Liver measures 13 cm. There is a subtle nodular surface. No intrahepatic biliary ductal dilatation. No pericholecystic fluid collection or gallbladder wall thickening. No distended gallbladder. No extrahepatic biliary ductal dilatation. PANCREAS: No peripancreatic fluid collection. No main pancreatic ductal dilatation. SPLEEN: 8 cm. ADRENAL GLANDS: No nodular lesions KIDNEYS AND URETERS: No hydronephrosis or nephrolithiasis. There is a 1 cm cystic lesion in the lower pole right kidney. There is a subcentimeter cystic lesion in the posterior lower pole left kidney. BLADDER: Fluid filled and collapsed. GASTROINTESTINAL TRACT: Abundant stool in the large intestine. There is a transverse orientation of the cecum and ascending colon. Sutures at the rectosigmoid colon junction. Scattered diverticula in the left hemicolon. The appendix is normal with inspissated secretions. No intestinal obstruction pattern. No pneumatosis intestinalis. No pneumoperitoneum. No ascites. No gross intestinal wall thickening. Hiatal hernia, moderate volume.. ABDOMINAL WALL: There is diastases abdominal rectus muscles in the periumbilical fat-containing umbilical and infraumbilical region with protrusion of the intra-abdominal contents and a supraumbilical/epigastric fat-containing hernia/eventration. Posttreatment changes in the ostomy incisional hernia, left midline abdomen. Surgical changes in the left inguinal canal. Fat-containing right inguinal hernia, small to moderate volume. LYMPH NODES: No retroperitoneal lymphadenopathy. Mild prominent mesenteric lymph nodes, nonspecific. VASCULAR: Calcified plaques throughout the aorta wall and iliac arteries without gross aneurysm. Calcified plaque in the mid segment splenic artery. PELVIC VISCERA: Inadequate evaluation suggesting retroflexion position. OSSEOUS STRUCTURES: Multilevel thoracolumbar spondylosis resulting in grade 1 retrolisthesis L1 to, T12-L1. Degenerative changes in the coxofemoral joints, mild to moderate. Sclerosis and vacuum phenomenon in the inferior sacroiliac joints. Degenerative changes in the symphysis pubis. CT/CT abdomen pelvis wo IV con IMPRESSION: Diastases abdominal rectus muscles with protrusion of the intra-abdominal contents along the umbilical and supraumbilical epigastric region with small fat-containing hernia/eventration, supraumbilical/epigastric. Small fat-containing right inguinal hernia. Concerning hepatocellular disease. Diverticular disease, left hemicolon and status post partial resection in an anastomosis at the rectosigmoid colon. Hiatal hernia, moderate volume. Atherosclerosis disease. Fleischner guidelines were followed. Electronically signed by: Vik Woo MD 03/13/2025 01:26 PM EDT
--- OUTSIDE RECORDS SUMMARY | 2025-03-13 14:14 | XMS_ITS | Encounter Summary ---
Author Organization [facility] Address [address] [place] [address] Phone Care Team Providers Care Filter Washer Name Role Phone Jack León MD Primary Care Provider [phone] Jack León MD Unavailable [phone] Encounter Details Date Type Department Care Team (Late st Contact Info) Description 10/27/2022 Ancillary Orders [address] [id number] Candy Shirley MD [address] [place] [address] Orthopedics & Sports Medicine, [place], [place] [id number] [email or web address] Right shoulder pain, unspecified chronicity [...] Description 04/22/2025 10:00 AM EST Office Visit [facility] 10 [place] [address] Unknown, Unknown, MD Calhoun, Harleen Wiggins, AUTOMOTIVE TIRE TECHNICIAN [address] [place] [address] Pending Results Name Type Priority Associated Diagnoses [...] documented as of this encounter Care Teams Filter Washer Relationship Specialty Start Date End Date Jack León MD [address] [place] [address], [address] [place] [address] PCP - General Internal Medicine 12/24/18 Jack León MD [address] [place] [address], [address] [place] [phone] Insurance Assigned Provider 09/22/23 documented as of this encounter Additional Source Comments The information contained in this document represents components of the legal health record. It is not the complete legal health record.[facility]
--- OUTSIDE RECORDS SUMMARY | 2025-03-13 14:14 | XMS_ITS | Encounter Summary ---
Author Organization [employer] Address [address] [place] [address] Care Team Providers Care Advertising Agent Name Role Phone Pcp, No Primary Care Provider Unavailabl e Encounter Details Date Type Department Care Team (Late st Contact Info) Description 12/23/2023 Procedure Pass [facility] Radiology, [facility] (CT Scan) [address] [place] [address] [id number] Social History Tobacco Use Types Packs/Day Years [...] on filedocumented in this encounter Care Teams Advertising Agent Relationship Specialty Start Date End Date Pcp, [place] [address] PCP - General 12/23/23 documented as of this encounter
--- OUTSIDE RECORDS SUMMARY | 2025-03-13 14:14 | XMS_ITS | Encounter Summary ---
Author Organization [employer] Address [address] [place] [address] Care Team Providers Care Temporary Staff Accountant Name Role Phone Pcp, No Primary Care Provider Unavailabl e Encounter Details Date Type Department Care Team (Late st Contact Info) Description 12/23/2023 Procedure Pass [facility] Radiology, [facility] (CT Scan) [address] [place] [id number] Social History Tobacco Use Types Packs/Day Years [...] on filedocumented in this encounter Care Teams Temporary Staff Accountant Relationship Specialty Start Date End Date Pcp, No [place] [address] PCP - General 12/23/23 documented as of this encounter
--- OUTSIDE RECORDS SUMMARY | 2025-03-13 14:14 | XMS_ITS | Encounter Summary ---
Author Organization [facility] Address [address] [place] [address] Phone Care Team Providers Care Oiler Bander Name Role Phone Jack León MD Primary Care Provider [phone] Jack León MD Unavailable [phone] Gladys Lara OT Unavailable [phone] Encounter Details Date Type Department Care Team (Late st Contact Info) Description 06/28/2022 Procedure Pass [place] Admitting Dept - Virtual Department [address] [place] [address] Social History Tobacco Use Types Packs/Day Years [...] Encounters Date Type Department Care Team (Late Contact Info) Description 04/22/2025 10:00 AM EST Office Visit [facility] [address] [place] [address] Unknown, Unknown, Harleen Cavazos, CORRECTIONS IDENTIFICATION TECHNICIAN [address] [place] [address] documented as of this encounter Visit Diagnoses Not on filedocumented in this encounter Additional Health Concerns Assessment Noted Time PHQ-2 Depression Total Score: 1 10/02/19 21 10:08 AM EDT documented as of this encounter Care Teams Oiler Bander Relationship Specialty Start Date End Date Jack León MD [address] [facility], [address] [place] [address] PCP - General Internal Medicine 12/24/18 Jack León MD [address] [place] [address], [address] [place] [address] Insurance Assigned Provider 09/22/23 Gladys Lara, OT [address] [place] [address] Transitions Harvesting ContractorFuel Cell Systems Engineer Therapy 09/26/2206/09 documented as of this encounter Additional Source Comments The information contained in this document represents components of the legal health record. It is not the complete legal health record.[facility]
--- OUTSIDE RECORDS SUMMARY | 2025-03-13 14:14 | XMS_ITS | Clinical Summary ---
Author Organization [facility] Address [address] [place] [address] Phone Care Team Providers Care Drawbench Operator Helper Name Role Phone Margie León MD Primary Care Provider [phone] Margie León MD Unavailable [phone] Allergies No known active allergies Medications GISELA [...] Overview (01/22/2025): Mult abd surgeries at [facility], 2 abd wall repairs. 2024: make appt with gen surg at [facility] dt recurrence. Primary osteoarthritis of both hands 06/06/2024 Dupuytren disease 06/06/2024 Pulmonary nodule seen on imaging study 4 Overview (01/17/2024): Summary of Pulmonary Nodule Clinic (PNC) conference discussion: The patient was discussed in the [facility] multidisciplinary conference on 01/09/24. Specialists in attendance [...] have an individual appointment with the following steam shovel runner(s): PNC DRAMATIC READER. The final clinical recommendation may vary after the appointment with above clinician(s), but based on scan review we recommend follow up CT Chest in 3 months for the groundglass nodules and DAISY nodule. The multidisciplinary team anticipates that the patient will subsequently follow-up back in [facility]. Assessment & Plan (11/16/2024 7:11 PM EDT): [...] coronary syndromes including unstable or severe angina, SC within 1 month, severe CHF, high grade [...] emergent sigmoidectomy w/colostomy creation (Andreas procedure) at [facility] in September 2021. This was reversed in [...] versus reevaluation at pulmonary nodule clinic at [facility]. Assessment & Plan (12/31/2023 11:01 AM EDT): Has appt 01/08 with [facility] pulm nodule clinic Nonrheumatic mitral valve regurgitation 05/18/20 Overview (05/18/2022): Followed by Dr Negrete [facility] Assessment & Plan (07/20/2023 3:38 PM EST): Follows by at [facility]. Echocardiogram in 2019 showed normal LV and normal RV function. Bilateral carotid artery stenosis 05/18/2022 Overview (05/18/2022): Mild, followed by Dr Negrete Assessment & Plan (07/20/2023 3:39 PM EST): Minimal per carotid ultrasound on 07/28/21. Right and left ICA each 0-49% stenosis. Follows with at [facility]. Patient is asymptomatic, has done well with [...] Overview (07/20/2023): Sees Dr Prabhakar at [facility]. Overall stable, has prn nebulizer, daily inhaled [...] (07/20/2023 3:35 PM EST): Follows with at [facility] for COPD and pulmonary nodules. She is [...] 3:29 PM EST): GERD, followed by GI//Georgie SAE[facility], seen on 04/25/23. Continue on medical [...] 10/03/2021 Overview (10/03/2021): After emergency sigmoidectomy at [facility], September 2021 for ruptured diverticulum Recurrent major depressive d isorder, in full remission 10/01/2020 07/20/2023 Sacroiliac joint dysfunction 05/19/2019 07/20/2023 Overview (05/19/2019): Mild, rec belt, APAP, modify lifting etc. Refer to Dr Bridges if needed. Encounters Date Type Department Care Team Description 03/13/2025 Orders Only [address] [place] [address] Provider, MD Pedro 01/26/[address] [place] [address] Margie León MD Medication Refill 01/23/2025 Telephone [facility] [address] [place] [address] Margie León MD Referral (Pt is requesting a referral to @ [facility]) 01/22/2025 9:15 AM EDT Office Visit [address] [place] [address] Margie León MD Abdominal wall hernia (Primary Dx); Chronic constipation 01/19/2025 Refill [facility] [address] [place] [address] Margie León MD Medication Refill 01/05/2025 Refill [facility] [address] [place] [address] Susi Swann [place] Medication Refill from Last 3 Months Immunizations Immunization Administration Dates Next Due COVID-19 (Pre-04/09) Pfizer Vaccine, mRNA, PF 07/30/2020,07/09/2020 COVID-19 Pfizer Comirnaty Vaccine + 04/27/2023 Influenza High-Dose Quadriva lent Preservative Free [...] Former Cigarettes 3 35 1 954 - 1988 Smokeless Tobacco: Never Alcohol Use [...] 01/22/2025 9:06 AM EDT Plan of Treatment Upcoming Encounters Date Type Department Care Team (Late st Contact Info) Description 04/22/2025 10:00 AM EST Office Visit [facility] [address] [place] [address] Unknown, Unknown, MD Calhoun, Harleen Wiggins, OLEG [address] [place] [address] Health Maintenance Due Date Last Done Comments [...] this topic Medical Devices Implanted Type Area Wage And Hour Investigator Device Identifier Shelf Expiration Date Model / Serial / Lot Lens Lens Bilateral: Eye Cement Bone 1x40 Standard - [id number] Implanted:Qty : 1 on 09/25/2022 by Jone Levy MD at [facility] Right: Knee [employer]ULIA [employer] 12/15/2024 [id number] / / [id number] Box Component 67.5mm Femoral Knee [employer] [place] Posterior Stabilized Open Cemented Right - [id number] Implanted:Qty : 1 on 09/25/2022 by Jone Levy MD at [facility] Right: Knee [employer] 07/26/2032 [id number] / / [id number] Knee Tray 71mm Plate Bone Primary [employer] [place] I Beam Revision Interlock Cemented - [id number] Implanted:Qty : 1 on 09/25/2022 by Jone Levy MD at [facility] Right: Knee [employer] 07/22/2032 [id number] / / [id number] Knee Implant Component 31x8mm Prosthesis Patellar Vanguard Series A Asymmetric 3 Peg - [id number] Implanted:Qty : 1 on 09/25/2022 by Jone Levy MD at [facility] Right: Knee [employer] 04/12/2027 [id number] / / [id number] Knee Insert 71 02h66ap Bearing Vanguard Stabilized - [id number] Implanted:Qty : 1 on 09/25/2022 by Jone Levy MD at [facility] Right: Knee [employer] 05/01/2027 [id number] / / [id number] Humerus Stem Size 5 Humeral Shoulder Aequalis Pure Titanium Coat Ascend Flexible Standard Anatomic B - [id number] Implanted:Qty : 1 on 10/11/2023 by Keo Shane DO at [facility] Right: Shoulder [employer] 01/05/2028 [id number] / [id number] / Description:REF:MRK020N Cement Bone 1x40 Standard - [id number] Implanted:Qty : 1 on 10/11/2023 by Keo Shane DO at [facility] Right: Shoulder [employer] [id number] 04/17/2025 [id number] / / [id number] Tornier Perform Anatomic Glenoid Cortiloc Pegged Glenoid Uhmwpe + Cocr Model :S40 Type:Anatomic Implanted:Qty : 1 on 10/11/2023 by Keo Shane DO at [facility] Right: Shoulder [employer] 05/02/2027 / [id number] / Description:REF: [id number] Shoulder Head 95w68ii Short Humeral Aequalis Ascend Tubular Bone Offset Low - [id number] Implanted:Qty : 1 on 10/11/2023 by Keo Shane DO at [facility] Right: Shoulder [employer] [id number] 09/15/2025 [id number] / [id number] / Procedures Procedure Name Priority Date/Time Associated Diagnosis Comments OUTSIDE CT IMAGING REPORT ONLY Routine 03/13/2025 1:45 PM EDT BD DXA AXIAL (SPINE) WITH HIP Routine 12/10/2024 10:33 AM EDT Osteopenia of multiple sites from Last 3 Months or Most Recently Relevant to Health Maintenance Results * Outside CT Imaging Report Only (03/13/2025 1:45 PM EDT) us Historical Provider MD VENCES CT Edited Re sult - Final * BD DXA AXIAL (SPINE) WITH HIP (12/10/2024 10:33 AM EDT) Anatomical Region Laterality Modality Bone Density Bone Density 12/10/2024 10:2 2 AM EDT Impressions 12/11/2024 10:46 AM EDT Interpretation: Osteopenia. Narrative 12/11/2024 10:46 AM EDT Referred By: MARGIE LEÓN Indications: Osteopenia Scanner: [employer] with serial# of [id number] located at [facility] Bone Density Scan (DXA) 12/10/24 Details [...] -2.5), or Osteoporosis (T-score <= -2.5). At [facility], T-scores are compared to peak bone [...] Referred By: MARGIE LEÓN Indications: Osteopenia Scanner: [employer] with serial# of [id number] located at [facility] Bone Density Scan (DXA) 12/10/24 Details of [...] -2.5), or Osteoporosis (T-score <= -2.5). At [facility], T-scores are compared to peak bone [...] results. IMPRESSION: Interpretation: Osteopenia. Margie León MD IM BD BONE DENSITY DEXA Final Result from Last 3 Months or Most Recently Relevant to Health Maintenance Insurance MEDICARE PART A & B [employer] MEDICARE SUPPLEMENT [facility] Address: [address] [address] MEDICARE PART A & B [employer] MEDICARE SUPPLEMENT MEDICARE PART A & B [employer] MEDICARE SUPPLEMENT [facility] Address: [address] [address] MEDICARE PART A & B Member Subscriber Plan / Payer ( fective 2005-Present) Name:Camille Hernandez Member ID:[id number] Relation to Subscriber:Self Name:Camille Hernandez Subscriber ID:[id number] Payer ID:[id number] Group ID:Not on file Type:Medicare Address: [employer] [address] [place] [id number] [employer] MEDICARE SUPPLEMENT MEDICARE PART A & B [facility] MEDICARE SUPPLEMENT [facility] Address: [address] [address] MEDICARE PART A & B FOR LIFE MEDICARE SUPPLEMENT MEDICARE PART A & B FOR LIFE MEDICARE SUPPLEMENT [facility] Address: [address] [address] MEDICARE PART A & B FOR LIFE MEDICARE SUPPLEMENT MEDICARE PART A & B FOR LIFE MEDICARE SUPPLEMENT Advance Directives For more information, please contact: [phone] (9AM - 5PM [facility], Sunday-Sunday) Documents on File Type Date Recorded Patient Keno Terminal Operator Expl anation Healthcare Proxy 10/15/2023 5:09 PM MOLST 05/22/2019 MOLST 05/19/19 * Full Code (Latest Code Status on File) Date Activated Date Inactivated Comments 09/25/2022 12:09 PM Question Answer Comments Code Status Confirmed With: Patient Care Teams Drawbench Operator Helper Relationship Specialty Start Date End Date Margie León MD [address] [place] [address], [address] [place] [address] [email or web address] PCP - General Internal Medicine 12/24/18 Margie León MD [address] [place] [address], [address] [place] [address] Insurance Assigned Provider 09/22/23 Additional Source Comments The information contained in this document represents components of the legal health record. It is not the complete legal health record.[facility]
--- OUTSIDE RECORDS SUMMARY | 2025-03-13 14:14 | XMS_ITS | Encounter Summary ---
Author Organization [facility] Address [address] [place] [address] Phone Care Team Providers Care Microfiche Camera Operator Name Role Phone Jack León MD Primary Care Provider Jack León MD Unavailable [phone] Encounter Details Date Type Department Care Team (Late st Contact Info) Description 10/23/2023 Procedure Pass [facility], Ct Scan - [address] [address] Social History Tobacco Use Types Packs/Day Years [...] Description 04/22/2025 10:00 AM EST Office Visit [facility] [address] [place] [address] Unknown, Unknown, MD Calhoun, Harleen Wiggins, OLEG [address] [place] [address] documented as of this encounter Visit Diagnoses Not on filedocumented in this encounter Additional Health Concerns Assessment Noted Time PHQ-2 Depression Total Score: 1 10/02/19 21 10:08 AM EDT documented as of this encounter Care Teams Microfiche Camera Operator Relationship Specialty Start Date End Date Jack León MD [address] [place] [address], [address] [place] [address] PCP - General Internal Medicine 12/24/18 Jack León MD [address] [place] [address], [address] [place] [address] Insurance Assigned Provider 09/22/23 documented as of this encounter Additional Source Comments The information contained in this document represents components of the legal health record. It is not the complete legal health record.[facility]
--- OUTSIDE RECORDS SUMMARY | 2025-03-13 14:14 | XMS_ITS | Encounter Summary ---
Author Organization [facility] Address [address] [place] [address] Phone Care Team Providers Care Cotton Grader Name Role Phone Jack León MD Primary Care Provider [phone] Jack León MD Unavailable [phone] Encounter Details Date Type Department Care Team (Late st Contact Info) Description 10/27/2022 Ancillary Orders [facility] Medical [facility] Orthopedics & Sports Medicine [address] [place] [address] Candy Shirley MD [address] [place] [address] Orthopedics & Sports Medicine, [facility] [place], [place] [phone] [email or web address] Social History Tobacco Use Types Packs/Day Years [...] Description 04/22/2025 10:00 AM EST Office Visit [facility] [address] [place] [address] Unknown, Unknown, MD Calhoun, Harleen Wiggins, OLEG [address] [place] [address] documented as of this encounter Visit Diagnoses Not on filedocumented in this encounter Additional Health Concerns Assessment Noted Time PHQ-2 Depression Total Score: 1 10/02/19 21 10:08 AM EDT documented as of this encounter Care Teams Cotton Grader Relationship Specialty Start Date End Date Jack León MD [address] [place] [address], [address] [address] [email or web address] PCP - General Internal Medicine 12/24/18 Jack León MD [address] [place] [address], [address] [address] Insurance Assigned Provider 09/22/23 documented as of this encounter Additional Source Comments The information contained in this document represents components of the legal health record. It is not the complete legal health record.[facility]
--- OUTSIDE RECORDS SUMMARY | 2025-03-13 14:14 | XMS_ITS | Clinical Summary ---
Author Organization [employer] [facility] Address [address] [place] [address] Care Team Providers Care Rivet Tosser Name Role Phone Pcp, No Primary Care [...] topic Insurance MEDICARE [employer] Care Teams Rivet Tosser Relationship Specialty Start Date End Date Pcp, No No PCP On File JULIAN Springer [id number] PCP - General 12/23/23
--- OUTSIDE RECORDS SUMMARY | 2025-03-13 14:14 | XMS_ITS | Encounter Summary ---
Author Organization [facility] Address [address] [place] [address] Phone Care Team Providers Care Dean Of Chapel Name Role Phone Jack León MD Primary Care Provider [phone] Jack León MD Unavailable [phone] Reason for Referral * MRI/CAT Scan - Closed Specialty Diagnoses / Procedures Referred By Bhavin lehman Referred To Contact Radiology Procedures Outside CT Imaging Report Only Keven Davis [address] [place] [address] Phone: tel: fax: Referral ID Status Reason Start Date Expiration Date Visits Re quested Visits Authorized [id number] Closed 03/13/2025 1 1 Encounter Details Date Type Department Care Team (Late st Contact Info) Description 03/13/2025 Orders Only Keven Davis [address] [place] [address] Pedro Mir MD [address] [place] [address] Social History Tobacco Use Types Packs/Day Years [...] Description 04/22/2025 10:00 AM EST Office Visit [facility] 10 [place] [address] Unknown, Unknown, Harleen Cavazos, OLEG 10 [place] [address] documented as of this encounter Procedures Procedure Name Priority Date/Time Associated Diagnosis Comments OUTSIDE CT IMAGING REPORT ONLY Routine 03/13/2025 1:45 PM EDT documented in this encounter Results * Outside CT Imaging Report Only (03/13/2025 1:45 PM EDT) us Historical Provider MD VENCES CT Edited Re sult - Final documented in this encounter Visit Diagnoses Not on filedocumented in this encounter Additional Health Concerns Assessment Noted Time PHQ-2 Depression Total Score: 1 10/02/19 21 10:08 AM EDT documented as of this encounter Care Teams Dean Of Chapel Relationship Specialty Start Date End Date Jack León MD [address] [place] [address], [address] [place] [address] PCP - General Internal Medicine 12/24/18 Jack León MD [address] [place] [address], [address] [place] [address] Insurance Assigned Provider 09/22/23 documented as of this encounter Additional Source Comments The information contained in this document represents components of the legal health record. It is not the complete legal health record.[facility]
--- OUTSIDE RECORDS SUMMARY | 2025-03-13 14:15 | XMS_ITS | Encounter Summary ---
Author Organization [facility] Address [address] [place] [address] Phone Care Team Providers Care Convertible Power Shovel Operator Name Role Phone Jack León MD Primary Care Provider [phone] Jack León MD Unavailable [phone] Gladys Lara OT Unavailable [phone] Encounter Details Date Type Department Care Team (Late st Contact Info) Description 08/25/2022 Ancillary Orders [facility] [address] [place] [address] [id number] Candy Shirley MD [address] [place] [address] Orthopedics & Sports Medicine, [facility]. [place], [place] [id number] [email or web address] Social History Tobacco Use Types Packs/Day Years [...] Description 04/22/2025 10:00 AM EST Office Visit [facility] 10 [place] [address] Unknown, Unknown, Harleen Cavazos, HERPETOLOGIST 10 [place] [address] documented as of this encounter Visit Diagnoses Not on filedocumented in this encounter Additional Health Concerns Assessment Noted Time PHQ-2 Depression Total Score: 1 10/02/19 21 10:08 AM EDT documented as of this encounter Care Teams Convertible Power Shovel Operator Relationship Specialty Start Date End Date Jack León MD 22 [facility], [address] [place] [address] PCP - General Internal Medicine 12/24/18 Jack León MD [address] [place] [address], [address] [place] [address] Insurance Assigned Provider 09/22/23 Gladys Lara, OT [address] [place] [address] Transitions Systems Program ManagerRental Representative Therapy 09/26/2206/09 documented as of this encounter Additional Source Comments The information contained in this document represents components of the legal health record. It is not the complete legal health record.[facility]
--- OUTSIDE RECORDS SUMMARY | 2025-03-13 14:15 | XMS_ITS | Encounter Summary ---
Author Organization [employer] [facility] Address [address] [place] [address] Phone Care Team Providers Care Toter Name Role Phone Jack León MD Primary Care Provider [phone] Jack León MD Unavailable [phone] Encounter Details Date Type Department Care Team (Late st Contact Info) Description 02/16/2023 Ancillary Orders [address] [phone] Candy Shirley MD [address] [place] [address] Orthopedics & Sports Medicine, [place], [place] [phone] [email or web address] Right shoulder pain, unspecified chronicity [...] Description 04/22/2025 10:00 AM EST Office Visit [facility] [address] [place] [address] Unknown, Unknown, MD Calhoun, Harleen Wiggins, OLEG [address] [place] [address] Pending Results Name Type Priority Associated Diagnoses [...] documented as of this encounter Care Teams Toter Relationship Specialty Start Date End Date Jack León MD [address] [place] [address], [address] [address] PCP - General Internal Medicine 12/24/18 Jack León MD [address] [place] [address], [address] [place] [address] [email or web address] Insurance Assigned Provider 09/22/23 documented as of this encounter Additional Source Comments The information contained in this document represents components of the legal health record. It is not the complete legal health record.[facility]
--- OUTSIDE RECORDS SUMMARY | 2025-03-13 14:15 | XMS_ITS | Encounter Summary ---
Author Organization [facility] Address [address] [place] [address] Phone Care Team Providers Care Accounts Payable Assistant Name Role Phone Jack León MD Primary Care Provider [phone] Jack León MD Unavailable [phone] Encounter Details Date Type Department Care Team (Late st Contact Info) Description 01/17/2024 Procedure Pass [facility], Ct Scan - [address] [address] Social History Tobacco Use Types Packs/Day Years [...] Description 04/22/2025 10:00 AM EST Office Visit [facility] 10 [place] [address] Unknown, Unknown, MD Calhoun, Harleen Wiggins, OLEG 10 [place] [address] documented as of this encounter Visit Diagnoses Not on filedocumented in this encounter Additional Health Concerns Assessment Noted Time PHQ-2 Depression Total Score: 1 10/02/19 21 10:08 AM EDT documented as of this encounter Care Teams Accounts Payable Assistant Relationship Specialty Start Date End Date Jack León MD [address] [place] [address], [address] [place] [address] PCP - General Internal Medicine 12/24/18 Jack León MD [address] [place] [address], [address] [place] [address] Insurance Assigned Provider 09/22/23 documented as of this encounter Additional Source Comments The information contained in this document represents components of the legal health record. It is not the complete legal health record.[facility]
--- OUTSIDE RECORDS SUMMARY | 2025-03-13 14:15 | XMS_ITS | Encounter Summary ---
Author Organization [facility] Address [address] [place] [address] Phone Care Team Providers Care Pc Tech Name Role Phone Jack León MD Primary Care Provider [phone] Jack León MD Unavailable [phone] Encounter Details Date Type Department Care Team (Late st Contact Info) Description 10/11/2023 Prep for Surgery [facility] Medicine [address] [place] [address] Keo Shane, DO 4 [facility]ics & [facility] Medicine, [facility]. [place], [place] [phone] [email or web address] Social History Tobacco Use [...] 12:00 PM EDT Julia [place] RN * [place] Suicide Severity Rating Scale (Screener/Recent Self-Report) Question [...] Description 04/22/2025 10:00 AM EST Office Visit [facility] [address] [place] [address] Unknown, Unknown, Harleen Cavazos, ENERGY CONSERVATION SPECIALIST 10 [place] [address] documented as of this encounter Visit Diagnoses Not on filedocumented in this encounter Additional Health Concerns Assessment Noted Time PHQ-2 Depression Total Score: 1 10/02/19 21 10:08 AM EDT documented as of this encounter Care Teams Pc Tech Relationship Specialty Start Date End Date Jack León MD 22 [facility], 201 [place] [address] PCP - General Internal Medicine 12/24/18 Jack León MD [address] [place] [address], [address] [place] [address] Insurance Assigned Provider 09/22/23 documented as of this encounter Additional Source Comments The information contained in this document represents components of the legal health record. It is not the complete legal health record.[facility]
--- OUTSIDE RECORDS SUMMARY | 2025-03-13 14:15 | XMS_ITS | Encounter Summary ---
Author Organization [facility] Address [email or web address] [place] [address] Phone Care Team Providers Care Hvac Mechanic Name Role Phone Jack León MD Primary Care Provider [phone] Jack León MD Unavailable [phone] Gladys Lara OT Unavailable [phone] Encounter Details Date Type Department Care Team (Late st Contact Info) Description 08/25/2022 Ancillary Orders [address] [phone] Candy Shirley MD [address] [place] [address] Orthopedics & Sports Medicine, [place], [place] [phone] [email or web address] Right shoulder pain, unspecified chronicity [...] Description 04/22/2025 10:00 AM EST Office Visit [facility] 10 [place] [address] Unknown, Unknown, Harleen Cavazos, FAMILY CONSUMER SCIENCE TEACHER 10 [place] [address] documented as of this encounter Visit Diagnoses Diagnosis Right shoulder pain, unspecified chronicity documented in this encounter Additional Health Concerns Assessment Noted Time PHQ-2 Depression Total Score: 1 10/02/19 21 10:08 AM EDT documented as of this encounter Care Teams Hvac Mechanic Relationship Specialty Start Date End Date Jack León MD 22 [facility], [address] [place] [address] PCP - General Internal Medicine 12/24/18 Jack León MD 22 [facility], [address] [place] [address] Insurance Assigned Provider 09/22/23 Gladys Lara, OT [address] [place] [address] Transitions Shelter Case ManagerHighway Landscape Architect Therapy 09/26/2206/09 documented as of this encounter Additional Source Comments The information contained in this document represents components of the legal health record. It is not the complete legal health record.[facility]
--- OUTSIDE RECORDS SUMMARY | 2025-03-13 14:15 | XMS_ITS | Encounter Summary ---
Author Organization [facility] Address [address] [place] [address] Phone Care Team Providers Care Simulation Developer Name Role Phone Jack León MD Primary Care Provider [phone] Jack León MD Unavailable [phone] Encounter Details Date Type Department Care Team (Late st Contact Info) Description 10/11/2023 Procedure Pass [place] Admitting Dept - Virtual Department 30 [place] [address] Social History Tobacco Use Types Packs/Day Years [...] 12:00 PM EDT Julia [place] RN * [place] Suicide Severity Rating Scale (Screener/Recent Self-Report) Question [...] Description 04/22/2025 10:00 AM EST Office Visit [facility]astro[facility] 10 [place] [address] Unknown, Unknown, MD Calhoun, Harleen Wiggins, OLEG 10 [place] [address] documented as of this encounter Visit Diagnoses Not on filedocumented in this encounter Additional Health Concerns Assessment Noted Time PHQ-2 Depression Total Score: 1 10/02/19 21 10:08 AM EDT documented as of this encounter Care Teams Simulation Developer Relationship Specialty Start Date End Date Jack León MD [address] [place] [address], [address] [place] [address] [email or web address] PCP - General Internal Medicine 12/24/18 Jack León MD [address] [place] [address], [address] [place] [address] [email or web address] Insurance Assigned Provider 09/22/23 documented as of this encounter Additional Source Comments The information contained in this document represents components of the legal health record. It is not the complete legal health record.[facility]
--- OUTSIDE RECORDS SUMMARY | 2025-03-13 14:15 | XMS_ITS | Encounter Summary ---
Author Organization [facility] Address [address] [address] [place] [address] Phone Care Team Providers Care Vehicle Fare Collector Name Role Phone Jack León MD Primary Care Provider [phone] Jack León MD Unavailable [phone] Gladys Lara OT Unavailable [phone] Encounter Details Date Type Department Care Team (Latest Contact Info) Description 01/27/2019 Ancillary Orders [facility] Medicine [address] [place] [address] Jack León MD 22 [facility], [address] [place] [address] [email or web address] Malignant neoplasm of right female breast, unspecified [...] EST Office Visit [facility] 10 [place] [address] Unknown, Unknown, Harleen Cavazos, OLEG 10 [place] [address] documented as of this encounter Results * [...] Images interpreted in conjunction with R-2 Image Level Designer computer-aided detection (CAD). FINDINGS: BREAST COMPOSITION: There [...] are scattered fibroglandular densities. POS - CDHMAMA Jack León MD IMG MG EXAMS Final [...] documented as of this encounter Care Teams Vehicle Fare Collector Relationship Specialty Start Date End Date Jack León MD [address] [place] [address], [address] [place] [address] [email or web address] PCP - General Internal Medicine 12/24/18 Jack León MD [address] [place] [address], [address] [place] [address] [email or web address] Insurance Assigned Provider 09/22/23 Gladys Lara, OT [address] [place] [address] [email or web address] Transitions Clinical Cytogeneticist ScientistLight Rail Signal Technician Therapy 09/26/2206/09 documented as of this encounter Additional Source Comments The information contained in this document represents components of the legal health record. It is not the complete legal health record.[facility]
--- OUTSIDE RECORDS SUMMARY | 2025-03-13 14:15 | XMS_ITS | Encounter Summary ---
Author Organization [facility] Address [address] [place] [address] Phone Care Team Providers Care Soil Conservation Aide Name Role Phone Jack León MD Primary Care Provider [phone] Jack León MD Unavailable [phone] lGadys Lara OT Unavailable [phone] Encounter Details Date Type Department Care Team (Late Contact Info) Description 01/15/2019 Ancillary Orders [facility],Outside Imaging 30 [place] [address] System, Provider Not In, PhD Partners [address] [address] Social History Tobacco Use Types Packs/Day Years [...] Description 04/22/2025 10:00 AM EST Office Visit [facility] 10 [place] [address] Unknown, Unknown, Harleen Cavazos NP 10 [place] [address] documented as of this encounter Results * [...] documented as of this encounter Care Teams Soil Conservation Aide Relationship Specialty Start Date End Date Jack León MD [address] [place] [address], [address] [place] [address] PCP - General Internal Medicine 12/24/18 Jack León MD [address] [place] [address], [address] [place] [address] Insurance Assigned Provider 09/22/23 Gladys Lara, OT 30 [place] [address] [email or web address] Transitions Outdoor Power Equipment MechanicRegional Marketing Manager Therapy 09/26/2206/09 documented as of this encounter Additional Source Comments The information contained in this document represents components of the legal health record. It is not the complete legal health record.[facility]
--- OUTSIDE RECORDS SUMMARY | 2025-03-13 14:15 | XMS_ITS | Patient Health Record ---
Author Organization [facility] Address [address] [place] [address] Care Team Providers Care Woven Wood Shade Assembler Name Role Phone An (RETIRED) Nehemias LIGHT Primary Care Provid er Unavailable Kwesi Matthews Unavailable [phone] Reason For Referral No Information Medications Medication SIG (Take, Route, Frequency, Duration) Notes Start Date End Date Status Crestor 10mg 06/18/2024 06/18/2024 Activ e Glucosamine 1000mg 06/18/2024 06/18/2024 Active NexIUM 40mg 06/18/2024 06/18/2024 Active VESIcare 5mg 06/18/2024 06/18/2024 Activ e Suprep Bowel Prep 17.5g/3/13g/1.6g per 6 ounces as directed Orally once for 1 dose 08/13/2012 Active Citalopram Hydrobromide 40mg 06/18/2024 06/18/2024 Active MSM 1000mg 06/18/2024 06/18/2024 Active Problems Problem Type SNOMED Code ICD Code Onset Dates Problem Status W/U Status Risk Notes Problem Colon cancer screening (086291208) Colon cancer screening (V76.51) Active confirmed Problem Gastroesophageal reflux disease (820192615) GERD (gastroesopha geal reflux disease) (530.81) Active confirmed Plan Of Treatment Future Test Test Name Order Date COLONOSCOPY 08/13/2012 Insurance Providers Payer Name Payer Address Payer Phone Subscriber Number Group Number Insured Name Patient Relationship to Insured Coverage Start Date Coverage End Date MEDICARE OF [place] [address] [place]ER [id number] ANTOINETTE NIX Self - patient is the insured WPS/TRICAR E For Life [address] [place] [address] [id number] ANTOINETTE NIX Self - patient is the insured Medical (General) History Medical History History ICD Code Colonoscopy 08/2000-hyperplastic polyp an d melanosis coli GERD-small HH on EGD in 08/2000-no Molina t's PUD on endoscopy many years ago Denies NC,DM,CVA,Lung disease,renal dise ase Hyperlipidemia Surgical History Surgery Date(Month/Year) mastectomy with reconstructi on 20 years ago for breast cancer on the right urinary incontinence surgery
--- OUTSIDE RECORDS SUMMARY | 2025-03-13 14:15 | XMS_ITS | Encounter Summary ---
Author Organization [facility] Address [address] [place] [address] Phone Care Team Providers Care Communications Programmer Name Role Phone Jack León MD Primary Care Provider [phone] Jack León MD Unavailable [phone] Gladys Lara OT Unavailable [phone] Encounter Details Date Type Department Care Team (Late st Contact Info) Description 09/25/2022 Procedure Pass OR Admitting Dept - Virtual Department [address] [place] [address] Social History Tobacco Use Types Packs/Day Years [...] 5:00 PM EDT Amee Peterson RN * [place] Suicide Severity Rating Scale (Screener/Recent Self-Report) Question [...] Description 04/22/2025 10:00 AM EST Office Visit [facility] 10 [place] [address] Unknown, Unknown, MD Calhoun, Harleen Wiggins, SIDER 10 [place], [place] [phone] documented as of this encounter Visit Diagnoses Not on filedocumented in this encounter Additional Health Concerns Assessment Noted Time PHQ-2 Depression Total Score: 1 10/02/19 21 10:08 AM EDT documented as of this encounter Care Teams Communications Programmer Relationship Specialty Start Date End Date Jack León MD [address] [place] [address] PCP - General Internal Medicine 12/24/18 Jack León MD [address] [place] [address], [address] [address] [email or web address] Insurance Assigned Provider 09/22/23 Gladys Lara, OT 30 [place] [address] Transitions Pediatric RnTube Roller Therapy 4/11/23 4/ 12/23 documented as of this encounter Additional Source Comments The information contained in this document represents components of the legal health record. It is not the complete legal health record.[facility]
--- OUTSIDE RECORDS SUMMARY | 2025-03-13 14:15 | XMS_ITS | Encounter Summary ---
Author Organization [facility] Address [address] [place] [address] Phone Care Team Providers Care Package Delivery Room Service Runner Name Role Phone Jack León MD Primary Care Provider [phone] Jack León MD Unavailable [phone] Gladys Lara OT Unavailable [phone] Encounter Details Date Type Department Care Team (Late Contact Info) Description 01/15/2019 Ancillary Orders [facility],Outside Imaging 30 [place] [address] System, Provider Not In, PhD Partners [address] [address] Social History Tobacco Use Types Packs/Day Years [...] Description 04/22/2025 10:00 AM EST Office Visit [facility]astroenterology Clinic 10 [place] [address] Unknown, Unknown, Harleen Cavazos NP 10 [place] [address] documented as of this encounter Results * [...] documented as of this encounter Care Teams Package Delivery Room Service Runner Relationship Specialty Start Date End Date Jack León MD [address] [place] [address], [address] [place] [address] PCP - General Internal Medicine 12/24/18 Jack León MD [address] [place] [address], [address] [place] [address] Insurance Assigned Provider 09/22/23 Gladys Lara, OT 30 [place] [address] [email or web address] Transitions Metallurgical Engineering TeacherShellfish Dredge Operator Therapy 09/26/2206/09 documented as of this encounter Additional Source Comments The information contained in this document represents components of the legal health record. It is not the complete legal health record.[facility]
--- OUTSIDE RECORDS SUMMARY | 2025-03-13 14:15 | XMS_ITS | Encounter Summary ---
Author Organization [facility] Address [address] [place] [address] Phone Care Team Providers Care Weight Checker Name Role Phone Jack León MD Primary Care Provider [phone] Jack León MD Unavailable Gladys Lara OT Unavailable [phone] Encounter Details Date Type Department Care Team (Late st Contact Info) Description 10/01/2020 Procedure Pass [facility], [address] [address] Social History Tobacco Use Types Packs/Day Years [...] Description 04/22/2025 10:00 AM EST Office Visit [facility] 10 [place] [address] Unknown, Unknown, Harleen Cavazos, PEOPLESOFT CRM DEVELOPER 10 [place] [address] documented as of this encounter Visit Diagnoses Not on filedocumented in this encounter Additional Health Concerns Assessment Noted Time PHQ-2 Depression Total Score: 1 10/02/19 21 10:08 AM EDT documented as of this encounter Care Teams Weight Checker Relationship Specialty Start Date End Date Jack León MD [address] [facility], [address] [place] [address] PCP - General Internal Medicine 12/24/18 Jack León MD [address] [place] [address], [address] [place] [address] Insurance Assigned Provider 09/22/23 Gladys Lara, OT [address] [place] [place] [address] [email or web address] Transitions Military TechnicianConduit Mechanic Therapy 09/26/2206/09 documented as of this encounter Additional Source Comments The information contained in this document represents components of the legal health record. It is not the complete legal health record.[facility]
--- OUTSIDE RECORDS SUMMARY | 2025-03-13 14:15 | XMS_ITS | Encounter Summary ---
Author Organization [facility] Address [address] [place] [address] Phone Care Team Providers Care Court Officer Name Role Phone Jack León MD Primary Care Provider [phone] Jack León MD Unavailable [phone] Encounter Details Date Type Department Care Team (Late st Contact Info) Description 02/16/2023 Ancillary Orders [facility] Orthopedics & Sports Medicine [address] [place] [phone] Candy Shirley MD [address] [place] [address] Orthopedics & Sports Medicine, [facility] [place], [place] [id number] [email or web address] Social History Tobacco Use Types Packs/Day Years [...] Description 04/22/2025 10:00 AM EST Office Visit [facility] 10 [place] [address] Unknown, Unknown, Harleen Cavazos, OLEG 10 [place] [address] documented as of this encounter Visit Diagnoses Not on filedocumented in this encounter Additional Health Concerns Assessment Noted Time PHQ-2 Depression Total Score: 1 10/02/19 21 10:08 AM EDT documented as of this encounter Care Teams Court Officer Relationship Specialty Start Date End Date Jack León MD [address] [place] [address], [address] [address] PCP - General Internal Medicine 12/24/18 Jack León MD [address] [place] [address], [address] [place] [address] Insurance Assigned Provider 09/22/23 documented as of this encounter Additional Source Comments The information contained in this document represents components of the legal health record. It is not the complete legal health record.[facility]
--- OUTSIDE RECORDS SUMMARY | 2025-03-13 14:15 | XMS_ITS | Encounter Summary ---
Author Organization [facility] Address [address] [place] [address] Phone Care Team Providers Care Cardiology Manager Name Role Phone Jack León MD Primary Care Provider [phone] Jack León MD Unavailable [phone] Gladys Lara OT Unavailable [phone] Encounter Details Date Type Department Care Team (Late Contact Info) Description 01/15/2019 Ancillary Orders [facility],Outside Imaging 30 [place] [address] System, Provider Not In, [facility] [address] [address] Social History Tobacco Use Types Packs/Day Years [...] Description 04/22/2025 10:00 AM EST Office Visit [facility] 10 [place] [address] Unknown, Unknown, Harleen Cavazos NP 10 [place] [address] documented as of this encounter Results * [...] documented as of this encounter Care Teams Cardiology Manager Relationship Specialty Start Date End Date Jack León MD [address] [place] [address], [address] [place] [id number] PCP - General Internal Medicine 12/24/18 Jack León MD [address] [place] [address], [address] [place] [id number] Insurance Assigned Provider 09/22/23 Gladys Lara, OT [address] [place] [address] [email or web address] Transitions Com WriterThermite Welder Therapy 09/26/2206/09 documented as of this encounter Additional Source Comments The information contained in this document represents components of the legal health record. It is not the complete legal health record.[facility]
--- OUTSIDE RECORDS SUMMARY | 2025-03-13 14:16 | XMS_ITS | Encounter Summary ---
Author Organization [facility] Address [address] [place] [address] Phone Care Team Providers Care Physician/Ophthalmologist Name Role Phone Jack León MD Primary Care Provider [phone] Jack León MD Unavailable [phone] Encounter Details Date Type Department Care Team (Late st Contact Info) Description 05/15/2024 Procedure Pass [facility], Ct Scan - [address] [address] Social History Tobacco Use Types Packs/Day Years [...] Description 04/22/2025 10:00 AM EST Office Visit [facility] 10 [place] [address] Unknown, Unknown, MD Calhoun, Harleen Wiggins, OLEG 10 [place] [address] documented as of this encounter Visit Diagnoses Not on filedocumented in this encounter Additional Health Concerns Assessment Noted Time PHQ-2 Depression Total Score: 1 10/02/19 21 10:08 AM EDT documented as of this encounter Care Teams Physician/Ophthalmologist Relationship Specialty Start Date End Date Jack León MD [address] [place] [address], [address] [place] [address] PCP - General Internal Medicine 12/24/18 Jack León MD [address] [place] [address], [address] [place] [address] Insurance Assigned Provider 09/22/23 documented as of this encounter Additional Source Comments The information contained in this document represents components of the legal health record. It is not the complete legal health record.[facility]
--- OUTSIDE RECORDS SUMMARY | 2025-03-13 14:16 | XMS_ITS | Encounter Summary ---
Author Organization [facility] Address [address] [place] [address] Phone Care Team Providers Care Compliance Aide Name Role Phone Jack León MD Primary Care Provider [phone] Jack León MD Unavailable [phone] Gladys Lara OT Unavailable [phone] Encounter Details Date Type Department Care Team (Late st Contact Info) Description 05/01/2022 Procedure Pass [facility], [address] [address] Social History Tobacco Use Types Packs/Day Years [...] Description 04/22/2025 10:00 AM EST Office Visit [facility] 10 [place] [address] Unknown, Unknown, Harleen Cavazos, CHIEF SCIENTIFIC OFFICER 10 [place] [address] documented as of this encounter Visit Diagnoses Not on filedocumented in this encounter Additional Health Concerns Assessment Noted Time PHQ-2 Depression Total Score: 1 10/02/19 21 10:08 AM EDT documented as of this encounter Care Teams Compliance Aide Relationship Specialty Start Date End Date Jack León MD [address] [facility], [address] [place] [address] [email or web address] PCP - General Internal Medicine 12/24/18 Jack León MD [address] [place] [address], [address] [place] [address] Insurance Assigned Provider 09/22/23 Gladys Lara, OT [address] [place] [address] [email or web address] Transitions Engineering TechnologistBoat Engines Installer Therapy 09/26/2206/09 documented as of this encounter Additional Source Comments The information contained in this document represents components of the legal health record. It is not the complete legal health record.[facility]
--- OUTSIDE RECORDS SUMMARY | 2025-03-13 14:16 | XMS_ITS | Encounter Summary ---
Author Organization [facility] Address [address] [facility] [address] [place] [address] Phone Care Team Providers Care Adjunct Professor Of [place]. History Name Role Phone Jack León MD Primary Care Provider [phone] Jack León MD Unavailable [phone] Gladys Lara OT Unavailable [phone] Encounter Details Date Type Department Care Team (Latest Contact Info) Description 04/24/2022 Ancillary Orders [facility] Medical [facility] Medicine [address] [place] [address] Jack León MD [address] [facility], [address] [place] [address] [email or web address] Medicare annual wellness visit, subsequent Social History [...] Office Visit [facility] 10 [place] [address] Unknown, Unknown, MD Calhoun, Harleen Wiggins, OLEG 10 [place] [address] documented as of this encounter Results * [...] documented as of this encounter Care Teams Adjunct Professor Of [place]. History Relationship Specialty Start Date End Date Jack León MD [address] [facility] [place] [address] [email or web address] PCP - General Internal Medicine 12/24/18 Jack León MD [address] [facility] [place] [address] Insurance Assigned Provider 09/22/23 Gladys Lara, OT [address] [place] [address] [email or web address] Transitions Pst SupervisorDye House Worker Therapy 09/26/2206/09 documented as of this encounter Additional Source Comments The information contained in this document represents components of the legal health record. It is not the complete legal health record.[facility]
--- OUTSIDE RECORDS SUMMARY | 2025-03-13 14:16 | XMS_ITS | Encounter Summary ---
Author Organization [facility] Address [address] [place] [address] Phone Care Team Providers Care Vice President Safety Name Role Phone Jack León MD Primary Care Provider [phone] Jack León MD Unavailable [phone] Encounter Details Date Type Department Care Team (Late st Contact Info) Description 04/04/2023 Procedure Pass [facility], Ct Scan - [address] [address] Social History Tobacco Use Types Packs/Day Years [...] Description 04/22/2025 10:00 AM EST Office Visit [facility] 10 [place] [address] Unknown, Unknown, MD Calhoun, Harleen Wiggins, OLEG 10 [place] [address] documented as of this encounter Visit Diagnoses Not on filedocumented in this encounter Additional Health Concerns Assessment Noted Time PHQ-2 Depression Total Score: 1 10/02/19 21 10:08 AM EDT documented as of this encounter Care Teams Vice President Safety Relationship Specialty Start Date End Date Jack León MD [address] [place] [address], [address] [address] PCP - General Internal Medicine 12/24/18 Jack León MD [address] [place] [address], [address] [address] Insurance Assigned Provider 09/22/23 documented as of this encounter Additional Source Comments The information contained in this document represents components of the legal health record. It is not the complete legal health record.[facility]
== END 2025-03-13 12:55 | disposition home or self-care (01) ==
LOC: HO.CT 12:54
PROVIDERS: Absent Provider Internal Medicine; PCP Internal Medicine; Visit Provider Surgery
DX: K43.2 Incisional hernia without obstruction or gangrene (principal)
CPT/HCPCS: 74176

== ENCOUNTER → 2025-03-13 12:55 | Outpatient (BNV) | payer MEDICARE, OTHER, SELFPAY | PROVIDERS: Absent Provider Internal Medicine; PCP Internal Medicine; Visit Provider Radiology Diagnostic Radiology | DX: K43.9 Ventral hernia without obstruction or gangrene (principal); K76.9 Liver disease, unspecified | CPT/HCPCS: 74176 ==

== ENCOUNTER 2025-04-09 13:11 | Outpatient (AMB) | payer MEDICARE, OTHER, SELFPAY ==
[2025-04-09 13:12] VITALS: BMI 27.0
--- NOTE | 2025-04-09 13:12 | MHC.OFFVIS ---
Vital Signs 04/09/25 13:12 Height 5 ft 4.5 in Weight 160 lb BMI 27.0 Comment weight stated by Pt Intake Visit Reasons: follow-up Ct-Scan (03/13/2025) Intake Note: Patient presents for a follow-up to discuss Ct-Scan results. Pt c/o; no complaints. Flux Mixer Required: No Accompanied by: Spouse Allergies No Known Allergies Allergy (Verified 04/09/25 13:18) HPI HPI follow-up Ct-Scan (03/13/2025): Details: 84-year-old female here an incisional hernia. She had undergone emergency Andreas's procedure last September, for perforated diverticulitis. She had reversal of her end-colostomy last February,. She had an incisional hernia in the old colostomy site 2022 and this had been repaired She had developed a midline hernia with notable protrusion so I sent her for a CAT scan to define this. She denies any new complaints. She says that sometimes she is unable to fit into her old once because of the hernia. She does have chronic constipation. [facility] Medical History Sepsis Diverticulitis of colon with perforation Ileus following gastrointestinal surgery Hypovolemia Perforated viscus Incisional hernia Suture granuloma Postoperative nausea Breast cancer GERD (gastroesophageal reflux disease) Arthritis Hyperlipidemia Atherosclerosis of both carotid arteries COVID-19 Pulmonary nodule COPD (chronic obstructive pulmonary disease) Surgical History History of right shoulder replacement History of lateral meniscus repair of right knee History of hernia repair (~03/20/23) History of tubal ligation Status post colostomy takedown Status post Andreas procedure (~03/14/22) History of esophagogastroduodenoscopy (EGD) History of colonoscopy History of exploratory laparotomy (~2021) H/O right mastectomy Social History Household Members: Spouse Housing: Apartment Are you a primary career development engineer to a significant other at home: No Do you presently have visiting nurse or other home services: No Alcohol intake: current Alcohol intake frequency: holidays/special occasions only Comment: camera for confusion this evening Patient Tobacco Use Status: Former Tobacco user Tobacco use type: Cigarette Years Smoked: 30 years Second Hand Smoke Exposure: No Advance Directives Date on File: 03/14/22 service: No Current occupational status: retired Gender identity: Female Review of Systems Const Denies chills and Denies fever(s) Card Denies chest pain, Denies dyspnea and Denies dyspnea on exertion Resp Denies cough, Denies dyspnea and Denies dyspnea on exertion GI Denies hematochezia, Denies change in bowel habits and Reports constipation Denies hematuria Musc Denies back pain and Denies limited range of motion Neuro Denies focal weakness and Denies convulsions Psych Denies depression and Denies mood swings Physical Exam Vital Signs: BMI result Body Mass Index 27.0 Const General: comfortable and no acute distress Orientation/consciousness: patient oriented x3 Neck Neck: Yes no lymphadenopathy Resp Auscultation: clear to auscultation bilaterally Cardio Rhythm: regular rhythm GI Other: Palpable abdominal wall hernia at the level of the umbilicus, about 6 cm in diameter, reducible, wide mouth Palpation (GI): Soft to palpation, nontender and no guarding Neuro General: patient oriented x3 Assessment & Plan Assessment & Plan (1) Incisional hernia: Code(s): K43.2 - Incisional hernia without obstruction or gangrene Category: Medical Plan: She has a wide mouth incisional hernia on the midline this time. I have reviewed her CAT scan and this shows what appears to be 6 cm defect with bowel loops. I explained to her the option of proceeding with the repair. I explained the technique of repair with mesh. I reviewed the risks including but not limited to bleeding, infections, bowel injury, recurrence, inherent risks of anesthesia says including [place], strokes, as well as the benefits and alternatives. I explained to her what to expect postoperatively. She understands that her perioperative risks are now higher than before because of her age She wants to think about this. The hernia is wide mouth so it is unlikely that this will cause any incarceration acutely but he does state that this seems to be uncomfortable. In the meantime, I told her that I would recommend for her to be seen by her technical healthcare consultant so that her risks can be stratified while waiting. Her was with her during the visit Coding Level of Care Code Est Pt Level 4 (76687) Diagnoses Incisional hernia K43.2
== END 2025-04-09 13:38 | disposition home or self-care (01) ==
LOC: HO.HGS 13:11
PROVIDERS: PCP Internal Medicine; Visit Provider Surgery
DX: K43.2 Incisional hernia without obstruction or gangrene (principal)
CPT/HCPCS: 99214

== ENCOUNTER → 2025-04-09 13:11 | Outpatient (BNVA) | payer MEDICARE, OTHER, SELFPAY | PROVIDERS: PCP Internal Medicine; Visit Provider Surgery | DX: K43.2 Incisional hernia without obstruction or gangrene (principal) | CPT/HCPCS: 99212 ==

== ENCOUNTER 2025-04-16 09:37 | Outpatient (AMB) | payer MEDICARE, OTHER, SELFPAY ==
--- OUTSIDE RECORDS SUMMARY | 2010-08-02 01:00 | XMS_ITS | Encounter Summary ---
Author Organization [employer] [facility] Address [address] [place] [phone] Phone Care Team Providers Care Furniture Decals Inspector Name Role Phone Unavailable Primary Care Provider Unavailabl e Encounter Details Date Type Department Care Team (Late st Contact Info) Description 08/02/2010 Hospital Encounter [facility],Outside Imaging [address] [place] [address] System, Provider Not In, PhD [address] [address] Social History Tobacco Use Types Packs/Day Years [...] 12:00 PM EDT Julia Eugene RN * [place] Suicide Severity Rating Scale (Screener/Recent Self-Report) Question Answer Date of Assessment Author 1. Wish to be (Past 1 Month) No 024 12:00 PM EDT Julia Roe RN 2. Non-Specific Active Suici devon Thoughts (Past 1 Month) No 10/11/2023 12:00 PM EDT Aleena Roe RN 6. Suicidal Behavior (Lifetime) No 12:00 PM EDT Julia Roe RN documented as of this encounter Plan of Treatment Upcoming Encounters Date Type Department Care Team (Late st Contact Info) Description 04/21/2025 10:40 AM EST Telemedicine [facility] [address] [place] [address] Maggie Crook CNP [address] [phone] 07/01/2025 11:15 AM EST Office Visit [facility] [address] [place] [phone] Ema Mars PA-C [address] [address] [place] [id number] [email or web address] documented as of this encounter Procedures Procedure [...] It is not the complete legal health record.[facility]
--- OUTSIDE RECORDS SUMMARY | 2012-08-06 01:00 | XMS_ITS | Encounter Summary ---
Author Organization [employer] [facility] Address [email or web address] [place] [address] Phone Care Team Providers Care Staff Occupational Therapist Name Role Phone Unavailable Primary Care Provider Unavailabl e Encounter Details Date Type Department Care Team (Late st Contact Info) Description 08/06/2012 Hospital Encounter [facility],Outside Imaging [address] [place] [address] System, Provider Not In, PhD [address] [address] Social History Tobacco Use Types Packs/Day Years [...] 12:00 PM EDT Julia Eugene RN * [place] Suicide Severity Rating Scale (Screener/Recent Self-Report) Question [...] Telemedicine [facility] [address] [place] [address] Maggie Crook CNP [address] [phone] 07/01/2025 11:15 AM EST Office Visit [facility]ology Clinic [address] [place] [address] Ema Mars PA-C [address] [address] [place] [phone] [email or web address] documented as of this encounter Procedures Procedure [...] It is not the complete legal health record.[facility]
[2025-04-16 09:42] VITALS: BP 124/66; PULSE 67; BMI 27.5
--- NOTE | 2025-04-16 09:42 | A.OFFVIS_ITS ---
Vital Signs 04/16/25 09:42 Height 5 ft 4 in Weight 160 lb BMI 27.5 BP 124/66 Blood Pressure Location Lt brachial Position Sitting Pulse 67 Pulse Source Monitor Intake Visit Reasons: Cardiac clearance per Dr Hunt Wharf Tender Helper Required: No Accompanied by: Self / Same As Patient Allergies No Known Allergies Allergy (Verified 04/16/25 09:44) Medication List - Last Reconciled 04/16/25 by Michelle Donald LOCAL BULK DRIVER-C albuterol sulfate 90 mcg/actuation 2 inhalations inhalation Q6H PRN 30 days aspirin 81 mg PO DAILY citalopram 40 mg PO QAM ibuprofen 600 mg PO Q6H PRN nebulizer and compressor As directed omeprazole 40 mg PO QAM rosuvastatin 20 mg PO QAM Trelegy Ellipta 100-62.5-25 mcg (qfaaziaokdn-fickrbaya-qhiferev) 1 inh inhalation QAM NS vibegron (Gemtesa) 75 mg PO DAILY HPI HPI Cardiac clearance per Dr Hunt: Details: Surekha is an 84-year-old female with past medical history of hyperlipidemia, mild carotid stenosis, mild aortic stenosis, coronary calcifications on CT scan who presents for follow-up and preop cardiovascular examination. Today she reports that she has a large abdominal hernia that is in need of repair. She does have some discomfort from the area and is hoping to have it fixed in the near future. She has been sedentary recently. She does have to climb stairs in her home and will notice some shortness of breath with exertion. She is no longer walking for exercise. No chest discomfort at rest or with activity. No heart palpitations, lightheadedness, presyncope, syncope. No bleeding issues with Pradaxa use. Taking all meds as directed. [facility] Medical History Sepsis Diverticulitis of colon with perforation Ileus following gastrointestinal surgery Hypovolemia Perforated viscus Incisional hernia Suture granuloma Postoperative nausea Breast cancer GERD (gastroesophageal reflux disease) Arthritis Hyperlipidemia Atherosclerosis of both carotid arteries COVID-19 Pulmonary nodule COPD (chronic obstructive pulmonary disease) Surgical History History of right shoulder replacement History of lateral meniscus repair of right knee History of hernia repair (~03/20/23) History of tubal ligation Status post colostomy takedown Status post Andreas procedure (~03/14/22) History of esophagogastroduodenoscopy (EGD) History of colonoscopy History of exploratory laparotomy (~2021) H/O right mastectomy Social History Household Members: Spouse Housing: Apartment Are you a primary medicare interviewer to a significant other at home: No Do you presently have visiting nurse or other home services: No Alcohol intake: current Alcohol intake frequency: holidays/special occasions only Comment: camera for confusion this evening Patient Tobacco Use Status: Former Tobacco user Tobacco use type: Cigarette Years Smoked: 30 years Second Hand Smoke Exposure: No Advance Directives Date on File: 03/14/22 service: No Current occupational status: retired Gender identity: Female Review of Systems Const All systems reviewed & are unremarkable except as noted in HPI and below Denies daytime sleepiness, Denies difficulty sleeping, Denies snoring, Denies stops breathing during sleep and Denies weakness Card Denies chest pain, Denies rapid heart rate, Denies irregular heart rhythm, Denies claudication, Denies leg edema, Denies lightheadedness, Denies palpitations, Denies dyspnea, Reports dyspnea on exertion, Denies orthopnea, Denies paroxysmal nocturnal dyspnea and Denies slow heart rate Resp Denies cough, Denies dyspnea, Reports dyspnea on exertion and Denies snoring GI Details: large abdominal hernia Reports no additional complaints, Denies hematochezia, Denies change in stool character and Denies dyspepsia Musc Denies abnormal gait, Denies muscle weakness and Denies numbness Neuro Denies abnormal gait, Denies numbness and Denies weakness Endo Denies palpitations Physical Exam Vital Signs: Last Vital Signs Pulse 67 04/16/25 09:42 BP 124/66 04/16/25 09:42 BMI result Body Mass Index 27.5 Const General: cooperative, healthy appearing, comfortable and no acute distress Orientation/consciousness: patient oriented x3 Neck Neck: Yes normal visual inspection and Yes no JVD Resp Effort & Inspection: normal respiratory effort Auscultation: clear to auscultation bilaterally, no rales, no rhonchi and no wheezes Cardio Jugular venous distension: no JVD Rate: regular rate Rhythm: regular rhythm Heart sounds: S1 normal heart sound present, S2 normal heart sound present, Murmur heart sound present (systolic) and no rubs Neuro General: patient oriented x3 Extrem General: Yes normal to inspection, No no pedal edema and No calf tenderness Psych Appearance: grossly normal Mental Status: mental status grossly normal Speech and movement: Normal speech and movement present Office Procedures EKG Details: Today, read by me normal sinus rhythm, rate 67, Qtc 401ms 26170-Tqnhiockeuiccucwz, Complete Assessment & Plan Assessment & Plan (1) CAD (coronary artery disease): Code(s): I25.10 - Atherosclerotic heart disease of iqugmiut coronary artery without angina pectoris Category: Medical Plan: History of CAD with CT scan of the chest on 08/25/2022 does show coronary calcifications. She has not had any anginal symptoms in the past. Now reporting shortness of breath with stair climbing. Last Echocardiogram 05/2025 showing EF 65-70%, no regional wall motion abnormalities, grade 1 diastolic dysfunction, mild . She is preop for abdominal surgery. EKG today showing normal sinus rhythm with no acute ST or T-wave abnormalities, rate 67. Will check a pharmacological nuclear stress test to assess for any ischemia prior to clearance. She is agreeable to this plan. Continue aspirin indefinitely. Continue rosuvastatin with ideal LDL goal less than 70. Plan to call her with stress test results. It if test is normal will keep her cardiology follow-up in November 2025. (2) Shortness of breath: Code(s): R06.02 - Shortness of breath Category: Medical Plan: As above (3) Aortic stenosis: Code(s): I35.0 - Nonrheumatic aortic (valve) stenosis Category: Medical Plan: Last echocardiogram showing mild aortic stenosis. Plan was for repeat echocardiogram in 2 years. (4) Mitral regurgitation: Code(s): I34.0 - Nonrheumatic mitral (valve) insufficiency Category: Medical Plan: Echo in 2019 showed mild mitral regurgitation. Echocardiogram from 08/2024 shows mitral valve appears normal. (5) Atherosclerosis of both carotid arteries: Comment: minimal per carotid US 07/28/21-sees Dr. Negrete T3bgsfz Code(s): I65.23 - Occlusion and stenosis of bilateral carotid arteries Category: Medical Plan: History of mild carotid stenosis. No bruit on examination. She is on aspirin and rosuvastatin. Last carotid ultrasound done 07/28/2021 showing right and left internal carotid arteries 0-49% stenosis. For surveillance will plan for repeat carotid ultrasound prior to her next visit. Cardiology office visit in 1 year, sooner if needed. (6) Hyperlipidemia: Code(s): E78.5 - Hyperlipidemia, unspecified Category: Medical Plan: [employer] LDL goal less than 70 in patient with known mild carotid stenosis, CAD. No recent lipid profile in our system. She tells me she just has labs done by her PCP. Will forward this note to her PCP for review. Continue rosuvastatin. (7) Preop cardiovascular exam: Code(s): Z01.810 - Encounter for preprocedural cardiovascular examination Category: Medical Plan: Preop for Hernia repair surgery. Nuclear stress test is being ordered. This note will be update once results are available. Plan Time spent on chart review, documentation, interview and assessment Orders: Orders NM cardiolite stress test Today I35.0 - Nonrheumatic aortic (valve) stenosis, R06.02 - Shortness of breath, Z01.810 - Encounter for preprocedural cardiovascular examination US carotid duplex BI 11/09/25 I65.23 - Occlusion and stenosis of bilateral carotid arteries CA lexiscan stress w quirino Today I35.0 - Nonrheumatic aortic (valve) stenosis, R06.02 - Shortness of breath, Z01.810 - Encounter for preprocedural cardiovascular examination Coding Level of Care Code Est Pt Level 4 (79575) Complex EM visit Add On G2211 Diagnoses CAD (coronary artery disease) I25.10 Shortness of breath R06.02 Aortic stenosis I35.0 Mitral regurgitation I34.0 Atherosclerosis of both carotid arteries I65.23 Hyperlipidemia E78.5 Preop cardiovascular exam Z01.810 CPT Codes EKG - CPT: 83208-[id number], Complete ([id number]) Time Spent (min) 32
--- OUTSIDE RECORDS SUMMARY | 2025-04-16 11:13 | XMS_ITS | Encounter Summary ---
Author Organization [employer] [facility] Address [address] [place] [address] Phone Care Team Providers Care Art Therapist Name Role Phone Jack León MD Primary Care Provider [phone] Jack León MD Unavailable [phone] Encounter Details Date Type Department Care Team (Late st Contact Info) Description 10/27/2022 Ancillary Orders [address] [id number] Candy Shirley MD [address] [place] [address] Orthopedics & Sports Medicine, [place], [place] [id number] [email or web address] Right shoulder pain, unspecified chronicity [...] Info) Description 04/21/2025 10:40 AM EST Telemedicine [facility] 2 [place] [address] Maggie Crook CNP 2 [facility] [address] [place] [address] 07/01/2025 11:15 AM EST Office Visit [facility] 10 [place] [address] Ema Mars PA-C [address] [address] [email or web address] Pending Results Name Type Priority Associated Diagnoses [...] documented as of this encounter Care Teams Art Therapist Relationship Specialty Start Date End Date Jack León MD [address] [place] [address], [address] [place] [address] [email or web address] PCP - General Internal Medicine 12/24/18 Jack León MD [address] [place] [address], [address] [place] [address] [email or web address] Insurance Assigned Provider 09/22/23 documented as of this encounter Additional Source Comments The information contained in this document represents components of the legal health record. It is not the complete legal health record.[facility]
--- OUTSIDE RECORDS SUMMARY | 2025-04-16 11:13 | XMS_ITS | Encounter Summary ---
Author Organization [employer] [facility] Address [address] [place] [address] Phone Care Team Providers Care Car Ferry Captain Name Role Phone Jack León MD Primary Care Provider [phone] Jack León MD Unavailable [phone] Encounter Details Date Type Department Care Team (Late st Contact Info) Description 10/27/2022 Ancillary Orders [facility] Orthopedics & Sports Medicine [address] [place] [address] Candy Shirley MD [address] [place] [address] Orthopedics & Sports Medicine, [facility] [place], [place] [phone] [email or web address] Social History Tobacco Use Types Packs/Day Years [...] EST Telemedicine [facility] 2 [place] [address] Maggie Crook CNP [address] [place] [phone] 07/01/2025 11:15 AM EST Office Visit [facility] 10 [place] [address] Ema Mars PA-C [address] [address] [email or web address] documented as of this encounter Visit Diagnoses Not on filedocumented in this encounter Additional Health Concerns Assessment Noted Time PHQ-2 Depression Total Score: 1 10/02/19 21 10:08 AM EDT documented as of this encounter Care Teams Car Ferry Captain Relationship Specialty Start Date End Date Jack León MD [address] [place] [address], [address] [place] [address] [email or web address] PCP - General Internal Medicine 12/24/18 Jack León MD [address] [place] [address], [address] [place] [address] Insurance Assigned Provider 09/22/23 documented as of this encounter Additional Source Comments The information contained in this document represents components of the legal health record. It is not the complete legal health record.[facility]
--- OUTSIDE RECORDS SUMMARY | 2025-04-16 11:13 | XMS_ITS | Encounter Summary ---
Author Organization [employer] Address [address] [place] [address] Care Team Providers Care Club Lounge Attendant Name Role Phone Pcp, No Primary Care Provider Unavailabl e Encounter Details Date Type Department Care Team (Late st Contact Info) Description 12/23/2023 Procedure Pass [facility] Radiology, [facility] (CT Scan) [address] [place] [phone] Social History Tobacco Use Types Packs/Day Years [...] on filedocumented in this encounter Care Teams Club Lounge Attendant Relationship Specialty Start Date End Date Pcp, [place] [address] PCP - General 12/23/23 documented as of this encounter
--- OUTSIDE RECORDS SUMMARY | 2025-04-16 11:13 | XMS_ITS | Encounter Summary ---
Author Organization [employer] [facility] Address [address] [place] [address] Phone Care Team Providers Care Inspector Precision Name Role Phone Jack León MD Primary Care Provider [phone] Jack León MD Unavailable [phone] Encounter Details Date Type Department Care Team (Late st Contact Info) Description 10/23/2023 Procedure Pass [facility], Ct Scan - [address] [address] Social History Tobacco Use Types Packs/Day Years [...] Info) Description 04/21/2025 10:40 AM EST Telemedicine [facility] SUPPORT 2 [place] [address] Maggie Crook CNP [address] [phone] 07/01/2025 11:15 AM EST Office Visit [facility] [address] [place] [address] Ema Mars PA-C [address] [place] [address] documented as of this encounter Visit Diagnoses Not on filedocumented in this encounter Additional Health Concerns Assessment Noted Time PHQ-2 Depression Total Score: 1 10/02/19 21 10:08 AM EDT documented as of this encounter Care Teams Inspector Precision Relationship Specialty Start Date End Date Jack León MD 22 [facility], [address] [place] [address] PCP - General Internal Medicine 12/24/18 Jack León MD [address] [place] [address], [address] [place] [address] [email or web address] Insurance Assigned Provider 09/22/23 documented as of this encounter Additional Source Comments The information contained in this document represents components of the legal health record. It is not the complete legal health record.[facility]
--- OUTSIDE RECORDS SUMMARY | 2025-04-16 11:13 | XMS_ITS | Clinical Summary ---
Author Organization [facility] Address [address] [place] [address] Care Team Providers Care Chief Transfer And Pumphouse Operator Name Role Phone Pcp, No Primary Care [...] topic Insurance MEDICARE [employer] Care Teams Chief Transfer And Pumphouse Operator Relationship Specialty Start Date End Date Pcp, No No PCP On File JULIAN Springer [address] PCP - General 12/23/23
--- OUTSIDE RECORDS SUMMARY | 2025-04-16 11:13 | XMS_ITS | Encounter Summary ---
Author Organization [employer] Address [address] [place] [address] Care Team Providers Care Outreach Associate Name Role Phone Pcp, No Primary Care Provider Unavailabl e Encounter Details Date Type Department Care Team (Late st Contact Info) Description 12/23/2023 Procedure Pass [facility] Radiology, [facility] (CT Scan) [address] [place] [phone] Social History Tobacco Use Types Packs/Day Years [...] on filedocumented in this encounter Care Teams Outreach Associate Relationship Specialty Start Date End Date Pcp, No [place] [address] PCP - General 12/23/23 documented as of this encounter
--- OUTSIDE RECORDS SUMMARY | 2025-04-16 11:13 | XMS_ITS | Encounter Summary ---
Author Organization [employer] [facility] Address [address] [place] [address] Phone Care Team Providers Care District Gauger Name Role Phone Jack León MD Primary Care Provider [phone] Jack León MD Unavailable [phone] Reason for Referral * MRI/CAT Scan - Closed Specialty Diagnoses / Procedures Referred By Bhavin lehman Referred To Contact Radiology Procedures Outside CT Imaging Report Only Keven Davis [address] [place] [address] Phone: tel: fax: Referral ID Status Reason Start Date Expiration Date Visits Re quested Visits Authorized [id number] Closed 03/13/2025 1 1 Encounter Details Date Type Department Care Team (Late st Contact Info) Description 03/13/2025 Orders Only Keven Davis [address] [place] [address] Pedro Mir MD [address] [place] [address] Social History Tobacco Use Types Packs/Day [...] Telemedicine [facility] 2 [place] [address] Maggie Crook CNP [address] [employer] [address] [phone] 07/01/2025 11:15 AM EST Office Visit [facility] [address] [place] [address] Ema Mars PA-C 10 [facility] 2 [place] [address] [email or web address] documented as of this encounter Procedures Procedure [...] documented as of this encounter Care Teams District Gauger Relationship Specialty Start Date End Date Jack León MD [address] [place] [address], [address] [place] [address] [email or web address] PCP - General Internal Medicine 12/24/18 Jack León MD [address] [place] [address], [address] [place] [address] [email or web address] Insurance Assigned Provider 09/22/23 documented as of this encounter Additional Source Comments The information contained in this document represents components of the legal health record. It is not the complete legal health record.[facility]
--- OUTSIDE RECORDS SUMMARY | 2025-04-16 11:14 | XMS_ITS | Patient Health Record ---
Author Organization [facility] Address [address] [place] [address] Care Team Providers Care Boat Rental Clerk Name Role Phone An (RETIRED) Nehemias LIGHT Primary Care Provid er Unavailable Kwesi Matthews Unavailable [phone] Reason For Referral No Information Medications Medication SIG (Take, Route, Frequency, Duration) Notes Start Date End Date Status Crestor 10mg 06/18/2024 06/18/2024 Activ e Glucosamine 1000mg 06/18/2024 06/18/2024 Active NexIUM 40mg 06/18/2024 06/18/2024 Active VESIcare 5mg 06/18/2024 06/18/2024 Activ e Suprep Bowel Prep 17.5g/3/13g/1.6g per 6 ounces as directed Orally once; Duration: 1 dose 08/13/2012 Active Citalopram Hydrobromide 40mg 06/18/2024 06/18/2024 Active MSM 1000mg 06/18/2024 06/18/2024 Active Problems Problem Type SNOMED Code ICD Code Onset Dates Problem Status W/U Status Risk Notes Problem Colon cancer screening (827939724) Colon cancer screening (V76.51) Active confirmed Problem Gastroesophageal reflux disease (648960339) GERD (gastroesopha geal reflux disease) (530.81) Active confirmed Plan Of Treatment Future Test Test Name Order Date COLONOSCOPY 08/13/2012 Insurance Providers Payer Name Payer Address Payer Phone Subscriber Number Group Number Insured Name Patient Relationship to Insured Coverage Start Date Coverage End Date MEDICARE OF [employer] [employer] [address] [place] [id number] ANTOINETTE NIX Self - patient is the insured WPS[employer]TRIC[employer] E [employer] [address] [place], [place] [address] [phone] [id number] ANTOINETTE NIX Self - patient is the insured Medical (General) History Medical History History ICD Code Colonoscopy 08/2000-hyperplastic polyp an d melanosis coli GERD-small HH on EGD in 08/2000-no Molina t's PUD on endoscopy many years ago Denies MO,DM,CVA,Lung disease,renal dise ase Hyperlipidemia Surgical History Surgery Date(Month/Year) mastectomy with reconstructi on 20 years ago for breast cancer on the right urinary incontinence surgery
--- OUTSIDE RECORDS SUMMARY | 2025-04-16 11:14 | XMS_ITS | Encounter Summary ---
Author Organization [facility] Address [address] [place] [address] Phone Care Team Providers Care Manager Outpatient Name Role Phone Jack León MD Primary Care Provider [phone] Jack León MD Unavailable [phone] Gladys Lara OT Unavailable [phone] Encounter Details Date Type Department Care Team (Late st Contact Info) Description 08/25/2022 Ancillary Orders [address] [phone] Candy hSirley MD [address] [place] [address] Orthopedics & Sports Medicine, [place], [place] [phone] [email or web address] Right shoulder pain, unspecified chronicity [...] Info) Description 04/21/2025 10:40 AM EST Telemedicine [facility] 2 [place] [address] Maggie Crook CNP 2 [facility] [address] [place] [phone] 07/01/2025 11:15 AM EST Office Visit [facility] Gastroenterology Clinic 10 [place] [address] Ema Mars PA-C [address] [address] [email or web address] documented as of this encounter Visit Diagnoses Diagnosis Right shoulder pain, unspecified chronicity documented in this encounter Additional Health Concerns Assessment Noted Time PHQ-2 Depression Total Score: 1 10/02/19 21 10:08 AM EDT documented as of this encounter Care Teams Manager Outpatient Relationship Specialty Start Date End Date Jack León MD [address] [place] [address], [address] [place] [address] PCP - General Internal Medicine 12/24/18 Jack León MD [address] [place] [address], [address] [place] [address] Insurance Assigned Provider 09/22/23 Gladys Lara, OT [address] [place] [address] [email or web address] Transitions Twisting Department End FinderSenior Lead Software Engineer Therapy 09/26/2206/09 documented as of this encounter Additional Source Comments The information contained in this document represents components of the legal health record. It is not the complete legal health record.[facility]
--- OUTSIDE RECORDS SUMMARY | 2025-04-16 11:14 | XMS_ITS | Encounter Summary ---
Author Organization [facility] Address [email or web address] [place] [address] Phone Care Team Providers Care Football Coach Name Role Phone Jack León MD Primary Care Provider [phone] Jack León MD Unavailable [phone] Gladys aLra OT Unavailable [phone] Encounter Details Date Type Department Care Team (Late st Contact Info) Description 06/28/2022 Procedure Pass OR Admitting Dept - Virtual Department [address] [place] [id number] Social History Tobacco Use Types Packs/Day Years [...] Telemedicine [facility] 2 [place] [address] Maggie Crook CNP 2 [facility] [address] [place] [phone] 07/01/2025 11:15 AM EST Office Visit [facility] Gastroenterology Clinic 10 [place] [address] Ema Mars PA-C 10 [facility] 2 [place] [address] [email or web address] documented as of this encounter Visit Diagnoses Not on filedocumented in this encounter Additional Health Concerns Assessment Noted Time PHQ-2 Depression Total Score: 1 10/02/19 21 10:08 AM EDT documented as of this encounter Care Teams Football Coach Relationship Specialty Start Date End Date Jack León MD [address] [place] [address] PCP - General Internal Medicine 12/24/18 Jack León MD [address] [place] [address] Insurance Assigned Provider 09/22/23 Gladys Lara, OT [address] [place] [address] Transitions Cleaner Carpet And UpholsteryDye Weigher Helper Therapy 09/26/2206/09 documented as of this encounter Additional Source Comments The information contained in this document represents components of the legal health record. It is not the complete legal health record.[facility]
--- OUTSIDE RECORDS SUMMARY | 2025-04-16 11:14 | XMS_ITS | Clinical Summary ---
Author Organization [facility] Address [address] [place] [address] Phone Care Team Providers Care Wheel Press Operator Name Role Phone Margie León MD Primary Care Provider [phone] Margie León MD Unavailable [phone] Allergies No known active allergies Medications [...] 01/22/2025 Overview (01/22/2025): [place] [facility] [place]d [place]. 2024: make appt with gen surg [place] [facility] [place] recurrence. Primary osteoarthritis of both hands 06/06/2024 Dupuytren disease 06/06/2024 Pulmonary nodule seen on imaging study 4 Overview (01/17/2024): Summary of Pulmonary Nodule Clinic ([facility]) conference discussion: The patient was discussed in the [facility] multidisciplinary conference on 01/09/24. Specialists in attendance at the conference included: Dr. Lorie Rivera (pulmonology), Dr. Queta Fung (medical oncology), Dr. iRck Preston (interventional pulmonology), Dr. Mamie Wetzel (radiation [...] have an individual appointment with the following presentation team member(s): [facility] AQUATIC ECOLOGIST. The final clinical recommendation may vary after the appointment with above clinician(s), but based on scan review we recommend follow up CT Chest in 3 months for the groundglass nodules and DAISY nodule. The multidisciplinary team anticipates that the patient will subsequently follow-up back in [facility]. Assessment & Plan (11/16/2024 7:11 PM EDT): [...] coronary syndromes including unstable or severe angina, IA within 1 month, severe CHF, high grade [...] emergent sigmoidectomy w/colostomy creation (Andreas procedure) at [facility] in September 2021. This was reversed [...] versus reevaluation at [place] nod[place] [facility]. Assessment & Plan (12/31/2023 11:01 AM EDT): Has appt 01/08 with [facility] [place]m [place] Nonrheumatic mitral valve regurgitation 05/18/20 Overview (05/18/2022): Follow[place] Dr Negrete [facility] [place] Assessment & Plan (07/20/2023 3:38 PM EST): Follows by at [facility]. Echocardiogram in 2019 showed normal LV and normal RV function. Bilateral carotid artery stenosis 05/18/2022 Overview (05/18/2022): Mild, followed by Dr Negrete Assessment & Plan (07/20/2023 3:39 PM EST): Minimal per carotid ultrasound on 07/28/21. Right and left ICA each 0-49% stenosis. Follows with at [facility]. Patient is asymptomatic, has done well [...] 09/08/2019 Overview (07/20/2023): [place] Prabhakar [place] [facility] [place] Overall stable, has prn [...] (07/20/2023 3:35 PM EST): Follows with at [facility] for COPD and pulmonary nodules. She [...] 3:29 PM EST): GERD, followed by GI[facility] [facility], seen on 04/25/23. Continue on medical [...] 10/03/2021 Overview (10/03/2021): After emergency sigmoidectomy at [facility], September 2021 for ruptured diverticulum Recurrent major depressive d isorder, in full remission 10/01/2020 07/20/2023 Sacroiliac joint dysfunction 05/19/2019 07/20/2023 Overview (05/19/2019): Mild, rec belt, APAP, modify lifting etc. Refer to Dr Bridges if needed. Encounters Date Type Department Care Team Description 04/15/2025 Telephone [facility] [address] [place] [address] Margie León MD Care Coordination ([facility] Virtual AWV Outreach/) 03/13/2025 Orders Only [facility] [address] [place] [address] ProviderPedro MD 01/26/[address] [place] [address] Margie León MD Medication Refill 01/23/2025 Telephone [facility] [address] [place], [place] [phone] Margie León MD Referral (Pt is requesting a referral to @ [facility]) 01/22/2025 9:15 AM EDT Office Visit [address] [place] [address] Margie León MD Abdominal wall hernia (Primary Dx); Chronic constipation 01/19/[address] [place] [address] Margie León MD Medication Refill from Last 3 Months Immunizations [...] Info) Description 04/21/2025 10:40 AM EST Telemedicine [facility] V[facility]UAL CLINIC SUPPORT [address] [place] [address] Maggie Crook CNP 2 [address] [facility] [address] [place] [address] 07/01/2025 11:15 AM EST Office Visit [facility] Gastroenterology Clinic [address] [place] [address] Ema Mars PA-C [address] [address] [email or web address] Health Maintenance Due Date Last Done Comments [...] this topic Medical Devices Implanted Type Area Film Mounter Device Identifier Shelf Expiration Date Model / Serial / Lot Lens Lens Bilateral: Eye Cement Bone 1x40 Standard - [id number] Implanted:Qty : 1 on 09/25/2022 by Jone Levy MD at [facility] Right: Knee [employer]IA [employer] 12/15/2024 [id number] / / [id number] Box Component 67.5mm Femoral Knee Vanguard Interlok Catarina Posterior Stabilized Open Cemented Right - [id number] Implanted:Qty : 1 on 09/25/2022 by Jone Levy MD at [facility] Right: Knee [employer] 07/26/2032 [id number] / / [id number] Knee Tray 71mm Plate Bone Primary Vanguard Catarina I Beam Revision Interlock Cemented - [id number] Implanted:Qty : 1 on 09/25/2022 by Jone Levy MD at [facility] Right: Knee [employer] 07/22/2032 [id number] / / [id number] Knee Implant Component 31x8mm Prosthesis Patellar Vanguard Series A Asymmetric 3 Peg - [id number] Implanted:Qty : 1 on 09/25/2022 by Jone Levy MD at [facility] Right: Knee [employer] 04/12/2027 [id number] / / [id number] Knee Insert 71 [id number] Bearing Vanguard Stabilized - [id number] Implanted:Qty : 1 on 09/25/2022 by Jone Levy MD at [facility] Right: Knee [employer] 05/01/2027 [id number] / / [id number] Humerus Stem Size 5 Humeral Shoulder Aequalis Pure Titanium Coat Ascend Flexible Standard Anatomic B - [id number] Implanted:Qty : 1 on 10/11/2023 by Keo Shane DO at [facility] Right: Shoulder [employer] 01/05/2028 [id number] / [id number] / Description:REF:[id number] Cement Bone 1x40 Standard - [id number] Implanted:Qty : 1 on 10/11/2023 by Keo Shane DO at [facility] Right: Shoulder [employer]IA [employer] [id number] 04/17/2025 [id number] / / [id number] Tornier Perform Anatomic Glenoid Cortiloc Pegged Glenoid Uhmwpe + Cocr Model :S40 Type:Anatomic Implanted:Qty : 1 on 10/11/2023 by Keo Shane DO at [facility] Right: Shoulder [employer] 05/02/2027 / [id number] / Description:REF: [id number] Shoulder Head [id number] Short Humeral Aequalis Ascend Tubular Bone Offset Low - [id number] Implanted:Qty : 1 on 10/11/2023 by Keo Shane DO at [facility] Right: Shoulder [employer] [id number] 09/15/2025 [id number] / [id number] / Procedures Procedure Name Priority Date/Time Associated [...] Referred By: MARGIE LEÓN Indications: Osteopenia Scanner: [employer] A with serial# of [id number] located at [facility] Bone Density Scan (DXA) 12/10/24 Details of [...] -2.5), or Osteoporosis (T-score <= -2.5). At [facility], T-scores are compared to peak bone density [...] Referred By: MARGIE LEÓN Indications: Osteopenia Scanner: [employer] A with serial# of [id number] located at [facility] Bone Density Scan (DXA) 12/10/24 Details [...] -2.5), or Osteoporosis (T-score <= -2.5). At [facility], T-scores are compared to peak bone density [...] andprior bone density results. IMPRESSION: Interpretation: Osteopenia. us Margie León MD IMG BD BONE DENSITY DEXA Final Result from Last 3 Months or Most Recently Relevant to Health Maintenance Insurance MEDICARE PART A & B [employer] MEDICARE SUPPLEMENT MEDICARE PART A & B FOR LIFE MEDICARE SUPPLEMENT MEDICARE PART A & B FOR LIFE MEDICARE SUPPLEMENT MEDICARE PART A & B [facility] FOR LIFE MEDICARE SUPPLEMENT MEDICARE PART A & B [facility] FOR LIFE MEDICARE SUPPLEMENT MEDICARE PART A & B FOR LIFE MEDICARE SUPPLEMENT MEDICARE PART A & B FOR LIFE MEDICARE SUPPLEMENT MEDICARE PART A & B [employer] MEDICARE SUPPLEMENT MEDICARE PART A & B [employer] MEDICARE SUPPLEMENT Advance Directives For more information, please contact: [phone] (9AM - 5PM [facility], Sunday-Sunday) Documents on File Type Date Recorded Patient Self Pay Representative Expl anation Healthcare Proxy 10/15/2023 5:09 PM MOLST 05/22/2019 MOLST 05/19/19 * Full Code (Latest Code Status on File) Date Activated Date Inactivated Comments 09/25/2022 12:09 PM Question Answer Comments Code Status Confirmed With: Patient Care Teams Wheel Press Operator Relationship Specialty Start Date End Date Margie León MD 22 [facility], [address] [place] [address] [email or web address] PCP - General Internal Medicine 12/24/18 Margie León MD 22 [facility], [address] [place] [address] Insurance Assigned Provider 09/22/23 Additional Source Comments The information contained in this document represents components of the legal health record. It is not the complete legal health record.[facility]
--- OUTSIDE RECORDS SUMMARY | 2025-04-16 11:15 | XMS_ITS | Encounter Summary ---
Author Organization [facility] Address [address] [facility] [address] [place] [address] Phone Care Team Providers Care Test Developer Name Role Phone Jack León MD Primary Care Provider [phone] Jack León MD Unavailable [phone] Gladys Lara OT Unavailable [phone] Encounter Details Date Type Department Care Team (Latest Contact Info) Description 01/27/2019 Ancillary Orders [facility] Medical [facility] Medicine [address] [place] [address] Jack León MD 22 [facility], [address] [place] [address] [email or web address] Malignant neoplasm of right female breast, unspecified [...] Description 04/21/2025 10:40 AM EST Telemedicine [facility] 2 [place] [address] Maggie Crook CNP 2 [facility] [address] [place] [address] 07/01/2025 11:15 AM EST Office Visit [facility] Gastroenterology Clinic 10 [place] [address] Ema Mars PA-C 10 [facility] 2 [place] [address] documented as of this encounter Results * [...] Images interpreted in conjunction with R-2 Image Counsellors computer-aided detection (CAD). FINDINGS: BREAST COMPOSITION: There [...] documented as of this encounter Care Teams Test Developer Relationship Specialty Start Date End Date Jack León MD 22 [facility], [address] [place] [address] [email or web address] PCP - General Internal Medicine 12/24/18 Jack León MD 22 [facility], [address] [place] [address] [email or web address] Insurance Assigned Provider 09/22/23 Gladys Lara, OT [address] [place] [address] [email or web address] Transitions Section HousekeeperLaminating Machine Operator Helper Therapy 09/26/2206/09 documented as of this encounter Additional Source Comments The information contained in this document represents components of the legal health record. It is not the complete legal health record.[facility]
--- OUTSIDE RECORDS SUMMARY | 2025-04-16 11:15 | XMS_ITS | Encounter Summary ---
Author Organization [facility] Address [address] [place] [address] Phone Care Team Providers Care Nba Player Name Role Phone Jack León MD Primary Care Provider [phone] Jack León MD Unavailable [phone] Gladys Lara OT Unavailable [phone] Encounter Details Date Type Department Care Team (Late st Contact Info) Description 05/01/2022 Procedure Pass [facility], [address] [address] Social History Tobacco Use Types Packs/Day Years [...] EST Telemedicine [facility] [address] [place], [place] [phone] Maggie Crook CNP 2 [facility] [address] [place] [phone] 07/01/2025 11:15 AM EST Office Visit [facility] Gastroenterology Clinic 10 [place] [address] Ema Mars PA-C 10 [facility] 2 [place] [address] documented as of this encounter Visit Diagnoses Not on filedocumented in this encounter Additional Health Concerns Assessment Noted Time PHQ-2 Depression Total Score: 1 10/02/19 21 10:08 AM EDT documented as of this encounter Care Teams Nba Player Relationship Specialty Start Date End Date Jack León MD [address] [place] [address], [address] [place] [address] PCP - General Internal Medicine 12/24/18 Jack León MD [address] [place] [address], [address] [address] Insurance Assigned Provider 09/22/23 Gladys Lara, OT [address] [place] [address] Transitions Icicle Machine OperatorPatents Examiner Therapy 09/26/2206/09 documented as of this encounter Additional Source Comments The information contained in this document represents components of the legal health record. It is not the complete legal health record.[facility]
--- OUTSIDE RECORDS SUMMARY | 2025-04-16 11:15 | XMS_ITS | Encounter Summary ---
Author Organization [facility] Address [address] [facility] [address] [place] [address] Phone Care Team Providers Care Applications Sales Representative Name Role Phone Jack León MD Primary Care Provider [phone] Jack León MD Unavailable [phone] Gladys Lara OT Unavailable Encounter Details Date Type Department Care Team (Latest Contact Info) Description 04/24/2022 Ancillary Orders [facility] Medical [facility] [address] [place] [address] Jack León MD 22 [facility], [address] [place] [address] [email or web address] Medicare annual wellness visit, [...] Info) Description 04/21/2025 10:40 AM EST Telemedicine [facility] CL[facility] SUPPORT 2 [place] [address] Maggie Crook CNP 2 [facility] [address] [place] [phone] 07/01/2025 11:15 AM EST Office Visit [facility] Gastroenterology Clinic 10 [place] [address] Ema Mars PA-C 10 [facility]. [facility] 2 [place] [address] documented as of this encounter Results * [...] microcalcifications. Progression of vascular calcifications since 2019. Jack León MD IMG MG EXAMS Final Result documented in this encounter Visit Diagnoses Diagnosis Medicare annual wellness visit, subsequent Medicare annual wellness visit, subsequent documented in this encounter Additional Health Concerns Assessment Noted Time PHQ-2 Depression Total Score: 1 10/02/19 21 10:08 AM EDT documented as of this encounter Care Teams Applications Sales Representative Relationship Specialty Start Date End Date Jack León MD [address] [place] [address], [address] [address] PCP - General Internal Medicine 12/24/18 Jack León MD [address] [place] [address], [address] [place] [address] Insurance Assigned Provider 09/22/23 Gladys Lara, OT [address] [place] [address] Transitions B2B Sales ExecutiveInformation Systems Manager Therapy 09/26/2206/09 documented as of this encounter Additional Source Comments The information contained in this document represents components of the legal health record. It is not the complete legal health record.[facility]
--- OUTSIDE RECORDS SUMMARY | 2025-04-16 11:15 | XMS_ITS | Encounter Summary ---
Author Organization [facility] Address [email or web address] [place] [address] Phone Care Team Providers Care Plant Maintenance Manager Name Role Phone Jack León MD Primary Care Provider [phone] Jack León MD Unavailable [phone] Encounter Details Date Type Department Care Team (Late st Contact Info) Description 05/15/2024 Procedure Pass [facility], Ct Scan - [address] [address] Social History Tobacco Use Types Packs/Day Years [...] Info) Description 04/21/2025 10:40 AM EST Telemedicine [facility] CL[facility] SUPPORT 2 [place] [address] Maggie Crook CNP [address] [place] [address] [phone] 07/01/2025 11:15 AM EST Office Visit [facility] Gastroenterology Clinic [address] [place] [address] Ema Mars PA-C [address] [place] [address] documented as of this encounter Visit Diagnoses Not on filedocumented in this encounter Additional Health Concerns Assessment Noted Time PHQ-2 Depression Total Score: 1 10/02/19 21 10:08 AM EDT documented as of this encounter Care Teams Plant Maintenance Manager Relationship Specialty Start Date End Date Jack León MD 22 [facility], [address] [place] [address] PCP - General Internal Medicine 12/24/18 Jack León MD [address] [place] [address], [address] [place] [address] [email or web address] Insurance Assigned Provider 09/22/23 documented as of this encounter Additional Source Comments The information contained in this document represents components of the legal health record. It is not the complete legal health record.[facility]
--- OUTSIDE RECORDS SUMMARY | 2025-04-16 11:15 | XMS_ITS | Encounter Summary ---
Author Organization [facility] Address [address] [place] [address] Phone Care Team Providers Care Clerical Adviser Name Role Phone Jack León MD Primary Care Provider [phone] Jack León MD Unavailable [phone] Encounter Details Date Type Department Care Team (Latest Contact Info) Description 04/25/2023 Transcribe Orders [facility] [address] [address] Georgie Cunningham PA-C [address], [address] [place] [address] [email or web address] Celiac disease (Primary Dx); Change in bowel [...] Info) Description 04/21/2025 10:40 AM EST Telemedicine [facility] SUPPORT 2 [place] [address] Maggie Crook CNP 2 [place] [address] [facility] [address] [place] [phone] 07/01/2025 11:15 AM EST Office Visit [facility] 10 [place] [address] Ema Mars PA-C [address] [address] documented as of this encounter Results * (ABNORMAL) Pancreatic Elastase, Stool (04/26/2023 9:57 AM EST) Pancreatic Elastase, Feces 166(L) >200 (Normal) mcg/g [facility] Comment: (NOTE) Interpretation: Borderline (100-200 mcg/g); Consistent with slight to moderate pancreatic insufficiency Stool (Stool) 04/26/2023 9:5 7 AM EST 04/26/2023 10:00 AM EST Georgie Cunningham PA-C BODY FLUIDS AND STOOLS ORDERABL ES Final Result Performing Organization Address City/[facility]/ZIP Co de Phone Number [facility] [address] [place] [address] * Stool fat/fiber exam (04/26/2023 9:57 AM EST) FATTY ACID NORMAL NORMAL [facility] Neutral Fat, stool NORMAL NORMAL [facility] Stool (Stool) 04/26/2023 9:5 7 AM EST 04/26/2023 10:01 AM EST us Georgie Cunningham PA-C BODY FLUIDS AND STOOLS ORDERABL ES Final Result Performing Organization Address [facility] Co de Phone Number [facility] [address] [place] [address] * (ABNORMAL) Calprotectin, stool (04/26/2023 9:57 AM EST) STOOL CALPROTECTIN 232(H) mcg/g [facility] Comment: (NOTE) Reference Range: <50 [...] ORDERABL ES Final Result Performing Organization Address City/[facility] Co de Phone Number [facility] [address] [place] [address], [facility] [phone] * C. DIFFICILE PCR (04/26/2023 9:57 AM EST) C.DIFFICILE PCR Negative Negative [facility] C.DIFFICILE STRAIN PRESUMPTIVE NEGATIVE PRESUMPTIVE NEGATIVE [facility] Comment:Detection of 027/NAP 1/BI strains of C.difficile is presumptive and is solely for epidemiological purposes and is not intended to guide or monitor treatment of infections. Stool (Stool) 04/26/2023 9:5 7 AM EST 04/26/2023 10:01 AM EST Georgie Cunningham PA-C MICROBIOLOGY - GENERAL ORDERABL ES Final Result Performing Organization Address [facility] Co de Phone Number [address] [address] * 25-OH vitamin D (04/25/2023 11:00 AM EST) 25 [place] VIT D (TOTAL) 41 30 - 60 ng/mL [facility] Blood 04/25/2023 11:0 0 AM EST 04/25/2023 11:12 AM EST us Georgie Cunningham PA-C LAB BLOOD ORDERABLES Final Resu lt Performing Organization Address [facility] de Phone Number [address] [address] * Vitamin B12 (04/25/2023 11:00 AM EST) VITAMIN B12 311 232 - 1,245 pg/mL [facility] Blood 04/25/2023 11:0 0 AM EST 04/25/2023 11:12 AM EST Georgie Cunningham PA-C LAB BLOOD ORDERABLES Final Resu lt Performing Organization Address [facility] de Phone Number [address] [address] * Folate (04/25/2023 11:00 AM EST) FOLIC ACID 17.4 4.2 - 19.9 ng/mL [facility] Blood 04/25/2023 11:0 0 AM EST 04/25/2023 11:12 AM EST us Georgie Cunningham PA-C LAB BLOOD ORDERABLES Final Resu lt Performing Organization Address [facility] Co de Phone Number [address] [address] * Ferritin (04/25/2023 11:00 AM EST) FERRITIN 56 13 - 150 ug/L [facility] Blood 04/25/2023 11:0 0 AM EST 04/25/2023 11:12 AM EST us Georgie Cunningham PA-C LAB BLOOD ORDERABLES Final Resu lt Performing Organization Address [facility] Phone Number [address] [address] * TSH (04/25/2023 11:00 AM EST) TSH 0.98 0.27 - 4.20 uIU/mL [facility] Blood 04/25/2023 11:0 0 AM EST 04/25/2023 11:12 AM EST us Georgie Cunningham PA-C LAB BLOOD ORDERABLES Final Resu lt Performing Organization Address [facility] Phone Number [address] [address] * Iron and iron binding capacity (04/25/2023 11:00 AM EST) IRON 66 30 - 160 ug/dL [facility] IRON BINDING CAPACITY 305 228 - 428 ug/dL [facility] TRANSFERRIN SATURAT. 22 15 - 50 % [facility] Blood 04/25/2023 11:0 0 AM EST 04/25/2023 11:12 AM EST us Georgie Cunningham PA-C LAB BLOOD ORDERABLES Final Resu lt Performing Organization Address City/[facility]/ZIP Co de Phone Number [address] [address] * Lipase (04/25/2023 11:00 AM EST) LIPASE 29 16 - 63 U/L [facility] Blood 04/25/2023 11:0 0 AM EST 04/25/2023 11:12 AM EST us Georgie SAEED-C LAB BLOOD ORDERABLES Final Resu lt Performing Organization Address [facility]/ZIP Co de Phone Number [address] [address] * C-Reactive Protein (04/25/2023 11:00 AM EST) C REACTIVE PROTEIN 3.1 0.0 - 4.0 mg/L [facility] Blood 04/25/2023 11:0 0 AM EST 04/25/2023 11:12 AM EST us Georgie Cunningham PA-C LAB BLOOD ORDERABLES Final Resu lt Performing Organization Address City/[facility]/ZIP Co de Phone Number [address] [address] * Comprehensive metabolic panel (04/25/2023 11:00 AM EST) SODIUM 141 133 - 146 mmol/L [facility] POTASSIUM 4.9 3.3 - 5.1 mmol/L [facility] CHLORIDE 104 96 - 108 mmol/L [facility] CO2 24 21 - 35 mmol/L [facility] BUN 13 6 - 19 mg/dL [facility] CREATININE 0.70 0.5 - 1.5 mg/dL [facility] GLUCOSE 82 70 - 99 mg/dL [facility] ALBUMIN 4.3 3.9 - 4.8 g/dL [facility] TOTAL PROTEIN 7.0 6.5 - 8.0 g/dL [facility] CALCIUM 10.1 8.4 - 10.3 mg/dL [facility] ALKALINE PHOSPHATASE 111 39 - 117 U/L [facility] TOTAL BILIRUBIN 0.3 0.0 - 1.2 mg/dL [facility] AST 19 0 - 37 U/L [facility] ALT <5 0 - 40 U/L [facility] GLOBULIN 2.7 1 - 4.8 g/dL [facility] EGFR 86 >59 mL/min/1.7 3m2 [facility] Comment:Estimated glomerular filtration rate calculated using the CKD-EPI refit equation. ANION GAP 18 10 - 20 mmol/L [facility] Blood 04/25/2023 11:0 0 AM EST 04/25/2023 11:12 AM EST us Georgie Cunningham PA-C LAB BLOOD ORDERABLES Final Resu lt Performing Organization Address City/[facility]/ZIP Co de Phone Number [address] [address] * (ABNORMAL) CBC (04/25/2023 11:00 AM EST) WBC 6.99 4.00 - 11.00 K/uL [facility] RBC 4.05 3.72 - 5.30 M/uL [facility] HGB 12.0 11.4 - 15.9 g/dL [facility] HCT 39.2 34.2 - 46.8 % [facility] PLT 433(H) 140 - 430 K/uL [facility] MCV 96.8 78.0 - 97.0 fL [facility] MCH 29.6 25.0 - 33.0 pg [facility] MCHC 30.6(L) 32.0 - 36.0 g/dL [facility] RDW 14.8 11.0 - 16.0 % [facility] MPV 10.4 8.4 - 12.8 fl [facility] Blood 04/25/2023 11:0 0 AM EST 04/25/2023 11:12 AM EST us Georgie Cunningham PA-C LAB BLOOD ORDERABLES Final Resu lt [address] [address] * Immunoglobulin A (04/25/2023 11:00 AM EST) IgA 115 70 - 400 mg/dL [facility] Blood 04/25/2023 11:0 0 AM EST 04/25/2023 11:12 AM EST Georgie Cunningham PA-C LAB BLOOD ORDERABLES Final Resu lt Performing Organization Address City/[facility]/ZIP Co de Phone Number [facility] [address] [place] [address] * Tissue transglutaminase IgA (04/25/2023 11:00 AM EST) TTG IGA ANTIBODY <1.2 <4.0 (Negative) U/mL [facility] Blood 04/25/2023 11:0 0 AM EST 04/25/2023 11:14 AM EST Georgie Cunningham PA-C LAB BLOOD ORDERABLES Final Resu lt Performing Organization Address City/[facility]/ZIP Co de Phone Number [facility] MED/[facility] [address] [place] [address] documented in this encounter Visit Diagnoses Diagnosis Celiac disease- Primary Change in bowel habits Other symptoms involving digestive system documented in this encounter Additional Health Concerns Assessment Noted Time PHQ-2 Depression Total Score: 1 10/02/19 21 10:08 AM EDT documented as of this encounter Care Teams Clerical Adviser Relationship Specialty Start Date End Date Jack León MD [address] [place] [address], [address] [place] [address] PCP - General Internal Medicine 12/24/18 Jack León MD [address] [place] [address], [address] [place] [address] Insurance Assigned Provider 09/22/23 documented as of this encounter Additional Source Comments The information contained in this document represents components of the legal health record. It is not the complete legal health record.[facility]
--- OUTSIDE RECORDS SUMMARY | 2025-04-16 11:15 | XMS_ITS | Encounter Summary ---
Author Organization [facility] Address [address] [place] [address] Phone Care Team Providers Care Garbage Collection Supervisor Name Role Phone Jack León MD Primary Care Provider [phone] Jack León MD Unavailable [phone] Gladys Lara OT Unavailable [phone] Encounter Details Date Type Department Care Team (Late Contact Info) Description 01/15/2019 Ancillary Orders [facility],Outside Imaging [address] [place] [address] System, Provider Not In, [facility] [address] [address] Social History Tobacco Use Types Packs/Day Years [...] Info) Description 04/21/2025 10:40 AM EST Telemedicine [facility] 2 [place] [address] Maggie Crook CNP 2 [facility] [address] [place] [address] 07/01/2025 11:15 AM EST Office Visit [facility] G[facility]enterology Clinic 10 [place] [address] Ema Mars PA-C [address] [address] [email or web address] documented as of this encounter Results * [...] documented as of this encounter Care Teams Garbage Collection Supervisor Relationship Specialty Start Date End Date Jack León MD [address] [place] [address], [address] [place] [address] PCP - General Internal Medicine 12/24/18 Jack León MD [address] [place] [address], [address] [place] [address] Insurance Assigned Provider 09/22/23 Gladys Lara, OT [address] [place] [address] [email or web address] Transitions Research Management AssociateMold Press Operator Therapy 09/26/2206/09 documented as of this encounter Additional Source Comments The information contained in this document represents components of the legal health record. It is not the complete legal health record.[facility]
--- OUTSIDE RECORDS SUMMARY | 2025-04-16 11:15 | XMS_ITS | Encounter Summary ---
Author Organization [facility] Address [address] [place] [address] Phone Care Team Providers Care Continuity Tester Name Role Phone Jack León MD Primary Care Provider [phone] Jack León MD Unavailable [phone] Encounter Details Date Type Department Care Team (Late st Contact Info) Description 02/16/2023 Ancillary Orders [facility] Orthopedics & Sports Medicine [address] [place] [address] Candy Shirley MD [address] [place] [address] Orthopedics & Sports Medicine, [facility] [place], [place] [phone] [email or web address] Social History Tobacco Use Types Packs/Day Years [...] Info) Description 04/21/2025 10:40 AM EST Telemedicine [facility] CLINIC SUPPORT 2 [place] [address] Maggie Crook CNP [address] [phone] 07/01/2025 11:15 AM EST Office Visit [facility] Gastroenterology Clinic 10 [place] [address] Ema Mars PA-C [address] [address] documented as of this encounter Visit Diagnoses Not on filedocumented in this encounter Additional Health Concerns Assessment Noted Time PHQ-2 Depression Total Score: 1 10/02/19 21 10:08 AM EDT documented as of this encounter Care Teams Continuity Tester Relationship Specialty Start Date End Date Jack León MD [address] [place] [address], [address] [place], [place] [phone] [email or web address] PCP - General Internal Medicine 12/24/18 Jack León MD [address] [place] [address], [address] [place] [address] [email or web address] Insurance Assigned Provider 09/22/23 documented as of this encounter Additional Source Comments The information contained in this document represents components of the legal health record. It is not the complete legal health record.[facility]
--- OUTSIDE RECORDS SUMMARY | 2025-04-16 11:15 | XMS_ITS | Encounter Summary ---
Author Organization [facility] Address [address] [place] [address] Phone Care Team Providers Care Balloon Artist Name Role Phone Jack León MD Primary Care Provider [phone] Jack León MD Unavailable [phone] Gladys Lara OT Unavailable [phone] Encounter Details Date Type Department Care Team (Late st Contact Info) Description 08/25/2022 Ancillary Orders [facility] Orthopedics & Sports Medicine [address] [place] [address] Candy Shirley MD [address] [place] [address] Orthopedics & Sports Medicine, [facility] [place], [place] [phone] [email or web address] Social History Tobacco Use [...] Info) Description 04/21/2025 10:40 AM EST Telemedicine [facility] VIRTUAL CLINIC SUPPORT 2 [place] [address] Maggie Crook CNP 2 [facility] [address] [place] [address] 07/01/2025 11:15 AM EST Office Visit [facility]enterology Clinic 10 [place] [address] Ema Mars PA-C [address] [address] [email or web address] documented as of this encounter Visit Diagnoses Not on filedocumented in this encounter Additional Health Concerns Assessment Noted Time PHQ-2 Depression Total Score: 1 10/02/19 21 10:08 AM EDT documented as of this encounter Care Teams Balloon Artist Relationship Specialty Start Date End Date Jack León MD [address] [place] [address] PCP - General Internal Medicine 12/24/18 Jack León MD [address] [place] [address] Insurance Assigned Provider 09/22/23 Gladys Lara, OT [address] [place] [address] [email or web address] Transitions Property Management InternLicensed Retail Supervisor Therapy 09/26/2206/09 documented as of this encounter Additional Source Comments The information contained in this document represents components of the legal health record. It is not the complete legal health record.[facility]
--- OUTSIDE RECORDS SUMMARY | 2025-04-16 11:15 | XMS_ITS | Encounter Summary ---
Author Organization [facility] Address [address] [place] [address] Phone Care Team Providers Care Die Stamping Press Operator Name Role Phone Jack León MD Primary Care Provider [phone] Jack León MD Unavailable [phone] Gladys Lara OT Unavailable [phone] Encounter Details Date Type Department Care Team (Late st Contact Info) Description 10/01/2020 Procedure Pass [facility], [address] [address] Social History Tobacco Use Types Packs/Day Years [...] EST Telemedicine [facility] VIRTUAL CLINIC SUPPORT [address] [place], [place] [phone] Maggie Crook CNP 2 [facility] [address] [place] [phone] 07/01/2025 11:15 AM EST Office Visit [facility] Gastroenterology Clinic 10 [place] [address] Ema Mars PA-C 10 [facility] 2 [place] [address] documented as of this encounter Visit Diagnoses Not on filedocumented in this encounter Additional Health Concerns Assessment Noted Time PHQ-2 Depression Total Score: 1 10/02/19 21 10:08 AM EDT documented as of this encounter Care Teams Die Stamping Press Operator Relationship Specialty Start Date End Date Jack León MD [address] [place] [address], [address] [place] [address] PCP - General Internal Medicine 12/24/18 Jack León MD [address] [place] [address], [address] [address] Insurance Assigned Provider 09/22/23 Gladys Lara, OT [address] [place] [address] Transitions Supervisory Air Intercept ControllerFacility Environmental Technician Therapy 09/26/2206/09 documented as of this encounter Additional Source Comments The information contained in this document represents components of the legal health record. It is not the complete legal health record.[facility]
--- OUTSIDE RECORDS SUMMARY | 2025-04-16 11:15 | XMS_ITS | Encounter Summary ---
Author Organization [facility] Address [address] [place] [address] Phone Care Team Providers Care Systems Testing Laboratory Technician Name Role Phone Jack León MD Primary Care Provider [phone] Jack León MD Unavailable [phone] Encounter Details Date Type Department Care Team (Late st Contact Info) Description 02/16/2023 Ancillary Orders [address] [phone] Candy Shirley MD [address] [place] [address] Orthopedics & Sports Medicine, [place], [place] [phone] [email or web address] Right shoulder pain, unspecified chronicity [...] Info) Description 04/21/2025 10:40 AM EST Telemedicine [facility] CLINIC SUPPORT 2 [place] [address] Maggie Crook CNP 2 [facility] 180 [place] [phone] 07/01/2025 11:15 AM EST Office Visit [facility] G[facility] Clinic 10 [place] [address] Ema Mars PA-C [address] [address] Pending Results Name Type Priority Associated Diagnoses [...] documented as of this encounter Care Teams Systems Testing Laboratory Technician Relationship Specialty Start Date End Date Jack León MD [address] [place] [address], [address] [place] [address] [email or web address] PCP - General Internal Medicine 12/24/18 Jack León MD [address] [place] [address], [address] [place] [address] [email or web address] Insurance Assigned Provider 09/22/23 documented as of this encounter Additional Source Comments The information contained in this document represents components of the legal health record. It is not the complete legal health record.[facility]
--- OUTSIDE RECORDS SUMMARY | 2025-04-16 11:15 | XMS_ITS | Encounter Summary ---
Author Organization [facility] Address [address] [place] [address] Phone Care Team Providers Care Wash Oil Pump Operator Helper Name Role Phone Jack León MD Primary Care Provider [phone] Jack León MD Unavailable [phone] Gladys Lara OT Unavailable [phone] Encounter Details Date Type Department Care Team (Late Contact Info) Description 01/15/2019 Ancillary Orders [facility],Outside Imaging 30 [place] [address] System, Provider Not In, [facility] [address] [address] Social History Tobacco Use Types Packs/Day Years [...] Info) Description 04/21/2025 10:40 AM EST Telemedicine [facility] 2 [place] [address] Maggie Crook CNP 2 [facility] [address] [place] [address] 07/01/2025 11:15 AM EST Office Visit [facility] Gastroenterology Clinic 10 [place] [address] Ema Mars PA-C [address] [address] [email or web address] documented as of this encounter Results * [...] documented as of this encounter Care Teams Wash Oil Pump Operator Helper Relationship Specialty Start Date End Date Jack León MD [address] [place] [address], [address] [place] [address] PCP - General Internal Medicine 12/24/18 Jack León MD [address] [place] [address], [address] [place] [address] Insurance Assigned Provider 09/22/23 Gladys Lara, OT [address] [place] [address] [email or web address] Transitions Grill AssociateJob Placement Counselor Therapy 09/26/2206/09 documented as of this encounter Additional Source Comments The information contained in this document represents components of the legal health record. It is not the complete legal health record.[facility]
--- OUTSIDE RECORDS SUMMARY | 2025-04-16 11:15 | XMS_ITS | Encounter Summary ---
Author Organization [facility] Address [address] [place] [address] Phone Care Team Providers Care District Loss Prevention Manager Name Role Phone Jack León MD Primary Care Provider [phone] Jack León MD Unavailable [phone] Reason for Visit * Reason Onset Date Comments Care Coordination 04/15/2025 [facility] [place] [facility] [place] Outreach Encounter Details Date Type Department Care Team (Late st Contact Info) Description 04/15/2025 Telephone [facility] -[facility] TEAM [address] [place] [address] Jack León MD [address] [place] [address] [email or web address] Care Coordination ([facility] Virtual AWV Outreach/) Social History Tobacco Use Types Packs/Day Years [...] PM EST documented as of this encounter Progress Notes * Pooja Harkins - 04/15/2025 9:50 AM EDT [facility] Service Organization ([facility]) Annual Wellness Project: Patient has been identified as an individual who would benefit from a virtual Annual Wellness Visitthrough the [facility]. Patient consented to the visit. Patient has been scheduled for Virtual Care Support Program . [facility]ins [facility] District Loss Prevention Manager documented in this encounter Plan of Treatment Upcoming Encounters Date Type Department Care Team (Late st Contact Info) Description 04/21/2025 10:40 AM EST Telemedicine [facility] VIRTUAL CLINIC SUPPORT 2 [place] [address] Maggie Crook, POONAM 2 Your Office Agent [facility] [address] [place] [address] 07/01/2025 11:15 AM EST Office Visit [facility] 10 [place] [address] Ema Mars PA-C [address] [address] documented as of this encounter Visit Diagnoses Not on filedocumented in this encounter Additional Health Concerns Assessment Noted Time PHQ-2 Depression Total Score: 1 10/02/19 21 10:08 AM EDT documented as of this encounter Care Teams District Loss Prevention Manager Relationship Specialty Start Date End Date Jack León MD [address] [place] [address], [address] [place] [address] PCP - General Internal Medicine 12/24/18 Jack León MD [address] [place] [address], [address] [place] [address] Insurance Assigned Provider 09/22/23 documented as of this encounter Additional Source Comments The information contained in this document represents components of the legal health record. It is not the complete legal health record.[facility]
--- OUTSIDE RECORDS SUMMARY | 2025-04-16 11:15 | XMS_ITS | Encounter Summary ---
Author Organization [facility] Address [address] [place] [address] Phone Care Team Providers Care Sign Carpenter Name Role Phone Jack León MD Primary Care Provider [phone] Jack León MD Unavailable Encounter Details Date Type Department Care Team (Late st Contact Info) Description 10/11/2023 Prep for Surgery [facility] [address] [place] [address] Keo Shane, DO 4 [facility] Orth[facility]ics [facility], [facility] [place], [place] [phone] [email or web address] Social History [...] 12:00 PM EDT Julia Eugene RN * [place] Suicide Severity Rating Scale (Screener/Recent Self-Report) Question [...] Telemedicine [facility] VIRTUAL CLINIC SUPPORT 2 [place] [address] Maggie Crook CNP 2 [facility] [address] [place] [address] 07/01/2025 11:15 AM EST Office Visit [facility] Gastroenterology Clinic 10 [place] [address] Ema Mars PA-C [address] [address] [email or web address] documented as of this encounter Visit Diagnoses Not on filedocumented in this encounter Additional Health Concerns Assessment Noted Time PHQ-2 Depression Total Score: 1 10/02/19 21 10:08 AM EDT documented as of this encounter Care Teams Sign Carpenter Relationship Specialty Start Date End Date Jack León MD [address] [facility], [address] [place] [address] [email or web address] PCP - General Internal Medicine 12/24/18 Jack León MD [address] [place] [address], [address] [place] [address] [email or web address] Insurance Assigned Provider 09/22/23 documented as of this encounter Additional Source Comments The information contained in this document represents components of the legal health record. It is not the complete legal health record.[facility]
--- OUTSIDE RECORDS SUMMARY | 2025-04-16 11:15 | XMS_ITS | Encounter Summary ---
Author Organization [email or web address] Address [address] [place] [address] Phone Care Team Providers Care Supervisor Coke Handling Name Role Phone Jack León MD Primary Care Provider [phone] Jack León MD Unavailable [phone] Gladys Lara OT Unavailable [phone] Encounter Details Date Type Department Care Team (Late st Contact Info) Description 09/25/2022 Procedure Pass OR Admitting Dept - Virtual Department [address] [place] [address] Social History Tobacco Use Types Packs/Day Years [...] 5:00 PM EDT Amee Peterson RN * [place] Suicide Severity Rating Scale (Screener/Recent Self-Report) Question [...] Info) Description 04/21/2025 10:40 AM EST Telemedicine [facility] CLINIC SUPPORT 2 [place] [address] Maggie Crook CNP [address] [phone] 07/01/2025 11:15 AM EST Office Visit [facility] 10 [place] [address] Ema Mars PA-C [address] [address] [email or web address] documented as of this encounter Visit Diagnoses Not on filedocumented in this encounter Additional Health Concerns Assessment Noted Time PHQ-2 Depression Total Score: 1 10/02/19 21 10:08 AM EDT documented as of this encounter Care Teams Supervisor Coke Handling Relationship Specialty Start Date End Date Jack León MD [address] [place] [address], [address] [place] [address] [email or web address] PCP - General Internal Medicine 12/24/18 Jack León MD [address] [place] [address], [address] [place] [address] [email or web address] Insurance Assigned Provider 09/22/23 Gladys Lara, OT [address] [place] [address] [email or web address] Transitions Supervisor FertilizerPot Operator Therapy 09/26/2206/09 documented as of this encounter Additional Source Comments The information contained in this document represents components of the legal health record. It is not the complete legal health record.[facility]
--- OUTSIDE RECORDS SUMMARY | 2025-04-16 11:15 | XMS_ITS | Encounter Summary ---
Author Organization [facility] Address [address] [place] [address] Phone Care Team Providers Care Software Lead Name Role Phone Jack León MD Primary Care Provider [phone] Jack León MD Unavailable [phone] Gladys Lara OT Unavailable [phone] Encounter Details Date Type Department Care Team (Late Contact Info) Description 01/15/2019 Ancillary Orders [facility],Outside Imaging 30 [place] [address] System, Provider Not In, [facility] [address] [address] Social History Tobacco Use Types Packs/Day Years [...] Info) Description 04/21/2025 10:40 AM EST Telemedicine [facility] 2 [place] [address] Maggie Crook CNP 2 [facility] [address] [place] [address] 07/01/2025 11:15 AM EST Office Visit [facility] 10 [place] [address] Ema Mars PA-C [address] [address] [email or web address] documented as [...] documented as of this encounter Care Teams Software Lead Relationship Specialty Start Date End Date Jack León MD [address] [place] [address], [address] [place] [address] PCP - General Internal Medicine 12/24/18 Jack León MD [address] [place] [address], [address] [place] [address] Insurance Assigned Provider 09/22/23 Gladys Lara, OT [address] [place] [address] [email or web address] Transitions Orchard HandCritical Care Transport Nurse Therapy 09/26/2206/09 documented as of this encounter Additional Source Comments The information contained in this document represents components of the legal health record. It is not the complete legal health record.[facility]
--- OUTSIDE RECORDS SUMMARY | 2025-04-16 11:15 | XMS_ITS | Encounter Summary ---
Author Organization [facility] Address [address] [place] [address] Phone Care Team Providers Care Photographer Finish Name Role Phone Jack León MD Primary Care Provider [phone] Jack León MD Unavailable [phone] Encounter Details Date Type Department Care Team (Late st Contact Info) Description 10/11/2023 Procedure Pass OR Admitting Dept - Virtual Department 30 [place] [address] Social History Tobacco Use Types Packs/Day Years [...] 12:00 PM EDT Julia Eugene RN * [place] Suicide Severity Rating Scale (Screener/Recent Self-Report) Question Answer Date of Assessment Author 1. Wish to be (Past 1 Month) No 024 12:00 PM EDT Julia Roe, LIZY 2. Non-Specific Active Suici devon Thoughts (Past 1 Month) No 10/11/2023 12:00 PM EDT Aleena Roe RN 6. Suicidal Behavior (Lifetime) No 12:00 PM EDT Julia Roe RN documented as of this encounter Plan of Treatment Upcoming Encounters Date Type Department Care Team (Late st Contact Info) Description 04/21/2025 10:40 AM EST Telemedicine [facility]IN[facility] SUPPORT 2 [place] [address] Maggie Crook CNP 2 [facility] [address] [place] [phone] 07/01/2025 11:15 AM EST Office Visit [facility] Gastroenterology Clinic 10 [place] [address] Ema Mars PA-C [address] [address] [email or web address] documented as of this encounter Visit Diagnoses Not on filedocumented in this encounter Additional Health Concerns Assessment Noted Time PHQ-2 Depression Total Score: 1 10/02/19 21 10:08 AM EDT documented as of this encounter Care Teams Photographer Finish Relationship Specialty Start Date End Date Jack León MD 22 [facility], [address] [place] [address] [email or web address] PCP - General Internal Medicine 12/24/18 Jack León MD [address] [place] [address], [address] [place] [address] [email or web address] Insurance Assigned Provider 09/22/23 documented as of this encounter Additional Source Comments The information contained in this document represents components of the legal health record. It is not the complete legal health record.[facility]
--- OUTSIDE RECORDS SUMMARY | 2025-04-16 11:15 | XMS_ITS | Encounter Summary ---
Author Organization [employer] [facility] Address [address] [place] [address] Phone Care Team Providers Care Cut Out Stitcher Name Role Phone Jack León MD Primary Care Provider [phone] Jack León MD Unavailable [phone] Encounter Details Date Type Department Care Team (Late st Contact Info) Description 01/17/2024 Procedure Pass [facility], Ct Scan - [address] [address] Social History Tobacco Use Types Packs/Day Years [...] Info) Description 04/21/2025 10:[address] [facility] CLINIC SUPPORT 2 [place] [address] Maggie Crook CNP [address] [phone] 07/01/2025 11:15 AM EST Office Visit [facility] Gastroenterology Clinic [address] [place] [address] Ema Mars PA-C [address] [place] [address] documented as of this encounter Visit Diagnoses Not on filedocumented in this encounter Additional Health Concerns Assessment Noted Time PHQ-2 Depression Total Score: 1 10/02/19 21 10:08 AM EDT documented as of this encounter Care Teams Cut Out Stitcher Relationship Specialty Start Date End Date Jack León MD 22 [facility], [address] [place] [address] PCP - General Internal Medicine 12/24/18 Jack León MD [address] [place] [address], [address] [place] [address] [email or web address] Insurance Assigned Provider 09/22/23 documented as of this encounter Additional Source Comments The information contained in this document represents components of the legal health record. It is not the complete legal health record.[facility]
--- OUTSIDE RECORDS SUMMARY | 2025-04-16 11:15 | XMS_ITS | Encounter Summary ---
Author Organization [employer] [facility] Address [address] [place] [address] Phone Care Team Providers Care Software Writer Name Role Phone Jack León MD Primary Care Provider [phone] Jack León MD Unavailable [phone] Encounter Details Date Type Department Care Team (Late st Contact Info) Description 04/04/2023 Procedure Pass [facility], Ct Scan - [address] [address] Social History Tobacco Use Types Packs/Day Years [...] EST Telemedicine [facility] VIRTUAL CLINIC SUPPORT [address] [place] [address] Maggie Crook CNP [address] [place] [phone] 07/01/2025 11:15 AM EST Office Visit [facility] Gastroenterology Clinic 10 [place] [address] Ema Mars PA-C [address] [address] documented as of this encounter Visit Diagnoses Not on filedocumented in this encounter Additional Health Concerns Assessment Noted Time PHQ-2 Depression Total Score: 1 10/02/19 21 10:08 AM EDT documented as of this encounter Care Teams Software Writer Relationship Specialty Start Date End Date Jack León MD [address] [place] [address], [address] [address] PCP - General Internal Medicine 12/24/18 Jack León MD [address] [place] [address] Insurance Assigned Provider 09/22/23 documented as of this encounter Additional Source Comments The information contained in this document represents components of the legal health record. It is not the complete legal health record.[facility]
== END 2025-04-16 10:22 | disposition home or self-care (01) ==
LOC: HO.HCS 09:38
PROVIDERS: PCP Internal Medicine; Visit Provider Nurse Practitioner Family
DX: I25.10 Atherosclerotic heart disease of native coronary artery without angina pectoris (principal); R06.02 Shortness of breath; I35.0 Nonrheumatic aortic (valve) stenosis; I34.0 Nonrheumatic mitral (valve) insufficiency; I65.23 Occlusion and stenosis of bilateral carotid arteries; E78.5 Hyperlipidemia, unspecified; Z01.810 Encounter for preprocedural cardiovascular examination
CPT/HCPCS: 93010; 99214; G2211

== ENCOUNTER → 2025-04-16 09:37 | Outpatient (BNVA) | payer MEDICARE, OTHER, SELFPAY | PROVIDERS: PCP Internal Medicine; Visit Provider Nurse Practitioner Family | DX: Z01.810 Encounter for preprocedural cardiovascular examination (principal); K43.2 Incisional hernia without obstruction or gangrene; I25.10 Atherosclerotic heart disease of native coronary artery without angina pectoris; I65.23 Occlusion and stenosis of bilateral carotid arteries; E78.5 Hyperlipidemia, unspecified; I34.0 Nonrheumatic mitral (valve) insufficiency; I35.0 Nonrheumatic aortic (valve) stenosis; Z87.891 Personal history of nicotine dependence | CPT/HCPCS: 93005; 99212 ==

== ENCOUNTER → 2025-05-29 08:16 | Outpatient (REF) | payer MEDICARE, OTHER, SELFPAY ==
--- NOTE | 2025-05-29 08:18 | CA_ITS ---
Acquisition Time: 2025-05-29 09:02:31 Total Exercise Time: 00:02:00 Test Indications: CAD,Dyspnea,Pre-Op Evaluation Medications: ALBUTEROL INHALER ASA CITALOPRAM OMEPRAZOLE TRELEGY ROSUVASTATIN GEMTESA Protocol: LEXISCAN Max HR: 120 BPM 88% of Pred: 136 BPM Max BP: 144/76 mmHG Max Work Load: 1.0 METS Pharmacological stres stest with Lexiscan while pt marchs in her chair, with reports of feeling weird in her head, without any arrythmias, with normotensive response to injection. Nondiagnostic EKG for ischemia. In recovery, pt treated with IVP Aminophylline 75 mg to reverse Lexiscan after which pt feeling back to baseline. Nuclear images pending. Test reviewed with Dr. Negrete. Referred By: Michelle Donald Electronically Signed By: Abhijit Cohn
== END ==
LOC: HO.CARD 08:16
PROVIDERS: PCP Internal Medicine; Visit Provider Nurse Practitioner Family
DX: Z01.810 Encounter for preprocedural cardiovascular examination (principal); I35.0 Nonrheumatic aortic (valve) stenosis; I25.10 Atherosclerotic heart disease of native coronary artery without angina pectoris; R06.02 Shortness of breath; Z79.899 Other long term (current) drug therapy; Z79.51 Long term (current) use of inhaled steroids
CPT/HCPCS: 93017; J0280; J2785

== ENCOUNTER → 2025-05-29 08:18 | Outpatient (BNV) | payer MEDICARE, OTHER, SELFPAY | PROVIDERS: PCP Internal Medicine | DX: I25.10 Atherosclerotic heart disease of native coronary artery without angina pectoris (principal); R06.02 Shortness of breath | CPT/HCPCS: 78452; 93016; 93018 ==